=== PATIENT | female | born 1985 | race Caucasian/White ===

== ENCOUNTER 2020-06-13 11:40 | Outpatient (REF) | payer MEDICARE, SELFPAY ==
[2020-06-13 13:33] LABS: Lithium 0.49 mmol/L (0.60-1.20)
[2020-06-13 13:38] LABS: Anion Gap 12 (12-20); Blood Urea Nitrogen 12 mg/dL (9-16); Carbon Dioxide 24 mmol/L (22-29); Chloride 109 mmol/L (96-108); Estimated Glomerular Filt Rate > 60; Glucose Random 96 mg/dL (60-115); Potassium 4.6 mmol/L (3.3-5.1); Sodium 140 mmol/L (135-145)
[2020-06-13 13:59] LABS: Thyroid Stimulating Hormone 2.27 uIU/mL (0.32-4.0)
== END 2020-06-13 11:41 | disposition home or self-care (01) ==
LOC: HO.LABR 11:40
PROVIDERS: PCP Pediatrics; Visit Provider Clinical Nurse Specialist Psychiatric/Mental Health, Adult
DX: Z79.899 Other long term (current) drug therapy (principal)
CPT/HCPCS: 36415; 80048; 80178; 84443

== ENCOUNTER 2021-02-05 09:58 | Outpatient (REF) | payer MEDICARE, SELFPAY ==
[2021-02-05 11:10] LABS: Lithium 0.36 mmol/L (0.60-1.20)
[2021-02-05 11:17] LABS: Anion Gap 11 (12-20); Blood Urea Nitrogen 7 mg/dL (9-16); Calcium 9.1 mg/dL (8.4-10.2); Carbon Dioxide 24 mmol/L (22-29); Chloride 109 mmol/L (96-108); Estimated Glomerular Filt Rate > 60; Glucose Random 102 mg/dL (60-115); Potassium 4.2 mmol/L (3.3-5.1); Sodium 140 mmol/L (135-145)
[2021-02-05 11:40] LABS: Thyroid Stimulating Hormone 1.97 uIU/mL (0.32-4.0)
== END 2021-02-05 09:59 | disposition home or self-care (01) ==
LOC: HO.LABR 09:58
PROVIDERS: Visit Provider Clinical Nurse Specialist Psychiatric/Mental Health, Adult
DX: Z79.899 Other long term (current) drug therapy (principal)
CPT/HCPCS: 36415; 80048; 80178; 84443

== ENCOUNTER 2021-08-10 14:31 | Inpatient (IN) | payer MEDICARE, SELFPAY ==
[2021-08-10 14:45] VITALS: BP 149/100; PULSE 115; RESP 18; TEMP 37.4; O2SAT 95; BMI 40.2
[2021-08-10 15:15] LABS: MANUAL DIFF FLAG NO
[2021-08-10 15:16] LABS: Basophils Percent Auto 0.3 % (0-2); Eosinophils Absolute Auto 0.1 X10*3/uL (0.0-0.4); Eosinophils Percent Auto 0.7 % (0-4); Hematocrit 44.6 % (37.0-47.0); Hemoglobin 15.4 g/dl (12.0-16.0); Imm Gran Abs Auto 0.04 X10*3/uL (0.00-0.03); Imm Gran Pct Auto 0.3 % (0.0-0.4); Lymphocytes Absolute Auto 3.1 X10*3/uL (1.2-4.9); Lymphocytes Percent Auto 24.9 % (20-40); Mean Corpuscular HGB Conc 34.5 g/dl (31.0-35.0); Mean Corpuscular Hemoglobin 28.1 pg (27.0-33.0); Mean Corpuscular Volume 81.4 fL (80.0-98.0); Mean Platelet Volume 10.1 fL (9.4-12.3); Monocytes Absolute Auto 0.7 X10*3/uL (0.1-1.2); Neutrophils Absolute Auto 8.4 x10*3/uL (2.0-8.3); Neutrophils Percent Auto 67.8 % (45-73); Platelet Count 391 X10*3/uL (160-400); Red Blood Count 5.48 X10*6/uL (4.20-5.50); Red Cell Distribution Width 12.2 % (11.0-16.0); White Blood Count 12.4 X10*3/uL (4.8-10.8)
--- NOTE | 2021-08-10 15:21 | ED_ITS ---
HPI - Psych General Chief Complaint: Psychiatric Symptoms Stated Complaint: SECTION 12 BY STALIN S/P CECILLEACADING SELF IN ROOM Time Seen by Provider: 08/10/21 14:37 Source: patient and EMS Mode of arrival: EMS Limitations: no limitations History of Present Illness HPI Narrative: 36 yo female with a history of schizophrenia apparently on lithium here with concern for decompensation. Patient lives in her own apartment and has staff that comes in once weekly to give her her meds (per patient). Per nursing she has kerr orders in place. Today staff did a well check on her. Concerned she is not caring for herself. When they arrived patient barricaded herself in her room refusing to come out. They were able to coax her out of her room and convince her to come here to the emergency department to be evaluated. Patient tells me she is taking her medication, eating and caring for herself. She denies SI/HI/AVH. No substance use reported, No physical complaints. Related Data Home Medications Medication Instructions Recorded Confirmed folic acid 0.8 mg capsule 0.4 mg PO DAILY 08/10/21 08/10/21 lithium carbonate 450 mg 450 mg PO BID 08/10/21 08/10/21 tablet,extended release loratadine 10 mg tablet (Claritin) 10 mg PO DAILY 08/10/21 08/10/21 multivitamin 1 tab PO DAILY 08/10/21 08/10/21 norethindrone (contraceptive) 0.35 0.35 mg PO DAILY 08/10/21 08/10/21 mg tablet olanzapine 10 mg disintegrating 10 mg PO QPM 08/10/21 08/10/21 tablet (Zyprexa Zydis) vitamin B12 0.5 mg-folic acid 1 mg 1 tab PO DAILY 08/10/21 08/10/21 tablet Allergies Allergy/AdvReac Type Severity Reaction Status Date / Time lactose [LACTOSE] Allergy Unknown VOMITS Unverified 12/20/19 16:58 oxycodone [OXYCODONE] Allergy Unknown HIVES, Unverified 12/20/19 16:58 NAUSEA AND VOMITING From PERCOCET Allergy Unknown HIVES, Uncoded 12/20/19 16:58 NAUSEA AND VOMITING SEASONAL ALLERGIES Allergy Unknown STUFFY NOSE Uncoded 12/20/19 16:58 From VICODIN AdvReac Unknown VOMITING Uncoded 12/20/19 16:58 Review of Systems Review of Systems: Yes all other systems are reviewed and are negative Constitutional: Constitutional: Reports no additional constitutional complaints, Denies body ache(s), Denies chills, Denies fever(s), Denies headache(s) and Denies weakness Eyes: Eyes: Reports no additional eye complaints and Denies change in vision ENT: Reports system reviewed and no additional complaints, except as documented, Denies dizziness, Denies headache(s), Denies nasal congestion, Denies nasal discharge and Denies neck pain Cardiovascular: Cardiovascular: Reports no additional cardiovascular complaints, Denies chest pain, Denies leg edema and Denies dyspnea Respiratory: Respiratory: Reports no additional respiratory complaints, Denies cough and Denies dyspnea Gastrointestinal: Gastrointestinal: Reports no additional gastrointestinal complaints, Denies abdominal pain, Denies diarrhea, Denies nausea and Denies vomiting Genitourinary: Genitourinary: Reports no additional female genitourinary complaints and Denies urinary incontinence Musculoskeletal: Musculoskeletal: Reports no additional musculoskeletal complaints, Denies back pain, Denies arthralgias, Denies joint swelling, Denies neck pain, Denies numbness and Denies tingling Integumentary/Breasts: Skin/Breast: Reports system reviewed and no additional complaints, except as docu and Denies rash Neurologic: Reports system reviewed and no additional complaints, except as documented, Denies Abnormal speech present, Denies dizziness, Denies headache (s), Denies numbness, Denies tingling and Denies weakness PMFSH Past Medical History Attestation statement: The following information was validated with the patient. Source: old records reviewed and nursing notes reviewed Social History Social History Advance Directives: No Advance Directives Information Provided: No Patient : No Physical Exam Vital Signs: Vital Signs: Last Vital Signs Temp 99.3 F 08/10/21 14:45 Pulse 115 H 08/10/21 14:45 Resp 18 08/10/21 14:45 BP 149/100 H 08/10/21 14:45 Pulse Ox 95 08/10/21 14:45 BMI result Body Mass Index 40.2 Const: Other: Disheveled, hair is matted General: poor hygiene Orientation/consciousness: patient oriented x3 Limitations: no limitations HEENT: Head: Yes normal to inspection Ears: hearing grossly normal bilaterally General nose exam: Normal external nose present Face and sinus: Yes normal facial exam Mouth: Normal oral and palatal mucosa present Throat: Yes posterior oropharynx normal Eyes: General: appearance normal, both eyes and all related structures Pupils: Equal, round and reactive pupils present Neck: Neck: Yes normal visual inspection Chest: Chest palpation & inspection: normal inspection of the chest Resp: Effort & Inspection: normal respiratory effort Auscultation: clear to auscultation bilaterally Cardio: Rate: regular rate Rhythm: regular rhythm Peripheral pulses: Peripheral pulses 2+ throughout GI: Inspection: Yes normal to inspection Palpation (GI): Soft to palpation and nontender Auscultation: normal bowel sounds Back/Spine/Pelvis: Thoracic/Lumbar Spine: thoracic and lumbar spine normal to inspection Skin: General skin exam: no rashes or lesions noted Neuro: Other: Refusing to make eye contact General: patient oriented x3, no focal motor deficits and normal sensation to monofilament Cranial nerves: Yes CN's II-XII intact bilaterally and Yes Equal, round and reactive pupils present Cognition (Neuro): normal cognition Speech: No Abnormal speech present Gait exam (Neuro): Normal gait present Motor exam (neuro): 5/5 motor strength present throughout Extrem: General: Yes normal to inspection Course Course Course Narrative: 36-year-old female with a history of schizophrenia here on a Section 12 for concerned the patient is not taking care of herself. ?compliance with her medications. Patient has no complaints Check labs, drug screen, COVID screen. Once medically cleared will have crisis evaluate the patient Reevaluation(s) Reevaluation #1: lithium <0.10 ?noncompliance Reevaluation #2: 1700-Francie from Care team saw patient. Plan for inpatient BS. Medications reconciled. Placed in physician observation pending disposition. MDM - Psych Medical Records Attestation: I reviewed the patient's medical records. Lab Data Attestation: I reviewed the patient's lab results. Result diagrams: 08/10/21 15:10 08/10/21 15:10 Labs: Lab Results 08/10/21 08/10/21 08/10/21 Range/Units 15:10 15:10 15:10 WBC 12.4 H (4.8-10.8) X10*3/uL RBC 5.48 (4.20-5.50) X10*6/uL Hgb 15.4 (12.0-16.0) g/dl Hct 44.6 (37.0-47.0) % MCV 81.4 (80.0-98.0) fL MCH 28.1 (27.0-33.0) pg MCHC 34.5 (31.0-35.0) g/dl RDW 12.2 (11.0-16.0) % Plt Count 391 (160-400) X10*3/uL MPV 10.1 (9.4-12.3) fL Immature Gran % (Auto) 0.3 (0.0-0.4) % Neut % (Auto) 67.8 (45-73) % Lymph % (Auto) 24.9 (20-40) % Coles % (Auto) 6.0 (2-11) % Eos % (Auto) 0.7 (0-4) % Baso % (Auto) 0.3 (0-2) % Lymph # (Auto) 3.1 (1.2-4.9) X10*3/uL Coles # (Auto) 0.7 (0.1-1.2) X10*3/uL Eos # (Auto) 0.1 (0.0-0.4) X10*3/uL Baso # (Auto) 0.0 (0.0-0.2) X10*3/uL Abs Immat Gran (auto) 0.04 H (0.00-0.03) X10*3/uL Absolute Neuts (auto) 8.4 H (2.0-8.3) x10*3/uL Absolute Nucleated RBC 0.000 (0.0-0.012) X10*3/uL Nucleated RBC % (auto) 0.0 (0.0-0.2) /100WBC Sodium (135-145) mmol/L Potassium (3.3-5.1) mmol/L Chloride (96-108) mmol/L Carbon Dioxide (22-29) mmol/L Anion Gap (12-20) BUN (9-16) mg/dL Creatinine (0.5-1.4) mg/dL Estim Creat Clear Calc Estimated GFR Random Glucose (60-115) mg/dL Calcium (8.4-10.2) mg/dL Total Bilirubin (0.0-1.0) mg/dL Direct Bilirubin (0.0-0.5) mg/dL AST (5-31) U/L ALT (0-31) U/L Alkaline Phosphatase (39-117) U/L Total Protein (6.5-8.0) g/dL Albumin (3.5-5.0) g/dL Urine Color Urine Appearance Urine pH (5.0-8.0) Ur Specific [place] (1.005-1.025) Urine Protein (NEG-TRACE) MG/DL Urine Glucose (UA) (NEG) MG/DL Urine Ketones (NEG) MG/DL Urine Blood (NEG) Urine Nitrite (NEG) Ur Leukocyte Esterase (NEG) Urine Opiates Screen (Not Detect) Urine Fentanyl Screen (Not Detect) Ur Barbiturates Screen (Not Detect) Ur Phencyclidine Scrn (Not Detect) Ur Amphetamines Screen (Not Detect) U Benzodiazepines Scrn (Not Detect) [place] < 0.10 L (0.60-1.20) mmol/L Urine Cocaine Screen (Not Detect) U Marijuana (THC) Screen (Not Detect) COVID-19 (ANNAMARIE) Negative (Negative) COVID-19 Clin Com See Note 08/10/21 08/10/21 08/10/21 Range/Units 15:10 16:00 16:00 WBC (4.8-10.8) X10*3/uL RBC (4.20-5.50) X10*6/uL Hgb (12.0-16.0) g/dl Hct (37.0-47.0) % MCV (80.0-98.0) fL MCH (27.0-33.0) pg MCHC (31.0-35.0) g/dl RDW (11.0-16.0) % Plt Count (160-400) X10*3/uL MPV (9.4-12.3) fL Immature Gran % (Auto) (0.0-0.4) % Neut % (Auto) (45-73) % Lymph % (Auto) (20-40) % Coles % (Auto) (2-11) % Eos % (Auto) (0-4) % Baso % (Auto) (0-2) % Lymph # (Auto) (1.2-4.9) X10*3/uL Coles # (Auto) (0.1-1.2) X10*3/uL Eos # (Auto) (0.0-0.4) X10*3/uL Baso # (Auto) (0.0-0.2) X10*3/uL Abs Immat Gran (auto) (0.00-0.03) X10*3/uL Absolute Neuts (auto) (2.0-8.3) x10*3/uL Absolute Nucleated RBC (0.0-0.012) X10*3/uL Nucleated RBC % (auto) (0.0-0.2) /100WBC Sodium 136 (135-145) mmol/L Potassium 3.5 (3.3-5.1) mmol/L Chloride 105 (96-108) mmol/L Carbon Dioxide 21 L (22-29) mmol/L Anion Gap 14 (12-20) BUN 7 L (9-16) mg/dL Creatinine 0.76 (0.5-1.4) mg/dL Estim Creat Clear Calc 111.9 Estimated GFR > 60 Random Glucose 152 H (60-115) mg/dL Calcium 9.7 D (8.4-10.2) mg/dL Total Bilirubin 0.3 (0.0-1.0) mg/dL Direct Bilirubin < 0.2 (0.0-0.5) mg/dL AST 8 (5-31) U/L ALT 17 (0-31) U/L Alkaline Phosphatase 94 (39-117) U/L Total Protein 6.9 (6.5-8.0) g/dL Albumin 4.2 (3.5-5.0) g/dL Urine Color YELLOW Urine Appearance CLEAR Urine pH 7.0 (5.0-8.0) Ur Specific [place] <= 1.005 (1.005-1.025) Urine Protein NEG (NEG-TRACE) MG/DL Urine Glucose (UA) NEG (NEG) MG/DL Urine Ketones 15 (NEG) MG/DL Urine Blood NEG (NEG) Urine Nitrite NEG (NEG) Ur Leukocyte Esterase NEG (NEG) Urine Opiates Screen Not Detected (Not Detect) Urine Fentanyl Screen Not Detected (Not Detect) Ur Barbiturates Screen Not Detected (Not Detect) Ur Phencyclidine Scrn Not Detected (Not Detect) Ur Amphetamines Screen Not Detected (Not Detect) U Benzodiazepines Scrn Not Detected (Not Detect) [place] (0.60-1.20) mmol/L Urine Cocaine Screen Not Detected (Not Detect) U Marijuana (THC) Screen Not Detected (Not Detect) COVID-19 (ANNAMARIE) (Negative) COVID-19 Clin Com Discharge Plan Discharge Clinical Impression: Schizophrenia Patient Disposition: Still a Patient Prescriptions: No Action multivitamin Tablet 1 tab PO DAILY 0RF Rx Instructions: one tab po QHS lithium carbonate 450 mg Tablet Extended Release 450 mg PO BID 0RF olanzapine [Zyprexa Zydis] 10 mg Tablet,Disintegrating 10 mg PO QPM 0RF norethindrone (contraceptive) 0.35 mg Tablet 0.35 mg PO DAILY 0RF loratadine [Claritin] 10 mg Tablet 10 mg PO DAILY 0RF Rx Instructions: Take one tab po QHS vitamin [id number] acid 0.5-1 mg Tablet 1 tab PO DAILY 0RF folic acid 0.8 mg Capsule 0.4 mg PO DAILY 0RF Rx Instructions: 1/2 tab of 0.8 mg daily
[2021-08-10 15:33] LABS: Alanine Aminotransferase 17 U/L (0-31); Albumin Level 4.2 g/dL (3.5-5.0); Alkaline Phosphatase 94 U/L (39-117); Anion Gap 14 (12-20); Aspartate Amino Transferase 8 U/L (5-31); Bilirubin Direct < 0.2 mg/dL (0.0-0.5); Bilirubin Total 0.3 mg/dL (0.0-1.0); Blood Urea Nitrogen 7 mg/dL (9-16); Calcium 9.7 mg/dL (8.4-10.2); Carbon Dioxide 21 mmol/L (22-29); Chloride 105 mmol/L (96-108); Creatinine Clr Calc Pharmacy 111.9; Estimated Glomerular Filt Rate > 60; Glucose Random 152 mg/dL (60-115); Potassium 3.5 mmol/L (3.3-5.1); Sodium 136 mmol/L (135-145); Total Protein 6.9 g/dL (6.5-8.0)
[2021-08-10 15:34] LABS: Lithium < 0.10 mmol/L (0.60-1.20)
[2021-08-10 15:38] LABS: COVID-19 Test Negative (Negative); IDNOW Serial# 55D5AD1C
[2021-08-10 16:35] LABS: Appearance Urine CLEAR; Color Urine YELLOW; Glucose Urine UA NEG (NEG); Leukocyte Esterase Urine NEG (NEG); Nitrite Urine NEG (NEG); Specific Gravity - Urine <= 1.005 (1.005-1.025); Urine Blood NEG (NEG); Urine Ketones 15 MG/DL (NEG); Urine Protein NEG (NEG-TRACE)
[2021-08-10 16:49] LABS: Amphetamine Screen Urine Not Detected (Not Detect); Barbiturates, Urine Not Detected (Not Detect); Benzodiazepines Screen Urine Not Detected (Not Detect); Cannabinoid Screen Urine Not Detected (Not Detect); Cocaine Screen Urine Not Detected (Not Detect); Fentanyl, urine Not Detected (Not Detect); Opiate Screen Urine Not Detected (Not Detect); Phencyclidine Screen Urine Not Detected (Not Detect)
[2021-08-10] MEDS: OLANZapine ODT 10 MG TAB.RAPDIS TRANSLINGU (21:15)
[2021-08-10] MEDS: Lithium Carbonate ER 450 MG TABLET.ER PO (21:15)
[2021-08-10 23:55] VITALS: BP 124/86; PULSE 96; RESP 18; TEMP 37.2; O2SAT 96
--- NOTE | 2021-08-11 06:50 | PC.NURSE ---
Patient slept through the night, no distress observed/reported, behavior appropriate and non concerning at this time, medication compliant, VSS, disposition per care team is section 12 inpatient bed search, will continue to monitor.
--- NOTE | 2021-08-11 07:42 | PC.NURSE ---
patient appears to remain asleep at present respirations are even and unlabored patient appears in no distress
[2021-08-11 08:56] VITALS: PULSE 66; RESP 16; O2SAT 98
[2021-08-11] MEDS: Loratadine 10 MG TABLET PO (09:53)
[2021-08-11] MEDS: Lithium Carbonate ER 450 MG TABLET.ER PO ×2 (09:53→20:56)
[2021-08-11] MEDS: Multivitamin TABLET 1 TAB PO (09:53)
--- NOTE | 2021-08-11 15:19 | PC.NURSE ---
Anusha Felipe is admitted to from [facility] on Section 12 for decompensation including noncompliance with prescribed medications ( has a current Oniel's Order), rotting food in apartment and very poor hygiene. When approached by her outreach team she barricaded herself in her room. She was noted responding to internal stimuli while in the pod. Per crisis evaluation patient has become paranoid and physically aggressive when off medications in the past. On admission to Anusha is pleasant but guarded. Her clothing is soiled but she declined offers launder them. Her hair is matted and she has significant body odor but declines offers to shower or for assistance with hair. She denies having a Oniel's Order but we have a copy of a current Oniel's Order. She signed BRAD for insurance but declined to sign all other admission paperwork. Anusha denies perceptual disturbance of any kind. She exhibits thought blocking. Her response to questions is sometimes delayed and she appears distracted by internal stimuli. She denies all medical and psychiatric issues currently or in the past. She denies any history of treatment or hospitalization. She denies ideation, plan or intent to harm self or others. She denies physical complaint. She reports her goal of this hospitalization is to go to work.
--- NOTE | 2021-08-11 19:54 | HO.PSYADMNOT ---
HPI Date of Service: 08/11/21 Chief Complaint: Psychosis Sources of Information: patient interviewed, chart reviewed and crisis/core team assessment reviewed HPI Subjective Notes: Roman Warning and Section 12B Healthcare Proxy: No Guardianship: No Medical Problems Affecting Mental Status: No Narrative: Anusha is a 36 yo female with a history of schizophrenia. She presented to [facility] on 08/10/2021 due to med non-adherence, Li level is <0.10. Pt has a Oniel?s Order, resides in [facility] apartment. Staff did a wellness check on her due to concern that she is not attending to ADLs. Pt refused to come out of her room but was eventually brought to the ED. Pt denied report that she is not taking her meds or caring for herself. However, pt was responding to internal stimuli in the ED pod and has unkempt appearance. Admitted on Section 12B. Per CARE team florian, pt?s [facility] pest control supervisor requested the wellness check due to discovering that pt had not been attending to her ADLs, had rotting food in her apartment, and appeared internally preoccupied. She reports that the company responsible for packaging pt's medications was not delivering the medications for some time. I evaluated the pt this evening and upon interview she reports her medications are ?good.? Says her sleep has been good. Pt says she has been taking her meds. She denies that she has been decompensating, ?I think I was just fine, they have the wrong way of looking at it, maybe there?s something wrong with them. Sometimes other people?s judgment is not true.? Pt says she is showering daily, however appearance is unkempt, hair matted. Says ?I do everything on my own.? Says being brought to the hospital was ?completely out of line? and ?I did nothing wrong.? Mood is ?good,? says she is ?trying to calm down from the whole ordeal.? Denies resisting police. Says ?I just want to go home and relax. Everything is perfectly fine.? Pt declined to speak further and states ?give me some space.? Past Psychiatric History: -Has OP psych provider, Александр Bennett. Denies having therapy, ?I dont need a therapist, I do things on my own.? -Hx of [facility] in 2013 -Has Oniel?s Order, hx of med non-adherence Medical Evaluation Reviewed: Yes [facility] Social History: -Pt resides in [facility] apartment, lives by herself. Staff that comes in once weekly to give her her meds. -Has SSDI, unemployed. Denies having a rep payee. Supports include friends. Substance History: -Remote history of substance use Diagnostics Vital Signs (24Hr): Vital Signs - 24 hr 08/10/21 23:55 08/11/21 08:56 Temperature 99.0 F Pulse Rate 96 66 Respiratory Rate 18 16 Blood Pressure 124/86 Pulse Oximetry 96 98 BMI result Body Mass Index 40.2 Labs Results: 08/10/21 15:10 08/10/21 15:10 Labs: Laboratory Results - last 48 hr 08/10/21 08/10/21 08/10/21 15:10 15:10 15:10 WBC 12.4 H RBC 5.48 Hgb 15.4 Hct 44.6 MCV 81.4 MCH 28.1 MCHC 34.5 RDW 12.2 Plt Count 391 MPV 10.1 Immature Gran % (Auto) 0.3 Neut % (Auto) 67.8 Lymph % (Auto) 24.9 Crane % (Auto) 6.0 Eos % (Auto) 0.7 Baso % (Auto) 0.3 Lymph # (Auto) 3.1 Crane # (Auto) 0.7 Eos # (Auto) 0.1 Baso # (Auto) 0.0 Abs Immat Gran (auto) 0.04 H Absolute Neuts (auto) 8.4 H Absolute Nucleated RBC 0.000 Nucleated RBC % (auto) 0.0 Sodium Potassium Chloride Carbon Dioxide Anion Gap BUN Creatinine Estim Creat Clear Calc Estimated GFR Random Glucose Calcium Total Bilirubin Direct Bilirubin AST ALT Alkaline Phosphatase Total Protein Albumin Urine Color Urine Appearance Urine pH Ur Specific [place] Urine Protein Urine Glucose (UA) Urine Ketones Urine Blood Urine Nitrite Ur Leukocyte Esterase Urine Opiates Screen Urine Fentanyl Screen Ur Barbiturates Screen Ur Phencyclidine Scrn Ur Amphetamines Screen U Benzodiazepines Scrn [place] < 0.10 L Urine Cocaine Screen U Marijuana (THC) Screen COVID-19 (ANNAMARIE) Negative COVID-19 Clin Com See Note 08/10/21 08/10/21 08/10/21 15:10 16:00 16:00 WBC RBC Hgb Hct MCV MCH MCHC RDW Plt Count MPV Immature Gran % (Auto) Neut % (Auto) Lymph % (Auto) Crane % (Auto) Eos % (Auto) Baso % (Auto) Lymph # (Auto) Crane # (Auto) Eos # (Auto) Baso # (Auto) Abs Immat Gran (auto) Absolute Neuts (auto) Absolute Nucleated RBC Nucleated RBC % (auto) Sodium 136 Potassium 3.5 Chloride 105 Carbon Dioxide 21 L Anion Gap 14 BUN 7 L Creatinine 0.76 Estim Creat Clear Calc 111.9 Estimated GFR > 60 Random Glucose 152 H Calcium 9.7 D Total Bilirubin 0.3 Direct Bilirubin < 0.2 AST 8 ALT 17 Alkaline Phosphatase 94 Total Protein 6.9 Albumin 4.2 Urine Color YELLOW Urine Appearance CLEAR Urine pH 7.0 Ur Specific [place] <= 1.005 Urine Protein NEG Urine Glucose (UA) NEG Urine Ketones 15 Urine Blood NEG Urine Nitrite NEG Ur Leukocyte Esterase NEG Urine Opiates Screen Not Detected Urine Fentanyl Screen Not Detected Ur Barbiturates Screen Not Detected Ur Phencyclidine Scrn Not Detected Ur Amphetamines Screen Not Detected U Benzodiazepines Scrn Not Detected [place] Urine Cocaine Screen Not Detected U Marijuana (THC) Screen Not Detected COVID-19 (ANNAMARIE) COVID-19 Clin Com Meds/Allergies Meds Home Medications Acetaminophen (Acetaminophen 325 Mg Tablet) 650 mg PO Q6H PRN PRN Reason: Headache/Pain Mild Scale (1-3) Al Hydroxide/Mg Hydroxide (Magnesium Hydrox/Alum Hydrox 30 Ml Oral.Susp) 30 ml PO Q6H PRN PRN Reason: Heartburn/Nausea Cyanocobalamin (Cyanocobalamin (Vitamin B-12) 500 Mcg Tablet) 500 mcg PO DAILY [facility] Last Admin: 08/12/21 08:29 Dose: 500 mcg Documented by: Folic Acid (Folic Acid 1 Mg Tablet) 1 mg PO DAILY [facility] Last Admin: 08/12/21 08:29 Dose: 1 mg Documented by: Hydroxyzine HCl (Hydroxyzine Hcl 25 Mg Tablet) 25 mg PO BEDTIME PRN PRN Reason: Anxiety [place] Carbonate ([place] Carbonate Er 450 Mg Tablet.Er) 450 mg PO BID [facility] Last Admin: 08/12/21 21:12 Dose: 450 mg Documented by: Loratadine (Loratadine 10 Mg Tablet) 10 mg PO DAILY [facility] Last Admin: 08/12/21 08:28 Dose: 10 mg Documented by: Magnesium Hydroxide (Milk Of Magnesia 30 Ml Oral.Susp) 30 ml PO DAILY PRN PRN Reason: Constipation Multivitamins/Vitamin C (Multivitamin Tablet) 1 tab PO DAILY [facility] Last Admin: 08/12/21 08:29 Dose: 1 tab Documented by: Non-Formulary Medication (Norethindrone (Contraceptive)) 0.35 mg PO DAILY ARRON Olanzapine (Olanzapine Odt 10 Mg Tab.Rapdis) 10 mg TRANSLINGU BEDTIME [facility] Last Admin: 08/12/21 21:12 Dose: 10 mg Documented by: Trazodone HCl (Trazodone Hcl 50 Mg Tablet) 50 mg PO BEDTIME PRN PRN Reason: Insomnia Allergies Allergies Allergy/AdvReac Type Severity Reaction Status Date / Time oxycodone [OXYCODONE] Allergy Unknown HIVES, Unverified 12/20/19 16:58 NAUSEA AND VOMITING From PERCOCET Allergy Unknown HIVES, Uncoded 12/20/19 16:58 NAUSEA AND VOMITING SEASONAL ALLERGIES Allergy Unknown STUFFY NOSE Uncoded 12/20/19 16:58 From VICODIN AdvReac Unknown VOMITING Uncoded 12/20/19 16:58 Mental Status Exam Mental Status Exam Narrative: A&O except to situation. Pt is overweight, in hospital attire, poor hygiene, hair matted. Poor eye contact, inattentive. No Tics or Tremors. No abnormal involuntary movements. Calm, guarded, difficult to engage. Non-pressured speech, non-spontaneous with regular rate and rhythm, normal volume and prosody. No prolonged speech latency or dysarthria. Mood is ?good,? affect is euthymic. Denies SI/SIB/HI upon inquiry. Denies A/VH or delusional thought content, however appears internally preoccupied, responding to internal stimuli in the ED. No known cognitive or memory impairment. Insight/ Judgment limited. Assessment & Plan Assessment & Plan (1) Schizophrenia: Status: Acute Code(s): F20.9 - Schizophrenia, unspecified Plan Anusha is a 36 yo female with a history of schizophrenia. She presented to [facility] on 08/10/2021 due to med non-adherence, Li level is <0.10. Pt has a Oniel?s Order, resides in [facility] apartment. Staff did a wellness check on her due to concern that she is not attending to ADLs. Pt refused to come out of her room but was eventually brought to the ED. Pt denied report that she is not taking her meds or caring for herself. However, pt was responding to internal stimuli in the ED pod and has unkempt appearance. Admitted on Section 12B. Hx of [facility] in 2014. Plan: Pt does not want med changes. Pt recently med adherent and re-started on meds but had already decompensated. Continue assessment and engagement and encourage med adherence. Q15 min safety checks, CV Monitor response to medications. Monitor for safety in the milieu. Discharge on stabilization. Patient seen. Chart reviewed. Discussed with team. Obtain collateral contact info?as needed Patient educated on: therapeutic strategies Reason for continued inpatient stay Substantial Risk for: inability to function, rapid decompensation and med/psych decompensation
[2021-08-11 20:40] VITALS: BP 136/77; PULSE 84; RESP 18; TEMP 36.8; O2SAT 97
[2021-08-11] MEDS: OLANZapine ODT 10 MG TAB.RAPDIS TRANSLINGU (20:56)
[2021-08-12 08:25] VITALS: BP 115/60; PULSE 68; RESP 16; TEMP 36.8; O2SAT 94
[2021-08-12] MEDS: Loratadine 10 MG TABLET PO (08:28)
[2021-08-12] MEDS: Lithium Carbonate ER 450 MG TABLET.ER PO ×2 (08:28→21:12)
[2021-08-12] MEDS: Multivitamin TABLET 1 TAB PO (08:29)
[2021-08-12] MEDS: Folic Acid 1 MG TABLET PO (08:29)
[2021-08-12] MEDS: Cyanocobalamin (Vitamin B-12) 500 MCG TABLET PO (08:29)
--- NOTE | 2021-08-12 13:52 | HO.PSYCHPN ---
Subjective Subjective Date of Service: 08/12/21 Reason For Visit: Psychosis Interim History: pt encountered as she lay in her bed under blanket to neck, facing away from MD. she was either awake or easily rousable. she did not turn to face MD and indicated, once MD had introduced himself and his role, that she did not wish to speak with MD today. per staff, not attending groups. here on a 12b. has orgers order. poor hygiene, secluding self in apartment. malodorous. appeared to be RIS in pod [employer]. taking meds now, wasn't before. pleasant, guarded. denies SI/HI. Mental Status Exam Mental Status Exam Narrative: under covers, left lateral face only part of body observed, from the posterior oblique angle. terse, linear in very brief interaction. no PMA/PMR. not cooperative. constricted affect. unable to assess mood and safety. Diagnostics Vital Signs (24Hr): Vital Signs - 24 hr 08/11/21 20:40 08/12/21 08:25 Temperature 98.3 F 98.2 F Pulse Rate 84 68 Respiratory Rate 18 16 Blood Pressure 136/77 115/60 Pulse Oximetry 97 94 BMI result Body Mass Index 40.2 Labs Results: 08/10/21 15:10 08/10/21 15:10 Labs: Laboratory Results - last 48 hr 08/10/21 08/10/21 08/10/21 15:10 15:10 15:10 WBC 12.4 H RBC 5.48 Hgb 15.4 Hct 44.6 MCV 81.4 MCH 28.1 MCHC 34.5 RDW 12.2 Plt Count 391 MPV 10.1 Immature Gran % (Auto) 0.3 Neut % (Auto) 67.8 Lymph % (Auto) 24.9 [place] % (Auto) 6.0 Eos % (Auto) 0.7 Baso % (Auto) 0.3 Lymph # (Auto) 3.1 [place] # (Auto) 0.7 Eos # (Auto) 0.1 Baso # (Auto) 0.0 Abs Immat Gran (auto) 0.04 H Absolute Neuts (auto) 8.4 H Absolute Nucleated RBC 0.000 Nucleated RBC % (auto) 0.0 Sodium Potassium Chloride Carbon Dioxide Anion Gap BUN Creatinine Estim Creat Clear Calc Estimated GFR Random Glucose Calcium Total Bilirubin Direct Bilirubin AST ALT Alkaline Phosphatase Total Protein Albumin Urine Color Urine Appearance Urine pH Ur Specific [place] Urine Protein Urine Glucose (UA) Urine Ketones Urine Blood Urine Nitrite Ur Leukocyte Esterase Urine Opiates Screen Urine Fentanyl Screen Ur Barbiturates Screen Ur Phencyclidine Scrn Ur Amphetamines Screen U Benzodiazepines Scrn [employer] < 0.10 L Urine Cocaine Screen U Marijuana (THC) Screen COVID-19 (ANNAMARIE) Negative COVID-19 Clin Com See Note 08/10/21 08/10/21 08/10/21 15:10 16:00 16:00 WBC RBC Hgb Hct MCV MCH MCHC RDW Plt Count MPV Immature Gran % (Auto) Neut % (Auto) Lymph % (Auto) [place] % (Auto) Eos % (Auto) Baso % (Auto) Lymph # (Auto) [place] # (Auto) Eos # (Auto) Baso # (Auto) Abs Immat Gran (auto) Absolute Neuts (auto) Absolute Nucleated RBC Nucleated RBC % (auto) Sodium 136 Potassium 3.5 Chloride 105 Carbon Dioxide 21 L Anion Gap 14 BUN 7 L Creatinine 0.76 Estim Creat Clear Calc 111.9 Estimated GFR > 60 Random Glucose 152 H Calcium 9.7 D Total Bilirubin 0.3 Direct Bilirubin < 0.2 AST 8 ALT 17 Alkaline Phosphatase 94 Total Protein 6.9 Albumin 4.2 Urine Color YELLOW Urine Appearance CLEAR Urine pH 7.0 Ur Specific [place] <= 1.005 Urine Protein NEG Urine Glucose (UA) NEG Urine Ketones 15 Urine Blood NEG Urine Nitrite NEG Ur Leukocyte Esterase NEG Urine Opiates Screen Not Detected Urine Fentanyl Screen Not Detected Ur Barbiturates Screen Not Detected Ur Phencyclidine Scrn Not Detected Ur Amphetamines Screen Not Detected U Benzodiazepines Scrn Not Detected [employer] Urine Cocaine Screen Not Detected U Marijuana (THC) Screen Not Detected COVID-19 (ANNAMARIE) COVID-19 Clin Com Medications Medications Current Medications Acetaminophen (Acetaminophen 325 Mg Tablet) 650 mg PO Q6H PRN PRN Reason: Headache/Pain Mild Scale (1-3) Al Hydroxide/Mg Hydroxide (Magnesium Hydrox/Alum Hydrox 30 Ml Oral.Susp) 30 ml PO Q6H PRN PRN Reason: Heartburn/Nausea Cyanocobalamin (Cyanocobalamin (Vitamin B-12) 500 Mcg Tablet) 500 mcg PO DAILY [facility] Last Admin: 08/12/21 08:29 Dose: 500 mcg Documented by: Folic Acid (Folic Acid 1 Mg Tablet) 1 mg PO DAILY [facility] Last Admin: 08/12/21 08:29 Dose: 1 mg Documented by: Hydroxyzine HCl (Hydroxyzine Hcl 25 Mg Tablet) 25 mg PO BEDTIME PRN PRN Reason: Anxiety [employer] Carbonate ([employer] Carbonate Er 450 Mg Tablet.Er) 450 mg PO BID [facility] Last Admin: 08/12/21 08:28 Dose: 450 mg Documented by: Loratadine (Loratadine 10 Mg Tablet) 10 mg PO DAILY [facility] Last Admin: 08/12/21 08:28 Dose: 10 mg Documented by: Magnesium Hydroxide (Milk Of Magnesia 30 Ml Oral.Susp) 30 ml PO DAILY PRN PRN Reason: Constipation Multivitamins/Vitamin C (Multivitamin Tablet) 1 tab PO DAILY [facility] Last Admin: 08/12/21 08:29 Dose: 1 tab Documented by: Non-Formulary Medication (Norethindrone (Contraceptive)) 0.35 mg PO DAILY [facility] Olanzapine (Olanzapine Odt 10 Mg Tab.Rapdis) 10 mg TRANSLINGU BEDTIME [facility] Last Admin: 08/11/21 20:56 Dose: 10 mg Documented by: Trazodone HCl (Trazodone Hcl 50 Mg Tablet) 50 mg PO BEDTIME PRN PRN Reason: Insomnia Allergies Allergies Allergy/AdvReac Type Severity Reaction Status Date / Time oxycodone [OXYCODONE] Allergy Unknown HIVES, Unverified 12/20/19 16:58 NAUSEA AND VOMITING From PERCOCET Allergy Unknown HIVES, Uncoded 12/20/19 16:58 NAUSEA AND VOMITING SEASONAL ALLERGIES Allergy Unknown STUFFY NOSE Uncoded 12/20/19 16:58 From VICODIN AdvReac Unknown VOMITING Uncoded 12/20/19 16:58 Assessment & Plan Assessment & Plan (1) Schizophrenia: Status: Acute Code(s): F20.9 - Schizophrenia, unspecified Plan gravely disabled. admitted, restarted medications. enforce medication administration with maria teresa's order if necessary. file for commitment if pt declines to sign in voluntarily. I spent ___20___ minutes with the patient and/or on the patient floor today, greater than?50% of which was spent counseling/coordinating care. Reason for contiued inpatient stay Substantial Risk for: inability to function and rapid decompensation
[2021-08-12 18:00] VITALS: BP 135/93; PULSE 90; TEMP 36.2; O2SAT 93
[2021-08-12] MEDS: OLANZapine ODT 10 MG TAB.RAPDIS TRANSLINGU (21:12)
[2021-08-13 08:45] VITALS: BP 111/68; PULSE 63; RESP 18; TEMP 36.3; O2SAT 97
[2021-08-13] MEDS: Multivitamin TABLET 1 TAB PO (09:05)
[2021-08-13] MEDS: Loratadine 10 MG TABLET PO (09:05)
[2021-08-13] MEDS: Cyanocobalamin (Vitamin B-12) 500 MCG TABLET PO (09:05)
[2021-08-13] MEDS: Lithium Carbonate ER 450 MG TABLET.ER PO ×2 (09:05→21:52)
[2021-08-13] MEDS: Folic Acid 1 MG TABLET PO (09:05)
--- NOTE | 2021-08-13 12:41 | HO.PSYCHPN ---
Subjective Subjective Date of Service: 08/13/21 Reason For Visit: Psychosis Interim History: pt awake and seated at her desk this morning. comes to interview room with MD. pennington. states she was told she was off her meds bcse her lithium level was low, but she doesn't recall having stopped taking them. she states she just needed to sleep a little bit to recover from being in the pod for a couple days, where she states she was not resting well. she believes she is on the proper medications regimen now and proactively asks that her medications not be changed. she asks to discharge [facility] to get home bcse there's no place like home. MD romo, saying we will need 5 days to see what her lithium level and renal function are, so she will be here through the weekend. she is disappointed by this news. per staff, refusing to shower or perform any personal hygiene. taking meds. guarded. limited responses. denies SI/HI/AVH. asserts she knows not why she is here. endorses anxiety and depression. Mental Status Exam Mental Status Exam Narrative: A&O. Pt is overweight, in hospital attire, poor hygiene, hair matted. fair eye contact, generally attentive. No Tics or Tremors. No abnormal involuntary movements. Calm, guarded. Non-pressured speech, spontaneous with regular rate and rhythm, normal volume and prosody. No prolonged speech latency or dysarthria. affect is constricted, dysphoric. no SI/SIBI/HI/AVH or delusional thought content expressed. No known cognitive or memory impairment. Insight/ Judgment limited. Diagnostics Vital Signs (24Hr): Vital Signs - 24 hr 08/12/21 18:00 08/13/21 08:45 Temperature 97.2 F 97.3 F Pulse Rate 90 63 Respiratory Rate 18 Blood Pressure 135/93 H 111/68 Pulse Oximetry 93 97 BMI result Body Mass Index 40.2 Labs Results: 08/10/21 15:10 08/10/21 15:10 Medications Medications Current Medications Acetaminophen (Acetaminophen 325 Mg Tablet) 650 mg PO Q6H PRN PRN Reason: Headache/Pain Mild Scale (1-3) Al Hydroxide/Mg Hydroxide (Magnesium Hydrox/Alum Hydrox 30 Ml Oral.Susp) 30 ml PO Q6H PRN PRN Reason: Heartburn/Nausea Cyanocobalamin (Cyanocobalamin (Vitamin B-12) 500 Mcg Tablet) 500 mcg PO DAILY [facility] Last Admin: 08/13/21 09:05 Dose: 500 mcg Documented by: Folic Acid (Folic Acid 1 Mg Tablet) 1 mg PO DAILY [facility] Last Admin: 08/13/21 09:05 Dose: 1 mg Documented by: Hydroxyzine HCl (Hydroxyzine Hcl 25 Mg Tablet) 25 mg PO BEDTIME PRN PRN Reason: Anxiety [place] Carbonate ([place] Carbonate Er 450 Mg Tablet.Er) 450 mg PO BID [facility] Last Admin: 08/13/21 09:05 Dose: 450 mg Documented by: Loratadine (Loratadine 10 Mg Tablet) 10 mg PO DAILY [facility] Last Admin: 08/13/21 09:05 Dose: 10 mg Documented by: Magnesium Hydroxide (Milk Of Magnesia 30 Ml Oral.Susp) 30 ml PO DAILY PRN PRN Reason: Constipation Multivitamins/Vitamin C (Multivitamin Tablet) 1 tab PO DAILY [facility] Last Admin: 08/13/21 09:05 Dose: 1 tab Documented by: Non-Formulary Medication (Norethindrone (Contraceptive)) 0.35 mg PO DAILY [facility] Olanzapine (Olanzapine Odt 10 Mg Tab.Rapdis) 10 mg TRANSLINGU BEDTIME [facility] Last Admin: 08/12/21 21:12 Dose: 10 mg Documented by: Trazodone HCl (Trazodone Hcl 50 Mg Tablet) 50 mg PO BEDTIME PRN PRN Reason: Insomnia Allergies Allergies Allergy/AdvReac Type Severity Reaction Status Date / Time oxycodone [OXYCODONE] Allergy Unknown HIVES, Unverified 12/20/19 16:58 NAUSEA AND VOMITING From PERCOCET Allergy Unknown HIVES, Uncoded 12/20/19 16:58 NAUSEA AND VOMITING SEASONAL ALLERGIES Allergy Unknown STUFFY NOSE Uncoded 12/20/19 16:58 From VICODIN AdvReac Unknown VOMITING Uncoded 12/20/19 16:58 Assessment & Plan Assessment & Plan (1) Schizophrenia: Status: Acute Code(s): F20.9 - Schizophrenia, unspecified Plan Anusha is a 36 yo female with a history of schizophrenia. She presented [facility] on 08/10/2021 due to med non-adherence, Li level is <0.10. Pt has a Oniel?s Order, resides in [facility] apartment. Staff did a wellness check on her due to concern that she is not attending to ADLs. Pt refused to come out of her room but was eventually brought to the ED. Pt denied report that she is not taking her meds or caring for herself. However, pt was responding to internal stimuli in the ED pod and has unkempt appearance. Admitted on Section 12B. Hx of IPLOC in 2013. Plan: Pt does not want med changes. Pt recently med adherent and re-started on meds but had already decompensated. Continue assessment and engagement and encourage med adherence. Q15 min safety checks, CV Monitor response to medications. check lithium level in 5 days. Monitor for safety in the milieu. Discharge on stabilization. Patient seen. Chart reviewed. Discussed with team. Obtain collateral contact info?as needed I spent ___25___ minutes with the patient and/or on the patient floor today, greater than?50% of which was spent counseling/coordinating care. Reason for contiued inpatient stay Substantial Risk for: inability to function and rapid decompensation
[2021-08-13 20:03] VITALS: BP 113/63; PULSE 78; RESP 20; TEMP 37; O2SAT 97
[2021-08-13] MEDS: OLANZapine ODT 10 MG TAB.RAPDIS TRANSLINGU (21:52)
[2021-08-14 09:30] VITALS: BP 133/60; PULSE 61; TEMP 36.6; O2SAT 96
[2021-08-14] MEDS: Cyanocobalamin (Vitamin B-12) 500 MCG TABLET PO (10:10)
[2021-08-14] MEDS: Folic Acid 1 MG TABLET PO (10:11)
[2021-08-14] MEDS: Lithium Carbonate ER 450 MG TABLET.ER PO ×2 (10:11→21:47)
[2021-08-14] MEDS: Multivitamin TABLET 1 TAB PO (10:11)
[2021-08-14] MEDS: Loratadine 10 MG TABLET PO (10:11)
--- NOTE | 2021-08-14 14:01 | HO.PSYCHPN ---
Subjective Subjective Date of Service: 08/14/21 Reason For Visit: Psychosis Subjective Notes: Roman Warning Interim History: pt initially found seated at her desk, a cup in front of her and breakfast tray covered. she stated she was finishing breakfast and suggested MD return in an hour. MD later returned and found pt lying in bed, awake. she was largely non-verbal and inert. MD provided roman warning and informed pt we would be filing for commitment today due to her inability to care for herself. she was invited to sign in voluntarily. she acknowledged the information with a barely audible guttural. she had no complaints or requests. per staff, denied depression and anxiety yesterday. isolative, eating in her room. unkempt, disheveled. declined to shower. appears preoccupied. not attending groups. taking medication. sleeping day and night. observed to be laughing to herself. Mental Status Exam Mental Status Exam Narrative: A&O. Pt is overweight, in hospital attire, poor hygiene, hair matted. poor eye contact, generally not engaging. No Tics or Tremors. No abnormal involuntary movements. Calm, guarded. very spare speech, largely guttural communications. affect is constricted, dysphoric. no SI/SIBI/HI/AVH or delusional thought content expressed. No known cognitive or memory impairment. Insight/ Judgment limited. Diagnostics Vital Signs (24Hr): Vital Signs - 24 hr 08/13/21 20:03 08/14/21 09:30 Temperature 98.6 F 97.9 F Pulse Rate 78 61 Respiratory Rate 20 Blood Pressure 113/63 133/60 Pulse Oximetry 97 96 BMI result Body Mass Index 40.2 Labs Results: 08/10/21 15:10 08/10/21 15:10 Medications Medications Current Medications Acetaminophen (Acetaminophen 325 Mg Tablet) 650 mg PO Q6H PRN PRN Reason: Headache/Pain Mild Scale (1-3) Al Hydroxide/Mg Hydroxide (Magnesium Hydrox/Alum Hydrox 30 Ml Oral.Susp) 30 ml PO Q6H PRN PRN Reason: Heartburn/Nausea Cyanocobalamin (Cyanocobalamin (Vitamin B-12) 500 Mcg Tablet) 500 mcg PO DAILY [facility] Last Admin: 08/14/21 10:10 Dose: 500 mcg Documented by: Folic Acid (Folic Acid 1 Mg Tablet) 1 mg PO DAILY [facility] Last Admin: 08/14/21 10:11 Dose: 1 mg Documented by: Hydroxyzine HCl (Hydroxyzine Hcl 25 Mg Tablet) 25 mg PO BEDTIME PRN PRN Reason: Anxiety [place] Carbonate ([place] Carbonate Er 450 Mg Tablet.Er) 450 mg PO BID [facility] Last Admin: 08/14/21 10:11 Dose: 450 mg Documented by: Loratadine (Loratadine 10 Mg Tablet) 10 mg PO DAILY [facility] Last Admin: 08/14/21 10:11 Dose: 10 mg Documented by: Magnesium Hydroxide (Milk Of Magnesia 30 Ml Oral.Susp) 30 ml PO DAILY PRN PRN Reason: Constipation Multivitamins/Vitamin C (Multivitamin Tablet) 1 tab PO DAILY [facility] Last Admin: 08/14/21 10:11 Dose: 1 tab Documented by: Non-Formulary Medication (Norethindrone (Contraceptive)) 0.35 mg PO DAILY [facility] Olanzapine (Olanzapine Odt 10 Mg Tab.Rapdis) 10 mg TRANSLINGU BEDTIME [facility] Last Admin: 08/13/21 21:52 Dose: 10 mg Documented by: Trazodone HCl (Trazodone Hcl 50 Mg Tablet) 50 mg PO BEDTIME PRN PRN Reason: Insomnia Allergies Allergies Allergy/AdvReac Type Severity Reaction Status Date / Time oxycodone [OXYCODONE] Allergy Unknown HIVES, Unverified 12/20/19 16:58 NAUSEA AND VOMITING From PERCOCET Allergy Unknown HIVES, Uncoded 12/20/19 16:58 NAUSEA AND VOMITING SEASONAL ALLERGIES Allergy Unknown STUFFY NOSE Uncoded 12/20/19 16:58 From VICODIN AdvReac Unknown VOMITING Uncoded 12/20/19 16:58 Assessment & Plan Assessment & Plan (1) Schizophrenia: Status: Acute Code(s): F20.9 - Schizophrenia, unspecified Plan Anusha is a 36 yo female with a history of schizophrenia. She presented to [facility] on 08/10/2021 due to med non-adherence, Li level is <0.10. Pt has a Oniel?s Order, resides in [facility] apartment. Staff did a wellness check on her due to concern that she is not attending to ADLs. Pt refused to come out of her room but was eventually brought to the ED. Pt denied report that she is not taking her meds or caring for herself. However, pt was responding to internal stimuli in the ED pod and has unkempt appearance. Admitted on Section 12B. Hx of IPLOC in 2014. Plan: Pt does not want med changes. Pt recently med adherent and re-started on meds but had already decompensated. Continue assessment and engagement and encourage med adherence. pt did not sign in voluntarily and commitment papers were filed 08/14/21. on oniel's order. Monitor response to medications. check lithium level in 5 days. I spent __20____ minutes with the patient and/or on the patient floor today, greater than?50% of which was spent counseling/coordinating care. Reason for contiued inpatient stay Substantial Risk for: harm to self and inability to function
[2021-08-14 21:46] VITALS: BP 145/66; PULSE 78; RESP 16; TEMP 37; O2SAT 95
[2021-08-14] MEDS: OLANZapine ODT 10 MG TAB.RAPDIS TRANSLINGU (21:47)
[2021-08-15 06:00] VITALS: PULSE 88; RESP 18; TEMP 36.7; O2SAT 97
[2021-08-15] MEDS: Cyanocobalamin (Vitamin B-12) 500 MCG TABLET PO (09:22)
[2021-08-15] MEDS: Multivitamin TABLET 1 TAB PO (09:22)
[2021-08-15] MEDS: Lithium Carbonate ER 450 MG TABLET.ER PO ×2 (09:22→20:24)
[2021-08-15] MEDS: Folic Acid 1 MG TABLET PO (09:22)
[2021-08-15] MEDS: Loratadine 10 MG TABLET PO (09:23)
--- NOTE | 2021-08-15 13:24 | HO.PSYCHPN ---
Subjective Subjective Date of Service: 08/15/21 Reason For Visit: Psychosis Interim History: pt found lying in bed in her room, awake. alert and responsive at the start. ultimately closes her eyes and does not respond to MD as he suggests she demonstrate her ability to take care of herself while here, as that is the concern that got her into the hospital. no requests, informed MD everything's fine. per staff, isolative, no performing ADLs. very malodorous such that her roommate requested transfer, which was granted, and her odor is detectable in the hallway outside her room. denying psych Sx. slept well, taking medication. Mental Status Exam Mental Status Exam Narrative: A&O. Pt is overweight, in hospital attire, poor hygiene, hair matted. poor eye contact, generally not engaging. No Tics or Tremors. No abnormal involuntary movements. Calm, guarded. very spare speech. affect is constricted. no SI/SIBI/HI/AVH or delusional thought content expressed. No known cognitive or memory impairment. Insight/ Judgment limited. Diagnostics Vital Signs (24Hr): Vital Signs - 24 hr 08/14/21 21:46 08/15/21 06:00 Temperature 98.6 F 98.1 F Pulse Rate 78 88 Respiratory Rate 16 18 Blood Pressure 145/66 H Pulse Oximetry 95 97 BMI result Body Mass Index 40.2 Labs Results: 08/10/21 15:10 08/10/21 15:10 Medications Medications Current Medications Acetaminophen (Acetaminophen 325 Mg Tablet) 650 mg PO Q6H PRN PRN Reason: Headache/Pain Mild Scale (1-3) Al Hydroxide/Mg Hydroxide (Magnesium Hydrox/Alum Hydrox 30 Ml Oral.Susp) 30 ml PO Q6H PRN PRN Reason: Heartburn/Nausea Cyanocobalamin (Cyanocobalamin (Vitamin B-12) 500 Mcg Tablet) 500 mcg PO DAILY [facility] Last Admin: 08/15/21 09:22 Dose: 500 mcg Documented by: Folic Acid (Folic Acid 1 Mg Tablet) 1 mg PO DAILY [facility] Last Admin: 08/15/21 09:22 Dose: 1 mg Documented by: Hydroxyzine HCl (Hydroxyzine Hcl 25 Mg Tablet) 25 mg PO BEDTIME PRN PRN Reason: Anxiety [place] Carbonate ([place] Carbonate Er 450 Mg Tablet.Er) 450 mg PO BID [facility] Last Admin: 08/15/21 09:22 Dose: 450 mg Documented by: Loratadine (Loratadine 10 Mg Tablet) 10 mg PO DAILY [facility] Last Admin: 08/15/21 09:23 Dose: 10 mg Documented by: Magnesium Hydroxide (Milk Of Magnesia 30 Ml Oral.Susp) 30 ml PO DAILY PRN PRN Reason: Constipation Multivitamins/Vitamin C (Multivitamin Tablet) 1 tab PO DAILY [facility] Last Admin: 08/15/21 09:22 Dose: 1 tab Documented by: Non-Formulary Medication (Norethindrone (Contraceptive)) 0.35 mg PO DAILY [facility] Olanzapine (Olanzapine Odt 10 Mg Tab.Rapdis) 10 mg TRANSLINGU BEDTIME [facility] Last Admin: 08/14/21 21:47 Dose: 10 mg Documented by: Trazodone HCl (Trazodone Hcl 50 Mg Tablet) 50 mg PO BEDTIME PRN PRN Reason: Insomnia Allergies Allergies Allergy/AdvReac Type Severity Reaction Status Date / Time oxycodone [OXYCODONE] Allergy Unknown HIVES, Unverified 12/20/19 16:58 NAUSEA AND VOMITING From PERCOCET Allergy Unknown HIVES, Uncoded 12/20/19 16:58 NAUSEA AND VOMITING SEASONAL ALLERGIES Allergy Unknown STUFFY NOSE Uncoded 12/20/19 16:58 From VICODIN AdvReac Unknown VOMITING Uncoded 12/20/19 16:58 Assessment & Plan Assessment & Plan (1) Schizophrenia: Status: Acute Code(s): F20.9 - Schizophrenia, unspecified Plan Anusha is a 36 yo female with a history of schizophrenia. She presented to [facility] ED on 08/10/2021 due to med non-adherence, Li level is <0.10. Pt has a Oniel?s Order, resides in [facility] apartment. Staff did a wellness check on her due to concern that she is not attending to ADLs. Pt refused to come out of her room but was eventually brought to the ED. Pt denied report that she is not taking her meds or caring for herself. However, pt was responding to internal stimuli in the ED pod and has unkempt appearance. Admitted on Section 12B. Hx of [facility] in 2013. Plan: Pt does not want med changes. Pt recently med adherent and re-started on meds but had already decompensated. Continue assessment and engagement and encourage med adherence. pt did not sign in voluntarily and commitment papers were filed 08/14/21. on oniel's order. taking meds as prescribed. check lithium level in 5 days. I spent ___20___ minutes with the patient and/or on the patient floor today, greater than?50% of which was spent counseling/coordinating care. Reason for contiued inpatient stay Substantial Risk for: inability to function and rapid decompensation
[2021-08-15 20:22] VITALS: BP 125/65; PULSE 91; RESP 18; TEMP 36.8; O2SAT 96
[2021-08-15] MEDS: OLANZapine ODT 10 MG TAB.RAPDIS TRANSLINGU (20:24)
[2021-08-16] MEDS: Multivitamin TABLET 1 TAB PO (09:33)
[2021-08-16] MEDS: Folic Acid 1 MG TABLET PO (09:33)
[2021-08-16] MEDS: Cyanocobalamin (Vitamin B-12) 500 MCG TABLET PO (09:33)
[2021-08-16] MEDS: Lithium Carbonate ER 450 MG TABLET.ER PO ×2 (09:33→20:51)
[2021-08-16] MEDS: Loratadine 10 MG TABLET PO (09:33)
[2021-08-16 09:52] VITALS: BP 123/66; PULSE 67; RESP 20; TEMP 36.3; O2SAT 96
--- NOTE | 2021-08-16 13:12 | HO.PSYCHPN ---
Subjective Subjective Date of Service: 08/16/21 Reason For Visit: Psychosis Interim History: pt found lying in bed, awake, as per usual. not very verbal, states everything is fine. not forthcoming or spontaneous. little engagement. still not performing ablutions, very malodorous. per staff, not showering. eating and sleeping well, taking meds. Mental Status Exam Mental Status Exam Narrative: A&O. Pt is overweight, in hospital attire, poor hygiene, hair matted. fair eye contact, generally not engaging. No Tics or Tremors. No abnormal involuntary movements. Calm, guarded. very spare speech. affect is constricted. no SI/SIBI/HI/AVH or delusional thought content expressed. No known cognitive or memory impairment. Insight/ Judgment limited. Diagnostics Vital Signs (24Hr): Vital Signs - 24 hr 08/15/21 20:22 08/16/21 09:52 Temperature 98.3 F 97.4 F Pulse Rate 91 67 Respiratory Rate 18 20 Blood Pressure 125/65 123/66 Pulse Oximetry 96 96 BMI result Body Mass Index 40.2 Labs Results: 08/10/21 15:10 08/10/21 15:10 Medications Medications Current Medications Acetaminophen (Acetaminophen 325 Mg Tablet) 650 mg PO Q6H PRN PRN Reason: Headache/Pain Mild Scale (1-3) Al Hydroxide/Mg Hydroxide (Magnesium Hydrox/Alum Hydrox 30 Ml Oral.Susp) 30 ml PO Q6H PRN PRN Reason: Heartburn/Nausea Cyanocobalamin (Cyanocobalamin (Vitamin B-12) 500 Mcg Tablet) 500 mcg PO DAILY [facility] Last Admin: 08/16/21 09:33 Dose: 500 mcg Documented by: Folic Acid (Folic Acid 1 Mg Tablet) 1 mg PO DAILY [facility] Last Admin: 08/16/21 09:33 Dose: 1 mg Documented by: Hydroxyzine HCl (Hydroxyzine Hcl 25 Mg Tablet) 25 mg PO BEDTIME PRN PRN Reason: Anxiety [place] Carbonate ([place] Carbonate Er 450 Mg Tablet.Er) 450 mg PO BID [facility] Last Admin: 08/16/21 09:33 Dose: 450 mg Documented by: Loratadine (Loratadine 10 Mg Tablet) 10 mg PO DAILY [facility] Last Admin: 08/16/21 09:33 Dose: 10 mg Documented by: Magnesium Hydroxide (Milk Of Magnesia 30 Ml Oral.Susp) 30 ml PO DAILY PRN PRN Reason: Constipation Multivitamins/Vitamin C (Multivitamin Tablet) 1 tab PO DAILY [facility] Last Admin: 08/16/21 09:33 Dose: 1 tab Documented by: Olanzapine (Olanzapine Odt 10 Mg Tab.Rapdis) 10 mg TRANSLINGU BEDTIME [facility] Last Admin: 08/15/21 20:24 Dose: 10 mg Documented by: Trazodone HCl (Trazodone Hcl 50 Mg Tablet) 50 mg PO BEDTIME PRN PRN Reason: Insomnia Allergies Allergies Allergy/AdvReac Type Severity Reaction Status Date / Time oxycodone [OXYCODONE] Allergy Unknown HIVES, Unverified 12/20/19 16:58 NAUSEA AND VOMITING From PERCOCET Allergy Unknown HIVES, Uncoded 12/20/19 16:58 NAUSEA AND VOMITING SEASONAL ALLERGIES Allergy Unknown STUFFY NOSE Uncoded 12/20/19 16:58 From VICODIN AdvReac Unknown VOMITING Uncoded 12/20/19 16:58 Assessment & Plan Assessment & Plan (1) Schizophrenia: Status: Acute Code(s): F20.9 - Schizophrenia, unspecified Plan Anusha is a 36 yo female with a history of schizophrenia. She presented to [facility] ED on 08/10/2021 due to med non-adherence, Li level is <0.10. Pt has a Oniel?s Order, resides in [facility] apartment. Staff did a wellness check on her due to concern that she is not attending to ADLs. Pt refused to come out of her room but was eventually brought to the ED. Pt denied report that she is not taking her meds or caring for herself. However, pt was responding to internal stimuli in the ED pod and has unkempt appearance. Admitted on Section 12B. [facility]. Plan: Pt does not want med changes. Pt recently med adherent and re-started on meds but had already decompensated. Continue assessment and engagement and encourage med adherence. pt did not sign in voluntarily and commitment papers were filed 08/14/21. on oniel's order. taking meds as prescribed. check lithium level in 5 days. I spent __20____ minutes with the patient and/or on the patient floor today, greater than?50% of which was spent counseling/coordinating care. Reason for contiued inpatient stay Substantial Risk for: inability to function and rapid decompensation
[2021-08-16 20:50] VITALS: BP 106/52; PULSE 75; RESP 18; TEMP 36.6; O2SAT 95
[2021-08-16] MEDS: OLANZapine ODT 10 MG TAB.RAPDIS TRANSLINGU (20:51)
[2021-08-17 08:36] LABS: Lithium 0.31 mmol/L (0.60-1.20)
[2021-08-17 08:51] LABS: Estimated Average Glucose 111 mg/dL; Hemoglobin A1c % 5.5 %
[2021-08-17 08:52] LABS: Alanine Aminotransferase 34 U/L (0-31); Albumin Level 3.6 g/dL (3.5-5.0); Alkaline Phosphatase 66 U/L (39-117); Anion Gap 11 (12-20); Aspartate Amino Transferase 11 U/L (5-31); Bilirubin Direct < 0.2 mg/dL (0.0-0.5); Bilirubin Total 0.2 mg/dL (0.0-1.0); Blood Urea Nitrogen 14 mg/dL (9-16); Calcium 8.9 mg/dL (8.4-10.2); Carbon Dioxide 22 mmol/L (22-29); Chloride 109 mmol/L (96-108); Cholesterol 179 mg/dL; Creatinine Clr Calc Pharmacy 125.1; Estimated Glomerular Filt Rate > 60; Glucose Random 132 mg/dL (60-115); HDL Cholesterol 39 mg/dL; LDL Cholesterol Calculated 102 mg/dl; Potassium 4.6 mmol/L (3.3-5.1); Sodium 137 mmol/L (135-145); Total Protein 5.7 g/dL (6.5-8.0); Triglycerides 191 mg/dL
[2021-08-17] MEDS: Multivitamin TABLET 1 TAB PO (10:10)
[2021-08-17] MEDS: Folic Acid 1 MG TABLET PO (10:11)
[2021-08-17] MEDS: Lithium Carbonate ER 450 MG TABLET.ER PO ×2 (10:11→21:05)
[2021-08-17] MEDS: Cyanocobalamin (Vitamin B-12) 500 MCG TABLET PO (10:11)
[2021-08-17] MEDS: Loratadine 10 MG TABLET PO (10:11)
--- NOTE | 2021-08-17 11:29 | HO.PSYCHPN ---
Subjective Subjective Date of Service: 08/17/21 Reason For Visit: Psychosis Subjective Notes: Conditional Voluntary Interim History: Pt in bed. She reports doing well. She reports sleeping and eating well. She reports she takes medications for schizophrenia. When asked if she has noticed any improvement, pt reports she is fine. She denies VH/AH, although appears internally preoccupied. She turned her head to the side, avoiding talking any longer with this repairer typewriter. She denies SI/hi. Per nursing, continues to present unable to care for herself, poor hygiene, malodorous. No behavioral concerns in terms of aggression. Medication Compliance: Yes Side effects from medications: No Attending Groups: No Review of Systems Review of Systems CVS: No c/o chest pain, palpitations, no SOB SYSTEMS ACCOUNTANT: No c/o dizziness, headache GI: No c/o Nausea, Vomiting, diarrhea, constipation or heartburn Yes all other systems are reviewed and are negative Constitutional: Reports no additional constitutional complaints, Denies body ache(s), Denies chills, Denies fever(s), Denies headache(s) and Denies weakness Eyes: Reports no additional eye complaints and Denies change in vision Reports system reviewed and no additional complaints, except as documented, Denies dizziness, Denies headache(s), Denies nasal congestion, Denies nasal discharge and Denies neck pain Cardiovascular: Reports no additional cardiovascular complaints, Denies chest pain, Denies leg edema and Denies dyspnea Respiratory: Reports no additional respiratory complaints, Denies cough and Denies dyspnea Gastrointestinal: Reports no additional gastrointestinal complaints, Denies abdominal pain, Denies diarrhea, Denies nausea and Denies vomiting Musculoskeletal: Reports no additional musculoskeletal complaints, Denies back pain, Denies arthralgias, Denies joint swelling, Denies neck pain, Denies numbness and Denies tingling Skin/Breast: Reports system reviewed and no additional complaints, except as docu and Denies rash Reports system reviewed and no additional complaints, except as documented, Denies Abnormal speech present, Denies dizziness, Denies headache(s), Denies numbness, Denies tingling and Denies weakness Mental Status Exam Mental Status Exam Narrative: A&O. Pt is overweight, in hospital attire, poor hygiene, hair matted. fair eye contact, generally not engaging. No Tics or Tremors. No abnormal involuntary movements. Calm, guarded. very spare speech. affect is constricted. no SI/SIBI/HI/AVH or delusional thought content expressed. No known cognitive or memory impairment. Insight/ Judgment limited. Diagnostics Vital Signs (24Hr): Vital Signs - 24 hr 08/16/21 20:50 Temperature 97.8 F Pulse Rate 75 Respiratory Rate 18 Blood Pressure 106/52 L Pulse Oximetry 95 BMI result Body Mass Index 40.2 Labs Results: 08/10/21 15:10 08/17/21 08:13 Labs: Laboratory Results - last 48 hr 08/17/21 08/17/21 08/17/21 08:13 08:13 08:13 Sodium 137 Potassium 4.6 D Chloride 109 H Carbon Dioxide 22 Anion Gap 11 L BUN 14 D Creatinine 0.68 Estim Creat Clear Calc 125.1 Estimated GFR > 60 Random Glucose 132 H Estimat Average Glucose 111 Hemoglobin A1c % 5.5 Calcium 8.9 D Total Bilirubin 0.2 Direct Bilirubin < 0.2 AST 11 ALT 34 H Alkaline Phosphatase 66 D Total Protein 5.7 L Albumin 3.6 Triglycerides 191 Cholesterol 179 LDL Cholesterol, Calc 102 HDL Cholesterol 39 [place] 0.31 L Medications Medications Current Medications Acetaminophen (Acetaminophen 325 Mg Tablet) 650 mg PO Q6H PRN PRN Reason: Headache/Pain Mild Scale (1-3) Al Hydroxide/Mg Hydroxide (Magnesium Hydrox/Alum Hydrox 30 Ml Oral.Susp) 30 ml PO Q6H PRN PRN Reason: Heartburn/Nausea Cyanocobalamin (Cyanocobalamin (Vitamin B-12) 500 Mcg Tablet) 500 mcg PO DAILY [facility] Last Admin: 08/17/21 10:11 Dose: 500 mcg Documented by: Folic Acid (Folic Acid 1 Mg Tablet) 1 mg PO DAILY [facility] Last Admin: 08/17/21 10:11 Dose: 1 mg Documented by: Hydroxyzine HCl (Hydroxyzine Hcl 25 Mg Tablet) 25 mg PO BEDTIME PRN PRN Reason: Anxiety [place] Carbonate ([place] Carbonate Er 450 Mg Tablet.Er) 450 mg PO BID [facility] Last Admin: 08/17/21 10:11 Dose: 450 mg Documented by: Loratadine (Loratadine 10 Mg Tablet) 10 mg PO DAILY [facility] Last Admin: 08/17/21 10:11 Dose: 10 mg Documented by: Magnesium Hydroxide (Milk Of Magnesia 30 Ml Oral.Susp) 30 ml PO DAILY PRN PRN Reason: Constipation Multivitamins/Vitamin C (Multivitamin Tablet) 1 tab PO DAILY [facility] Last Admin: 08/17/21 10:10 Dose: 1 tab Documented by: Olanzapine (Olanzapine Odt 10 Mg Tab.Rapdis) 10 mg TRANSLINGU BEDTIME [facility] Last Admin: 08/16/21 20:51 Dose: 10 mg Documented by: Trazodone HCl (Trazodone Hcl 50 Mg Tablet) 50 mg PO BEDTIME PRN PRN Reason: Insomnia Allergies Allergies Allergy/AdvReac Type Severity Reaction Status Date / Time oxycodone [OXYCODONE] Allergy Unknown HIVES, Unverified 12/20/19 16:58 NAUSEA AND VOMITING From PERCOCET Allergy Unknown HIVES, Uncoded 12/20/19 16:58 NAUSEA AND VOMITING SEASONAL ALLERGIES Allergy Unknown STUFFY NOSE Uncoded 12/20/19 16:58 From VICODIN AdvReac Unknown VOMITING Uncoded 12/20/19 16:58 Assessment & Plan Assessment & Plan (1) Schizophrenia: Status: Acute Code(s): F20.9 - Schizophrenia, unspecified Plan Anusha is a 36 yo female with a history of schizophrenia. She presented to [facility] ED on 08/10/2021 due to med non-adherence, Li level is <0.10. Pt has a Oniel?s Order, resides in [facility] apartment. Staff did a wellness check on her due to concern that she is not attending to ADLs. Pt refused to come out of her room but was eventually brought to the ED. Pt denied report that she is not taking her meds or caring for herself. However, pt was responding to internal stimuli in the ED pod and has unkempt appearance. Admitted on Section 12B. [facility]. Plan: Pt does not want med changes. Pt recently med adherent and re-started on meds but had already decompensated. Continue assessment and engagement and encourage med adherence. pt did not sign in voluntarily and commitment papers were filed 08/14/21. on oniel's order. taking meds as prescribed. check lithium level in 5 days. 08/17 continue current medications. I spent ____25__ minutes with the patient and/or on the patient floor today, greater than?50% of which was spent counseling/coordinating care. Reason for contiued inpatient stay Substantial Risk for: inability to function
[2021-08-17] MEDS: OLANZapine ODT 10 MG TAB.RAPDIS TRANSLINGU (21:05)
[2021-08-17 21:10] VITALS: BP 110/54; PULSE 69; RESP 18; TEMP 36.6; O2SAT 96
--- NOTE | 2021-08-18 08:37 | P.PNPSI_ITS ---
Subjective Subjective Date of Service: 08/18/21 Reason For Visit: Psychosis Subjective Notes: Section 7 Interim History: Pt continues mostly in bed. She does turn around to speak briefly with this policy writer typist. She continues to report medication work well. Again, reports she takes medications for schizophrenia. When asked to identify in what way meds help her, she denies SI/HI, VH/AH. Continues to decline self care including showering, changing clothes, malodorous. No aggression. Per nursing, pt mostly in bed, last evening did interact with peer. Medication Compliance: Yes Side effects from medications: No Attending Groups: No Review of Systems Review of Systems CVS: No c/o chest pain, palpitations, no SOB FOREIGN SERVICE OFFICER: No c/o dizziness, headache GI: No c/o Nausea, Vomiting, diarrhea, constipation or heartburn Yes all other systems are reviewed and are negative Constitutional: Reports no additional constitutional complaints, Denies body ache(s), Denies chills, Denies fever(s), Denies headache(s) and Denies weakness Eyes: Reports no additional eye complaints and Denies change in vision Reports system reviewed and no additional complaints, except as documented, Denies dizziness, Denies headache(s), Denies nasal congestion, Denies nasal discharge and Denies neck pain Cardiovascular: Reports no additional cardiovascular complaints, Denies chest pain, Denies leg edema and Denies dyspnea Respiratory: Reports no additional respiratory complaints, Denies cough and Denies dyspnea Gastrointestinal: Reports no additional gastrointestinal complaints, Denies abdominal pain, Denies diarrhea, Denies nausea and Denies vomiting Musculoskeletal: Reports no additional musculoskeletal complaints, Denies back pain, Denies arthralgias, Denies joint swelling, Denies neck pain, Denies numbness and Denies tingling Skin/Breast: Reports system reviewed and no additional complaints, except as docu and Denies rash Reports system reviewed and no additional complaints, except as documented, Denies Abnormal speech present, Denies dizziness, Denies headache(s), Denies numbness, Denies tingling and Denies weakness Mental Status Exam Mental Status Exam Narrative: A&O. Pt is overweight, in hospital attire, poor hygiene, hair matted. fair eye contact, generally not engaging. No Tics or Tremors. No abnormal involuntary movements. Calm, guarded. very spare speech. affect is constricted. no SI/SIBI/HI/AVH or delusional thought content expressed. No known cognitive or memory impairment. Insight/ Judgment limited. Diagnostics Vital Signs (24Hr): Vital Signs - 24 hr 08/17/21 21:10 08/18/21 09:51 Temperature 97.8 F 98.3 F Pulse Rate 69 68 Respiratory Rate 18 Blood Pressure 110/54 L 127/55 L Pulse Oximetry 96 98 BMI result Body Mass Index 40.2 Labs Results: 08/10/21 15:10 08/17/21 08:13 Labs: Laboratory Results - last 48 hr 08/17/21 08/17/21 08/17/21 08:13 08:13 08:13 Sodium 137 Potassium 4.6 D Chloride 109 H Carbon Dioxide 22 Anion Gap 11 L BUN 14 D Creatinine 0.68 Estim Creat Clear Calc 125.1 Estimated GFR > 60 Random Glucose 132 H Estimat Average Glucose 111 Hemoglobin A1c % 5.5 Calcium 8.9 D Total Bilirubin 0.2 Direct Bilirubin < 0.2 AST 11 ALT 34 H Alkaline Phosphatase 66 D Total Protein 5.7 L Albumin 3.6 Triglycerides 191 Cholesterol 179 LDL Cholesterol, Calc 102 HDL Cholesterol 39 [place] 0.31 L Medications Medications Current Medications Acetaminophen (Acetaminophen 325 Mg Tablet) 650 mg PO Q6H PRN PRN Reason: Headache/Pain Mild Scale (1-3) Al Hydroxide/Mg Hydroxide (Magnesium Hydrox/Alum Hydrox 30 Ml Oral.Susp) 30 ml PO Q6H PRN PRN Reason: Heartburn/Nausea Cyanocobalamin (Cyanocobalamin (Vitamin B-12) 500 Mcg Tablet) 500 mcg PO DAILY [facility] Last Admin: 08/18/21 10:23 Dose: 500 mcg Documented by: Folic Acid (Folic Acid 1 Mg Tablet) 1 mg PO DAILY [facility] Last Admin: 08/18/21 10:23 Dose: 1 mg Documented by: Hydroxyzine HCl (Hydroxyzine Hcl 25 Mg Tablet) 25 mg PO BEDTIME PRN PRN Reason: Anxiety [place] Carbonate ([place] Carbonate Er 450 Mg Tablet.Er) 450 mg PO BID [facility] Last Admin: 08/18/21 10:23 Dose: 450 mg Documented by: Loratadine (Loratadine 10 Mg Tablet) 10 mg PO DAILY [facility] Last Admin: 08/18/21 10:24 Dose: 10 mg Documented by: Magnesium Hydroxide (Milk Of Magnesia 30 Ml Oral.Susp) 30 ml PO DAILY PRN PRN Reason: Constipation Multivitamins/Vitamin C (Multivitamin Tablet) 1 tab PO DAILY [facility] Last Admin: 08/18/21 10:23 Dose: 1 tab Documented by: Olanzapine (Olanzapine Odt 10 Mg Tab.Rapdis) 10 mg TRANSLINGU BEDTIME [facility] Last Admin: 08/17/21 21:05 Dose: 10 mg Documented by: Trazodone HCl (Trazodone Hcl 50 Mg Tablet) 50 mg PO BEDTIME PRN PRN Reason: Insomnia Allergies Allergies Allergy/AdvReac Type Severity Reaction Status Date / Time oxycodone [OXYCODONE] Allergy Unknown HIVES, Unverified 12/20/19 16:58 NAUSEA AND VOMITING From PERCOCET Allergy Unknown HIVES, Uncoded 12/20/19 16:58 NAUSEA AND VOMITING SEASONAL ALLERGIES Allergy Unknown STUFFY NOSE Uncoded 12/20/19 16:58 From VICODIN AdvReac Unknown VOMITING Uncoded 12/20/19 16:58 Assessment & Plan Assessment & Plan (1) Schizophrenia: Status: Acute Code(s): F20.9 - Schizophrenia, unspecified Plan Anusha is a 36 yo female with a history of schizophrenia. She presented to [facility] ED on 08/10/2021 due to med non-adherence, Li level is <0.10. Pt has a Oniel?s Order, resides in [facility] apartment. Staff did a wellness check on her due to concern that she is not attending to ADLs. Pt refused to come out of her room but was eventually brought to the ED. Pt denied report that she is not taking her meds or caring for herself. However, pt was responding to internal stimuli in the ED pod and has unkempt appearance. Admitted on Section 12B. [facility] Plan: Pt does not want med changes. Pt recently med adherent and re-started on meds but had already decompensated. Continue assessment and engagement and encourage med adherence. pt did not sign in voluntarily and commitment papers were filed 08/14/21. on oniel's order. taking meds as prescribed. check lithium level in 5 days. 08/17 continue current medications. 08/18 continue current medications. I spent 25__ minutes with the patient and/or on the patient floor today, greater than?50% of which was spent counseling/coordinating care. Reason for contiued inpatient stay Substantial Risk for: inability to function
[2021-08-18 09:51] VITALS: BP 127/55; PULSE 68; TEMP 36.8; O2SAT 98
[2021-08-18] MEDS: Folic Acid 1 MG TABLET PO (10:23)
[2021-08-18] MEDS: Lithium Carbonate ER 450 MG TABLET.ER PO ×2 (10:23→21:17)
[2021-08-18] MEDS: Cyanocobalamin (Vitamin B-12) 500 MCG TABLET PO (10:23)
[2021-08-18] MEDS: Multivitamin TABLET 1 TAB PO (10:23)
[2021-08-18] MEDS: Loratadine 10 MG TABLET PO (10:24)
[2021-08-18 21:15] VITALS: BP 130/59; PULSE 76; RESP 16; TEMP 37.1; O2SAT 94
[2021-08-18] MEDS: OLANZapine ODT 10 MG TAB.RAPDIS TRANSLINGU (21:17)
[2021-08-19] MEDS: Cyanocobalamin (Vitamin B-12) 500 MCG TABLET PO (09:18)
[2021-08-19] MEDS: Lithium Carbonate ER 450 MG TABLET.ER PO (09:18)
[2021-08-19] MEDS: Loratadine 10 MG TABLET PO (09:18)
[2021-08-19] MEDS: Folic Acid 1 MG TABLET PO (09:18)
[2021-08-19] MEDS: Multivitamin TABLET 1 TAB PO (09:18)
[2021-08-19 09:21] VITALS: BP 108/54; PULSE 76; RESP 17; TEMP 36.8; O2SAT 95
--- NOTE | 2021-08-19 13:14 | HO.PSYCHPN ---
Subjective Subjective Date of Service: 08/19/21 Reason For Visit: Psychosis Interim History: pt found sleeping soundly in her room late morning. rousable to loud voice. relatively terse and inert. denies any problems. informed of low lithium level and need to increase dosing. encouraged to attend to ADLs. states she feels more relaxed since admission. no other complaints or requests. per staff, met with handbag operator yesterday. not showering. pleasant. med and meal compliant. slept well. played monica. lithium level 0.31. Mental Status Exam Mental Status Exam Narrative: A&O. Pt is overweight, in hospital attire, poor hygiene, hair matted. poor eye contact, generally not engaging. No Tics or Tremors. No abnormal involuntary movements. Calm, guarded. very spare speech. affect is constricted. reports she is feeling more relaxed since admission. no SI/SIBI/HI/AVH or delusional thought content expressed. No known cognitive or memory impairment. Insight/ Judgment limited. Diagnostics Vital Signs (24Hr): Vital Signs - 24 hr 08/18/21 21:15 08/19/21 09:21 Temperature 98.7 F 98.3 F Pulse Rate 76 76 Respiratory Rate 16 17 Blood Pressure 130/59 L 108/54 L Pulse Oximetry 94 95 BMI result Body Mass Index 40.2 Labs Results: 08/10/21 15:10 08/17/21 08:13 Medications Medications Current Medications Acetaminophen (Acetaminophen 325 Mg Tablet) 650 mg PO Q6H PRN PRN Reason: Headache/Pain Mild Scale (1-3) Al Hydroxide/Mg Hydroxide (Magnesium Hydrox/Alum Hydrox 30 Ml Oral.Susp) 30 ml PO Q6H PRN PRN Reason: Heartburn/Nausea Cyanocobalamin (Cyanocobalamin (Vitamin B-12) 500 Mcg Tablet) 500 mcg PO DAILY [facility] Last Admin: 08/19/21 09:18 Dose: 500 mcg Documented by: Folic Acid (Folic Acid 1 Mg Tablet) 1 mg PO DAILY [facility] Last Admin: 08/19/21 09:18 Dose: 1 mg Documented by: Hydroxyzine HCl (Hydroxyzine Hcl 25 Mg Tablet) 25 mg PO BEDTIME PRN PRN Reason: Anxiety [place] Carbonate ([place] Carbonate Er 300 Mg Tablet.Er) 600 mg PO BID [facility] Loratadine (Loratadine 10 Mg Tablet) 10 mg PO DAILY [facility] Last Admin: 08/19/21 09:18 Dose: 10 mg Documented by: Magnesium Hydroxide (Milk Of Magnesia 30 Ml Oral.Susp) 30 ml PO DAILY PRN PRN Reason: Constipation Multivitamins/Vitamin C (Multivitamin Tablet) 1 tab PO DAILY [facility] Last Admin: 08/19/21 09:18 Dose: 1 tab Documented by: Olanzapine (Olanzapine Odt 10 Mg Tab.Rapdis) 10 mg TRANSLINGU BEDTIME [facility] Last Admin: 08/18/21 21:17 Dose: 10 mg Documented by: Trazodone HCl (Trazodone Hcl 50 Mg Tablet) 50 mg PO BEDTIME PRN PRN Reason: Insomnia Allergies Allergies Allergy/AdvReac Type Severity Reaction Status Date / Time oxycodone [OXYCODONE] Allergy Unknown HIVES, Unverified 12/20/19 16:58 NAUSEA AND VOMITING From PERCOCET Allergy Unknown HIVES, Uncoded 12/20/19 16:58 NAUSEA AND VOMITING SEASONAL ALLERGIES Allergy Unknown STUFFY NOSE Uncoded 12/20/19 16:58 From VICODIN AdvReac Unknown VOMITING Uncoded 12/20/19 16:58 Assessment & Plan Assessment & Plan (1) Schizophrenia: Status: Acute Code(s): F20.9 - Schizophrenia, unspecified Plan Anusha is a 36 yo female with a history of schizophrenia. She presented to [facility] ED on 08/10/2021 due to med non-adherence, Li level is <0.10. Pt has a Oniel?s Order, resides in [facility] apartment. Staff did a wellness check on her due to concern that she is not attending to ADLs. Pt refused to come out of her room but was eventually brought to the ED. Pt denied report that she is not taking her meds or caring for herself. However, pt was responding to internal stimuli in the ED pod and has unkempt appearance. Admitted on Section 12B. Hx of [facility] in 2013. Plan: Pt does not want med changes. Pt recently med adherent and re-started on meds but had already decompensated. Continue assessment and engagement and encourage med adherence. pt did not sign in voluntarily and commitment papers were filed 08/14/21. on oniel's order. taking meds as prescribed. check lithium level in 5 days. 08/17 continue current medications. 08/18 continue current medications. 08/19: increased lithium dosing to 600 BID after 08/17 lithium level 0.31. no change in presentation. I spent __25____ minutes with the patient and/or on the patient floor today, greater than?50% of which was spent counseling/coordinating care. Reason for contiued inpatient stay Substantial Risk for: inability to function and rapid decompensation
[2021-08-19 21:04] VITALS: BP 97/52; PULSE 83; RESP 18; TEMP 36.8; O2SAT 95
[2021-08-19] MEDS: OLANZapine ODT 10 MG TAB.RAPDIS TRANSLINGU (22:09)
[2021-08-19] MEDS: Lithium Carbonate ER 300 MG TABLET.ER 600 MG PO (22:10)
[2021-08-20] MEDS: Loratadine 10 MG TABLET PO (10:21)
[2021-08-20] MEDS: Folic Acid 1 MG TABLET PO (10:21)
[2021-08-20] MEDS: Multivitamin TABLET 1 TAB PO (10:21)
[2021-08-20] MEDS: Cyanocobalamin (Vitamin B-12) 500 MCG TABLET PO (10:21)
[2021-08-20] MEDS: Lithium Carbonate ER 300 MG TABLET.ER 600 MG PO ×2 (10:21→20:54)
[2021-08-20 10:25] VITALS: BP 120/64; PULSE 69; RESP 17; TEMP 36.6; O2SAT 95
[2021-08-20 11:51] VITALS: BMI 44.4
--- NOTE | 2021-08-20 13:00 | P.PNPSI_ITS ---
Subjective Subjective Date of Service: 08/20/21 Reason For Visit: Psychosis Interim History: pt found lying in bed, awake, late morning. reports even in one day after the dose increase in lithium she is feeling better, more calm. discussion had around her court situation and legal status. she was informed of her option to sign in voluntarily, and she asked for voluntary paperwork. per staff, she was provided with voluntary paperwork and signed herself in. denies depression or anxiety. denies SI/HI/AVH. isolative but brighter. unkempt, not showering. attended one group. sleeping well. Mental Status Exam Mental Status Exam Narrative: A&O. Pt is overweight, in hospital attire, poor hygiene, hair matted. good eye contact, more engaging. No Tics or Tremors. No abnormal involuntary movements. Calm, less guarded. spare speech, but more than previously. affect is cons tricted. reports she is feeling more calm since lithium dosing increase. no SI/SIBI/HI/AVH or delusional thought content expressed. No known cognitive or memory impairment. Insight/ Judgment limited. Diagnostics Vital Signs (24Hr): Vital Signs - 24 hr 08/19/21 21:04 08/20/21 10:25 Temperature 98.3 F 97.9 F Pulse Rate 83 69 Respiratory Rate 18 17 Blood Pressure 97/52 L 120/64 Pulse Oximetry 95 95 BMI result Body Mass Index 44.4 Labs Results: 08/10/21 15:10 08/17/21 08:13 Medications Medications Current Medications Acetaminophen (Acetaminophen 325 Mg Tablet) 650 mg PO Q6H PRN PRN Reason: Headache/Pain Mild Scale (1-3) Al Hydroxide/Mg Hydroxide (Magnesium Hydrox/Alum Hydrox 30 Ml Oral.Susp) 30 ml PO Q6H PRN PRN Reason: Heartburn/Nausea Cyanocobalamin (Cyanocobalamin (Vitamin B-12) 500 Mcg Tablet) 500 mcg PO DAILY [facility] Last Admin: 08/20/21 10:21 Dose: 500 mcg Documented by: Folic Acid (Folic Acid 1 Mg Tablet) 1 mg PO DAILY [facility] Last Admin: 08/20/21 10:21 Dose: 1 mg Documented by: Hydroxyzine HCl (Hydroxyzine Hcl 25 Mg Tablet) 25 mg PO BEDTIME PRN PRN Reason: Anxiety [place] Carbonate ([place] Carbonate Er 300 Mg Tablet.Er) 600 mg PO BID [facility] Last Admin: 08/20/21 10:21 Dose: 600 mg Documented by: Loratadine (Loratadine 10 Mg Tablet) 10 mg PO DAILY [facility] Last Admin: 08/20/21 10:21 Dose: 10 mg Documented by: Magnesium Hydroxide (Milk Of Magnesia 30 Ml Oral.Susp) 30 ml PO DAILY PRN PRN Reason: Constipation Multivitamins/Vitamin C (Multivitamin Tablet) 1 tab PO DAILY [facility] Last Admin: 08/20/21 10:21 Dose: 1 tab Documented by: Olanzapine (Olanzapine Odt 10 Mg Tab.Rapdis) 10 mg TRANSLINGU BEDTIME [facility] Last Admin: 08/19/21 22:09 Dose: 10 mg Documented by: Trazodone HCl (Trazodone Hcl 50 Mg Tablet) 50 mg PO BEDTIME PRN PRN Reason: Insomnia Allergies Allergies Allergy/AdvReac Type Severity Reaction Status Date / Time oxycodone [OXYCODONE] Allergy Unknown HIVES, Unverified 12/20/19 16:58 NAUSEA AND VOMITING From PERCOCET Allergy Unknown HIVES, Uncoded 12/20/19 16:58 NAUSEA AND VOMITING SEASONAL ALLERGIES Allergy Unknown STUFFY NOSE Uncoded 12/20/19 16:58 From VICODIN AdvReac Unknown VOMITING Uncoded 12/20/19 16:58 Assessment & Plan Assessment & Plan (1) Schizophrenia: Status: Acute Code(s): F20.9 - Schizophrenia, unspecified Plan Anusha is a 36 yo female with a history of schizophrenia. She presented to [facility] ED on 08/10/2021 due to med non-adherence, Li level is <0.10. Pt has a Oniel?s Order, resides in [facility] apartment. Staff did a wellness check on her due to concern that she is not attending to ADLs. Pt refused to come out of her room but was eventually brought to the ED. Pt denied report that she is not taking her meds or caring for herself. However, pt was responding to internal stimuli in the ED pod and has unkempt appearance. Admitted on Section 12B. Hx of [facility] in 2013. Plan: Pt does not want med changes. Pt recently med adherent and re-started on meds but had already decompensated. Continue assessment and engagement and encourage med adherence. pt did not sign in voluntarily and commitment papers were filed 08/14/21. on oniel's order. taking meds as prescribed. check lithium level in 5 days. 08/17 continue current medications. 08/18 continue current medications. 08/19: increased lithium dosing to 600 BID after 08/17 lithium level 0.31. no change in presentation. 08/20: pt more engaging today, more verbally spontaneous. states she feels more calm since lithium dosing increase yesterday. signed in voluntarily. I spent __25____ minutes with the patient and/or on the patient floor today, greater than?50% of which was spent counseling/coordinating care. Reason for contiued inpatient stay Substantial Risk for: inability to function
[2021-08-20] MEDS: OLANZapine ODT 10 MG TAB.RAPDIS TRANSLINGU (20:54)
[2021-08-20 20:56] VITALS: BP 131/77; PULSE 95; RESP 17; TEMP 36.6; O2SAT 97
[2021-08-21] MEDS: Cyanocobalamin (Vitamin B-12) 500 MCG TABLET PO (09:19)
[2021-08-21] MEDS: Multivitamin TABLET 1 TAB PO (09:19)
[2021-08-21] MEDS: Folic Acid 1 MG TABLET PO (09:20)
[2021-08-21] MEDS: Loratadine 10 MG TABLET PO (09:20)
[2021-08-21] MEDS: Lithium Carbonate ER 300 MG TABLET.ER 600 MG PO ×2 (09:20→21:53)
[2021-08-21 09:28] VITALS: BP 128/64; PULSE 81; RESP 20; TEMP 36.6; O2SAT 96
--- NOTE | 2021-08-21 14:44 | P.PNPSI_ITS ---
Subjective Subjective Date of Service: 08/21/21 Reason For Visit: Psychosis Interim History: pt found lying in bed, awake, mid-morning, as per usual. polite and pleasant, more affectively expressive. states she feels better today than yesterday. she might even have a visitor today. proud of having done 5 groups yesterday. review that [address] has been cancelled, of which she is pleased. educated re 3- day notice process, she states she prefers not to do that. hopeful for discharge next week. MD reviews concerns she was unable to care for herself and that independent ADLs will be needed prior to discharge. per staff, isolative. wants to attend art group and did. pleasant, brighter, laughing at times. not showering. med-compliant. slept well. Mental Status Exam Mental Status Exam Narrative: A&O. Pt is overweight, in hospital attire, poor hygiene, hair matted. good eye contact, more engaging. No Tics or Tremors. No abnormal involuntary movements. Calm, less guarded. speech incr rate and amount. affect is full range reports she continues to feel more calm since lithium dosing increase. no SI/SIBI/HI/AVH or delusional thought content expressed. No known cognitive or memory impairment. Insight/ Judgment limited. Diagnostics Vital Signs (24Hr): Vital Signs - 24 hr 08/20/21 20:56 08/21/21 09:28 Temperature 97.9 F 97.8 F Pulse Rate 95 81 Respiratory Rate 17 20 Blood Pressure 131/77 128/64 Pulse Oximetry 97 96 BMI result Body Mass Index 44.4 Labs Results: 08/10/21 15:10 08/17/21 08:13 Medications Medications Current Medications Acetaminophen (Acetaminophen 325 Mg Tablet) 650 mg PO Q6H PRN PRN Reason: Headache/Pain Mild Scale (1-3) Al Hydroxide/Mg Hydroxide (Magnesium Hydrox/Alum Hydrox 30 Ml Oral.Susp) 30 ml PO Q6H PRN PRN Reason: Heartburn/Nausea Cyanocobalamin (Cyanocobalamin (Vitamin B-12) 500 Mcg Tablet) 500 mcg PO DAILY [facility] Last Admin: 08/21/21 09:19 Dose: 500 mcg Documented by: Folic Acid (Folic Acid 1 Mg Tablet) 1 mg PO DAILY [facility] Last Admin: 08/21/21 09:20 Dose: 1 mg Documented by: Hydroxyzine HCl (Hydroxyzine Hcl 25 Mg Tablet) 25 mg PO BEDTIME PRN PRN Reason: Anxiety [place] Carbonate ([place] Carbonate Er 300 Mg Tablet.Er) 600 mg PO BID [facility] Last Admin: 08/21/21 09:20 Dose: 600 mg Documented by: Loratadine (Loratadine 10 Mg Tablet) 10 mg PO DAILY [facility] Last Admin: 08/21/21 09:20 Dose: 10 mg Documented by: Magnesium Hydroxide (Milk Of Magnesia 30 Ml Oral.Susp) 30 ml PO DAILY PRN PRN Reason: Constipation Multivitamins/Vitamin C (Multivitamin Tablet) 1 tab PO DAILY [facility] Last Admin: 08/21/21 09:19 Dose: 1 tab Documented by: Olanzapine (Olanzapine Odt 10 Mg Tab.Rapdis) 10 mg TRANSLINGU BEDTIME [facility] Last Admin: 08/20/21 20:54 Dose: 10 mg Documented by: Trazodone HCl (Trazodone Hcl 50 Mg Tablet) 50 mg PO BEDTIME PRN PRN Reason: Insomnia Allergies Allergies Allergy/AdvReac Type Severity Reaction Status Date / Time oxycodone [OXYCODONE] Allergy Unknown HIVES, Unverified 12/20/19 16:58 NAUSEA AND VOMITING From PERCOCET Allergy Unknown HIVES, Uncoded 12/20/19 16:58 NAUSEA AND VOMITING SEASONAL ALLERGIES Allergy Unknown STUFFY NOSE Uncoded 12/20/19 16:58 From VICODIN AdvReac Unknown VOMITING Uncoded 12/20/19 16:58 Assessment & Plan Assessment & Plan (1) Schizophrenia: Status: Acute Code(s): F20.9 - Schizophrenia, unspecified Plan Anusha is a 36 yo female with a history of schizophrenia. She presented to [facility] ED on 08/10/2021 due to med non-adherence, Li level is <0.10. Pt has a Oniel?s Order, resides in [facility] apartment. Staff did a wellness check on her due to concern that she is not attending to ADLs. Pt refused to come out of her room but was eventually brought to the ED. Pt denied report that she is not taking her meds or caring for herself. However, pt was responding to internal stimuli in the ED pod and has unkempt appearance. Admitted on Section 12B. Hx of [facility] in 2013. Plan: Pt does not want med changes. Pt recently med adherent and re-started on meds but had already decompensated. Continue assessment and engagement and enco urage med adherence. pt did not sign in voluntarily and commitment papers were filed 08/14/21. on oniel's order. taking meds as prescribed. check lithium level in 5 days. 08/17 continue current medications. 08/18 continue current medications. 08/19: increased lithium dosing to 600 BID after 08/17 lithium level 0.31. no change in presentation. 08/20: pt more engaging today, more verbally spontaneous. states she feels more calm since lithium dosing increase yesterday. signed in voluntarily. 08/21: improvements continue. still not showered. I spent __25____ minutes with the patient and/or on the patient floor today, greater than?50% of which was spent counseling/coordinating care. Reason for contiued inpatient stay Substantial Risk for: inability to function and rapid decompensation
[2021-08-21 18:00] VITALS: BP 117/61; PULSE 75; RESP 18; TEMP 36.3; O2SAT 96
[2021-08-21] MEDS: OLANZapine ODT 10 MG TAB.RAPDIS TRANSLINGU (21:53)
[2021-08-22 09:15] VITALS: BP 120/52; PULSE 74; RESP 18; TEMP 35.9; O2SAT 97
[2021-08-22] MEDS: Multivitamin TABLET 1 TAB PO (09:30)
[2021-08-22] MEDS: Lithium Carbonate ER 300 MG TABLET.ER 600 MG PO ×2 (09:30→21:07)
[2021-08-22] MEDS: Folic Acid 1 MG TABLET PO (09:30)
[2021-08-22] MEDS: Cyanocobalamin (Vitamin B-12) 500 MCG TABLET PO (09:30)
[2021-08-22] MEDS: Loratadine 10 MG TABLET PO (09:31)
--- NOTE | 2021-08-22 15:25 | HO.PSYCHPN ---
Subjective Subjective Date of Service: 08/22/21 Reason For Visit: Psychosis Subjective Notes: Conditional Voluntary Interim History: Overall reports that she is feeling much better as there is no longer a court case related to admission. [place] overwhelmed regarding this. Education given around voluntary status, three-day notice is in Section 12. feeling well cared for. Feels that lithium has been helpful if she is feeling more positive mood ram, less dysregulated and more hopeful. ADLs do appear limited. Denies SI. No psychosis. No medication concerns. Participating in groups Medication Compliance: Yes Side effects from medications: No Attending Groups: Yes Review of Systems Acute medical concerns: No Review of Systems Review of Systems Yes all other systems are reviewed and are negative Mental Status Exam Mental Status Exam Narrative: pleasant. Engaged. Wink. Brighter. Less depressed. No SI. No HI. No agitation. No psychosis. Insight and judgment good Diagnostics Vital Signs (24Hr): Vital Signs - 24 hr 08/21/21 18:00 08/22/21 09:15 Temperature 97.4 F 96.6 F L Pulse Rate 75 74 Respiratory Rate 18 18 Blood Pressure 117/61 120/52 L Pulse Oximetry 96 97 BMI result Body Mass Index 44.4 Labs Results: 08/10/21 15:10 08/17/21 08:13 Medications Medications Current Medications Acetaminophen (Acetaminophen 325 Mg Tablet) 650 mg PO Q6H PRN PRN Reason: Headache/Pain Mild Scale (1-3) Al Hydroxide/Mg Hydroxide (Magnesium Hydrox/Alum Hydrox 30 Ml Oral.Susp) 30 ml PO Q6H PRN PRN Reason: Heartburn/Nausea Cyanocobalamin (Cyanocobalamin (Vitamin B-12) 500 Mcg Tablet) 500 mcg PO DAILY [facility] Last Admin: 08/22/21 09:30 Dose: 500 mcg Documented by: Folic Acid (Folic Acid 1 Mg Tablet) 1 mg PO DAILY [facility] Last Admin: 08/22/21 09:30 Dose: 1 mg Documented by: Hydroxyzine HCl (Hydroxyzine Hcl 25 Mg Tablet) 25 mg PO BEDTIME PRN PRN Reason: Anxiety [place] Carbonate ([place] Carbonate Er 300 Mg Tablet.Er) 600 mg PO BID [facility] Last Admin: 08/22/21 09:30 Dose: 600 mg Documented by: Loratadine (Loratadine 10 Mg Tablet) 10 mg PO DAILY [facility] Last Admin: 08/22/21 09:31 Dose: 10 mg Documented by: Magnesium Hydroxide (Milk Of Magnesia 30 Ml Oral.Susp) 30 ml PO DAILY PRN PRN Reason: Constipation Multivitamins/Vitamin C (Multivitamin Tablet) 1 tab PO DAILY [facility] Last Admin: 08/22/21 09:30 Dose: 1 tab Documented by: Olanzapine (Olanzapine Odt 10 Mg Tab.Rapdis) 10 mg TRANSLINGU BEDTIME [facility] Last Admin: 08/21/21 21:53 Dose: 10 mg Documented by: Trazodone HCl (Trazodone Hcl 50 Mg Tablet) 50 mg PO BEDTIME PRN PRN Reason: Insomnia Allergies Allergies Allergy/AdvReac Type Severity Reaction Status Date / Time oxycodone [OXYCODONE] Allergy Unknown HIVES, Unverified 12/20/19 16:58 NAUSEA AND VOMITING From PERCOCET Allergy Unknown HIVES, Uncoded 12/20/19 16:58 NAUSEA AND VOMITING SEASONAL ALLERGIES Allergy Unknown STUFFY NOSE Uncoded 12/20/19 16:58 From VICODIN AdvReac Unknown VOMITING Uncoded 12/20/19 16:58 Assessment & Plan Assessment & Plan (1) Schizophrenia: Status: Acute Code(s): F20.9 - Schizophrenia, unspecified Plan Anusha is a 36 yo female with a history of schizophrenia. She presented to [facility] ED on 08/10/2021 due to med non-adherence, Li level is <0.10. Pt has a Oniel?s Order, resides in [facility] apartment. Staff did a wellness check on her due to concern that she is not attending to ADLs. Pt refused to come out of her room but was eventually brought to the ED. Pt denied report that she is not taking her meds or caring for herself. However, pt was responding to internal stimuli in the ED pod and has unkempt appearance. Admitted on Section 12B. Hx of [facility] in 2013. Plan: Pt does not want med changes. Pt recently med adherent and re-started on meds but had already decompensated. Continue assessment and engagement and encourage med adherence. pt did not sign in voluntarily and commitment papers were filed 08/14/21. on oniel's order. taking meds as prescribed. check lithium level in 5 days. 08/17 continue current medications. 08/18 continue current medications. 08/19: increased lithium dosing to 600 BID after 08/17 lithium level 0.31. no change in presentation. 08/20: pt more engaging today, more verbally spontaneous. states she feels more calm since lithium dosing increase yesterday. signed in voluntarily. 08/21: improvements continue. still not showered. 08/22/2021: No changes to primary treatment plan I spent minutes with the patient and/or on the patient floor today, greater than?50% of which was spent counseling/coordinating care. Reason for contiued inpatient stay Substantial Risk for: inability to function
[2021-08-22] MEDS: OLANZapine ODT 10 MG TAB.RAPDIS TRANSLINGU (21:07)
[2021-08-22 21:11] VITALS: BP 114/56; PULSE 74; RESP 18; TEMP 36.4; O2SAT 95
[2021-08-23 06:00] VITALS: BP 140/84; PULSE 82; RESP 18; TEMP 36.7; O2SAT 98
[2021-08-23] MEDS: Acetaminophen 325 MG TABLET 650 MG PO (09:01)
[2021-08-23] MEDS: Lithium Carbonate ER 300 MG TABLET.ER 600 MG PO ×2 (09:01→21:33)
[2021-08-23] MEDS: Loratadine 10 MG TABLET PO (09:01)
[2021-08-23] MEDS: Cyanocobalamin (Vitamin B-12) 500 MCG TABLET PO (09:01)
[2021-08-23] MEDS: Multivitamin TABLET 1 TAB PO (09:01)
[2021-08-23] MEDS: Folic Acid 1 MG TABLET PO (09:01)
--- NOTE | 2021-08-23 14:59 | HO.PSYCHPN ---
Subjective Subjective Date of Service: 08/23/21 Reason For Visit: Psychosis Interim History: ? laughing to self at times. Feeling brighter in mood. Feels that lithium has been helpful- more positive mood ram, less dysregulated and more hopeful. ADLs do appear limited. Denies SI. No medication concerns. Participating in groups Medication Compliance: Yes Side effects from medications: Yes (headache) Attending Groups: Yes Review of Systems Acute medical concerns: No Review of Systems Review of Systems headache- ? lithium related Mental Status Exam Mental Status Exam Narrative: pleasant. Engaged. [place]. Brighter. Less depressed. No SI. No HI. No agitation. Denies AH ?internal preoccupation. Insight and judgment good Diagnostics Vital Signs (24Hr): Vital Signs - 24 hr 08/22/21 21:11 08/23/21 06:00 Temperature 97.6 F 98.1 F Pulse Rate 74 82 Respiratory Rate 18 18 Blood Pressure 114/56 L 140/84 H Pulse Oximetry 95 98 BMI result Body Mass Index 44.4 Labs Results: 08/10/21 15:10 08/17/21 08:13 Medications Medications Current Medications Acetaminophen (Acetaminophen 325 Mg Tablet) 650 mg PO Q6H PRN PRN Reason: Headache/Pain Mild Scale (1-3) Last Admin: 08/23/21 09:01 Dose: 650 mg Documented by: Al Hydroxide/Mg Hydroxide (Magnesium Hydrox/Alum Hydrox 30 Ml Oral.Susp) 30 ml PO Q6H PRN PRN Reason: Heartburn/Nausea Cyanocobalamin (Cyanocobalamin (Vitamin B-12) 500 Mcg Tablet) 500 mcg PO DAILY [facility] Last Admin: 08/23/21 09:01 Dose: 500 mcg Documented by: Folic Acid (Folic Acid 1 Mg Tablet) 1 mg PO DAILY [facility] Last Admin: 08/23/21 09:01 Dose: 1 mg Documented by: Hydroxyzine HCl (Hydroxyzine Hcl 25 Mg Tablet) 25 mg PO BEDTIME PRN PRN Reason: Anxiety [place] Carbonate ([place] Carbonate Er 300 Mg Tablet.Er) 600 mg PO BID [facility] Last Admin: 08/23/21 09:01 Dose: 600 mg Documented by: Loratadine (Loratadine 10 Mg Tablet) 10 mg PO DAILY [facility] Last Admin: 08/23/21 09:01 Dose: 10 mg Documented by: Magnesium Hydroxide (Milk Of Magnesia 30 Ml Oral.Susp) 30 ml PO DAILY PRN PRN Reason: Constipation Multivitamins/Vitamin C (Multivitamin Tablet) 1 tab PO DAILY [facility] Last Admin: 08/23/21 09:01 Dose: 1 tab Documented by: Olanzapine (Olanzapine Odt 10 Mg Tab.Rapdis) 10 mg TRANSLINGU BEDTIME [facility] Last Admin: 08/22/21 21:07 Dose: 10 mg Documented by: Trazodone HCl (Trazodone Hcl 50 Mg Tablet) 50 mg PO BEDTIME PRN PRN Reason: Insomnia Allergies Allergies Allergy/AdvReac Type Severity Reaction Status Date / Time oxycodone [OXYCODONE] Allergy Unknown HIVES, Unverified 12/20/19 16:58 NAUSEA AND VOMITING From PERCOCET Allergy Unknown HIVES, Uncoded 12/20/19 16:58 NAUSEA AND VOMITING SEASONAL ALLERGIES Allergy Unknown STUFFY NOSE Uncoded 12/20/19 16:58 From VICODIN AdvReac Unknown VOMITING Uncoded 12/20/19 16:58 Assessment & Plan Assessment & Plan (1) Schizophrenia: Status: Acute Code(s): F20.9 - Schizophrenia, unspecified Plan Anusha is a 36 yo female with a history of schizophrenia. She presented to [facility] ED on 08/10/2021 due to med non-adherence, Li level is <0.10. Pt has a Oniel?s Order, resides in [facility] apartment. Staff did a wellness check on her due to concern that she is not attending to ADLs. Pt refused to come out of her room but was eventually brought to the ED. Pt denied report that she is not taking her meds or caring for herself. However, pt was responding to internal stimuli in the ED pod and has unkempt appearance. Admitted on Section 12B. H[facility] of [facility]. Plan: Pt does not want med changes. Pt recently med adherent and re-started on meds but had already decompensated. Continue assessment and engagement and encourage med adherence. pt did not sign in voluntarily and commitment papers were filed 08/14/21. on oniel's order. taking meds as prescribed. check lithium level in 5 days. 08/17 continue current medications. 08/18 continue current medications. 08/19: increased lithium dosing to 600 BID after 08/17 lithium level 0.31. no change in presentation. 08/20: pt more engaging today, more verbally spontaneous. states she feels more calm since lithium dosing increase yesterday. signed in voluntarily. 08/21: improvements continue. still not showered. 08/23/2021: No changes to primary treatment plan I spent minutes with the patient and/or on the patient floor today, greater than?50% of which was spent counseling/coordinating care. Reason for contiued inpatient stay Substantial Risk for: inability to function
[2021-08-23] MEDS: OLANZapine ODT 10 MG TAB.RAPDIS TRANSLINGU (21:33)
[2021-08-23 21:37] VITALS: BP 120/58; PULSE 78; RESP 18; TEMP 36.6; O2SAT 95
[2021-08-24] MEDS: Acetaminophen 325 MG TABLET 650 MG PO ×2 (06:00→13:41)
[2021-08-24] MEDS: Loratadine 10 MG TABLET PO (08:56)
[2021-08-24] MEDS: Lithium Carbonate ER 300 MG TABLET.ER 600 MG PO ×2 (08:56→21:13)
[2021-08-24] MEDS: Cyanocobalamin (Vitamin B-12) 500 MCG TABLET PO (08:56)
[2021-08-24] MEDS: Folic Acid 1 MG TABLET PO (08:56)
[2021-08-24] MEDS: Multivitamin TABLET 1 TAB PO (08:56)
[2021-08-24 09:50] VITALS: BP 131/60; PULSE 70; RESP 18; TEMP 36.4; O2SAT 98
--- NOTE | 2021-08-24 13:47 | HO.PSYCHPN ---
Subjective Subjective Date of Service: 08/24/21 Reason For Visit: Psychosis Interim History: pt found seated at her desk. bright, verbose. wondering about discharge home this week. deflects MD's encouragement to take a shower, citing all of the other ways she is doing better. MD acknowledges and supports all of the ways in which she is doing better. pt c/o MCKOY, increased intake of food and fluids. she attributes these changes to her medication change (lithium dosing increase). MD informs her of staff concern for REGINO and suggests she pursue sleep study after discharge. in all, mood continues to be substantially improved. informed lab draw in the morning. per staff, attending groups. denies dep/anx/SI/HI/AVH. sleeping well, appetite good. not showering. Mental Status Exam Mental Status Exam Narrative: A&O. Pt is overweight, street clothes, poor hygiene, hair matted. good eye contact, engaging. No Tics or Tremors. No abnormal involuntary movements. Calm, cooperative. speech incr rate and amount. affect is full range. no SI/SIBI/HI/AVH or delusional thought content expressed. No known cognitive or memory impairment. Insight/ Judgment limited. Diagnostics Vital Signs (24Hr): Vital Signs - 24 hr 08/23/21 21:37 08/24/21 09:50 Temperature 97.8 F 97.6 F Pulse Rate 78 70 Respiratory Rate 18 18 Blood Pressure 120/58 L 131/60 Pulse Oximetry 95 98 BMI result Body Mass Index 44.4 Labs Results: 08/10/21 15:10 08/17/21 08:13 Medications Medications Current Medications Acetaminophen (Acetaminophen 325 Mg Tablet) 650 mg PO Q6H PRN PRN Reason: Headache/Pain Mild Scale (1-3) Last Admin: 08/24/21 13:41 Dose: 650 mg Documented by: Al Hydroxide/Mg Hydroxide (Magnesium Hydrox/Alum Hydrox 30 Ml Oral.Susp) 30 ml PO Q6H PRN PRN Reason: Heartburn/Nausea Cyanocobalamin (Cyanocobalamin (Vitamin B-12) 500 Mcg Tablet) 500 mcg PO DAILY [facility] Last Admin: 08/24/21 08:56 Dose: 500 mcg Documented by: Folic Acid (Folic Acid 1 Mg Tablet) 1 mg PO DAILY [facility] Last Admin: 08/24/21 08:56 Dose: 1 mg Documented by: Hydroxyzine HCl (Hydroxyzine Hcl 25 Mg Tablet) 25 mg PO BEDTIME PRN PRN Reason: Anxiety [place] Carbonate ([place] Carbonate Er 300 Mg Tablet.Er) 600 mg PO BID [facility] Last Admin: 08/24/21 08:56 Dose: 600 mg Documented by: Loratadine (Loratadine 10 Mg Tablet) 10 mg PO DAILY [facility] Last Admin: 08/24/21 08:56 Dose: 10 mg Documented by: Magnesium Hydroxide (Milk Of Magnesia 30 Ml Oral.Susp) 30 ml PO DAILY PRN PRN Reason: Constipation Multivitamins/Vitamin C (Multivitamin Tablet) 1 tab PO DAILY [facility] Last Admin: 08/24/21 08:56 Dose: 1 tab Documented by: Olanzapine (Olanzapine Odt 10 Mg Tab.Rapdis) 10 mg TRANSLINGU BEDTIME [facility] Last Admin: 08/23/21 21:33 Dose: 10 mg Documented by: Trazodone HCl (Trazodone Hcl 50 Mg Tablet) 50 mg PO BEDTIME PRN PRN Reason: Insomnia Allergies Allergies Allergy/AdvReac Type Severity Reaction Status Date / Time oxycodone [OXYCODONE] Allergy Unknown HIVES, Unverified 12/20/19 16:58 NAUSEA AND VOMITING From PERCOCET Allergy Unknown HIVES, Uncoded 12/20/19 16:58 NAUSEA AND VOMITING SEASONAL ALLERGIES Allergy Unknown STUFFY NOSE Uncoded 12/20/19 16:58 From VICODIN AdvReac Unknown VOMITING Uncoded 12/20/19 16:58 Assessment & Plan Assessment & Plan (1) Schizophrenia: Status: Acute Code(s): F20.9 - Schizophrenia, unspecified Plan Anusha is a 36 yo female with a history of schizophrenia. She presented [place] [facility] [place] 08/10/2021 due to med non-adherence, Li level is <0.10. Pt has a Oniel?s Order, resides in [facility] apartment. Staff did a wellness check on her due to concern that she is not attending to ADLs. Pt refused to come out of her room but was eventually brought to the ED. Pt denied report that she is not taking her meds or caring for herself. However, pt was responding to internal stimuli in the ED pod and has unkempt appearance. Admitted on Section 12B. Hx of [facility] in 2013. Plan: Pt does not want med changes. Pt recently med adherent and re-started on meds but had already decompensated. Continue assessment and engagement and encourage med adherence. pt did not sign in voluntarily and commitment papers were filed 08/14/21. on oniel's order. taking meds as prescribed. check lithium level in 5 days. 08/17 continue current medications. 08/18 continue current medications. 08/19: increased lithium dosing to 600 BID after 08/17 lithium level 0.31. no change in presentation. 08/20: pt more engaging today, more verbally spontaneous. states she feels more calm since lithium dosing increase yesterday. signed in voluntarily. 08/21: improvements continue. still not showered. 08/23/2021: No changes to primary treatment plan 08/24: continue current mgmt. gains hold, still no shower. labs tomorrow. I spent ___25___ minutes with the patient and/or on the patient floor today, greater than?50% of which was spent counseling/coordinating care. Reason for contiued inpatient stay Substantial Risk for: inability to function and rapid decompensation
[2021-08-24] MEDS: OLANZapine ODT 10 MG TAB.RAPDIS TRANSLINGU (21:13)
[2021-08-24 21:15] VITALS: BP 146/83; PULSE 85; RESP 18; TEMP 36.7; O2SAT 95
[2021-08-25 08:58] LABS: MANUAL DIFF FLAG NO
[2021-08-25 09:06] LABS: Basophils Percent Auto 0.2 % (0-2); Eosinophils Absolute Auto 0.3 X10*3/uL (0.0-0.4); Eosinophils Percent Auto 2.5 % (0-4); Hematocrit 37.9 % (37.0-47.0); Hemoglobin 12.2 g/dl (12.0-16.0); Imm Gran Abs Auto 0.09 X10*3/uL (0.00-0.03); Imm Gran Pct Auto 0.8 % (0.0-0.4); Lymphocytes Absolute Auto 2.4 X10*3/uL (1.2-4.9); Lymphocytes Percent Auto 21.7 % (20-40); Mean Corpuscular HGB Conc 32.2 g/dl (31.0-35.0); Mean Corpuscular Hemoglobin 27.7 pg (27.0-33.0); Mean Corpuscular Volume 86.1 fL (80.0-98.0); Mean Platelet Volume 9.4 fL (9.4-12.3); Monocytes Absolute Auto 0.6 X10*3/uL (0.1-1.2); Monocytes Percent Auto 4.9 % (2-11); Neutrophils Absolute Auto 7.9 x10*3/uL (2.0-8.3); Neutrophils Percent Auto 69.9 % (45-73); Platelet Count 313 X10*3/uL (160-400); Red Cell Distribution Width 13.2 % (11.0-16.0); White Blood Count 11.2 X10*3/uL (4.8-10.8)
[2021-08-25] MEDS: Lithium Carbonate ER 300 MG TABLET.ER 600 MG PO (09:08)
[2021-08-25] MEDS: Folic Acid 1 MG TABLET PO (09:08)
[2021-08-25] MEDS: Multivitamin TABLET 1 TAB PO (09:08)
[2021-08-25] MEDS: Cyanocobalamin (Vitamin B-12) 500 MCG TABLET PO (09:08)
[2021-08-25] MEDS: Loratadine 10 MG TABLET PO (09:08)
[2021-08-25 09:11] VITALS: BP 114/59; PULSE 80; RESP 18; TEMP 36.6; O2SAT 96
[2021-08-25 09:21] LABS: Lithium 0.53 mmol/L (0.60-1.20)
[2021-08-25 09:29] LABS: Alanine Aminotransferase 63 U/L (0-31); Albumin Level 3.6 g/dL (3.5-5.0); Alkaline Phosphatase 68 U/L (39-117); Anion Gap 11 (12-20); Aspartate Amino Transferase 14 U/L (5-31); Bilirubin Direct < 0.2 mg/dL (0.0-0.5); Bilirubin Total 0.2 mg/dL (0.0-1.0); Blood Urea Nitrogen 10 mg/dL (9-16); Calcium 9.4 mg/dL (8.4-10.2); Carbon Dioxide 25 mmol/L (22-29); Chloride 105 mmol/L (96-108); Creatinine Clr Calc Pharmacy 140.8; Estimated Glomerular Filt Rate > 60; Glucose Random 128 mg/dL (60-115); Potassium 4.3 mmol/L (3.3-5.1); Sodium 137 mmol/L (135-145); Total Protein 5.9 g/dL (6.5-8.0)
--- NOTE | 2021-08-25 14:57 | HO.PSYCHPN ---
Subjective Subjective Date of Service: 08/25/21 Reason For Visit: Psychosis Interim History: pt reports she is feeling OK. labs reviewed, show lithium level 0.53. MD informs pt dosing will need to be increased, which is done. pt seems not pleased by this development but is not vocal about it. no other complaints or requests. per staff, denying Sx. i am OK. not showering. guarded, limited. affect brighter. c/o MCKOY and taking tylenol is helpful. has told staff that she won't shower bcse she doesn't like hospital products. Mental Status Exam Mental Status Exam Narrative: A&O. Pt is overweight, street clothes, poor hygiene, hair matted. good eye contact, engaging. No Tics or Tremors. No abnormal involuntary movements. Calm, cooperative. speech incr rate and nml amount. affect is full range. no SI/SIBI/HI/AVH or delusional thought content expressed. No known cognitive or memory impairment. Insight/ Judgment limited. Diagnostics Vital Signs (24Hr): Vital Signs - 24 hr 08/24/21 21:15 08/25/21 09:11 Temperature 98.1 F 97.8 F Pulse Rate 85 80 Respiratory Rate 18 18 Blood Pressure 146/83 H 114/59 L Pulse Oximetry 95 96 BMI result Body Mass Index 44.4 Labs Results: 08/25/21 08:51 08/25/21 08:51 Labs: Laboratory Results - last 48 hr 08/25/21 08/25/21 08/25/21 08:51 08:51 08:51 WBC 11.2 H RBC 4.40 Hgb 12.2 D Hct 37.9 MCV 86.1 MCH 27.7 MCHC 32.2 RDW 13.2 Plt Count 313 MPV 9.4 Immature Gran % (Auto) 0.8 H Neut % (Auto) 69.9 Lymph % (Auto) 21.7 [place] % (Auto) 4.9 Eos % (Auto) 2.5 Baso % (Auto) 0.2 Lymph # (Auto) 2.4 [place] # (Auto) 0.6 Eos # (Auto) 0.3 Baso # (Auto) 0.0 Abs Immat Gran (auto) 0.09 H Absolute Neuts (auto) 7.9 Absolute Nucleated RBC 0.000 Nucleated RBC % (auto) 0.0 Sodium 137 Potassium 4.3 Chloride 105 Carbon Dioxide 25 Anion Gap 11 L BUN 10 Creatinine 0.64 Estim Creat Clear Calc 140.8 Estimated GFR > 60 Random Glucose 128 H Calcium 9.4 Total Bilirubin 0.2 Direct Bilirubin < 0.2 AST 14 ALT 63 H Alkaline Phosphatase 68 Total Protein 5.9 L Albumin 3.6 [place] 0.53 L Medications Medications Current Medications Acetaminophen (Acetaminophen 325 Mg Tablet) 650 mg PO Q6H PRN PRN Reason: Headache/Pain Mild Scale (1-3) Last Admin: 08/24/21 13:41 Dose: 650 mg Documented by: Al Hydroxide/Mg Hydroxide (Magnesium Hydrox/Alum Hydrox 30 Ml Oral.Susp) 30 ml PO Q6H PRN PRN Reason: Heartburn/Nausea Cyanocobalamin (Cyanocobalamin (Vitamin B-12) 500 Mcg Tablet) 500 mcg PO DAILY [facility] Last Admin: 08/25/21 09:08 Dose: 500 mcg Documented by: Folic Acid (Folic Acid 1 Mg Tablet) 1 mg PO DAILY [facility] Last Admin: 08/25/21 09:08 Dose: 1 mg Documented by: Hydroxyzine HCl (Hydroxyzine Hcl 25 Mg Tablet) 25 mg PO BEDTIME PRN PRN Reason: Anxiety [place] Carbonate ([place] Carbonate Er 300 Mg Tablet.Er) 750 mg PO BID [facility] Loratadine (Loratadine 10 Mg Tablet) 10 mg PO DAILY [facility] Last Admin: 08/25/21 09:08 Dose: 10 mg Documented by: Magnesium Hydroxide (Milk Of Magnesia 30 Ml Oral.Susp) 30 ml PO DAILY PRN PRN Reason: Constipation Multivitamins/Vitamin C (Multivitamin Tablet) 1 tab PO DAILY [facility] Last Admin: 08/25/21 09:08 Dose: 1 tab Documented by: Olanzapine (Olanzapine Odt 10 Mg Tab.Rapdis) 10 mg TRANSLINGU BEDTIME [facility] Last Admin: 08/24/21 21:13 Dose: 10 mg Documented by: Trazodone HCl (Trazodone Hcl 50 Mg Tablet) 50 mg PO BEDTIME PRN PRN Reason: Insomnia Allergies Allergies Allergy/AdvReac Type Severity Reaction Status Date / Time oxycodone [OXYCODONE] Allergy Unknown HIVES, Unverified 12/20/19 16:58 NAUSEA AND VOMITING From PERCOCET Allergy Unknown HIVES, Uncoded 12/20/19 16:58 NAUSEA AND VOMITING SEASONAL ALLERGIES Allergy Unknown STUFFY NOSE Uncoded 12/20/19 16:58 From VICODIN AdvReac Unknown VOMITING Uncoded 12/20/19 16:58 Assessment & Plan Assessment & Plan (1) Schizophrenia: Status: Acute Code(s): F20.9 - Schizophrenia, unspecified Plan Anusha is a 36 yo female with a history of schizophrenia. She presented to [facility] on 08/10/2021 due to med non-adherence, Li level is <0.10. Pt has a Oniel?s Order, resides in [facility] apartment. Staff did a wellness check on her due to concern that she is not attending to ADLs. Pt refused to come out of her room but was eventually brought to the ED. Pt denied report that she is not taking her meds or caring for herself. However, pt was responding to internal stimuli in the ED pod and has unkempt appearance. Admitted on Section 12B. Hx of [facility] in 2013. Plan: Pt does not want med changes. Pt recently med adherent and re-started on meds but had already decompensated. Continue assessment and engagement and encourage med adherence. pt did not sign in voluntarily and commitment papers were filed 08/14/21. on oniel's order. taking meds as prescribed. check lithium level in 5 days. 08/17 continue current medications. 08/18 continue current medications. 08/19: increased lithium dosing to 600 BID after 08/17 lithium level 0.31. no change in presentation. 08/20: pt more engaging today, more verbally spontaneous. states she feels more calm since lithium dosing increase yesterday. signed in voluntarily. 08/21: improvements continue. still not showered. 08/23/2021: No changes to primary treatment plan 08/24: continue current mgmt. gains hold, still no shower. labs tomorrow. 08/25: lithium low at 0.53. dosing increased to 750 BID. I spent ___25___ minutes with the patient and/or on the patient floor today, greater than?50% of which was spent counseling/coordinating care. Reason for contiued inpatient stay Substantial Risk for: inability to function and rapid decompensation
[2021-08-25 20:00] VITALS: BP 109/53; PULSE 75; RESP 18; TEMP 36.9; O2SAT 95
[2021-08-25] MEDS: OLANZapine ODT 10 MG TAB.RAPDIS TRANSLINGU (22:18)
[2021-08-25] MEDS: Lithium Carbonate ER 300 MG TABLET.ER 750 MG PO (22:18)
[2021-08-26] MEDS: Lithium Carbonate ER 300 MG TABLET.ER 750 MG PO ×2 (10:29→21:32)
[2021-08-26] MEDS: Loratadine 10 MG TABLET PO (10:33)
[2021-08-26] MEDS: Multivitamin TABLET 1 TAB PO (10:33)
[2021-08-26] MEDS: Acetaminophen 325 MG TABLET 650 MG PO ×2 (10:33→20:46)
[2021-08-26] MEDS: Cyanocobalamin (Vitamin B-12) 500 MCG TABLET PO (10:33)
[2021-08-26] MEDS: Folic Acid 1 MG TABLET PO (10:33)
[2021-08-26 10:38] VITALS: BP 128/73; PULSE 84; RESP 17; TEMP 36.9; O2SAT 96
--- NOTE | 2021-08-26 14:30 | HO.PSYCHPN ---
Subjective Subjective Date of Service: 08/26/21 Reason For Visit: Psychosis Interim History: as per yesterday. says she will shower once [facility] staff bring in her toiletries. c/o MCKOY this morning. provided education re REGINO once again. per staff, not attending groups. denies dep/anx/SI/HI/AVH. sleeping well, brighter. med-compliant. Mental Status Exam Mental Status Exam Narrative: A&O. Pt is overweight, street clothes, poor hygiene, hair matted. good eye contact, engaging. No Tics or Tremors. No abnormal involuntary movements. Calm, cooperative. speech incr rate and nml amount. affect is full range. no SI/SIBI/HI/AVH or delusional thought content expressed. No known cognitive or memory impairment. Insight/ Judgment limited. Diagnostics Vital Signs (24Hr): Vital Signs - 24 hr 08/25/21 20:00 08/26/21 10:38 Temperature 98.5 F 98.4 F Pulse Rate 75 84 Respiratory Rate 18 17 Blood Pressure 109/53 L 128/73 Pulse Oximetry 95 96 BMI result Body Mass Index 44.4 Labs Results: 08/25/21 08:51 08/25/21 08:51 Labs: Laboratory Results - last 48 hr 08/25/21 08/25/21 08/25/21 08:51 08:51 08:51 WBC 11.2 H RBC 4.40 Hgb 12.2 D Hct 37.9 MCV 86.1 MCH 27.7 MCHC 32.2 RDW 13.2 Plt Count 313 MPV 9.4 Immature Gran % (Auto) 0.8 H Neut % (Auto) 69.9 Lymph % (Auto) 21.7 [place] % (Auto) 4.9 Eos % (Auto) 2.5 Baso % (Auto) 0.2 Lymph # (Auto) 2.4 [place] # (Auto) 0.6 Eos # (Auto) 0.3 Baso # (Auto) 0.0 Abs Immat Gran (auto) 0.09 H Absolute Neuts (auto) 7.9 Absolute Nucleated RBC 0.000 Nucleated RBC % (auto) 0.0 Sodium 137 Potassium 4.3 Chloride 105 Carbon Dioxide 25 Anion Gap 11 L BUN 10 Creatinine 0.64 Estim Creat Clear Calc 140.8 Estimated GFR > 60 Random Glucose 128 H Calcium 9.4 Total Bilirubin 0.2 Direct Bilirubin < 0.2 AST 14 ALT 63 H Alkaline Phosphatase 68 Total Protein 5.9 L Albumin 3.6 [place] 0.53 L Medications Medications Current Medications Acetaminophen (Acetaminophen 325 Mg Tablet) 650 mg PO Q6H PRN PRN Reason: Headache/Pain Mild Scale (1-3) Last Admin: 08/26/21 10:33 Dose: 650 mg Documented by: Al Hydroxide/Mg Hydroxide (Magnesium Hydrox/Alum Hydrox 30 Ml Oral.Susp) 30 ml PO Q6H PRN PRN Reason: Heartburn/Nausea Cyanocobalamin (Cyanocobalamin (Vitamin B-12) 500 Mcg Tablet) 500 mcg PO DAILY [facility] Last Admin: 08/26/21 10:33 Dose: 500 mcg Documented by: Folic Acid (Folic Acid 1 Mg Tablet) 1 mg PO DAILY [facility] Last Admin: 08/26/21 10:33 Dose: 1 mg Documented by: Hydroxyzine HCl (Hydroxyzine Hcl 25 Mg Tablet) 25 mg PO BEDTIME PRN PRN Reason: Anxiety [place] Carbonate ([place] Carbonate Er 300 Mg Tablet.Er) 750 mg PO BID [facility] Last Admin: 08/26/21 10:29 Dose: 750 mg Documented by: Loratadine (Loratadine 10 Mg Tablet) 10 mg PO DAILY [facility] Last Admin: 08/26/21 10:33 Dose: 10 mg Documented by: Magnesium Hydroxide (Milk Of Magnesia 30 Ml Oral.Susp) 30 ml PO DAILY PRN PRN Reason: Constipation Multivitamins/Vitamin C (Multivitamin Tablet) 1 tab PO DAILY [facility] Last Admin: 08/26/21 10:33 Dose: 1 tab Documented by: Olanzapine (Olanzapine Odt 10 Mg Tab.Rapdis) 10 mg TRANSLINGU BEDTIME [facility] Last Admin: 08/25/21 22:18 Dose: 10 mg Documented by: Trazodone HCl (Trazodone Hcl 50 Mg Tablet) 50 mg PO BEDTIME PRN PRN Reason: Insomnia Allergies Allergies Allergy/AdvReac Type Severity Reaction Status Date / Time oxycodone [OXYCODONE] Allergy Unknown HIVES, Unverified 12/20/19 16:58 NAUSEA AND VOMITING From PERCOCET Allergy Unknown HIVES, Uncoded 12/20/19 16:58 NAUSEA AND VOMITING SEASONAL ALLERGIES Allergy Unknown STUFFY NOSE Uncoded 12/20/19 16:58 From VICODIN AdvReac Unknown VOMITING Uncoded 12/20/19 16:58 Assessment & Plan Assessment & Plan (1) Schizophrenia: Status: Acute Code(s): F20.9 - Schizophrenia, unspecified Plan Anusha is a 36 yo female with a history of schizophrenia. She presented to [facility] on 08/10/2021 due to med non-adherence, Li level is <0.10. Pt has a Oniel?s Order, resides in [facility] apartment. Staff did a wellness check on her due to concern that she is not attending to ADLs. Pt refused to come out of her room but was eventually brought to the ED. Pt denied report that she is not taking her meds or caring for herself. However, pt was responding to internal stimuli in the ED pod and has unkempt appearance. Admitted on Section 12B. Hx of [facility] in 2013. Plan: Pt does not want med changes. Pt recently med adherent and re-started on meds but had already decompensated. Continue assessment and engagement and encourage med adherence. pt did not sign in voluntarily and commitment papers were filed 08/14/21. on oniel's order. taking meds as prescribed. check lithium level in 5 days. 08/17 continue current medications. 08/18 continue current medications. 08/19: increased lithium dosing to 600 BID after 08/17 lithium level 0.31. no change in presentation. 08/20: pt more engaging today, more verbally spontaneous. states she feels more calm since lithium dosing increase yesterday. signed in voluntarily. 08/21: improvements continue. still not showered. 08/23/2021: No changes to primary treatment plan 08/24: continue current mgmt. gains hold, still no shower. labs tomorrow. 08/25: lithium low at 0.53. dosing increased to 750 BID. 08/26: stable, continue present Tx. I spent ___20___ minutes with the patient and/or on the patient floor today, greater than?50% of which was spent counseling/coordinating care. Patient educated on: medical condition Reason for contiued inpatient stay Substantial Risk for: inability to function and rapid decompensation
[2021-08-26] MEDS: OLANZapine ODT 10 MG TAB.RAPDIS TRANSLINGU (21:33)
[2021-08-26 21:45] VITALS: BP 135/63; PULSE 88; TEMP 36.8; O2SAT 93
[2021-08-27] MEDS: Lithium Carbonate ER 300 MG TABLET.ER 750 MG PO ×2 (08:21→21:09)
[2021-08-27] MEDS: Loratadine 10 MG TABLET PO (08:21)
[2021-08-27] MEDS: Multivitamin TABLET 1 TAB PO (08:21)
[2021-08-27] MEDS: Folic Acid 1 MG TABLET PO (08:21)
[2021-08-27] MEDS: Cyanocobalamin (Vitamin B-12) 500 MCG TABLET PO (08:23)
[2021-08-27 08:27] VITALS: BP 135/62; PULSE 76; RESP 17; TEMP 36.6; O2SAT 95
--- NOTE | 2021-08-27 14:17 | HO.PSYCHPN ---
Subjective Subjective Date of Service: 08/27/21 Reason For Visit: Psychosis Interim History: pt found mica belle bed awake, as per usual. no change in presentation. no shower, still awaiting toiletries from outpt staff. asking about when she will discharge. denies MCKOY. asks about labs tuesday - now ordered. per staff denies Sx. isolative. no shower. sleeping, eating well. quiet, flat. Mental Status Exam Mental Status Exam Narrative: A&O. Pt is overweight, street clothes, poor hygiene, hair matted. good eye contact, engaging. No Tics or Tremors. No abnormal involuntary movements. Calm, cooperative. speech incr rate and nml amount. affect is full range. no SI/SIBI/HI/AVH or delusional thought content expressed. No known cognitive or memory impairment. Insight/ Judgment limited. Diagnostics Vital Signs (24Hr): Vital Signs - 24 hr 08/26/21 21:45 08/27/21 08:27 Temperature 98.3 F 97.9 F Pulse Rate 88 76 Respiratory Rate 17 Blood Pressure 135/63 135/62 Pulse Oximetry 93 95 BMI result Body Mass Index 44.4 Labs Results: 08/25/21 08:51 08/25/21 08:51 Medications Medications Current Medications Acetaminophen (Acetaminophen 325 Mg Tablet) 650 mg PO Q6H PRN PRN Reason: Headache/Pain Mild Scale (1-3) Last Admin: 08/26/21 20:46 Dose: 650 mg Documented by: Al Hydroxide/Mg Hydroxide (Magnesium Hydrox/Alum Hydrox 30 Ml Oral.Susp) 30 ml PO Q6H PRN PRN Reason: Heartburn/Nausea Cyanocobalamin (Cyanocobalamin (Vitamin B-12) 500 Mcg Tablet) 500 mcg PO DAILY [facility] Last Admin: 08/27/21 08:23 Dose: 500 mcg Documented by: Folic Acid (Folic Acid 1 Mg Tablet) 1 mg PO DAILY [facility] Last Admin: 08/27/21 08:21 Dose: 1 mg Documented by: Hydroxyzine HCl (Hydroxyzine Hcl 25 Mg Tablet) 25 mg PO BEDTIME PRN PRN Reason: Anxiety [place] Carbonate ([place] Carbonate Er 300 Mg Tablet.Er) 750 mg PO BID [facility] Last Admin: 08/27/21 08:21 Dose: 750 mg Documented by: Loratadine (Loratadine 10 Mg Tablet) 10 mg PO DAILY [facility] Last Admin: 08/27/21 08:21 Dose: 10 mg Documented by: Magnesium Hydroxide (Milk Of Magnesia 30 Ml Oral.Susp) 30 ml PO DAILY PRN PRN Reason: Constipation Multivitamins/Vitamin C (Multivitamin Tablet) 1 tab PO DAILY [facility] Last Admin: 08/27/21 08:21 Dose: 1 tab Documented by: Olanzapine (Olanzapine Odt 10 Mg Tab.Rapdis) 10 mg TRANSLINGU BEDTIME [facility] Last Admin: 08/26/21 21:33 Dose: 10 mg Documented by: Trazodone HCl (Trazodone Hcl 50 Mg Tablet) 50 mg PO BEDTIME PRN PRN Reason: Insomnia Allergies Allergies Allergy/AdvReac Type Severity Reaction Status Date / Time oxycodone [OXYCODONE] Allergy Unknown HIVES, Unverified 12/20/19 16:58 NAUSEA AND VOMITING From PERCOCET Allergy Unknown HIVES, Uncoded 12/20/19 16:58 NAUSEA AND VOMITING SEASONAL ALLERGIES Allergy Unknown STUFFY NOSE Uncoded 12/20/19 16:58 From VICODIN AdvReac Unknown VOMITING Uncoded 12/20/19 16:58 Assessment & Plan Assessment & Plan (1) Schizophrenia: Status: Acute Code(s): F20.9 - Schizophrenia, unspecified Plan Anusha is a 36 yo female with a history of schizophrenia. She presented [place] [facility] on 08/10/2021 due to med non-adherence, Li level is <0.10. Pt has a Maria Teresa?s Order, resides in [facility] apartment. Staff did a wellness check on her due to concern that she is not attending to ADLs. Pt refused to come out of her room but was eventually brought to the ED. Pt denied report that she is not taking her meds or caring for herself. However, pt was responding to internal stimuli in the ED pod and has unkempt appearance. Admitted on Section 12B. Hx of [facility] in 2013. Plan: Pt does not want med changes. Pt recently med adherent and re-started on meds but had already decompensated. Continue assessment and engagement and encourage med adherence. pt did not sign in voluntarily and commitment papers were filed 08/14/21. on maria teresa's order. taking meds as prescribed. check lithium level in 5 days. 08/17 continue current medications. 08/18 continue current medications. 08/19: increased lithium dosing to 600 BID after 08/17 lithium level 0.31. no change in presentation. 08/20: pt more engaging today, more verbally spontaneous. states she feels more calm since lithium dosing increase yesterday. signed in voluntarily. 08/21: improvements continue. still not showered. 08/23/2021: No changes to primary treatment plan 08/24: continue current mgmt. gains hold, still no shower. labs tomorrow. 08/25: lithium low at 0.53. dosing increased to 750 BID. 08/26: stable, continue present Tx. 08/27: continue current mgmt. labs ordered for thursday 08/31. I spent ___20___ minutes with the patient and/or on the patient floor today, greater than?50% of which was spent counseling/coordinating care. Reason for contiued inpatient stay Substantial Risk for: inability to function and rapid decompensation
[2021-08-27 21:00] VITALS: BP 119/58; PULSE 82; TEMP 36.9; O2SAT 92
[2021-08-27] MEDS: OLANZapine ODT 10 MG TAB.RAPDIS TRANSLINGU (21:09)
[2021-08-28 08:00] VITALS: BP 136/85; PULSE 80; TEMP 36.8; O2SAT 98
[2021-08-28] MEDS: Lithium Carbonate ER 300 MG TABLET.ER 750 MG PO ×2 (08:46→21:30)
[2021-08-28] MEDS: Acetaminophen 325 MG TABLET 650 MG PO (08:46)
[2021-08-28] MEDS: Multivitamin TABLET 1 TAB PO (08:49)
[2021-08-28] MEDS: Cyanocobalamin (Vitamin B-12) 500 MCG TABLET PO (08:49)
[2021-08-28] MEDS: Loratadine 10 MG TABLET PO (08:50)
[2021-08-28] MEDS: Folic Acid 1 MG TABLET PO (08:50)
--- NOTE | 2021-08-28 12:35 | HO.PSYCHPN ---
Subjective Subjective Date of Service: 08/28/21 Reason For Visit: Psychosis Interim History: no change in presentation. staff present encouraging pt to shower. no requests or complaints. per staff, denies dep/anx/SI/HI. unkempt, still has not showered even since outpt staff brought in her toiletries. sleeping well, not attending groups, no social interactions. med-compliant. Mental Status Exam Mental Status Exam Narrative: A&O. Pt is overweight, street clothes, poor hygiene, hair matted. good eye contact, engaging. No Tics or Tremors. No abnormal involuntary movements. Calm, cooperative. speech incr rate and nml amount. affect is constricted, non-labile. no SI/SIBI/HI/AVH or delusional thought content expressed. No known cognitive or memory impairment. Insight/ Judgment impaired. Diagnostics Vital Signs (24Hr): Vital Signs - 24 hr 08/27/21 21:00 08/28/21 08:00 Temperature 98.5 F 98.2 F Pulse Rate 82 80 Blood Pressure 119/58 L 136/85 Pulse Oximetry 92 98 BMI result Body Mass Index 44.4 Labs Results: 08/25/21 08:51 08/25/21 08:51 Medications Medications Current Medications Acetaminophen (Acetaminophen 325 Mg Tablet) 650 mg PO Q6H PRN PRN Reason: Headache/Pain Mild Scale (1-3) Last Admin: 08/28/21 08:46 Dose: 650 mg Documented by: Al Hydroxide/Mg Hydroxide (Magnesium Hydrox/Alum Hydrox 30 Ml Oral.Susp) 30 ml PO Q6H PRN PRN Reason: Heartburn/Nausea Cyanocobalamin (Cyanocobalamin (Vitamin B-12) 500 Mcg Tablet) 500 mcg PO DAILY [facility] Last Admin: 08/28/21 08:49 Dose: 500 mcg Documented by: Folic Acid (Folic Acid 1 Mg Tablet) 1 mg PO DAILY [facility] Last Admin: 08/28/21 08:50 Dose: 1 mg Documented by: Hydroxyzine HCl (Hydroxyzine Hcl 25 Mg Tablet) 25 mg PO BEDTIME PRN PRN Reason: Anxiety [place] Carbonate ([place] Carbonate Er 300 Mg Tablet.Er) 750 mg PO BID [facility] Last Admin: 08/28/21 08:46 Dose: 750 mg Documented by: Loratadine (Loratadine 10 Mg Tablet) 10 mg PO DAILY [facility] Last Admin: 08/28/21 08:50 Dose: 10 mg Documented by: Magnesium Hydroxide (Milk Of Magnesia 30 Ml Oral.Susp) 30 ml PO DAILY PRN PRN Reason: Constipation Multivitamins/Vitamin C (Multivitamin Tablet) 1 tab PO DAILY [facility] Last Admin: 08/28/21 08:49 Dose: 1 tab Documented by: Olanzapine (Olanzapine Odt 10 Mg Tab.Rapdis) 10 mg TRANSLINGU BEDTIME [facility] Last Admin: 08/27/21 21:09 Dose: 10 mg Documented by: Trazodone HCl (Trazodone Hcl 50 Mg Tablet) 50 mg PO BEDTIME PRN PRN Reason: Insomnia Allergies Allergies Allergy/AdvReac Type Severity Reaction Status Date / Time oxycodone [OXYCODONE] Allergy Unknown HIVES, Unverified 12/20/19 16:58 NAUSEA AND VOMITING From PERCOCET Allergy Unknown HIVES, Uncoded 12/20/19 16:58 NAUSEA AND VOMITING SEASONAL ALLERGIES Allergy Unknown STUFFY NOSE Uncoded 12/20/19 16:58 From VICODIN AdvReac Unknown VOMITING Uncoded 12/20/19 16:58 Assessment & Plan Assessment & Plan (1) Schizophrenia: Status: Acute Code(s): F20.9 - Schizophrenia, unspecified Plan Anusha is a 36 yo female with a history of schizophrenia. She presented to [facility] ED on 08/10/2021 due to med non-adherence, Li level is <0.10. Pt has a Oniel?s Order, resides in [facility] apartment. Staff did a wellness check on her due to concern that she is not attending to ADLs. Pt refused to come out of her room but was eventually brought to the ED. Pt denied report that she is not taking her meds or caring for herself. However, pt was responding to internal stimuli in the ED pod and has unkempt appearance. Admitted on Section 12B. [facility]. Plan: Pt does not want med changes. Pt recently med adherent and re-started on meds but had already decompensated. Continue assessment and engagement and encourage med adherence. pt did not sign in voluntarily and commitment papers were filed 08/14/21. on oniel's order. taking meds as prescribed. check lithium level in 5 days. 08/17 continue current medications. 08/18 continue current medications. 08/19: increased lithium dosing to 600 BID after 08/17 lithium level 0.31. no change in presentation. 08/20: pt more engaging today, more verbally spontaneous. states she feels more calm since lithium dosing increase yesterday. signed in voluntarily. 08/21: improvements continue. still not showered. 08/23/2021: No changes to primary treatment plan 08/24: continue current mgmt. gains hold, still no shower. labs tomorrow. 08/25: lithium low at 0.53. dosing increased to 750 BID. 08/26: stable, continue present Tx. 08/27: continue current mgmt. labs ordered for thursday 08/31. 08/28: continue current regimen. I spent __20____ minutes with the patient and/or on the patient floor today, greater than?50% of which was spent counseling/coordinating care. Reason for contiued inpatient stay Substantial Risk for: inability to function and rapid decompensation
[2021-08-28 18:00] VITALS: BP 133/66; PULSE 88; TEMP 36.9; O2SAT 94
[2021-08-28] MEDS: OLANZapine ODT 10 MG TAB.RAPDIS TRANSLINGU (21:31)
[2021-08-29 06:00] VITALS: BP 157/86; PULSE 80; RESP 18; TEMP 36.3; O2SAT 95
[2021-08-29] MEDS: Lithium Carbonate ER 300 MG TABLET.ER 750 MG PO ×2 (08:32→22:34)
[2021-08-29] MEDS: Cyanocobalamin (Vitamin B-12) 500 MCG TABLET PO (08:32)
[2021-08-29] MEDS: Multivitamin TABLET 1 TAB PO (08:32)
[2021-08-29] MEDS: Folic Acid 1 MG TABLET PO (08:32)
[2021-08-29] MEDS: Loratadine 10 MG TABLET PO (08:34)
[2021-08-29] MEDS: Acetaminophen 325 MG TABLET 650 MG PO (09:06)
--- NOTE | 2021-08-29 17:22 | P.PNPSI_ITS ---
Subjective Subjective Date of Service: 08/29/21 Reason For Visit: Psychosis Interim History: Patient seen. Says she is doing well and has no requests or complaints. Denies dep/anx/SI/HI. Poor ADL's. Sleeping well, not attending groups, no social interactions. med-compliant. Review of Systems Review of Systems headache- ? lithium related Yes all other systems are reviewed and are negative Constitutional: Reports no additional constitutional complaints, Denies body ache(s), Denies chills, Denies fever(s), Denies headache(s) and Denies weakness Eyes: Reports no additional eye complaints and Denies change in vision Reports system reviewed and no additional complaints, except as documented, Denies dizziness, Denies headache(s), Denies nasal congestion, Denies nasal discharge and Denies neck pain Cardiovascular: Reports no additional cardiovascular complaints, Denies chest pain, Denies leg edema and Denies dyspnea Respiratory: Reports no additional respiratory complaints, Denies cough and Denies dyspnea Gastrointestinal: Reports no additional gastrointestinal complaints, Denies abdominal pain, Denies diarrhea, Denies nausea and Denies vomiting Musculoskeletal: Reports no additional musculoskeletal complaints, Denies back pain, Denies arthralgias, Denies joint swelling, Denies neck pain, Denies numbness and Denies tingling Skin/Breast: Reports system reviewed and no additional complaints, except as docu and Denies rash Reports system reviewed and no additional complaints, except as documented, Denies Abnormal speech present, Denies dizziness, Denies headache(s), Denies numbness, Denies tingling and Denies weakness Mental Status Exam Mental Status Exam Narrative: A&O. Pt is overweight, street clothes, poor hygiene, hair matted. good eye contact, engaging. No Tics or Tremors. No abnormal involuntary movements. Calm, cooperative. speech incr rate and nml amount. affect is constricted, non- labile. no SI/SIBI/HI/AVH or delusional thought content expressed. No known cognitive or memory impairment. Insight/ Judgment impaired. Diagnostics Vital Signs (24Hr): Vital Signs - 24 hr 08/28/21 18:00 08/29/21 06:00 Temperature 98.4 F 97.3 F Pulse Rate 88 80 Respiratory Rate 18 Blood Pressure 133/66 157/86 H Pulse Oximetry 94 95 BMI result Body Mass Index 44.4 Labs Results: 08/25/21 08:51 08/25/21 08:51 Medications Medications Current Medications Acetaminophen (Acetaminophen 325 Mg Tablet) 650 mg PO Q6H PRN PRN Reason: Headache/Pain Mild Scale (1-3) Last Admin: 08/29/21 09:06 Dose: 650 mg Documented by: Al Hydroxide/Mg Hydroxide (Magnesium Hydrox/Alum Hydrox 30 Ml Oral.Susp) 30 ml PO Q6H PRN PRN Reason: Heartburn/Nausea Cyanocobalamin (Cyanocobalamin (Vitamin B-12) 500 Mcg Tablet) 500 mcg PO DAILY [facility] Last Admin: 08/29/21 08:32 Dose: 500 mcg Documented by: Folic Acid (Folic Acid 1 Mg Tablet) 1 mg PO DAILY [facility] Last Admin: 08/29/21 08:32 Dose: 1 mg Documented by: Hydroxyzine HCl (Hydroxyzine Hcl 25 Mg Tablet) 25 mg PO BEDTIME PRN PRN Reason: Anxiety [place] Carbonate ([place] Carbonate Er 300 Mg Tablet.Er) 750 mg PO BID [facility] Last Admin: 08/29/21 08:32 Dose: 750 mg Documented by: Loratadine (Loratadine 10 Mg Tablet) 10 mg PO DAILY [facility] Last Admin: 08/29/21 08:34 Dose: 10 mg Documented by: Magnesium Hydroxide (Milk Of Magnesia 30 Ml Oral.Susp) 30 ml PO DAILY PRN PRN Reason: Constipation Multivitamins/Vitamin C (Multivitamin Tablet) 1 tab PO DAILY [facility] Last Admin: 08/29/21 08:32 Dose: 1 tab Documented by: Olanzapine (Olanzapine Odt 10 Mg Tab.Rapdis) 10 mg TRANSLINGU BEDTIME [facility] Last Admin: 08/28/21 21:31 Dose: 10 mg Documented by: Trazodone HCl (Trazodone Hcl 50 Mg Tablet) 50 mg PO BEDTIME PRN PRN Reason: Insomnia Allergies Allergies Allergy/AdvReac Type Severity Reaction Status Date / Time oxycodone [OXYCODONE] Allergy Unknown HIVES, Unverified 12/20/19 16:58 NAUSEA AND VOMITING From PERCOCET Allergy Unknown HIVES, Uncoded 12/20/19 16:58 NAUSEA AND VOMITING SEASONAL ALLERGIES Allergy Unknown STUFFY NOSE Uncoded 12/20/19 16:58 From VICODIN AdvReac Unknown VOMITING Uncoded 12/20/19 16:58 Assessment & Plan Assessment & Plan (1) Schizophrenia: Status: Acute Code(s): F20.9 - Schizophrenia, unspecified Plan Anusha is a 36 yo female with a history of schizophrenia. She presented to [facility] on 08/10/2021 due to med non-adherence, Li level is <0.10. Pt has a Oniel?s Order, resides in [facility] apartment. Staff did a wellness check on her due to concern that she is not attending to ADLs. Pt refused to come out of her room but was eventually brought to the ED. Pt denied report that she is not taking her meds or caring for herself. However, pt was responding to internal stimuli in the ED pod and has unkempt appearance. Admitted on Section 12B. Hx of [facility] in 2013. Plan: Pt does not want med changes. Pt recently med adherent and re-started on meds but had already decompensated. Continue assessment and engagement and encourage med adherence. pt did not sign in voluntarily and commitment papers were filed 08/14/21. on oniel's order. taking meds as prescribed. check lithium level in 5 days. 08/17 continue current medications. 08/18 continue current medications. 08/19: increased lithium dosing to 600 BID after 08/17 lithium level 0.31. no change in presentation. 08/20: pt more engaging today, more verbally spontaneous. states she feels more calm since lithium dosing increase yesterday. signed in voluntarily. 08/21: improvements continue. still not showered. 08/23/2021: No changes to primary treatment plan 08/24: continue current mgmt. gains hold, still no shower. labs tomorrow. 08/25: lithium low at 0.53. dosing increased to 750 BID. 08/26: stable, continue present Tx. 08/27: continue current mgmt. labs ordered for thursday 08/31. 08/28: continue current regimen. 08/29: continue current regimen. I spent minutes with the patient and/or on the patient floor today, greater than?50% of which was spent counseling/coordinating care. Reason for contiued inpatient stay Substantial Risk for: inability to function and rapid decompensation
[2021-08-29 19:20] VITALS: BP 143/88; PULSE 86; RESP 18; TEMP 36.7; O2SAT 95
[2021-08-29] MEDS: OLANZapine ODT 10 MG TAB.RAPDIS TRANSLINGU (22:34)
[2021-08-30] MEDS: Lithium Carbonate ER 300 MG TABLET.ER 750 MG PO ×2 (08:50→21:47)
[2021-08-30] MEDS: Loratadine 10 MG TABLET PO (08:51)
[2021-08-30] MEDS: Acetaminophen 325 MG TABLET 650 MG PO (08:51)
[2021-08-30] MEDS: Multivitamin TABLET 1 TAB PO (08:51)
[2021-08-30] MEDS: Folic Acid 1 MG TABLET PO (08:51)
[2021-08-30] MEDS: Cyanocobalamin (Vitamin B-12) 500 MCG TABLET PO (08:51)
[2021-08-30 10:02] VITALS: BP 154/95; PULSE 95; RESP 18; TEMP 36.7; O2SAT 95
--- NOTE | 2021-08-30 13:27 | HO.PSYCHPN ---
Subjective Subjective Date of Service: 08/30/21 Reason For Visit: Psychosis Interim History: Patient seen. Says she is doing well and has no requests or complaints. Denies dep/anx/SI/HI. Poor ADL's. Her BP has been running higher than usual. Will monitor. Sleeping well, not attending groups, no social interactions. med-compliant. Review of Systems Review of Systems headache- ? lithium related Yes all other systems are reviewed and are negative Constitutional: Reports no additional constitutional complaints, Denies body ache(s), Denies chills, Denies fever(s), Denies headache(s) and Denies weakness Eyes: Reports no additional eye complaints and Denies change in vision Reports system reviewed and no additional complaints, except as documented, Denies dizziness, Denies headache(s), Denies nasal congestion, Denies nasal discharge and Denies neck pain Cardiovascular: Reports no additional cardiovascular complaints, Denies chest pain, Denies leg edema and Denies dyspnea Respiratory: Reports no additional respiratory complaints, Denies cough and Denies dyspnea Gastrointestinal: Reports no additional gastrointestinal complaints, Denies abdominal pain, Denies diarrhea, Denies nausea and Denies vomiting Musculoskeletal: Reports no additional musculoskeletal complaints, Denies back pain, Denies arthralgias, Denies joint swelling, Denies neck pain, Denies numbness and Denies tingling Skin/Breast: Reports system reviewed and no additional complaints, except as docu and Denies rash Reports system reviewed and no additional complaints, except as documented, Denies Abnormal speech present, Denies dizziness, Denies headache(s), Denies numbness, Denies tingling and Denies weakness Mental Status Exam Mental Status Exam Narrative: A&O. Pt is overweight, street clothes, poor hygiene, hair matted. good eye contact, engaging. No Tics or Tremors. No abnormal involuntary movements. Calm, cooperative. speech incr rate and nml amount. affect is constricted, non-labile. no SI/SIBI/HI/AVH or delusional thought content expressed. No known cognitive or memory impairment. Insight/ Judgment impaired. Diagnostics Vital Signs (24Hr): Vital Signs - 24 hr 08/29/21 19:20 08/30/21 10:02 Temperature 98.1 F 98.0 F Pulse Rate 86 95 Respiratory Rate 18 18 Blood Pressure 143/88 H 154/95 H Pulse Oximetry 95 95 BMI result Body Mass Index 44.4 Labs Results: 08/25/21 08:51 08/25/21 08:51 Medications Medications Current Medications Acetaminophen (Acetaminophen 325 Mg Tablet) 650 mg PO Q6H PRN PRN Reason: Headache/Pain Mild Scale (1-3) Last Admin: 08/30/21 08:51 Dose: 650 mg Documented by: Al Hydroxide/Mg Hydroxide (Magnesium Hydrox/Alum Hydrox 30 Ml Oral.Susp) 30 ml PO Q6H PRN PRN Reason: Heartburn/Nausea Cyanocobalamin (Cyanocobalamin (Vitamin B-12) 500 Mcg Tablet) 500 mcg PO DAILY [facility] Last Admin: 08/30/21 08:51 Dose: 500 mcg Documented by: Folic Acid (Folic Acid 1 Mg Tablet) 1 mg PO DAILY [facility] Last Admin: 08/30/21 08:51 Dose: 1 mg Documented by: Hydroxyzine HCl (Hydroxyzine Hcl 25 Mg Tablet) 25 mg PO BEDTIME PRN PRN Reason: Anxiety [place] Carbonate ([place] Carbonate Er 300 Mg Tablet.Er) 750 mg PO BID [facility] Last Admin: 08/30/21 08:50 Dose: 750 mg Documented by: Loratadine (Loratadine 10 Mg Tablet) 10 mg PO DAILY [facility] Last Admin: 08/30/21 08:51 Dose: 10 mg Documented by: Magnesium Hydroxide (Milk Of Magnesia 30 Ml Oral.Susp) 30 ml PO DAILY PRN PRN Reason: Constipation Multivitamins/Vitamin C (Multivitamin Tablet) 1 tab PO DAILY [facility] Last Admin: 08/30/21 08:51 Dose: 1 tab Documented by: Olanzapine (Olanzapine Odt 10 Mg Tab.Rapdis) 10 mg TRANSLINGU BEDTIME [facility] Last Admin: 08/29/21 22:34 Dose: 10 mg Documented by: Trazodone HCl (Trazodone Hcl 50 Mg Tablet) 50 mg PO BEDTIME PRN PRN Reason: Insomnia Allergies Allergies Allergy/AdvReac Type Severity Reaction Status Date / Time oxycodone [OXYCODONE] Allergy Unknown HIVES, Unverified 12/20/19 16:58 NAUSEA AND VOMITING From PERCOCET Allergy Unknown HIVES, Uncoded 12/20/19 16:58 NAUSEA AND VOMITING SEASONAL ALLERGIES Allergy Unknown STUFFY NOSE Uncoded 12/20/19 16:58 From VICODIN AdvReac Unknown VOMITING Uncoded 12/20/19 16:58 Assessment & Plan Assessment & Plan (1) Schizophrenia: Status: Acute Code(s): F20.9 - Schizophrenia, unspecified Plan Anusha is a 36 yo female with a history of schizophrenia. She presented to [facility] ED on 08/10/2021 due to med non-adherence, Li level is <0.10. Pt has a Oniel?s Order, resides in [facility] apartment. Staff did a wellness check on her due to concern that she is not attending to ADLs. Pt refused to come out of her room but was eventually brought to the ED. Pt denied report that she is not taking her meds or caring for herself. However, pt was responding to internal stimuli in the ED pod and has unkempt appearance. Admitted on Section 12B. Hx of [facility] in 2013. Plan: Pt does not want med changes. Pt recently med adherent and re-started on meds but had already decompensated. Continue assessment and engagement and encourage med adherence. pt did not sign in voluntarily and commitment papers were filed 08/14/21. on oniel's order. taking meds as prescribed. check lithium level in 5 days. 08/17 continue current medications. 08/18 continue current medications. 08/19: increased lithium dosing to 600 BID after 08/17 lithium level 0.31. no change in presentation. 08/20: pt more engaging today, more verbally spontaneous. states she feels more calm since lithium dosing increase yesterday. signed in voluntarily. 08/21: improvements continue. still not showered. 08/23/2021: No changes to primary treatment plan 08/24: continue current mgmt. gains hold, still no shower. labs tomorrow. 08/25: lithium low at 0.53. dosing increased to 750 BID. 08/26: stable, continue present Tx. 08/27: continue current mgmt. labs ordered for thursday 08/31. 08/28: continue current regimen. 08/29: continue current regimen. 08/30: continue current regimen. Monitor BP. Review labs tomorrow. I spent minutes with the patient and/or on the patient floor today, greater than?50% of which was spent counseling/coordinating care. Reason for contiued inpatient stay Substantial Risk for: inability to function and rapid decompensation
[2021-08-30 18:00] VITALS: BP 136/99; PULSE 88; RESP 20; TEMP 36.9; O2SAT 96
[2021-08-30] MEDS: OLANZapine ODT 10 MG TAB.RAPDIS TRANSLINGU (21:47)
[2021-08-31 07:35] LABS: Lithium 0.59 mmol/L (0.60-1.20)
[2021-08-31 07:44] LABS: Alanine Aminotransferase 41 U/L (0-31); Albumin Level 3.7 g/dL (3.5-5.0); Alkaline Phosphatase 70 U/L (39-117); Anion Gap 12 (12-20); Aspartate Amino Transferase 9 U/L (5-31); Bilirubin Direct < 0.2 mg/dL (0.0-0.5); Bilirubin Total 0.3 mg/dL (0.0-1.0); Blood Urea Nitrogen 9 mg/dL (9-16); Calcium 9.1 mg/dL (8.4-10.2); Carbon Dioxide 26 mmol/L (22-29); Chloride 105 mmol/L (96-108); Creatinine Clr Calc Pharmacy 140.8; Estimated Glomerular Filt Rate > 60; Glucose Random 114 mg/dL (60-115); Potassium 4.4 mmol/L (3.3-5.1); Sodium 139 mmol/L (135-145); Total Protein 6.1 g/dL (6.5-8.0)
[2021-08-31] MEDS: Acetaminophen 325 MG TABLET 650 MG PO ×3 (08:20→20:59)
[2021-08-31] MEDS: Lithium Carbonate ER 300 MG TABLET.ER 750 MG PO ×2 (10:46→20:53)
[2021-08-31] MEDS: Cyanocobalamin (Vitamin B-12) 500 MCG TABLET PO (10:47)
[2021-08-31] MEDS: Multivitamin TABLET 1 TAB PO (10:47)
[2021-08-31] MEDS: Loratadine 10 MG TABLET PO (10:48)
[2021-08-31] MEDS: Folic Acid 1 MG TABLET PO (10:48)
--- NOTE | 2021-08-31 12:01 | PC.NURSE ---
This RN tried to encourage pt to shower but she said she felt out of place and was anxious to use the showers. She did agree to use bath wipes to clean her upper extremities and chest.
[2021-08-31 12:06] VITALS: BP 118/67; PULSE 86; RESP 16; TEMP 36.6; O2SAT 99
--- NOTE | 2021-08-31 14:22 | P.PNPSI_ITS ---
Subjective Subjective Date of Service: 08/31/21 Reason For Visit: Psychosis Interim History: Patient seen. Says she is doing well and has no requests or complaints. She feels improved. Ready for DC this week. She had Li level drawn. It was 0.59. Some headache reported. Responds to Tylenol. BP stable. Denies dep/anx/SI/HI. Sleeping well, not attending groups, little/no social interactions. med- compliant. * Review of Systems Review of Systems headache- ? lithium related Yes all other systems are reviewed and are negative Constitutional: Reports no additional constitutional complaints, Denies body ache(s), Denies chills, Denies fever(s), Denies headache(s) and Denies weakness Eyes: Reports no additional eye complaints and Denies change in vision Reports system reviewed and no additional complaints, except as documented, Denies dizziness, Denies headache(s), Denies nasal congestion, Denies nasal discharge and Denies neck pain Cardiovascular: Reports no additional cardiovascular complaints, Denies chest pain, Denies leg edema and Denies dyspnea Respiratory: Reports no additional respiratory complaints, Denies cough and Denies dyspnea Gastrointestinal: Reports no additional gastrointestinal complaints, Denies abdominal pain, Denies diarrhea, Denies nausea and Denies vomiting Musculoskeletal: Reports no additional musculoskeletal complaints, Denies back pain, Denies arthralgias, Denies joint swelling, Denies neck pain, Denies numbness and Denies tingling Skin/Breast: Reports system reviewed and no additional complaints, except as docu and Denies rash Reports system reviewed and no additional complaints, except as documented, Denies Abnormal speech present, Denies dizziness, Denies headache(s), Denies numbness, Denies tingling and Denies weakness Mental Status Exam Mental Status Exam Narrative: A&O. Pt is overweight, street clothes, fair hygiene, hair matted. good eye contact, engaging. No Tics or Tremors. No abnormal involuntary movements. Calm, cooperative. speech normal rate and nml amount. affect is constricted, non- labile. no SI/SIBI/HI/AVH or delusional thought content expressed. No known cognitive or memory impairment. Insight/ Judgment improved. Diagnostics Vital Signs (24Hr): Vital Signs - 24 hr 08/30/21 18:00 08/31/21 12:06 Temperature 98.4 F 97.9 F Pulse Rate 88 86 Respiratory Rate 20 16 Blood Pressure 136/99 H 118/67 Pulse Oximetry 96 99 BMI result Body Mass Index 44.4 Labs Results: 08/25/21 08:51 08/31/21 07:08 Labs: Laboratory Results - last 48 hr 08/31/21 08/31/21 07:08 07:08 Sodium 139 Potassium 4.4 Chloride 105 Carbon Dioxide 26 Anion Gap 12 BUN 9 Creatinine 0.64 Estim Creat Clear Calc 140.8 Estimated GFR > 60 Random Glucose 114 Calcium 9.1 Total Bilirubin 0.3 Direct Bilirubin < 0.2 AST 9 ALT 41 H Alkaline Phosphatase 70 Total Protein 6.1 L Albumin 3.7 [place] 0.59 L Medications Medications Current Medications Acetaminophen (Acetaminophen 325 Mg Tablet) 650 mg PO Q6H PRN PRN Reason: Headache/Pain Mild Scale (1-3) Last Admin: 08/31/21 08:20 Dose: 650 mg Documented by: Al Hydroxide/Mg Hydroxide (Magnesium Hydrox/Alum Hydrox 30 Ml Oral.Susp) 30 ml PO Q6H PRN PRN Reason: Heartburn/Nausea Cyanocobalamin (Cyanocobalamin (Vitamin B-12) 500 Mcg Tablet) 500 mcg PO DAILY [facility] Last Admin: 08/31/21 10:47 Dose: 500 mcg Documented by: Folic Acid (Folic Acid 1 Mg Tablet) 1 mg PO DAILY [facility] Last Admin: 08/31/21 10:48 Dose: 1 mg Documented by: Hydroxyzine HCl (Hydroxyzine Hcl 25 Mg Tablet) 25 mg PO BEDTIME PRN PRN Reason: Anxiety [place] Carbonate ([place] Carbonate Er 300 Mg Tablet.Er) 750 mg PO BID [facility] Last Admin: 08/31/21 10:46 Dose: 750 mg Documented by: Loratadine (Loratadine 10 Mg Tablet) 10 mg PO DAILY [facility] Last Admin: 08/31/21 10:48 Dose: 10 mg Documented by: Magnesium Hydroxide (Milk Of Magnesia 30 Ml Oral.Susp) 30 ml PO DAILY PRN PRN Reason: Constipation Multivitamins/Vitamin C (Multivitamin Tablet) 1 tab PO DAILY [facility] Last Admin: 08/31/21 10:47 Dose: 1 tab Documented by: Olanzapine (Olanzapine Odt 10 Mg Tab.Rapdis) 10 mg TRANSLINGU BEDTIME [facility] Last Admin: 08/30/21 21:47 Dose: 10 mg Documented by: Trazodone HCl (Trazodone Hcl 50 Mg Tablet) 50 mg PO BEDTIME PRN PRN Reason: Insomnia Allergies Allergies Allergy/AdvReac Type Severity Reaction Status Date / Time oxycodone [OXYCODONE] Allergy Unknown HIVES, Unverified 12/20/19 16:58 NAUSEA AND VOMITING From PERCOCET Allergy Unknown HIVES, Uncoded 12/20/19 16:58 NAUSEA AND VOMITING SEASONAL ALLERGIES Allergy Unknown STUFFY NOSE Uncoded 12/20/19 16:58 From VICODIN AdvReac Unknown VOMITING Uncoded 12/20/19 16:58 Assessment & Plan Assessment & Plan (1) Schizophrenia: Status: Acute Code(s): F20.9 - Schizophrenia, unspecified Plan Anusha is a 36 yo female with a history of schizophrenia. She presented to [facility] on 08/10/2021 due to med non-adherence, Li level is <0.10. Pt has a Oniel?s Order, resides in [facility] apartment. Staff did a wellness check on her due to concern that she is not attending to ADLs. Pt refused to come out of her room but was eventually brought to the ED. Pt denied report that she is not taking her meds or caring for herself. However, pt was responding to internal stimuli in the ED pod and has unkempt appearance. Admitted on Section 12B. Hx of [facility] in 2013. Plan: Pt does not want med changes. Pt recently med adherent and re-started on meds but had already decompensated. Continue assessment and engagement and encourage med adherence. pt did not sign in voluntarily and commitment papers were filed 08/14/21. on oniel's order. taking meds as prescribed. check lithium level in 5 days. 08/17 continue current medications. 08/18 continue current medications. 08/19: increased lithium dosing to 600 BID after 08/17 lithium level 0.31. no change in presentation. 08/20: pt more engaging today, more verbally spontaneous. states she feels more calm since lithium dosing increase yesterday. signed in voluntarily. 08/21: improvements continue. still not showered. 08/23/2021: No changes to primary treatment plan 08/24: continue current mgmt. gains hold, still no shower. labs tomorrow. 08/25: lithium low at 0.53. dosing increased to 750 BID. 08/26: stable, continue present Tx. 08/27: continue current mgmt. labs ordered for thursday 08/31. 08/28: continue current regimen. 08/29: continue current regimen. 08/30: continue current regimen. Monitor BP. Review labs tomorrow. 08/31 BP normalized (cuff size). Labs reviewed. Continue treatment plan. I spent minutes with the patient and/or on the patient floor today, gr eater than?50% of which was spent counseling/coordinating care. Reason for contiued inpatient stay Substantial Risk for: inability to function and rapid decompensation
[2021-08-31 20:51] VITALS: BP 143/68; PULSE 92; RESP 16; TEMP 37.1; O2SAT 96
[2021-08-31] MEDS: OLANZapine ODT 10 MG TAB.RAPDIS TRANSLINGU (20:53)
[2021-09-01 09:23] VITALS: BP 138/66; PULSE 85; RESP 17; TEMP 36.7; O2SAT 93
[2021-09-01] MEDS: Multivitamin TABLET 1 TAB PO (09:24)
[2021-09-01] MEDS: Folic Acid 1 MG TABLET PO (09:24)
[2021-09-01] MEDS: Loratadine 10 MG TABLET PO (09:25)
[2021-09-01] MEDS: Lithium Carbonate ER 300 MG TABLET.ER 750 MG PO (09:25)
[2021-09-01] MEDS: Cyanocobalamin (Vitamin B-12) 500 MCG TABLET PO (09:25)
--- NOTE | 2021-09-01 14:37 | HO.PSYCHPN ---
Subjective Subjective Date of Service: 09/01/21 Reason For Visit: Psychosis Interim History: pt found seated at her desk drinking coffee. calm, cooperative, verbal. minimizing her illness, making excuses for not bathing. labs reviewed, continued lowish lithium level noted. informs pt dosing will need to be increased to 900 BID. pt does not appear enthusiastic about this, fearing side effects, but does not express outright opposition. she did report that her daily MCKOY had gone away as of today. per staff, not attending groups. terse. no anx/dep. no SI/HI/AVH. sleeping and eating well. refusing shower, did wipe herself off with some wipes on tuesday. says she will take a sponge bath. Mental Status Exam Mental Status Exam Narrative: A&O. Pt is overweight, street clothes, fair hygiene, hair matted. good eye contact, engaging. No Tics or Tremors. No abnormal involuntary movements. Calm, cooperative. speech normal rate and nml amount. affect is constricted, non-labile. no SI/SIBI/HI/AVH or delusional thought content expressed. No known cognitive or memory impairment. Insight/ Judgment improved from admission, but impaired. Diagnostics Vital Signs (24Hr): Vital Signs - 24 hr 08/31/21 20:51 09/01/21 09:23 Temperature 98.7 F 98.1 F Pulse Rate 92 85 Respiratory Rate 16 17 Blood Pressure 143/68 H 138/66 Pulse Oximetry 96 93 BMI result Body Mass Index 44.4 Labs Results: 08/25/21 08:51 08/31/21 07:08 Labs: Laboratory Results - last 48 hr 08/31/21 08/31/21 07:08 07:08 Sodium 139 Potassium 4.4 Chloride 105 Carbon Dioxide 26 Anion Gap 12 BUN 9 Creatinine 0.64 Estim Creat Clear Calc 140.8 Estimated GFR > 60 Random Glucose 114 Calcium 9.1 Total Bilirubin 0.3 Direct Bilirubin < 0.2 AST 9 ALT 41 H Alkaline Phosphatase 70 Total Protein 6.1 L Albumin 3.7 [place] 0.59 L Medications Medications Current Medications Acetaminophen (Acetaminophen 325 Mg Tablet) 650 mg PO Q6H PRN PRN Reason: Headache/Pain Mild Scale (1-3) Last Admin: 08/31/21 20:59 Dose: 650 mg Documented by: Al Hydroxide/Mg Hydroxide (Magnesium Hydrox/Alum Hydrox 30 Ml Oral.Susp) 30 ml PO Q6H PRN PRN Reason: Heartburn/Nausea Cyanocobalamin (Cyanocobalamin (Vitamin B-12) 500 Mcg Tablet) 500 mcg PO DAILY [facility] Last Admin: 09/01/21 09:25 Dose: 500 mcg Documented by: Folic Acid (Folic Acid 1 Mg Tablet) 1 mg PO DAILY [facility] Last Admin: 09/01/21 09:24 Dose: 1 mg Documented by: Hydroxyzine HCl (Hydroxyzine Hcl 25 Mg Tablet) 25 mg PO BEDTIME PRN PRN Reason: Anxiety [place] Carbonate ([place] Carbonate Er 450 Mg Tablet.Er) 900 mg PO BID [facility] Loratadine (Loratadine 10 Mg Tablet) 10 mg PO DAILY [facility] Last Admin: 09/01/21 09:25 Dose: 10 mg Documented by: Magnesium Hydroxide (Milk Of Magnesia 30 Ml Oral.Susp) 30 ml PO DAILY PRN PRN Reason: Constipation Multivitamins/Vitamin C (Multivitamin Tablet) 1 tab PO DAILY [facility] Last Admin: 09/01/21 09:24 Dose: 1 tab Documented by: Olanzapine (Olanzapine Odt 10 Mg Tab.Rapdis) 10 mg TRANSLINGU BEDTIME [facility] Last Admin: 08/31/21 20:53 Dose: 10 mg Documented by: Trazodone HCl (Trazodone Hcl 50 Mg Tablet) 50 mg PO BEDTIME PRN PRN Reason: Insomnia Allergies Allergies Allergy/AdvReac Type Severity Reaction Status Date / Time oxycodone [OXYCODONE] Allergy Unknown HIVES, Unverified 12/20/19 16:58 NAUSEA AND VOMITING From PERCOCET Allergy Unknown HIVES, Uncoded 12/20/19 16:58 NAUSEA AND VOMITING SEASONAL ALLERGIES Allergy Unknown STUFFY NOSE Uncoded 12/20/19 16:58 From VICODIN AdvReac Unknown VOMITING Uncoded 12/20/19 16:58 Assessment & Plan Assessment & Plan (1) Schizophrenia: Status: Acute Code(s): F20.9 - Schizophrenia, unspecified Plan Anusha is a 36 yo female with a history of schizophrenia. She [place] [facility] [place] 08[place]10/[place]21 due to med non-adherence, Li level is <0.10. Pt has a Oniel?s Order, resides in [facility] apartment. Staff did a wellness check on her due to concern that she is not attending to ADLs. Pt refused to come out of her room but was eventually brought to the ED. Pt denied report that she is not taking her meds or caring for herself. However, pt was responding to internal stimuli in the ED pod and has unkempt appearance. Admitted on Section 12B. Hx of [facility] in 2013. Plan: Pt does not want med changes. Pt recently med adherent and re-started on meds but had already decompensated. Continue assessment and engagement and encourage med adherence. pt did not sign in voluntarily and commitment papers were filed 08/14/21. on oniel's order. taking meds as prescribed. check lithium level in 5 days. 08/17 continue current medications. 08/18 continue current medications. 08/19: increased lithium dosing to 600 BID after 08/17 lithium level 0.31. no change in presentation. 08/20: pt more engaging today, more verbally spontaneous. states she feels more calm since lithium dosing increase yesterday. signed in voluntarily. 08/21: improvements continue. still not showered. 08/23/2021: No changes to primary treatment plan 08/24: continue current mgmt. gains hold, still no shower. labs tomorrow. 08/25: lithium low at 0.53. dosing increased to 750 BID. 08/26: stable, continue present Tx. 08/27: continue current mgmt. labs ordered for thursday 08/31. 08/28: continue current regimen. 08/29: continue current regimen. 08/30: continue current regimen. Monitor BP. Review labs tomorrow. 08/31 BP normalized (cuff size). Labs reviewed. Continue treatment plan. 09/01: lithium low at 0.59, dosing increased to 900 BID as of tonight. no change in presentation from last week. I spent ___25___ minutes with the patient and/or on the patient floor today, greater than?50% of which was spent counseling/coordinating care. Reason for contiued inpatient stay Substantial Risk for: inability to function and rapid decompensation
[2021-09-01] MEDS: OLANZapine ODT 10 MG TAB.RAPDIS TRANSLINGU (22:10)
[2021-09-01] MEDS: Lithium Carbonate ER 450 MG TABLET.ER 900 MG PO (22:10)
[2021-09-01 22:20] VITALS: BP 156/69; PULSE 80
[2021-09-02 08:00] VITALS: BP 140/79; PULSE 89; RESP 18; TEMP 36.6; O2SAT 97
[2021-09-02] MEDS: Lithium Carbonate ER 450 MG TABLET.ER 900 MG PO ×2 (10:44→22:15)
[2021-09-02] MEDS: Loratadine 10 MG TABLET PO (10:44)
[2021-09-02] MEDS: Folic Acid 1 MG TABLET PO (10:44)
[2021-09-02] MEDS: Cyanocobalamin (Vitamin B-12) 500 MCG TABLET PO (10:44)
[2021-09-02] MEDS: Multivitamin TABLET 1 TAB PO (10:44)
--- NOTE | 2021-09-02 18:32 | HO.PSYCHPN ---
Subjective Subjective Date of Service: 09/02/21 Reason For Visit: Psychosis Interim History: pt found in the milieu, getting a snack from the kitchen. cooperative, comes to the interview room for interview for the first time with MD. continues to make excuses for why she cannot shower. during times when she is not speaking she often looks away from MD and slightly moves her lips as if talking, but nothing is audible. she states she is tolerating the increased dose of lithium without side effects. denies MCKOY. reports she is sleeping, eating, getting along with others well. per staff, declining to shower. taking meds. slept well. Mental Status Exam Mental Status Exam Narrative: A&O. Pt is overweight, street clothes, fair hygiene, hair matted. good eye contact, engaging. No Tics or Tremors. No abnormal involuntary movements. Calm, cooperative. speech normal rate and nml amount. affect is more flexible, non-labile. no SI/SIBI/HI/AVH or delusional thought content expressed. some looking away as if distracted while moving her lips as if speaking (without making a noise). No known cognitive or memory impairment. Insight/ Judgment improved from admission, but impaired. Diagnostics Vital Signs (24Hr): Vital Signs - 24 hr 09/01/21 22:20 09/02/21 08:00 Temperature 97.9 F Pulse Rate 80 89 Respiratory Rate 18 Blood Pressure 156/69 H 140/79 H Pulse Oximetry 97 BMI result Body Mass Index 44.4 Labs Results: 08/25/21 08:51 08/31/21 07:08 Medications Medications Current Medications Acetaminophen (Acetaminophen 325 Mg Tablet) 650 mg PO Q6H PRN PRN Reason: Headache/Pain Mild Scale (1-3) Last Admin: 08/31/21 20:59 Dose: 650 mg Documented by: Al Hydroxide/Mg Hydroxide (Magnesium Hydrox/Alum Hydrox 30 Ml Oral.Susp) 30 ml PO Q6H PRN PRN Reason: Heartburn/Nausea Cyanocobalamin (Cyanocobalamin (Vitamin B-12) 500 Mcg Tablet) 500 mcg PO DAILY [facility] Last Admin: 09/02/21 10:44 Dose: 500 mcg Documented by: Folic Acid (Folic Acid 1 Mg Tablet) 1 mg PO DAILY [facility] Last Admin: 09/02/21 10:44 Dose: 1 mg Documented by: Hydroxyzine HCl (Hydroxyzine Hcl 25 Mg Tablet) 25 mg PO BEDTIME PRN PRN Reason: Anxiety [place] Carbonate ([place] Carbonate Er 450 Mg Tablet.Er) 900 mg PO BID [facility] Last Admin: 09/02/21 10:44 Dose: 900 mg Documented by: Loratadine (Loratadine 10 Mg Tablet) 10 mg PO DAILY [facility] Last Admin: 09/02/21 10:44 Dose: 10 mg Documented by: Magnesium Hydroxide (Milk Of Magnesia 30 Ml Oral.Susp) 30 ml PO DAILY PRN PRN Reason: Constipation Multivitamins/Vitamin C (Multivitamin Tablet) 1 tab PO DAILY [facility] Last Admin: 09/02/21 10:44 Dose: 1 tab Documented by: Olanzapine (Olanzapine Odt 10 Mg Tab.Rapdis) 10 mg TRANSLINGU BEDTIME [facility] Last Admin: 09/01/21 22:10 Dose: 10 mg Documented by: Trazodone HCl (Trazodone Hcl 50 Mg Tablet) 50 mg PO BEDTIME PRN PRN Reason: Insomnia Allergies Allergies Allergy/AdvReac Type Severity Reaction Status Date / Time oxycodone [OXYCODONE] Allergy Unknown HIVES, Unverified 12/20/19 16:58 NAUSEA AND VOMITING From PERCOCET Allergy Unknown HIVES, Uncoded 12/20/19 16:58 NAUSEA AND VOMITING SEASONAL ALLERGIES Allergy Unknown STUFFY NOSE Uncoded 12/20/19 16:58 From VICODIN AdvReac Unknown VOMITING Uncoded 12/20/19 16:58 Assessment & Plan Assessment & Plan (1) Schizophrenia: Status: Acute Code(s): F20.9 - Schizophrenia, unspecified Plan Anusha is a 36 yo female with a history of schizophrenia. She presented to [facility] on 08/10/2021 due to med non-adherence, Li level is <0.10. Pt has a Oniel?s Order, resides in [facility] apartment. Staff did a wellness check on her due to concern that she is not attending to ADLs. Pt refused to come out of her room but was eventually brought to the ED. Pt denied report that she is not taking her meds or caring for herself. However, pt was responding to internal stimuli in the ED pod and has unkempt appearance. Admitted on Section 12B. Hx of [facility] in 2013. Plan: Pt does not want med changes. Pt recently med adherent and re-started on meds but had already decompensated. Continue assessment and engagement and encourage med adherence. pt did not sign in voluntarily and commitment papers were filed 08/14/21. on oniel's order. taking meds as prescribed. check lithium level in 5 days. 08/17 continue current medications. 08/18 continue current medications. 08/19: increased lithium dosing to 600 BID after 08/17 lithium level 0.31. no change in presentation. 08/20: pt more engaging today, more verbally spontaneous. states she feels more calm since lithium dosing increase yesterday. signed in voluntarily. 08/21: improvements continue. still not showered. 08/23/2021: No changes to primary treatment plan 08/24: continue current mgmt. gains hold, still no shower. labs tomorrow. 08/25: lithium low at 0.53. dosing increased to 750 BID. 08/26: stable, continue present Tx. 08/27: continue current mgmt. labs ordered for thursday 08/31. 08/28: continue current regimen. 08/29: continue current regimen. 08/30: continue current regimen. Monitor BP. Review labs tomorrow. 08/31 BP normalized (cuff size). Labs reviewed. Continue treatment plan. 09/01: lithium low at 0.59, dosing increased to 900 BID as of tonight. no change in presentation from last week. 09/02: some indication of ongoing psychosis today, no problems or side effects from lithium dosing increase. I spent ___25___ minutes with the patient and/or on the patient floor today, greater than?50% of which was spent counseling/coordinating care. Reason for contiued inpatient stay Substantial Risk for: inability to function and rapid decompensation
[2021-09-02 20:45] VITALS: BP 110/56; PULSE 91; RESP 18; TEMP 36.7; O2SAT 94
[2021-09-02] MEDS: OLANZapine ODT 10 MG TAB.RAPDIS TRANSLINGU (22:15)
[2021-09-03] MEDS: Folic Acid 1 MG TABLET PO (08:21)
[2021-09-03] MEDS: Lithium Carbonate ER 450 MG TABLET.ER 900 MG PO ×2 (08:21→22:34)
[2021-09-03] MEDS: Loratadine 10 MG TABLET PO (08:21)
[2021-09-03] MEDS: Cyanocobalamin (Vitamin B-12) 500 MCG TABLET PO (08:22)
[2021-09-03] MEDS: Multivitamin TABLET 1 TAB PO (08:22)
[2021-09-03 08:30] VITALS: BP 134/64; PULSE 75; RESP 20; TEMP 36.6; O2SAT 96
[2021-09-03 15:23] VITALS: BMI 45.4
--- NOTE | 2021-09-03 15:48 | HO.PSYCHPN ---
Subjective Subjective Date of Service: 09/03/21 Reason For Visit: Psychosis Interim History: pt found lying in her bed, awake. appears as at recent baseline, not showering, wanting to go home. reports she spoke with her outpt team 2 days ago and they discussed their plans to bolster support for her once she discharges, in effort to keep her in the community. per SW collateral, outpt treaters meeting tomorrow and tuesday to firm up plans in preparation for tuesday discharge. doc-to-doc completed today with nita martin. Mental Status Exam Mental Status Exam Narrative: A&O. Pt is overweight, street clothes, fair hygiene, hair matted. good eye contact, engaging. No Tics or Tremors. No abnormal involuntary movements. Calm, cooperative. speech normal rate and nml amount. affect is more flexible, non-labile. no SI/SIBI/HI/AVH or delusional thought content expressed. No known cognitive or memory impairment. Insight/ Judgment improved from admission, but impaired. Diagnostics Vital Signs (24Hr): Vital Signs - 24 hr 09/02/21 20:45 09/03/21 08:30 Temperature 98.1 F 97.9 F Pulse Rate 91 75 Respiratory Rate 18 20 Blood Pressure 110/56 L 134/64 Pulse Oximetry 94 96 BMI result Body Mass Index 45.4 Labs Results: 08/25/21 08:51 08/31/21 07:08 Medications Medications Current Medications Acetaminophen (Acetaminophen 325 Mg Tablet) 650 mg PO Q6H PRN PRN Reason: Headache/Pain Mild Scale (1-3) Last Admin: 08/31/21 20:59 Dose: 650 mg Documented by: Al Hydroxide/Mg Hydroxide (Magnesium Hydrox/Alum Hydrox 30 Ml Oral.Susp) 30 ml PO Q6H PRN PRN Reason: Heartburn/Nausea Cyanocobalamin (Cyanocobalamin (Vitamin B-12) 500 Mcg Tablet) 500 mcg PO DAILY [facility] Last Admin: 09/03/21 08:22 Dose: 500 mcg Documented by: Folic Acid (Folic Acid 1 Mg Tablet) 1 mg PO DAILY [facility] Last Admin: 09/03/21 08:21 Dose: 1 mg Documented by: Hydroxyzine HCl (Hydroxyzine Hcl 25 Mg Tablet) 25 mg PO BEDTIME PRN PRN Reason: Anxiety [place] Carbonate ([place] Carbonate Er 450 Mg Tablet.Er) 900 mg PO BID [facility] Last Admin: 09/03/21 08:21 Dose: 900 mg Documented by: Loratadine (Loratadine 10 Mg Tablet) 10 mg PO DAILY [facility] Last Admin: 09/03/21 08:21 Dose: 10 mg Documented by: Magnesium Hydroxide (Milk Of Magnesia 30 Ml Oral.Susp) 30 ml PO DAILY PRN PRN Reason: Constipation Multivitamins/Vitamin C (Multivitamin Tablet) 1 tab PO DAILY [facility] Last Admin: 09/03/21 08:22 Dose: 1 tab Documented by: Olanzapine (Olanzapine Odt 10 Mg Tab.Rapdis) 10 mg TRANSLINGU BEDTIME [facility] Last Admin: 09/02/21 22:15 Dose: 10 mg Documented by: Trazodone HCl (Trazodone Hcl 50 Mg Tablet) 50 mg PO BEDTIME PRN PRN Reason: Insomnia Allergies Allergies Allergy/AdvReac Type Severity Reaction Status Date / Time oxycodone [OXYCODONE] Allergy Unknown HIVES, Unverified 12/20/19 16:58 NAUSEA AND VOMITING From PERCOCET Allergy Unknown HIVES, Uncoded 12/20/19 16:58 NAUSEA AND VOMITING SEASONAL ALLERGIES Allergy Unknown STUFFY NOSE Uncoded 12/20/19 16:58 From VICODIN AdvReac Unknown VOMITING Uncoded 12/20/19 16:58 Assessment & Plan Assessment & Plan (1) Schizophrenia: Status: Acute Code(s): F20.9 - Schizophrenia, unspecified Plan Anusha is a 36 yo female with a history of schizophrenia. She [place] [facility] [place] due to med non-adherence, Li level is <0.10. Pt has a Oniel?s Order, resides in [facility] apartment. Staff did a wellness check on her due to concern that she is not attending to ADLs. Pt refused to come out of her room but was eventually brought to the ED. Pt denied report that she is not taking her meds or caring for herself. However, pt was responding to internal stimuli in the ED pod and has unkempt appearance. Admitted on Section 12B. [facility]. Plan: Pt does not want med changes. Pt recently med adherent and re-started on meds but had already decompensated. Continue assessment and engagement and encourage med adherence. pt did not sign in voluntarily and commitment papers were filed 08/14/21. on oniel's order. taking meds as prescribed. check lithium level in 5 days. 08/17 continue current medications. 08/18 continue current medications. 08/19: increased lithium dosing to 600 BID after 08/17 lithium level 0.31. no change in presentation. 08/20: pt more engaging today, more verbally spontaneous. states she feels more calm since lithium dosing increase yesterday. signed in voluntarily. 08/21: improvements continue. still not showered. 08/23/2021: No changes to primary treatment plan 08/24: continue current mgmt. gains hold, still no shower. labs tomorrow. 08/25: lithium low at 0.53. dosing increased to 750 BID. 08/26: stable, continue present Tx. 08/27: continue current mgmt. labs ordered for thursday 08/31. 08/28: continue current regimen. 08/29: continue current regimen. 08/30: continue current regimen. Monitor BP. Review labs tomorrow. 08/31 BP normalized (cuff size). Labs reviewed. Continue treatment plan. 09/01: lithium low at 0.59, dosing increased to 900 BID as of tonight. no change in presentation from last week. 09/02: some indication of ongoing psychosis today, no problems or side effects from lithium dosing increase. 09/03: planning DC next tuesday. check lithium level/labsmond morning. I spent __40____ minutes with the patient and/or on the patient floor today, greater than?50% of which was spent counseling/coordinating care. Reason for contiued inpatient stay Substantial Risk for: inability to function and rapid decompensation
[2021-09-03 22:33] VITALS: BP 138/92; PULSE 92; RESP 18; TEMP 36.3; O2SAT 94
[2021-09-03] MEDS: OLANZapine ODT 10 MG TAB.RAPDIS TRANSLINGU (22:34)
[2021-09-04 06:00] VITALS: BP 118/59; PULSE 86; RESP 17; TEMP 36.6; O2SAT 96
[2021-09-04] MEDS: Folic Acid 1 MG TABLET PO (09:19)
[2021-09-04] MEDS: Multivitamin TABLET 1 TAB PO (09:19)
[2021-09-04] MEDS: Lithium Carbonate ER 450 MG TABLET.ER 900 MG PO ×2 (09:19→21:52)
[2021-09-04] MEDS: Loratadine 10 MG TABLET PO (09:19)
[2021-09-04] MEDS: Cyanocobalamin (Vitamin B-12) 500 MCG TABLET PO (09:19)
--- NOTE | 2021-09-04 11:45 | HO.PSYCHPN ---
Subjective Subjective Date of Service: 09/04/21 Reason For Visit: Psychosis Interim History: pt found lying in bed, awake, as per usual. superficially cheery, no complaints or requests. happy to hear discharge is scheduled for tuesday. offers she is drinking more water than before and has not had any more headaches since. per staff, refusing shower. guarded. denies dep/anx/SI/HI/AVH. slept well. D/C tuesday. Mental Status Exam Mental Status Exam Narrative: A&O. Pt is overweight, street clothes, fair hygiene, hair matted. good eye contact, engaging. No Tics or Tremors. No abnormal involuntary movements. Calm, cooperative. speech normal rate and nml amount. affect is more flexible, non-labile. no SI/SIBI/HI/AVH or delusional thought content expressed. No known cognitive or memory impairment. Insight/ Judgment improved from admission, but impaired. Diagnostics Vital Signs (24Hr): Vital Signs - 24 hr 09/03/21 22:33 09/04/21 06:00 Temperature 97.3 F 97.9 F Pulse Rate 92 86 Respiratory Rate 18 17 Blood Pressure 138/92 H 118/59 L Pulse Oximetry 94 96 BMI result Body Mass Index 45.4 Labs Results: 08/25/21 08:51 08/31/21 07:08 Medications Medications Current Medications Acetaminophen (Acetaminophen 325 Mg Tablet) 650 mg PO Q6H PRN PRN Reason: Headache/Pain Mild Scale (1-3) Last Admin: 08/31/21 20:59 Dose: 650 mg Documented by: Al Hydroxide/Mg Hydroxide (Magnesium Hydrox/Alum Hydrox 30 Ml Oral.Susp) 30 ml PO Q6H PRN PRN Reason: Heartburn/Nausea Cyanocobalamin (Cyanocobalamin (Vitamin B-12) 500 Mcg Tablet) 500 mcg PO DAILY [facility] Last Admin: 09/04/21 09:19 Dose: 500 mcg Documented by: Folic Acid (Folic Acid 1 Mg Tablet) 1 mg PO DAILY [facility] Last Admin: 09/04/21 09:19 Dose: 1 mg Documented by: Hydroxyzine HCl (Hydroxyzine Hcl 25 Mg Tablet) 25 mg PO BEDTIME PRN PRN Reason: Anxiety [place] Carbonate ([place] Carbonate Er 450 Mg Tablet.Er) 900 mg PO BID [facility] Last Admin: 06/03/22 09:19 Dose: 900 mg Documented by: Loratadine (Loratadine 10 Mg Tablet) 10 mg PO DAILY [facility] Last Admin: 09/04/21 09:19 Dose: 10 mg Documented by: Magnesium Hydroxide (Milk Of Magnesia 30 Ml Oral.Susp) 30 ml PO DAILY PRN PRN Reason: Constipation Multivitamins/Vitamin C (Multivitamin Tablet) 1 tab PO DAILY [facility] Last Admin: 09/04/21 09:19 Dose: 1 tab Documented by: Olanzapine (Olanzapine Odt 10 Mg Tab.Rapdis) 10 mg TRANSLINGU BEDTIME [facility] Last Admin: 09/03/21 22:34 Dose: 10 mg Documented by: Trazodone HCl (Trazodone Hcl 50 Mg Tablet) 50 mg PO BEDTIME PRN PRN Reason: Insomnia Allergies Allergies Allergy/AdvReac Type Severity Reaction Status Date / Time oxycodone [OXYCODONE] Allergy Unknown HIVES, Unverified 12/20/19 16:58 NAUSEA AND VOMITING From PERCOCET Allergy Unknown HIVES, Uncoded 12/20/19 16:58 NAUSEA AND VOMITING SEASONAL ALLERGIES Allergy Unknown STUFFY NOSE Uncoded 12/20/19 16:58 From VICODIN AdvReac Unknown VOMITING Uncoded 12/20/19 16:58 Assessment & Plan Assessment & Plan (1) Schizophrenia: Status: Acute Code(s): F20.9 - Schizophrenia, unspecified Plan Anusha is a 36 yo female with a history of schizophrenia. She [place] [facility] [place] due to med non-adherence, Li level is <0.10. Pt has a Oniel?s Order, resides in [facility] apartment. Staff did a wellness check on her due to concern that she is not attending to ADLs. Pt refused to come out of her room but was eventually brought to the ED. Pt denied report that she is not taking her meds or caring for herself. However, pt was responding to internal stimuli in the ED pod and has unkempt appearance. Admitted on Section 12B. [facility]. Plan: Pt does not want med changes. Pt recently med adherent and re-started on meds but had already decompensated. Continue assessment and engagement and encourage med adherence. pt did not sign in voluntarily and commitment papers were filed 08/14/21. on oniel's order. taking meds as prescribed. check lithium level in 5 days. 08/17 continue current medications. 08/18 continue current medications. 08/19: increased lithium dosing to 600 BID after 08/17 lithium level 0.31. no change in presentation. 08/20: pt more engaging today, more verbally spontaneous. states she feels more calm since lithium dosing increase yesterday. signed in voluntarily. 08/21: improvements continue. still not showered. 08/23/2021: No changes to primary treatment plan 08/24: continue current mgmt. gains hold, still no shower. labs tomorrow. 08/25: lithium low at 0.53. dosing increased to 750 BID. 08/26: stable, continue present Tx. 08/27: continue current mgmt. labs ordered for thursday 08/31. 08/28: continue current regimen. 08/29: continue current regimen. 08/30: continue current regimen. Monitor BP. Review labs tomorrow. 08/31 BP normalized (cuff size). Labs reviewed. Continue treatment plan. 09/01: lithium low at 0.59, dosing increased to 900 BID as of tonight. no change in presentation from last week. 09/02: some indication of ongoing psychosis today, no problems or side effects from lithium dosing increase. 09/03: planning DC next tuesday. check lithium level/labs tuesday. 09/04: stable I spent ___20___ minutes with the patient and/or on the patient floor today, greater than?50% of which was spent counseling/coordinating care. Reason for contiued inpatient stay Substantial Risk for: inability to function and rapid decompensation
[2021-09-04 21:49] VITALS: BP 126/60; PULSE 83; TEMP 36.8; O2SAT 95
[2021-09-04] MEDS: OLANZapine ODT 10 MG TAB.RAPDIS TRANSLINGU (21:52)
[2021-09-05] MEDS: Acetaminophen 325 MG TABLET 650 MG PO (05:49)
[2021-09-05 08:29] VITALS: BP 123/64; PULSE 70; RESP 16; TEMP 36.6; O2SAT 96
--- NOTE | 2021-09-05 09:03 | P.PNPSI_ITS ---
Subjective Subjective Date of Service: 09/05/21 Reason For Visit: Psychosis Subjective Notes: Conditional Voluntary Healthcare Proxy: No Guardianship: No Medical Problems Affecting Mental Status: No Interim History: Patient was seen and discussed in rounds today. Records and plans were revie wed. She continues to be isolative and superficial with brief responses to questions. She talked about being discharged early next week. She continues to be guarded. She is med compliant. No complaints or side effects. Eating and sleeping well. Hygiene continues to be very poor with a body odor. She does feel less depressed. No changes were made today Medication Compliance: Yes Side effects from medications: No Review of Systems Review of Systems Yes all other systems are reviewed and are negative Mental Status Exam Mental Status Exam Narrative: In today's visit she is alert, oriented and pleasant. Speech is soft-spoken. Little to no eye contact. Affect is subdued and constricted. No signs of psychosis. No SI/HI. Cognitively is grossly intact with slow thought processes. Judgment is intact Diagnostics Vital Signs (24Hr): Vital Signs - 24 hr 09/04/21 21:49 09/05/21 08:29 Temperature 98.3 F 97.9 F Pulse Rate 83 70 Respiratory Rate 16 Blood Pressure 126/60 123/64 Pulse Oximetry 95 96 BMI result Body Mass Index 45.4 Labs Results: 08/25/21 08:51 08/31/21 07:08 Medications Medications Current Medications Acetaminophen (Acetaminophen 325 Mg Tablet) 650 mg PO Q6H PRN PRN Reason: Headache/Pain Mild Scale (1-3) Last Admin: 09/05/21 05:49 Dose: 650 mg Documented by: Al Hydroxide/Mg Hydroxide (Magnesium Hydrox/Alum Hydrox 30 Ml Oral.Susp) 30 ml PO Q6H PRN PRN Reason: Heartburn/Nausea Cyanocobalamin (Cyanocobalamin (Vitamin B-12) 500 Mcg Tablet) 500 mcg PO DAILY [facility] Last Admin: 09/04/21 09:19 Dose: 500 mcg Documented by: Folic Acid (Folic Acid 1 Mg Tablet) 1 mg PO DAILY [facility] Last Admin: 09/04/21 09:19 Dose: 1 mg Documented by: Hydroxyzine HCl (Hydroxyzine Hcl 25 Mg Tablet) 25 mg PO BEDTIME PRN PRN Reason: Anxiety [place] Carbonate ([place] Carbonate Er 450 Mg Tablet.Er) 900 mg PO BID [facility] Last Admin: 09/04/21 21:52 Dose: 900 mg Documented by: Loratadine (Loratadine 10 Mg Tablet) 10 mg PO DAILY [facility] Last Admin: 09/04/21 09:19 Dose: 10 mg Documented by: Magnesium Hydroxide (Milk Of Magnesia 30 Ml Oral.Susp) 30 ml PO DAILY PRN PRN Reason: Constipation Multivitamins/Vitamin C (Multivitamin Tablet) 1 tab PO DAILY [facility] Last Admin: 09/04/21 09:19 Dose: 1 tab Documented by: Olanzapine (Olanzapine Odt 10 Mg Tab.Rapdis) 10 mg TRANSLINGU BEDTIME [facility] Last Admin: 09/04/21 21:52 Dose: 10 mg Documented by: Trazodone HCl (Trazodone Hcl 50 Mg Tablet) 50 mg PO BEDTIME PRN PRN Reason: Insomnia Allergies Allergies Allergy/AdvReac Type Severity Reaction Status Date / Time oxycodone [OXYCODONE] Allergy Unknown HIVES, Unverified 12/20/19 16:58 NAUSEA AND VOMITING From PERCOCET Allergy Unknown HIVES, Uncoded 12/20/19 16:58 NAUSEA AND VOMITING SEASONAL ALLERGIES Allergy Unknown STUFFY NOSE Uncoded 12/20/19 16:58 From VICODIN AdvReac Unknown VOMITING Uncoded 12/20/19 16:58 Assessment & Plan Assessment & Plan (1) Schizophrenia: Status: Acute Code(s): F20.9 - Schizophrenia, unspecified Plan Anusha is a 36 yo female with a history of schizophrenia. She [place] [facility] [place]10/[place]21 due to med non-adherence, Li level is <0.10. Pt has a Oniel?s Order, resides in [facility] [place]. Staff did a wellness check on her due to concern that she is not attending to ADLs. Pt refused to come out of her room but was eventually brought to the ED. Pt denied report that she is not taking her meds or caring for herself. However, pt was responding to internal stimuli in the ED pod and has unkempt appearance. Admitted on Section 12B. Hx of [facility] in 2013. Plan: Pt does not want med changes. Pt recently med adherent and re-started on meds but had already decompensated. Continue assessment and engagement and encourage med adherence. pt did not sign in voluntarily and commitment papers were filed 08/14/21. on oniel's order. taking meds as prescribed. check lithium level in 5 days. 08/17 continue current medications. 08/18 continue current medications. 08/19: increased lithium dosing to 600 BID after 08/17 lithium level 0.31. no change in presentation. 08/20: pt more engaging today, more verbally spontaneous. states she feels more calm since lithium dosing increase yesterday. signed in voluntarily. 08/21: improvements continue. still not showered. 08/23/2021: No changes to primary treatment plan 08/24: continue current mgmt. gains hold, still no shower. labs tomorrow. 08/25: lithium low at 0.53. dosing increased to 750 BID. 08/26: stable, continue present Tx. 08/27: continue current mgmt. labs ordered for thursday 08/31. 08/28: continue current regimen. 08/29: continue current regimen. 08/30: continue current regimen. Monitor BP. Review labs tomorrow. 08/31 BP normalized (cuff size). Labs reviewed. Continue treatment plan. 09/01: lithium low at 0.59, dosing increased to 900 BID as of tonight. no change in presentation from last week. 09/02: some indication of ongoing psychosis today, no problems or side effects from lithium dosing increase. 09/03: planning DC next tuesday. check lithium level/labs tuesday. 09/04: stable 09/05: Continue current regimen and plans I spent minutes with the patient and/or on the patient floor today, greater than?50% of which was spent counseling/coordinating care. Reason for contiued inpatient stay Substantial Risk for: med/psych decompensation
[2021-09-05] MEDS: Multivitamin TABLET 1 TAB PO (09:53)
[2021-09-05] MEDS: Lithium Carbonate ER 450 MG TABLET.ER 900 MG PO ×2 (09:53→22:34)
[2021-09-05] MEDS: Loratadine 10 MG TABLET PO (09:54)
[2021-09-05] MEDS: Folic Acid 1 MG TABLET PO (09:54)
[2021-09-05] MEDS: Cyanocobalamin (Vitamin B-12) 500 MCG TABLET PO (09:54)
[2021-09-05 21:17] VITALS: BP 115/56; PULSE 92; TEMP 37; O2SAT 93
[2021-09-05] MEDS: OLANZapine ODT 10 MG TAB.RAPDIS TRANSLINGU (22:35)
[2021-09-06] MEDS: Loratadine 10 MG TABLET PO (08:20)
[2021-09-06] MEDS: Lithium Carbonate ER 450 MG TABLET.ER 900 MG PO ×2 (08:20→22:34)
[2021-09-06] MEDS: Cyanocobalamin (Vitamin B-12) 500 MCG TABLET PO (08:20)
[2021-09-06] MEDS: Multivitamin TABLET 1 TAB PO (08:20)
[2021-09-06] MEDS: Folic Acid 1 MG TABLET PO (08:20)
[2021-09-06 08:23] VITALS: BP 164/92; PULSE 76; RESP 17; TEMP 36.7; O2SAT 96
--- NOTE | 2021-09-06 10:10 | HO.PSYCHPN ---
Subjective Subjective Date of Service: 09/06/21 Reason For Visit: Psychosis Subjective Notes: Conditional Voluntary Interim History: Patient was seen and discussed in rounds today. Records and plans were reviewed. She continues to be mostly isolative with no one-to-one interaction. No groups attended. Generally she is pleasant and appears to be brighter in her affect. Eating and sleeping adequately. No complaints or side effects. No changes were made today Review of Systems Review of Systems Yes all other systems are reviewed and are negative Mental Status Exam Mental Status Exam Narrative: In today's visit she is alert, oriented and pleasant. Speech is soft-spoken. Little to no eye contact. Affect is subdued and constricted. No signs of psychosis. No SI/HI. Cognitively is grossly intact with slow thought processes. Judgment is intact Diagnostics Vital Signs (24Hr): Vital Signs - 24 hr 09/05/21 21:17 09/06/21 08:23 Temperature 98.6 F 98.1 F Pulse Rate 92 76 Respiratory Rate 17 Blood Pressure 115/56 L 164/92 H Pulse Oximetry 93 96 BMI result Body Mass Index 45.4 Labs Results: 08/25/21 08:51 08/31/21 07:08 Medications Medications Current Medications Acetaminophen (Acetaminophen 325 Mg Tablet) 650 mg PO Q6H PRN PRN Reason: Headache/Pain Mild Scale (1-3) Last Admin: 09/05/21 05:49 Dose: 650 mg Documented by: Al Hydroxide/Mg Hydroxide (Magnesium Hydrox/Alum Hydrox 30 Ml Oral.Susp) 30 ml PO Q6H PRN PRN Reason: Heartburn/Nausea Cyanocobalamin (Cyanocobalamin (Vitamin B-12) 500 Mcg Tablet) 500 mcg PO DAILY [facility] Last Admin: 09/06/21 08:20 Dose: 500 mcg Documented by: Folic Acid (Folic Acid 1 Mg Tablet) 1 mg PO DAILY [facility] Last Admin: 09/06/21 08:20 Dose: 1 mg Documented by: Hydroxyzine HCl (Hydroxyzine Hcl 25 Mg Tablet) 25 mg PO BEDTIME PRN PRN Reason: Anxiety [place] Carbonate ([place] Carbonate Er 450 Mg Tablet.Er) 900 mg PO BID [facility] Last Admin: 09/06/21 08:20 Dose: 900 mg Documented by: Loratadine (Loratadine 10 Mg Tablet) 10 mg PO DAILY [facility] Last Admin: 09/06/21 08:20 Dose: 10 mg Documented by: Magnesium Hydroxide (Milk Of Magnesia 30 Ml Oral.Susp) 30 ml PO DAILY PRN PRN Reason: Constipation Multivitamins/Vitamin C (Multivitamin Tablet) 1 tab PO DAILY [facility] Last Admin: 09/06/21 08:20 Dose: 1 tab Documented by: Olanzapine (Olanzapine Odt 10 Mg Tab.Rapdis) 10 mg TRANSLINGU BEDTIME [facility] Last Admin: 09/05/21 22:35 Dose: 10 mg Documented by: Trazodone HCl (Trazodone Hcl 50 Mg Tablet) 50 mg PO BEDTIME PRN PRN Reason: Insomnia Allergies Allergies Allergy/AdvReac Type Severity Reaction Status Date / Time oxycodone [OXYCODONE] Allergy Unknown HIVES, Unverified 12/20/19 16:58 NAUSEA AND VOMITING From PERCOCET Allergy Unknown HIVES, Uncoded 12/20/19 16:58 NAUSEA AND VOMITING SEASONAL ALLERGIES Allergy Unknown STUFFY NOSE Uncoded 12/20/19 16:58 From VICODIN AdvReac Unknown VOMITING Uncoded 12/20/19 16:58 Assessment & Plan Assessment & Plan (1) Schizophrenia: Status: Acute Code(s): F20.9 - Schizophrenia, unspecified Plan Anusha is a 36 yo female with a history of schizophrenia. She [place] [facility] [place] due to med non-adherence, Li level is <0.10. Pt has a Oniel?s Order, resides in [facility] apartment. Staff did a wellness check on her due to concern that she is not attending to ADLs. Pt refused to come out of her room but was eventually brought to the ED. Pt denied report that she is not taking her meds or caring for herself. However, pt was responding to internal stimuli in the ED pod and has unkempt appearance. Admitted on Section 12B. [facility]. Plan: Pt does not want med changes. Pt recently med adherent and re-started on meds but had already decompensated. Continue assessment and engagement and encourage med adherence. pt did not sign in voluntarily and commitment papers were filed 08/14/21. on oniel's order. taking meds as prescribed. check lithium level in 5 days. 08/17 continue current medications. 08/18 continue current medications. 08/19: increased lithium dosing to 600 BID after 08/17 lithium level 0.31. no change in presentation. 08/20: pt more engaging today, more verbally spontaneous. states she feels more calm since lithium dosing increase yesterday. signed in voluntarily. 08/21: improvements continue. still not showered. 08/23/2021: No changes to primary treatment plan 08/24: continue current mgmt. gains hold, still no shower. labs tomorrow. 08/25: lithium low at 0.53. dosing increased to 750 BID. 08/26: stable, continue present Tx. 08/27: continue current mgmt. labs ordered for thursday 08/31. 08/28: continue current regimen. 08/29: continue current regimen. 08/30: continue current regimen. Monitor BP. Review labs tomorrow. 08/31 BP normalized (cuff size). Labs reviewed. Continue treatment plan. 09/01: lithium low at 0.59, dosing increased to 900 BID as of tonight. no change in presentation from last week. 09/02: some indication of ongoing psychosis today, no problems or side effects from lithium dosing increase. 09/03: planning DC next tuesday. check lithium level/labs tuesday. 09/04: stable 09/05: Continue current regimen and plans 09/06: Continue current plans and regimen I spent minutes with the patient and/or on the patient floor today, greater than?50% of which was spent counseling/coordinating care. Reason for contiued inpatient stay Substantial Risk for: med/psych decompensation
[2021-09-06 22:13] VITALS: BP 105/58; PULSE 71; RESP 18; TEMP 36.4; O2SAT 96
[2021-09-06] MEDS: OLANZapine ODT 10 MG TAB.RAPDIS TRANSLINGU (22:34)
[2021-09-07] MEDS: Loratadine 10 MG TABLET PO (08:52)
[2021-09-07] MEDS: Lithium Carbonate ER 450 MG TABLET.ER 900 MG PO ×2 (08:53→22:53)
[2021-09-07] MEDS: Folic Acid 1 MG TABLET PO (08:53)
[2021-09-07] MEDS: Cyanocobalamin (Vitamin B-12) 500 MCG TABLET PO (08:53)
[2021-09-07] MEDS: Multivitamin TABLET 1 TAB PO (08:53)
[2021-09-07 08:54] VITALS: BP 134/85; PULSE 82; RESP 18; TEMP 36.1; O2SAT 91
--- NOTE | 2021-09-07 10:42 | P.PNPSI_ITS ---
Subjective Subjective Date of Service: 09/07/21 Reason For Visit: Psychosis Interim History: no change in presentation or context of interview. denies Sx, states she is ready to discharge. her only question is what time she will be picked up tomorrow. labs ordered for tomorrow morning. per staff, no change. denies anx/dep/SI/HI/AVH. not showering or adequately attending to personal hygiene. isolative. slept well. Mental Status Exam Mental Status Exam Narrative: A&O. Pt is overweight, street clothes, fair hygiene, hair matted. good eye contact, engaging. No Tics or Tremors. No abnormal involuntary movements. Calm, cooperative. speech normal rate and nml amount. affect is more flexible, non- labile. no SI/SIBI/HI/AVH or delusional thought content expressed. No known co gnitive or memory impairment. Insight/ Judgment improved from admission, but impaired. Diagnostics Vital Signs (24Hr): Vital Signs - 24 hr 09/06/21 22:13 09/07/21 08:54 Temperature 97.6 F 96.9 F Pulse Rate 71 82 Respiratory Rate 18 18 Blood Pressure 105/58 L 134/85 Pulse Oximetry 96 91 L BMI result Body Mass Index 45.4 Labs Results: 08/25/21 08:51 08/31/21 07:08 Medications Medications Current Medications Acetaminophen (Acetaminophen 325 Mg Tablet) 650 mg PO Q6H PRN PRN Reason: Headache/Pain Mild Scale (1-3) Last Admin: 09/05/21 05:49 Dose: 650 mg Documented by: Al Hydroxide/Mg Hydroxide (Magnesium Hydrox/Alum Hydrox 30 Ml Oral.Susp) 30 ml PO Q6H PRN PRN Reason: Heartburn/Nausea Cyanocobalamin (Cyanocobalamin (Vitamin B-12) 500 Mcg Tablet) 500 mcg PO DAILY [facility] Last Admin: 09/07/21 08:53 Dose: 500 mcg Documented by: Folic Acid (Folic Acid 1 Mg Tablet) 1 mg PO DAILY [facility] Last Admin: 09/07/21 08:53 Dose: 1 mg Documented by: Hydroxyzine HCl (Hydroxyzine Hcl 25 Mg Tablet) 25 mg PO BEDTIME PRN PRN Reason: Anxiety [place] Carbonate ([place] Carbonate Er 450 Mg Tablet.Er) 900 mg PO BID [facility] Last Admin: 09/07/21 08:53 Dose: 900 mg Documented by: Loratadine (Loratadine 10 Mg Tablet) 10 mg PO DAILY [facility] Last Admin: 09/07/21 08:52 Dose: 10 mg Documented by: Magnesium Hydroxide (Milk Of Magnesia 30 Ml Oral.Susp) 30 ml PO DAILY PRN PRN Reason: Constipation Multivitamins/Vitamin C (Multivitamin Tablet) 1 tab PO DAILY [facility] Last Admin: 09/07/21 08:53 Dose: 1 tab Documented by: Olanzapine (Olanzapine Odt 10 Mg Tab.Rapdis) 10 mg TRANSLINGU BEDTIME [facility] Last Admin: 09/06/21 22:34 Dose: 10 mg Documented by: Trazodone HCl (Trazodone Hcl 50 Mg Tablet) 50 mg PO BEDTIME PRN PRN Reason: Insomnia Allergies Allergies Allergy/AdvReac Type Severity Reaction Status Date / Time oxycodone [OXYCODONE] Allergy Unknown HIVES, Unverified 12/20/19 16:58 NAUSEA AND VOMITING From PERCOCET Allergy Unknown HIVES, Uncoded 12/20/19 16:58 NAUSEA AND VOMITING SEASONAL ALLERGIES Allergy Unknown STUFFY NOSE Uncoded 12/20/19 16:58 From VICODIN AdvReac Unknown VOMITING Uncoded 12/20/19 16:58 Assessment & Plan Assessment & Plan (1) Schizophrenia: Status: Acute Code(s): F20.9 - Schizophrenia, unspecified Plan Anusha is a 36 yo female with a history of schizophrenia. She presented to [facility] on 08/10/2021 due to med non-adherence, Li level is <0.10. Pt has a Oniel?s Order, resides in [facility] apartment. Staff did a wellness check on her due to concern that she is not attending to ADLs. Pt refused to come out of her room but was eventually brought to the ED. Pt denied report that she is not taking her meds or caring for herself. However, pt was responding to internal stimuli in the ED pod and has unkempt appearance. Admitted on Section 12B. [facility]. Plan: Pt does not want med changes. Pt recently med adherent and re-started on meds but had already decompensated. Continue assessment and engagement and encourage med adherence. pt did not sign in voluntarily and commitment papers were filed 08/14/21. on yocasta er's order. taking meds as prescribed. check lithium level in 5 days. 08/17 continue current medications. 08/18 continue current medications. 08/19: increased lithium dosing to 600 BID after 08/17 lithium level 0.31. no change in presentation. 08/20: pt more engaging today, more verbally spontaneous. states she feels more calm since lithium dosing increase yesterday. signed in voluntarily. 08/21: improvements continue. still not showered. 08/23/2021: No changes to primary treatment plan 08/24: continue current mgmt. gains hold, still no shower. labs tomorrow. 08/25: lithium low at 0.53. dosing increased to 750 BID. 08/26: stable, continue present Tx. 08/27: continue current mgmt. labs ordered for thursday 08/31. 08/28: continue current regimen. 08/29: continue current regimen. 08/30: continue current regimen. Monitor BP. Review labs tomorrow. 08/31 BP normalized (cuff size). Labs reviewed. Continue treatment plan. 09/01: lithium low at 0.59, dosing increased to 900 BID as of tonight. no change in presentation from last week. 09/02: some indication of ongoing psychosis today, no problems or side effects from lithium dosing increase. 09/03: planning DC next tuesday. 09/04 - 09/07: stable, no change in Tx, discharge to care of outpt workers tomorrow. labs tomorrow morning. I spent ___20___ minutes with the patient and/or on the patient floor today, greater than?50% of which was spent counseling/coordinating care. Reason for contiued inpatient stay Substantial Risk for: inability to function
[2021-09-07 22:38] VITALS: BP 120/59; PULSE 66; RESP 18; TEMP 36.8; O2SAT 95
[2021-09-07] MEDS: OLANZapine ODT 10 MG TAB.RAPDIS TRANSLINGU (22:53)
[2021-09-08 08:17] LABS: MANUAL DIFF FLAG NO
[2021-09-08 08:22] LABS: Basophils Absolute Auto 0.1 X10*3/uL (0.0-0.2); Basophils Percent Auto 0.4 % (0-2); Eosinophils Absolute Auto 0.3 X10*3/uL (0.0-0.4); Eosinophils Percent Auto 2.4 % (0-4); Hematocrit 39.5 % (37.0-47.0); Imm Gran Abs Auto 0.16 X10*3/uL (0.00-0.03); Imm Gran Pct Auto 1.2 % (0.0-0.4); Lymphocytes Percent Auto 22.1 % (20-40); Mean Corpuscular HGB Conc 32.9 g/dl (31.0-35.0); Mean Corpuscular Hemoglobin 28.1 pg (27.0-33.0); Mean Corpuscular Volume 85.3 fL (80.0-98.0); Mean Platelet Volume 9.2 fL (9.4-12.3); Monocytes Absolute Auto 0.6 X10*3/uL (0.1-1.2); Monocytes Percent Auto 4.7 % (2-11); Neutrophils Absolute Auto 9.5 x10*3/uL (2.0-8.3); Neutrophils Percent Auto 69.2 % (45-73); Platelet Count 304 X10*3/uL (160-400); Red Blood Count 4.63 X10*6/uL (4.20-5.50); Red Cell Distribution Width 13.1 % (11.0-16.0); White Blood Count 13.7 X10*3/uL (4.8-10.8)
[2021-09-08] MEDS: Cyanocobalamin (Vitamin B-12) 500 MCG TABLET PO (08:32)
[2021-09-08] MEDS: Multivitamin TABLET 1 TAB PO (08:32)
[2021-09-08] MEDS: Folic Acid 1 MG TABLET PO (08:33)
[2021-09-08] MEDS: Lithium Carbonate ER 450 MG TABLET.ER 900 MG PO (08:33)
[2021-09-08] MEDS: Loratadine 10 MG TABLET PO (08:33)
[2021-09-08 08:40] LABS: Lithium 0.83 mmol/L (0.60-1.20)
[2021-09-08 08:50] LABS: Alanine Aminotransferase 22 U/L (0-31); Alkaline Phosphatase 78 U/L (39-117); Anion Gap 13 (12-20); Aspartate Amino Transferase 7 U/L (5-31); Bilirubin Direct < 0.2 mg/dL (0.0-0.5); Bilirubin Total 0.3 mg/dL (0.0-1.0); Blood Urea Nitrogen 14 mg/dL (9-16); Calcium 9.3 mg/dL (8.4-10.2); Carbon Dioxide 26 mmol/L (22-29); Chloride 103 mmol/L (96-108); Creatinine Clr Calc Pharmacy 142.8; Estimated Glomerular Filt Rate > 60; Glucose Random 104 mg/dL (60-115); Potassium 4.6 mmol/L (3.3-5.1); Sodium 137 mmol/L (135-145); Total Protein 6.4 g/dL (6.5-8.0)
--- NOTE | 2021-09-08 10:59 | PM.PSYDC ---
DS: Providers Provider Date of Service: 09/08/21 Date of admission: 08/11/21 13:25 Primary care physician: Yudith Suarez MD DS: Diagnosis Discharge Diagnosis (1) Schizophrenia: Status: Acute DS: Medications Discharge Medications Home Medications: Home Medications Medication Instructions Recorded Confirmed folic acid 0.8 mg capsule 0.4 mg PO DAILY 08/10/21 08/10/21 loratadine 10 mg tablet (Claritin) 10 mg PO DAILY 08/10/21 08/10/21 multivitamin 1 tab PO DAILY 08/10/21 08/10/21 norethindrone (contraceptive) 0.35 0.35 mg PO DAILY 08/10/21 08/10/21 mg tablet olanzapine 10 mg disintegrating 10 mg PO QPM 08/10/21 08/10/21 tablet (Zyprexa Zydis) vitamin B12 0.5 mg-folic acid 1 mg 1 tab PO DAILY 08/10/21 08/10/21 tablet Previous Rx's Medication Instructions Recorded lithium carbonate 450 mg 900 mg PO BID 30 Days #120 tab 09/08/21 tablet,extended release Mental Status Exam Mental Status Exam Narrative: A&O. Pt is overweight, street clothes, fair hygiene, hair matted. good eye contact, engaging. No Tics or Tremors. No abnormal involuntary movements. Calm, cooperative. speech normal rate and nml amount. affect is more flexible, non-labile. mood calm, relaxed. no SI/SIBI/HI/AVH or delusional thought content. No known cognitive or memory impairment. Insight/ Judgment improved from admission, but impaired. Data Data Completed and Pending Completed studies during hospitalization [Text1]: 09/08/21 09/08/21 09/08/21 07:59 07:59 07:59 WBC 13.7 H RBC 4.63 Hgb 13.0 Hct 39.5 MCV 85.3 MCH 28.1 MCHC 32.9 RDW 13.1 Plt Count 304 MPV 9.2 L Immature Gran % (Auto) 1.2 H Neut % (Auto) 69.2 Lymph % (Auto) 22.1 [place] % (Auto) 4.7 Eos % (Auto) 2.4 Baso % (Auto) 0.4 Lymph # (Auto) 3.0 [place] # (Auto) 0.6 Eos # (Auto) 0.3 Baso # (Auto) 0.1 Abs Immat Gran (auto) 0.16 H Absolute Neuts (auto) 9.5 H Absolute Nucleated RBC 0.000 Nucleated RBC % (auto) 0.0 Sodium 137 Potassium 4.6 Chloride 103 Carbon Dioxide 26 Anion Gap 13 BUN 14 D Creatinine 0.64 Estim Creat Clear Calc 142.8 Estimated GFR > 60 Random Glucose 104 Calcium 9.3 Total Bilirubin 0.3 Direct Bilirubin < 0.2 AST 7 ALT 22 Alkaline Phosphatase 78 Total Protein 6.4 L Albumin 4.0 [place] 0.83 DS: Summary Hospital Course Hospital Course: per 08/11 admission note: Anusha is a 36 yo female with a history of schizophrenia. She presented to [facility] on 08/10/2021 due to med non-adherence, Li level is <0.10. Pt has a Oniel?s Order, resides in [facility] apartment. Staff did a wellness check on her due to concern that she is not attending to ADLs. Pt refused to come out of her room but was eventually brought to the ED. Pt denied report that she is not taking her meds or caring for herself. However, pt was responding to internal stimuli in the ED pod and has unkempt appearance. Admitted on Section 12B. Per CARE team rickie du?s [facility] transmitter supervisor requested the wellness check due to discovering that pt had not been attending to her ADLs, had rotting food in her apartment, and appeared internally preoccupied. She reports that the company responsible for packaging pt's medications was not delivering the medications for some time. I evaluated the pt this evening and upon interview she reports her medications are ?good.? Says her sleep has been good. Pt says she has been taking her meds. She denies that she has been decompensating, ?I think I was just fine, they have the wrong way of looking at it, maybe there?s something wrong with them. Sometimes other people?s judgment is not true.? Pt says she is showering daily, however appearance is unkempt, hair matted. Says ?I do everything on my own.? Says being brought to the hospital was ?completely out of line? and ?I did nothing wrong.? Mood is ?good,? says she is ?trying to calm down from the whole ordeal.? Denies resisting police. Says ?I just want to go home and relax. Everything is perfectly fine.? Pt declined to speak further and states ?give me some space.? Past Psychiatric History: -Has OP psych provider, Александр Bennett. Denies having therapy, ?I dont need a therapist, I do things on my own.?? -Hx of IPLOC in 2013 -Has Oniel?s Order, hx of med non-adherence Medical Evaluation Reviewed: Yes PMFSH Social History: -Pt resides in [facility] apartment, lives by herself. Staff that comes in once weekly to give her her meds.? -Has SSDI, unemployed. Denies having a rep payee. Supports include friends. Substance History: -Remote history of substance use Precis: Anusha is a 36 yo female with a history of schizophrenia. She presented to [facility] ED on 08/10/2021 due to med non-adherence, Li level is <0.10. Pt has a Oniel?s Order, resides in [facility] apartment. Staff did a wellness check on her due to concern that she is not attending to ADLs. Pt refused to come out of her room but was eventually brought to the ED. Pt denied report that she is not taking her meds or caring for herself. However, pt was responding to internal stimuli in the ED pod and has unkempt appearance. Admitted on Section 12B. Hx of IPLOC in 2013. Plan: Pt does not want med changes. Pt recently med adherent and re-started on meds but had already decompensated. Continue assessment and engagement and encourage med adherence. pt did not sign in voluntarily and commitment papers were filed 08/14/21.? on oniel's order. taking meds as prescribed.? check lithium level in 5 days. 08/17 continue current medications. 08/18 continue current medications. 08/19: increased lithium dosing to 600 BID after 08/17 lithium level 0.31.? no change in presentation. 08/20: pt more engaging today, more verbally spontaneous.? states she feels more calm since lithium dosing increase yesterday.? signed in voluntarily. 08/21: improvements continue.? still not showered. ?08/23/2021:? No changes to primary treatment plan 08/24: continue current mgmt.? gains hold, still no shower.? labs tomorrow. 08/25: lithium low at 0.53.? dosing increased to 750 BID. 08/26: stable, continue present Tx. 08/27: continue current mgmt.? labs ordered for thursday 08/31. 08/28: continue current regimen. 08/29: continue current regimen. 08/30: continue current regimen. Monitor BP. Review labs tomorrow. 08/31 BP normalized (cuff size). Labs reviewed. Continue treatment plan. 09/01: lithium low at 0.59, dosing increased to 900 BID as of tonight.? no change in presentation from last week. 09/02: some indication of ongoing psychosis today, no problems or side effects from lithium dosing increase. 09/03: planning DC next tuesday. 09/04 - 09/07: stable, no change in Tx, discharge to care of outpt workers 09/08. 09/08: labs unremarkable, lithium now in therapeutic range. discharged to outpt treaters. Time Spent with Patient Time attestation: Total time spent providing and/or coordinating discharge services: Discharge Plan Discharge Patient Disposition: Home, Self-Care Discharge Diagnosis: Schizophrenia Referrals: Александр Bennett (Psychiatry) [Other] - 10/01/21 9:00 am (IN OFFICE APPOINTMENT) Therapy [Other] - 1 Week (Please follow up with your outreach team regarding the therapy referral that was put in for you. ) [facility] [Physician] - 1 Week (walk in hours are Tuesday through Tuesday 830 am to 4pm) Discharge Medications: New lithium carbonate 450 mg Tablet Extended Release 900 mg PO BID 30 Days Qty: 120 0RF Continued multivitamin Tablet 1 tab PO DAILY 0RF Rx Instructions: one tab po QHS olanzapine [Zyprexa Zydis] 10 mg Tablet,Disintegrating 10 mg PO QPM 0RF norethindrone (contraceptive) 0.35 mg Tablet 0.35 mg PO DAILY 0RF loratadine [Claritin] 10 mg Tablet 10 mg PO DAILY 0RF Rx Instructions: Take one tab po QHS vitamin [id number] acid 0.5-1 mg Tablet 1 tab PO DAILY 0RF folic acid 0.8 mg Capsule 0.4 mg PO DAILY 0RF Rx Instructions: 1/2 tab of 0.8 mg daily Discontinued lithium carbonate 450 mg Tablet Extended Release 450 mg PO BID 0RF Discharge Orders: Discharge Order (Routine); Ordered 09/08/21 Ordered By: Benito Hughes Diet: advance to usual diet Activity on Discharge: As tolerated Stand Alone Forms: Patient Portal Discharge page, Community Support Care Plan Goals: remain safe and stable in the outpatient treatment setting Health Concerns: tobacco use disorder Plan of Treatment: take medications as prescribed, attend appointments as scheduled Assessment: not at imminent risk of harm to self or others Discharge Date/Time: 09/08/21 13:45
--- NOTE | 2021-09-08 12:19 | PC.NURSE ---
Anusha is discharged home to the care of her [facility] outreach team. I called and left message for Mirna Ramirez RN for nurse to nurse. Awaiting call back. Anusha denies ideation, plan or intent to harm self or others. She denies perceptual disturbance. She continues to decline to attend to her hygiene. She states, I will feel better showering in my own bathroom . Patient was not showering prior to admission in her own bathroom and is unable to explain this. She is compliant with prescribed medication. Affect is bright. She denie depresion or anxiety. She denie physical complaint.
== END 2021-09-08 13:45 | disposition home or self-care (01) | DRG 885 ==
LOC: HO.ED 08-11 08:45 → HO.PADLT16 08-11 13:36
PROVIDERS: Nurse Practitioner Family; Admitting Provider Psychiatry & Neurology Psychiatry; Emergency Provider Emergency Medicine; PCP Pediatrics; Visit Provider Psychiatry & Neurology Psychiatry
DX: F20.9 Schizophrenia, unspecified (principal); Z20.822 Contact with and (suspected) exposure to COVID-19; F17.210 Nicotine dependence, cigarettes, uncomplicated; Z91.14 Patient's other noncompliance with medication regimen; Z71.6 Tobacco abuse counseling; Z88.5 Allergy status to narcotic agent; Z79.3 Long term (current) use of hormonal contraceptives; Z79.899 Other long term (current) drug therapy
CPT/HCPCS: 36415; 80048; 80053; 80061; 80076; 80178; 80307; 81003; 82248; 83036; 85025; 87635; 99285

== ENCOUNTER 2023-04-19 10:33 | Outpatient (REF) | payer MEDICARE, MEDICAID, SELFPAY ==
[2023-04-19 15:06] LABS: Lithium 0.65 mmol/L (0.60-1.20)
[2023-04-19 15:07] LABS: Anion Gap 13 (12-20); Blood Urea Nitrogen 6 mg/dL (9-16); Calcium 9.6 mg/dL (8.4-10.2); Carbon Dioxide 24 mmol/L (22-29); Chloride 102 mmol/L (96-108); Estimated Glomerular Filt Rate > 60; Glucose Fasting 89 mg/dL (60-99); Potassium 3.6 mmol/L (3.3-5.1); Sodium 135 mmol/L (135-145)
== END 2023-04-19 10:34 | disposition home or self-care (01) ==
LOC: HO.CHCLDS 10:33
PROVIDERS: Visit Provider Clinical Nurse Specialist Psychiatric/Mental Health, Adult
DX: Z79.899 Other long term (current) drug therapy (principal)
CPT/HCPCS: 36415; 80048; 80178; 84443

== ENCOUNTER 2023-08-23 11:41 | Outpatient (REF) | payer MEDICARE, SELFPAY ==
[2023-08-23 14:28] LABS: MANUAL DIFF FLAG NO
[2023-08-23 14:42] LABS: Basophils Percent Auto 0.3 % (0-2); Eosinophils Absolute Auto 0.2 X10*3/uL (0.0-0.4); Eosinophils Percent Auto 1.7 % (0-4); Hematocrit 41.9 % (37.0-47.0); Hemoglobin 13.5 g/dl (12.0-16.0); Imm Gran Abs Auto 0.07 X10*3/uL (0.00-0.03); Imm Gran Pct Auto 0.6 % (0.0-0.4); Lymphocytes Absolute Auto 2.7 X10*3/uL (1.2-4.9); Lymphocytes Percent Auto 23.3 % (20-40); Mean Corpuscular HGB Conc 32.2 g/dl (31.0-35.0); Mean Corpuscular Hemoglobin 27.9 pg (27.0-33.0); Mean Corpuscular Volume 86.6 fL (80.0-98.0); Mean Platelet Volume 10.2 fL (9.4-12.3); Monocytes Absolute Auto 0.7 X10*3/uL (0.1-1.2); Monocytes Percent Auto 6.2 % (2-11); Neutrophils Absolute Auto 7.8 x10*3/uL (2.0-8.3); Neutrophils Percent Auto 67.9 % (45-73); Platelet Count 361 X10*3/uL (160-400); Red Blood Count 4.84 X10*6/uL (4.20-5.50); Red Cell Distribution Width 13.4 % (11.0-16.0); White Blood Count 11.4 X10*3/uL (4.8-10.8)
[2023-08-23 14:47] LABS: Estimated Average Glucose 108 mg/dL; Hemoglobin A1c % 5.4 % (<6.0)
[2023-08-23 15:19] LABS: Alanine Aminotransferase 14 U/L (0-31); Albumin Level 4.2 g/dL (3.5-5.0); Alkaline Phosphatase 87 U/L (39-117); Anion Gap 14 (12-20); Aspartate Amino Transferase 8 U/L (5-31); Bilirubin Direct < 0.2 mg/dL (0.0-0.5); Bilirubin Total 0.2 mg/dL (0.0-1.0); Blood Urea Nitrogen 3 mg/dL (9-16); Calcium 9.6 mg/dL (8.4-10.2); Carbon Dioxide 25 mmol/L (22-29); Chloride 104 mmol/L (96-108); Cholesterol 200 mg/dL (<200); Estimated Glomerular Filt Rate > 60; Glucose Fasting 92 mg/dL (60-99); HDL Cholesterol 38 mg/dL (>40); LDL Cholesterol Calculated 137 mg/dL (<100); Potassium 3.9 mmol/L (3.3-5.1); Sodium 139 mmol/L (135-145); Total Protein 7.1 g/dL (6.5-8.0); Triglycerides 129 mg/dL (<150)
[2023-08-23 15:20] LABS: TSH reflex Free T4 2.41 uIU/mL (0.32-4.0); Vitamin D 25-OH Total 31.9 ng/mL (>30)
[2023-08-23 16:03] LABS: Lithium 0.68 mmol/L (0.60-1.20)
== END 2023-08-23 11:42 | disposition home or self-care (01) ==
LOC: HO.CHCLDS 11:41
PROVIDERS: Visit Provider Pediatrics
DX: E66.01 Morbid (severe) obesity due to excess calories (principal); R53.83 Other fatigue; F32.A Depression, unspecified; F20.9 Schizophrenia, unspecified
CPT/HCPCS: 36415; 80048; 80061; 80076; 80178; 82306; 83036; 84443; 85025

== ENCOUNTER 2024-01-04 11:45 | Outpatient (REF) | payer MEDICARE, SELFPAY ==
[2024-01-04 14:40] LABS: MANUAL DIFF FLAG NO
[2024-01-04 14:46] LABS: Basophils Percent Auto 0.3 % (0-2); Eosinophils Absolute Auto 0.2 X10*3/uL (0.0-0.4); Eosinophils Percent Auto 2.4 % (0-4); Hematocrit 43.5 % (37.0-47.0); Hemoglobin 13.6 g/dl (12.0-16.0); Imm Gran Abs Auto 0.03 X10*3/uL (0.00-0.03); Imm Gran Pct Auto 0.3 % (0.0-0.4); Lymphocytes Absolute Auto 2.2 X10*3/uL (1.2-4.9); Lymphocytes Percent Auto 22.8 % (20-40); Mean Corpuscular HGB Conc 31.3 g/dl (31.0-35.0); Mean Corpuscular Hemoglobin 27.4 pg (27.0-33.0); Mean Corpuscular Volume 87.5 fL (80.0-98.0); Mean Platelet Volume 10.4 fL (9.4-12.3); Monocytes Absolute Auto 0.4 X10*3/uL (0.1-1.2); Monocytes Percent Auto 4.3 % (2-11); Neutrophils Absolute Auto 6.6 x10*3/uL (2.0-8.3); Neutrophils Percent Auto 69.9 % (45-73); Platelet Count 355 X10*3/uL (160-400); Red Blood Count 4.97 X10*6/uL (4.20-5.50); Red Cell Distribution Width 13.1 % (11.0-16.0); White Blood Count 9.4 X10*3/uL (4.8-10.8)
[2024-01-04 15:14] LABS: Anion Gap 13 (12-20); Blood Urea Nitrogen 4 mg/dL (9-16); Calcium 9.4 mg/dL (8.4-10.2); Carbon Dioxide 25 mmol/L (22-29); Chloride 105 mmol/L (96-108); Estimated Glomerular Filt Rate > 60; Glucose Fasting 97 mg/dL (60-99); Potassium 4.1 mmol/L (3.3-5.1); Sodium 139 mmol/L (135-145)
[2024-01-04 15:24] LABS: TSH reflex Free T4 1.38 uIU/mL (0.32-4.0); Vitamin D 25-OH Total 39.4 ng/mL (>30)
[2024-01-04 15:37] LABS: Folate > 20.0 ng/mL (> or = 4.0); Vitamin B12 1128 pg/mL (200-900)
[2024-01-05 08:34] LABS: HIV AB/AG Nonreactive (Nonreactive); HIV Num 1 0.04 S/CO (0.00-0.99); ~HepC Num1 0.25 S/CO (0.00-0.79); ~Hepatitis C Antibody Nonreactive (Nonreactive)
== END 2024-01-04 11:46 | disposition home or self-care (01) ==
LOC: HO.CHCLDS 11:45
PROVIDERS: Visit Provider Pediatrics
DX: F20.9 Schizophrenia, unspecified (principal); E66.09 Other obesity due to excess calories
CPT/HCPCS: 36415; 80048; 82306; 82607; 82746; 84443; 85025; 86803; 87389

== ENCOUNTER 2024-09-27 08:39 | Outpatient (REF) | payer MEDICARE, SELFPAY ==
--- OUTSIDE RECORDS SUMMARY | 2024-09-27 09:09 | XMS_ITS | Clinical Summary ---
Author Organization [facility] Address [address] [place] [address] Care Team Providers Care Senior Patrol Agent Name Role Phone Unavailable Primary Care Provider Unavailabl e Social History Tobacco Use Types Packs/Day Years Used Date Smoking Tobacco: Never Assessed Sex and Gender Information Value Date Recorded Sex Assigned at Not on file Gender Identity Not on file Sexual Orientation Not on file Plan of Treatment Not on file
[2024-09-27 11:57] LABS: Lithium 0.39 mmol/L (0.60-1.20)
[2024-09-27 12:06] LABS: Albumin Level 4.1 g/dL (3.5-5.0); Anion Gap 11 (12-20); Blood Urea Nitrogen 5 mg/dL (9-16); Calcium 9.1 mg/dL (8.4-10.2); Carbon Dioxide 29 mmol/L (22-29); Chloride 104 mmol/L (96-108); Estimated Glomerular Filt Rate > 60; Glucose Fasting 107 mg/dL (60-99); Phosphorus 2.4 mg/dL (2.7-4.5); Sodium 140 mmol/L (135-145)
[2024-09-27 12:10] LABS: TSH reflex Free T4 0.92 uIU/mL (0.32-4.0)
== END 2024-09-27 08:40 | disposition home or self-care (01) ==
LOC: HO.CHCLDS 08:39
DX: Z79.899 Other long term (current) drug therapy (principal)
CPT/HCPCS: 36415; 80051; 80178; 82040; 82310; 82565; 82947; 84100; 84443; 84520

== ENCOUNTER 2024-12-31 13:05 | Outpatient (REF) | payer MEDICARE, SELFPAY ==
--- NOTE | ~2024-12-31 | XR_ITS ---
EXAMINATION: XR CHEST CLINICAL INFORMATION: R05.9 - Cough, unspecified COMPARISON: None available. TECHNIQUE: 2 views of the chest were obtained. FINDINGS: Study somewhat limited by habitus. Heart appears mildly enlarged. Mediastinal and hilar contours appear normal. Within the confines of habitus, the lungs are clear bilaterally. There is no pneumothorax or pleural effusion. There is no focal osseous or soft tissue abnormality. XR/XR chest 2V IMPRESSION: Exam limited by habitus. No active pulmonary disease. Electronically signed by: Emery Elam MD 12/31/2024 02:18 PM EDT
--- OUTSIDE RECORDS SUMMARY | 2024-12-31 15:36 | XMS_ITS | Encounter Summary ---
Author Organization [employer] Address [address] [place] [address] Care Team Providers Care Lead Trainer Name Role Phone Yudith Suarez MD Primary Care Provider [phone] Encounter Details Date Type Department Care Team ([facility] Contact Info) Description 09/14/2023 Orders Only [facility] PEDS [address] [place] [address] Martin Barillas MD [address] [place] [address] Social History Tobacco Use Types Packs/Day Years Used Date Smoking Tobacco: Never Assessed Housing Stability Answer Date Recorded What is your housing situation today? I have davonolivia feng 08/09/[address] you li ve. Do you have problems with any of the following? None of the above 08/09/2023 Food Insecurity Answer Date Recorded Within the past 12 months, y ou worried that your food would run out before you got money to buy more: Never True 08/09/2023 Within the past 12 months,th e food you bought just didn't last and you didn't have enough money to get more: Never True 10/2023 Transportation Answer Date Recorded In the past 12 months, has l ack of transportation kept you from medical appts, meetings, work or from getting things needed for daily living? No 08/09/2023 Utilities Answer Date Recorded In the past 12 months, has t he electric, gas, oil or water company threatened to shut off services in your home? No 08/09/2023 Comments Unknown Sex and Gender Information Value Date Recorded Sex Assigned at Female 02/01/2022 10:16 AM EDT Legal Sex Female 10:16 AM EDT Gender Identity Female 02/01/2022 10:16 AM EDT Sexual Orientation Choose not to disclose 2023 11:07 AM EDT documented as of this encounter Plan of Treatment Not on file documented as of this encounter Visit Diagnoses Not on filedocumented in this encounter Care Teams Lead Trainer Relationship Specialty Start Date End Date Yudith Suarez MD [address] [place] [id number] PCP - General Family Medicine 04/04/18 documented as of this encounter
--- OUTSIDE RECORDS SUMMARY | 2024-12-31 15:36 | XMS_ITS | Encounter Summary ---
Author Organization [employer] Address [address] [facility] [address] [place] [address] Care Team Providers Care Grinder And Plater Name Role Phone Yudith Suarez MD Primary Care Provider [phone] Reason for Visit * Reason Comments Med Refill Encounter Details Date Type Department Care Team ([facility] st Contact Info) Description 09/18/2024 Refill [facility] MED & PEDS [address] [place], [place] [phone] Yudith Suarez MD [address] [place], [place] [phone] Social History Tobacco Use Types Packs/Day Years Used Date Smoking Tobacco: Every Day Cigarettes Housing Stability Answer Date Recorded What is your housing situation today? I have davon feng 08/09/[address] you [...] on filedocumented in this encounter Care Teams Grinder And Plater Relationship Specialty Start Date End Date Yudith Suarez MD [address] [place] [address] PCP - General Family Medicine 04/04/18 documented as of this encounter
--- OUTSIDE RECORDS SUMMARY | 2024-12-31 15:36 | XMS_ITS | Clinical Summary ---
Author Organization [facility] Address [address] [place] [address] Care Team Providers Care Vp Design Name Role Phone Unavailable Primary Care Provider Unavailabl e Social History Tobacco Use Types Packs/Day Years Used Date Smoking Tobacco: Never Assessed Sex and Gender Information Value Date Recorded Sex Assigned at Not on file Gender Identity Not on file Sexual Orientation Not on file Plan of Treatment Not on file
--- OUTSIDE RECORDS SUMMARY | 2024-12-31 15:37 | XMS_ITS | Encounter Summary ---
Author Organization [employer] Address [address] [facility] [address] [place] [address] Care Team Providers Care Licensed Psychologist Manager Name Role Phone Yudith Suarez MD Primary Care Provider [phone] Reason for Visit * Reason Onset Date Comments Paperwork/Forms 12/28/2023 Encounter Details Date Type Department Care Team ([facility] st Contact Info) Description 12/28/2023 Telephone [facility] MEDICINE [address] [place] [address] Yudith Suarez MD [address] [place], [place] [phone] Paperwork/Forms Social History Tobacco Use Types Packs/Day Years Used Date Smoking Tobacco: Never Assessed Housing Stability Answer Date Recorded What is your housing situation today? I have davon sing 08/09/[address] you li [...] AM EDT documented as of this encounter Miscellaneous Notes * Telephone Encounter - Gopi Ramirez - 12/28/2023 8:27 AM EDT Christopher Fisher at [facility] calling to request the status of the physician form that was sent on 11/08 global technical writer does see form in chart and has not been completed please complete and faxed to [phone] any questions please call [phone] documented in this encounter Plan of Treatment Not on file documented as of this encounter Visit Diagnoses Not on filedocumented in this encounter Care Teams Licensed Psychologist Manager Relationship Specialty Start Date End Date Yudith Suarez MD [address] [place] [id number] PCP - General Family Medicine 04/04/18 documented as of this encounter
--- OUTSIDE RECORDS SUMMARY | 2024-12-31 15:37 | XMS_ITS | Encounter Summary ---
Author Organization [employer] Address [address] [facility] [address] [place] [address] Care Team Providers Care Adjunct Instructor Chemistry Name Role Phone Yudith Suarez MD Primary Care Provider [phone] Encounter Details Date Type Department Care Team ([facility] st Contact Info) Description 05/30/2024 Telephone [facility] AD[facility] D[facility] [address] [place], [place] [phone] Dariela, Shima [address] [place], [place] [phone] Social History Tobacco Use Types Packs/Day Years [...] on filedocumented in this encounter Care Teams Adjunct Instructor Chemistry Relationship Specialty Start Date End Date Yudith Suarez MD [address] [place] [id number] PCP - General Family Medicine 04/04/18 documented as of this encounter
--- OUTSIDE RECORDS SUMMARY | 2024-12-31 15:37 | XMS_ITS | Clinical Summary ---
Author Organization [employer] Address [address] [facility] [address] [place] [address] Care Team Providers Care Associate Pastor Name Role Phone Yudith Suarez MD Primary Care Provider [phone] Allergies Active Allergy Reactions Criticality Noted Date Comments Lactulose 01/14/2012 Oxycodone 01/14/2012 Octacosanol 09/13/2023 Medications lithium ER (Lithobid) 300 MG 12 hr tablet 4 Active OLANZapine zydis (ZyPREXA) 10 MG disintegrating tablet 4 Active cyanocobalamin (Vitamin B-12) 1000 MCG tablet TAKE 1/2 TABLET BY MOUTH ONCE DAILY 45 tablet 5 Active Eva 0.35 MG tablet Take 1 tablet (0.35 mg) by mouth Once per day. 28 tablet 11 5 Active folic acid (Folvite) 400 MCG tablet TAKE 1 TABLET BY MOUTH ONCE DAILY 30 tablet 11 5 Active Multiple Vitamin (Daily-Paul) tabletIndications:F atigue due to depression TAKE 1 TABLET BY MOUTH ONCE DAILY 30 tablet 11 5 Active azithromycin (Zithromax) 250 MG tabletIndications:A cute cough 500 mg on day 1, 250 mg day 2 through 5 6 tablet 5 Active predniSONE (Deltasone) 20 MG tabletIndications:A cute cough 40 mg daily x 3 days 6 tablet 5 Active ibuprofen 600 MG tablet TAKE 1 TABLET BY MOUTH 3 (THREE) TIMES A DAY NEEDED FOR PAIN 90 tablet 3 5 Active loratadine (Claritin) 10 MG tablet TAKE 1 TABLET BY MOUTH ONCE DAILY 30 tablet 11 5 Active Active Problems Problem Noted Date Diagnosed Date Cocaine abuse 07/24/2013 Sore throat 11/08/2012 Chronic schizophrenia ([facility]) 01/14/2012 Gastroesophageal reflux disease 01/14/2012 Obesity 01/14/2012 Tobacco dependence syndrome 01/14/2012 Encounters Date Type Department Care Team Description 12/24/2024 Telephone [facility] MEDICINE [address] [place] [address] Yudith Suarez MD Nurse Triage 11/27/2024 Telephone [facility] MED & PEDS [address], [place] [phone] Yudith Suarez MD 10/22/2024 Refill [facility] MEDICINE [address] [place] [address] Yudith Suarez MD 10/15/2024 Telephone [facility] MEDICINE [address] [place] [address] Yudith Suarez MD Nurse Triage 10/08/2024 Refill [facility] MED & PEDS [address] [place] [address] Yudith Suarez MD from Last 3 Months Immunizations Immunization Administration Dates Next Due DTaP 09/02/1989, 6,1984,1984,1984 Hep B, Adolescent or Pediatric 07/11/1996,1995,02/17/1996 Hib ([facility]) 09/02/1989 IPV 09/02/1989, 6,1984,1984 Influenza injectable quadriv alent IIV4 with preservative 01/26/2016 Influenza injectable quadriv alent preservative free 03/24/2015 Influenza, IIV3, injectable 01/16/2014,0 12/25/2010,03/03/2010,2008 Influenza, seasonal, injecta ble, preservative free 01/04/2024 MMR 07/03/1996,10/02/1985 TD (adult), 2 Lf tetanus tox oid, preservative free, adsorbed 04/20/2000 Tdap 03/24/2015 Social History Tobacco Use Types Packs/Day Years Used Date Smoking Tobacco: Every Day Cigarettes Tobacco Cessation:Ready to Q uit: Not Asked; Counseling Given: Not Answered Housing Stability Answer Date Recorded What is [...] not to disclose 2023 11:07 AM EDT Last Filed Vital Signs Vital Sign Reading Time Taken Comments Blood Pressure 152/90 09/13/2024 2:01 PM EDT Pulse 88 09/13/2024 1:55 PM EDT Temperature 36.5 C (97.7 F) 09/13/2024 1:55 PM EDT Respiratory Rate 24 09/13/2024 1:55 PM EDT Oxygen Saturation 93% 09/13/2024 1:55 PM EDT Inhaled Oxygen Concentration - - Weight 138 kg (304 lb 2 oz) 09/13/2024 1:55 PM E DT Height 158.1 cm (5' 2.25 ) 09/13/2024 1:55 PM ED T Body Mass Index 55.18 09/13/2024 1:55 PM EDT Plan of Treatment Health Maintenance Due Date Last Done Comments Dental Prophylaxis 1984 Depression Screening 1984 Disability Screening 1984 Alcohol/Substance Use Screening 1996 Family Planning (PISQ) 06/28/1999 HPV Vaccines (1 - 3-dose series) 06/28/1999 Pneumococcal Vaccine: Pediatrics (0 to 5 Years) and At-Risk Patients (6 to 49) Years (1 of 2 - PCV) 06/28/2003 Pap Smear 2005 Cervical Cancer Screening 2014 HPV/Cotest 2014 Dental Oral Exam 03/15/2024 09/13/2023, 05/17/2016 Mammogram 2024 SDOH Screening 08/08/2024 08/09/2023 Dental X-Ray: Bitewings 09/13/2024 09/13/2023, 05/17 COVID-19 Vaccine ( season) 2024 07/23/2020, 06/24/2020 Influenza Vaccine (#1) 2024 , 01/26/2016, 03/24/2015, Additional history exists DTaP/Tdap/Td Vaccines (6 - Td or Tdap) 03/24/2025 03/24/2015, 04/20/2000, 09/02/1989, Additional history exists Tobacco Screening 09/13/2025 09/13/2024 Dental X-Ray: Full Mouth 09/13/2026 09/13/2023, 05/05 Lipid Panel 08/22/2028 08/23/2023 Zoster Vaccines (1 of 2) 2034 RSV Patients and Patients Aged 60 years or older (1 - 1-dose 75+ series) 06/28/2059 HIB Vaccines Aged Out 09/02/1989 No longer eligi ble based on patient's age to complete this topic IPV Vaccines Completed 09/02/1989, 04/1985, 1984, Additional history exists Hepatitis B Vaccines Completed 07/11/1996, 03/16/1996, 02/17/1996 HIV Screening Completed 01/04/2024 Hepatitis C Screening Completed 01/04/2024 Hepatitis A Vaccines Aged Out No long er eligible based on patient's age to complete this topic Meningococcal B Vaccine Aged Out No l onger eligible based on patient's age to complete this topic Meningococcal Vaccine Aged Out No ashlee laine eligible based on patient's age to complete this topic RSV under 20 months Aged Out No longe r eligible based on patient's age to complete this topic Rotavirus Vaccines Aged Out No longer eligible based on patient's age to complete this topic Procedures Procedure Name Priority Date/Time Associated Diagnosis Comments HEPATITIS C AB W/REFL TO HCV RNA, QN, PCR Routine 01/04/2024 11:47 AM EDT Chronic schizophrenia (CMS/HCC) Obesity due to excess calories without serious comorbidity, unspecified class HIV 1/2 ANTIGEN/ANTIBODY, FOURTH GENERATION W/RFL Routine 01/04/2024 11:47 AM EDT Chronic schizophrenia (CMS/HCC) Obesity due to excess calories without serious comorbidity, unspecified class INTRAORAL - COMPLETE SERIES OF RADIOGRAPHIC IMAGES Routine 09/13/2023 1:00 PM EDT PERIODIC ORAL EVALUATION - ESTABLISHED PATIENT Routine 09/13/2023 1:00 PM EDT LIPID PANEL, STANDARD Routine 08/23/2023 11:43 AM EDT Fatigue due to depression Chronic schizophrenia (CMS/HCC) Severe obesity (BMI >= 40) (CMS/HCC) from Last 3 Months or Most Recently Relevant to Health Maintenance Results * Hepatitis C Antibody with Reflex to HCV, RNA, Quantitative, Real-Time PCR (01/04/2024 11:47 AM EDT) Hepatitis C Antibody Nonreactive Nonreactive [facility] Comment:Antibodies to HCV no t detected; does not exclude early acuteHCV infection. Blood Venous blood specimen / Unknown 01/04/2024 11:47 AM EDT 01/04/2024 2:36 PM EDT us Yudith Suarez MD LAB BLOOD ORDERABLES Final Re sult [facility] [address] [place] [phone] [phone] * HIV-1/2 Antigen and Antibodies, Fourth Generation, with Reflexes (01/04/2024 11:47 AM EDT) HIV AB/AG Nonreactive Nonreactive [facility] Comment:HIV-1 p24 Ag and/or HIV-1/HIV-2 Ab not detected.A test result that is nonreactive does not exclude thepossibility of exposure to or infection with HIV-1 and/orHIV-2. Nonreactive results in this assay for individualswith prior exposure to HIV-1 and/or HIV-2 may be due toantigen and antibody levels that are below the limit ofdetection of this assay.The [employer] HIV Ag/Ab Combo assay result andsupplemental assay results should be interpreted inconjunction with the patient's clinical presentation,history and other laboratory results. If the results areinconsistent with clinical evidence, additional testing issuggested to confirm the result. Blood Venous blood specimen / Unknown 01/04/2024 11:47 AM EDT 01/04/2024 2:36 PM EDT us Yudith Suarez MD LAB BLOOD ORDERABLES Final Re sult [facility] [address] [place] [phone] * (ABNORMAL) Lipid Panel, Standard (08/23/2023 11:43 AM EDT) Triglycerides 129 <150 mg/dL [facility] Comment:Desirable Triglyceri de: less than 150 mg/dLBorderline High Triglyceride 150-199 mg/dLHigh Triglyceride: 200-499 mg/dLVery High Triglyceride: greater than or equal to 5OO mg/dL Cholesterol 200(H) <200 mg/dL [facility] Comment:Desirable Cholestero l: less than 200 mg/dLBorderline High Cholesterol: 200-239 mg/dLHigh Cholesterol: greater than 239 mg/dL LDL Cholesterol Calculated 137(H) <100 mg/dL [facility] Comment:Desirable LDL: less than 100 mg/dLNear Optimal/Above Optimal LDL: 110- 129 mg/dLBorderline High LDL: 130-159 mg/dLHigh LDL: 160-189 mg/dLVery High LDL: greater than or equal to 190 mg/dL HDL Cholesterol 38(L) >40 mg/dL [facility] Comment:Desirable HDL: great er than 40 mg/dL Note: This HDL assay may give artificially low results in patients with liver disease. Blood Venous blood specimen / Unknown 08/23/2023 11:43 AM EDT 08/23/2023 2:25 PM EDT us Yudith Suarez MD LAB BLOOD ORDERABLES Final Re sult [facility] [address] [place] [phone] from Last 3 Months or Most Recently Relevant to Health Maintenance Insurance [facility] [address] [place] [address] [facility] MEDICAID STAND ADULT Care Teams Associate Pastor Relationship Specialty Start Date End Date Yudith Suarez MD [address] [place] [phone] PCP - General Family Medicine 04/04/18
[2025-01-02 10:35] LABS: Resp Syncy Virus RNA Qual PCR NEGATIVE (Negative); SARS COV2 PCR INHOUSE NEGATIVE (Negative)
== END 2024-12-31 13:06 | disposition home or self-care (01) ==
LOC: HO.HMGCX 13:05
PROVIDERS: Visit Provider Nurse Practitioner Family
DX: R05.2 Subacute cough (principal); R09.89 Other specified symptoms and signs involving the circulatory and respiratory systems
CPT/HCPCS: 71046; 87637; 99212

== ENCOUNTER 2024-12-31 13:05 | Outpatient (AMB) | payer MEDICARE, SELFPAY ==
--- NOTE | 2024-12-31 13:25 | AM.OFFWIN_ITS ---
Intake Vital Signs 12/31/24 13:26 Height 5 ft 2 in Weight 293 lb BMI 53.6 BP 128/72 Blood Pressure Location Lt radial Position Sitting Respiration 21 H Pulse 94 Temp 98.9 F Temp Source Oral Pulse Oximetry (%) 94 Oxygen Delivery Method Room Air Intake Visit Reasons: ep difficult breathing Intake Note: Pt is here today for a walk in visit. Pt c/o SOB for couple of month, Pt is gasping for air after walking across the room. Patient Tobacco Use Status: Current everyday Tobacco user Allergies oxycodone (OXYCODONE) Allergy (Unknown, Unverified 12/31/24 13:29) HIVES, NAUSEA AND VOMITING From PERCOCET Allergy (Unknown, Uncoded 12/31/24 13:29) HIVES, NAUSEA AND VOMITING SEASONAL ALLERGIES Allergy (Unknown, Uncoded 12/31/24 13:29) STUFFY NOSE From VICODIN Adverse Reaction (Unknown, Uncoded 12/31/24 13:29) VOMITING HPI HPI Comments History of Present Illness Details 39 y/o Female patient who [facility] with c/o SOB with activities, chest tightness and Wheezing for 2 months. Pt has h/o Schizophrenia and currently under the care of [facility]. Pt is accompanied by a [facility] Staff member. Pt reports Lower extremities Edema and hard for her to walk due to feeling heavy. Denies fevers, chills, nausea or vomiting. [facility] Medical History (Updated 12/31/24 @ 14:29 by Dana Gonzalez NP) Cough Social History Household Members: None Housing: Apartment Do you presently have visiting nurse or other home services: No Patient Tobacco Use Status: Current everyday Tobacco user Tobacco use type: Cigarette Second Hand Smoke Exposure: No service: No Sexual orientation: Don't Know Review of Systems Const All systems reviewed & are unremarkable except as noted in HPI and below Physical Exam Vital Signs: Last Vital Signs Temp 98.9 F 12/31/24 13:26 Pulse 94 12/31/24 13:26 Resp 21 H 12/31/24 13:26 BP 128/72 12/31/24 13:26 Pulse Ox 94 12/31/24 13:26 Oxygen Delivery Method Room Air 12/31/24 13:26 BMI result Body Mass Index 53.6 Const Orientation/consciousness: patient oriented x3 HEENT Head: Yes normocephalic Ears: external ears normal and TM's normal bilaterally General nose exam: Nasal discharge present Face and sinus: Yes sinuses nontender Mouth: moist mucous membranes and tongue abnormal with white coating Throat: Yes uvula midline Resp Other: Lung sounds diminished due to large Body Habitus. Exam limited. Pt struggling to complete sentences. Effort & Inspection: audible wheezes and Actively coughing Auscultation: diminished lung sounds bilateral throughout Cardio Other: Limited examination due to large body habitus. Heart sounds: S1 normal heart sound present and S2 normal heart sound present Neuro General: patient oriented x3, gait normal and moves all extremities Extrem Right lower extremity: ankle Details: edema Details: pitting and 2+ and normal ROM Left lower extremity: ankle Details: pitting edema Details: pitting and 2+ and normal ROM Psych Speech and movement: Clear speech present Attitude: cooperative Assessment & Plan Assessment & Plan (1) Cough: Code(s): R05.9 - Cough, unspecified Qualifiers: Cough type: subacute Qualified Code(s): R05.2 - Subacute cough Plan: Ordered Chest Xray Advised Pt to go to ED for further evaluation. 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
[2024-12-31 13:26] VITALS: BP 128/72; PULSE 94; RESP 21; TEMP 37.2; O2SAT 94; BMI 53.6
== END 2024-12-31 14:18 | disposition home or self-care (01) ==
PROVIDERS: Visit Provider Nurse Practitioner Family
DX: R05.2 Subacute cough (principal)

== ENCOUNTER → 2024-12-31 13:57 | Outpatient (BNV) | payer MEDICARE, SELFPAY | PROVIDERS: Visit Provider Radiology Diagnostic Radiology | DX: R91.8 Other nonspecific abnormal finding of lung field (principal); R05.9 Cough, unspecified | CPT/HCPCS: 71046; 71275 ==

== ENCOUNTER 2024-12-31 14:27 | Emergency (ER) | payer MEDICARE, SELFPAY ==
--- NOTE | ~2024-12-31 | CT_ITS ---
CLINICAL HISTORY: cough, sob, low O2 sat, PE v PNA CT angiography chest with contrast. 3D Postprocessing. Comparison: None provided Findings: Motion and streak artifact and suboptimal bolus timing limit evaluation. The heart size is normal. RV/LV ratio is normal. Aberrant right subclavian artery. No central or large proximal pulmonary emboli. Remaining pulmonary arteries are poorly opacified, not well evaluated. Scattered prominent mediastinal and axillary nodes, may be reactive, nonspecific. The lungs are clear. No significant pleural effusion or pneumothorax. Possible tiny low-density focus near the caudate lobe of the liver, too small to characterize. The bones are intact. IMPRESSION: No central or large proximal pulmonary emboli. Remaining pulmonary arteries are poorly opacified, not well evaluated. This document has been electronically signed by: Gustavo Bocanegra MD on 12/31/2024 20:13:52
--- NOTE | 2024-12-31 14:33 | ED.GENADULT ---
HPI - General Adult General Chief complaint: Dyspnea Stated complaint: diff breathing Time Seen by Provider: 12/31/24 16:27 Source: patient Mode of arrival: ambulatory Limitations: no limitations History of Present Illness ED Provider: XOCHITL MCCAIN PA-C HPI narrative: 39 year old female with pmhx significant for morbid obesity, tobacco dependence with 24 pack yr history, schizophrenia presents to the ED today for evaluation of shortness of breath x3 months. Patient reports increasing shortness of breath, primarily when exerting herself over the last few months. She regularly has to stop and sit down to catch her breath. Admits to associated palpitations. Additionally reports bilateral lower leg pain. She states her ankles appear swollen. Reports cough productive of white/clear sputum intermittently x months. Denies known cardiac hx. No recent travel or long car rides. She takes OCPs for menses control. 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 No known sick contacts. Denies fever, chills, chest pain, hemoptysis. Related Data Home Medications ?Medication ?Instructions ?Recorded ?Confirmed loratadine 10 mg tablet (Claritin) 10 mg PO DAILY 08/10/21 01/01/25 olanzapine 10 mg disintegrating 10 mg PO QPM 08/10/21 01/01/25 tablet (Zyprexa Zydis) cyanocobalamin (vitamin B-12) 500 mcg PO DAILY 01/01/25 01/01/25 1,000 mcg tablet folic acid 400 mcg tablet 0.4 mg PO DAILY 01/01/25 01/01/25 ibuprofen 600 mg tablet 600 mg PO TID PRN pain 01/01/25 01/01/25 lithium carbonate 150 mg capsule 150 mg PO DAILY 01/01/25 01/01/25 lithium carbonate 300 mg 600 mg PO BEDTIME 01/01/25 01/01/25 tablet,extended release multivitamin with folic acid 400 1 tab PO DAILY 01/01/25 01/01/25 mcg tablet (Daily-Paul (with folic acid)) norethindrone (contraceptive) 0.35 0.35 mg PO DAILY 01/01/25 01/01/25 mg tablet (Jencycla) Previous Rx's ?Medication ?Instructions ?Recorded doxycycline monohydrate 100 mg 100 mg PO BID 7 days #14 caps 12/31/24 capsule prednisone 20 mg tablet 40 mg (2 x 20 mg) PO DAILY 5 days 12/31/24 #10 tabs albuterol sulfate 2.5 mg/3 mL 2.5 mg (3 mL) inhalation RQ4H 01/03/25 (0.083 %) solution for nebulization WHILE AWAKE 14 days #168 mL benzonatate 100 mg capsule 200 mg (2 x 100 mg) PO TID PRN 01/03/25 Cough #14 caps ipratropium 0.5 mg-albuterol 3 mg 3 ml inhalation Q8H PRN copd #90 mL 01/03/25 (2.5 mg base)/3 mL nebulization soln nicotine 21 mg/24 hr daily 21 mg transdermal DAILY #14 ea 01/03/25 transdermal patch Allergies Allergy/AdvReac Type Severity Reaction Status Date / Time oxycodone (OXYCODONE) Allergy Unknown HIVES, Verified 01/01/25 12:24 NAUSEA AND VOMITING From PERCOCET Allergy Unknown HIVES, Uncoded 12/31/24 13:29 NAUSEA AND VOMITING SEASONAL ALLERGIES Allergy Unknown STUFFY NOSE Uncoded 12/31/24 13:29 From VICODIN AdvReac Unknown VOMITING Uncoded 12/31/24 13:29 Review of Systems Review of Systems: Yes all other systems are reviewed and are negative PMFSH Past Medical History Attestation statement: The following information was validated with the patient. Source: old records reviewed and nursing notes reviewed Medical History Cough Social History Social History Household Members: Spouse Housing: Apartment Do you presently have visiting nurse or other home services: Yes Patient Tobacco Use Status: Current everyday Tobacco user Tobacco use type: Cigarette e-Cigarette/Vaping Use: Never Used Second Hand Smoke Exposure: No service: No Sexual orientation: Don't Know Physical Exam ED Vital Signs: Vital Signs - 24 hr 12/31/24 14:34 12/31/24 18:51 12/31/24 18:53 Temperature 99.0 F Pulse Rate 90 89 Respiratory Rate 18 24 H Blood Pressure 163/74 H 141/85 H Pulse Oximetry 92 87 L 95 Oxygen Delivery Method Room Air Room Air Nasal Cannula Oxygen Flow Rate 2 12/31/24 20:34 Temperature 98.8 F Pulse Rate 91 Respiratory Rate 20 Blood Pressure 153/86 H Pulse Oximetry 93 Oxygen Delivery Method Room Air Oxygen Flow Rate BMI result Body Mass Index 57.5 hypertensive, vitals are otherwise wnl General: morbidly obese Skin: Warm, dry, intact. No rashes or lesions. Head: Normocephalic, atraumatic. EENT: Hearing is intact b/l. Conjunctiva clear. PERRLA. EOM intact. Moist mucous membranes.? Neck: Supple without LAD Cardiac: Chest wall symmetric. RRR Lungs: congested cough, increased effort of breathing however no accessory muscle use no tripoding, no adventitious breath sounds Back: No midline spinous or paraspinal tenderness. No step off deformity. Ext: 2+pitting edema bilaterally, bilateral calf tenderness Neuro: AOx3. Normal speech. Ambulating with steady gait. Course Course Course Narrative: Rapid medical examination performed in triage by Frances Mukherjee PA-C. Patient is a 39 year old assigned female at presenting to the emergency department with shortness of breath. Detailed physical exam and review of systems are deferred to the compound specialist. EKG, labs, imaging, swabs ordered. Patient placed back in the waiting room pending room availability and results. Reevaluation(s) Reevaluation #1: 204 -- CBC with leukocytosis to 13.7. H&H stable. Chemistry without acute electrolyte abnormality requiring intervention. No SWATI. Liver function WNL. Troponin WNL at 5.3. NT pro BNP WNL. Beta quant undetectable. Negative COVID, flu. Chest x-ray obtained outpatient does not demonstrate any focal infiltrate or consolidation. Heart appears mildly enlarged. Exam limited by patient's body habitus. D-dimer is below threshold at 202. however given presentation and risk factors, I did obtain a CTA of her chest to rule out PE versus pneumonia. > CTA chest does not demonstrate acute PE. No pneumonia. > patient noted to desat to 84% on room air. Now requiring nasal cannula. Patient is choosing to leave AMA and with informed refusal. Patient was advised reasoning for hospital admission (hypoxic respiratory failure), and provided with a full explanation of the rationale. The risks of leaving were explained to the patient and include, but not are not limited to, worsening of known or currently on known conditions, permanent disability, and from undiagnosed or untreated conditions. The patient has the capacity to make this decision and has the capacity to understand the clinical situation and my explanation of the risks of refusing. The patient voluntarily accepts these risks. Patient was given the opportunity to ask questions and reconsider. Medications Administered Discontinued Medications Generic Name Dose Route Start Last Admin Trade Name Adenike PRN Reason Stop Dose Admin Iohexol 100 ml 12/31/24 19:14 12/31/24 19:15 Iohexol 350 Mg/Ml 100 Ml Infus..Btl IV 12/31/24 19:15 75 ml ONCE ONE Administration Medical Decision Making Medical Decision Making [facility] Narrative: 39 year old female with pmhx significant for morbid obesity, tobacco dependence with 24 pack yr history, schizophrenia presents to the ED today for evaluation of shortness of breath x3 months. Differential diagnosis includes COPD, viral syndrome, bronchitis, pneumonia, pulmonary embolism, DVT, dependent edema, ACS, arrhythmia, electrolyte abnormality, anemia Plan for labs, viral swabs, EKG. Patient had an outpatient chest x-ray today which was unremarkable. I will be adding on a D-dimer and suspect a CTA chest will be ordered. Differential Diagnosis Differential Diagnoses: The differential diagnosis associated with the presentation includes as above. Admission/Observation Consideration of admission/observation: Escalation of care including admission/observation considered Patient noted to be hypoxic to 87% on RA. She is requiring 2L NC to sustain 95%. There is no clear cause for her hypoxia however she is a smoker, ? some degree of underlying COPD. I discussed breathing treatment + IV steroids to attempt to improve breathing/ O2 sat. she is declining at this time. Lab Data [facility] Lab Attestation statement: I reviewed the patient's lab results. As above 12/31/24 15:52 12/31/24 15:52 Labs: Lab Results 12/31/24 12/31/24 Range/Units 15:52 17:33 WBC 13.7 H (4.8-10.8) X10*3/uL RBC 4.84 (4.20-5.50) X10*6/uL Hgb 12.5 (12.0-16.0) g/dl Hct 40.1 (37.0-47.0) % MCV 82.9 (80.0-98.0) fL MCH 25.8 L (27.0-33.0) pg MCHC 31.2 (31.0-35.0) g/dl RDW 15.2 (11.0-16.0) % Plt Count 310 (160-400) X10*3/uL MPV 9.3 L (9.4-12.3) fL Immature Gran % (Auto) 0.7 H (0.0-0.4) % Neut % (Auto) 75.1 H (45-73) % Lymph % (Auto) 15.9 L (20-40) % Clare % (Auto) 6.3 (2-11) % Eos % (Auto) 1.7 (0-4) % Baso % (Auto) 0.3 (0-2) % Lymph # (Auto) 2.2 (1.2-4.9) X10*3/uL Clare # (Auto) 0.9 (0.1-1.2) X10*3/uL Eos # (Auto) 0.2 (0.0-0.4) X10*3/uL Baso # (Auto) 0.0 (0.0-0.2) X10*3/uL Abs Immat Gran (auto) 0.10 H (0.00-0.03) X10*3/uL Absolute Neuts (auto) 10.3 H (2.0-8.3) x10*3/uL Absolute Nucleated RBC 0.000 (0.0-0.012) X10*3/uL Nucleated RBC % (auto) 0.0 (0.0-0.2) /100WBC D-Dimer High Sensitivty 202 NG/ML Sodium 139 (135-145) mmol/L Potassium 4.1 (3.3-5.1) mmol/L Chloride 102 (96-108) mmol/L Carbon Dioxide 29 (22-29) mmol/L Anion Gap 12 (12-20) BUN 10 (9-16) mg/dL Creatinine 0.62 (0.5-1.4) mg/dL Estim Creat Clear Calc 165.9 Estimated GFR > 60 Random Glucose 95 (60-115) mg/dL Calcium 10.1 D (8.4-10.2) mg/dL Total Bilirubin 0.2 (0.0-1.0) mg/dL AST 10 (5-31) U/L ALT 16 (0-31) U/L Alkaline Phosphatase 88 (39-117) U/L Troponin I High Sens 5.3 (<3.5-17.0) ng/L NT-Pro-B Natriuret Pep 263.2 (<300) pg/mL Total Protein 6.9 (6.5-8.0) g/dL Albumin 4.3 (3.5-5.0) g/dL Beta HCG, Quant < 2 mIU/mL COVID-19 (ANNAMARIE) Negative (Negative) COVID-19 Clin Com See Note Influenza Type A (DIMITRIOS) Negative (Negative) Influenza Type B (DIMITRIOS) Negative (Negative) Influenza A & B Note See Note Independent Interpretation I performed an independent interpretation of an: EKG and CT Scan Interpretation: EKG showing normal sinus rhythm with a rate of 81 beats per minute, QT 366, QTC 425, no acute ischemic changes or ST elevation Radiology Impression Discussion of test interpretation with radiology: I have reviewed the radiologist's reading. Radiologist Impression: Procedure(s): XR chest 1V Accession Number(s): [id number] cc: Yudith Suarez MD; Per Novak MD~ Reason for Exam: cough EXAMINATION: XR CHEST 1 VIEW HISTORY: cough COMPARISON: Comparison is made with the prior examination dated 12/31/2024. FINDINGS: A single AP portable view of the chest performed at 2:04 PM is submitted. There is haziness of the lung bases, likely related to overlying soft tissue. No focal airspace opacities are identified. There is no pleural effusion, pneumothorax, or pulmonary vascular congestion. The heart is likely normal in size in technique. The bones are intact. XR/XR chest 1V IMPRESSION: No acute cardiopulmonary abnormality. Electronically signed by: Favio Estrella MD 01/01/2025 02:17 PM EDT RP Procedure(s): CT angio chest PE protocol Accession Number(s): [id number] cc: Xochitl Mccain; Mary Washington APRN~ Report Number: [id number]: Total DLP = 457.00 mGy-cm Reason for Exam: cough, sob, low O2 sat, PE v PNA CLINICAL HISTORY: cough, sob, low O2 sat, PE v PNA CT angiography chest with contrast. 3D Postprocessing. Comparison: None provided Findings: Motion and streak artifact and suboptimal bolus timing limit evaluation. The heart size is normal. RV/LV ratio is normal. Aberrant right subclavian artery. No central or large proximal pulmonary emboli. Remaining pulmonary arteries are poorly opacified, not well evaluated. Scattered prominent mediastinal and axillary nodes, may be reactive, nonspecific. The lungs are clear. No significant pleural effusion or pneumothorax. Possible tiny low-density focus near the caudate lobe of the liver, too small to characterize. The bones are intact. IMPRESSION: No central or large proximal pulmonary emboli. Remaining pulmonary arteries are poorly opacified, not well evaluated. This document has been electronically signed by: Gustavo Bocanegra MD on 12/31/2024 20:13:52 Independent Historian Clinical information obtained from an independent historian. History obtained from or confirmed by: Friend External Record Review External record reviewed: Inpatient record Chronic Conditions Patient?s care impacted by: Other (COPD) Social Determinants Patient?s care significantly limited by Social Determinants of Health including: Other Social Determinant of Health Critical Care Time Critical Care Time Critical Care Time: No Discharge Plan Discharge Clinical Impression: Acute hypoxic respiratory failure Patient Disposition: Left Against Medical Advice Instructions: Hypoxia (ED) Additional Instructions: You presented to the ED today for evaluation of difficulty breathing. Your blood work is reassuring. The CT scan of your chest does not demonstrate acute blood clot in your lungs. You tested negative for COVID, flu. However, your oxygen levels are very low. You are requiring 2 L of oxygen in the ED to maintain oxygen levels sustainable for life. We discussed a breathing treatment and steroid through your IV which you are declining at this time. We also discussed admission for further management/workup which you are declining at this time. The risks of leaving the ED against medical advice were discussed with the you and include but are not limited to worsening infection and even . I will at least treat you with an antibiotic and an oral steroid for bronchitis. These have been sent to your pharmacy. Please take them as prescribed. You are welcome to return to the ED at any time. Please follow up with your primary care provider. In the case of an emergency call 911. Prescriptions: New doxycycline monohydrate 100 mg capsule 100 mg PO BID 7 Days Qty: 14 0RF prednisone 20 mg tablet 40 mg PO DAILY 5 Days Qty: 10 0RF No Action olanzapine [Zyprexa Zydis] 10 mg Tablet,Disintegrating 10 mg PO QPM loratadine [Claritin] 10 mg Tablet 10 mg PO DAILY Rx Instructions: Take one tab po QHS cyanocobalamin (vitamin B-12) 1,000 mcg tablet 500 mcg PO DAILY lithium carbonate 300 mg tablet extended release 600 mg PO BEDTIME lithium carbonate 150 mg capsule 150 mg PO DAILY folic acid 400 mcg tablet 0.4 mg PO DAILY ibuprofen 600 mg tablet 600 mg PO TID PRN (Reason: pain) norethindrone (contraceptive) [Jencycla] 0.35 mg tablet 0.35 mg PO DAILY multivitamin with folic acid [Daily-Paul (with folic acid)] 400 mcg tablet 1 tab PO DAILY benzonatate 100 mg Capsule 200 mg PO TID PRN (Reason: Cough) Qty: 14 0RF nicotine 21 mg/24 hr Patch 24 Hour 21 mg transdermal DAILY Qty: 14 3RF albuterol sulfate 2.5 mg /3 mL (0.083 %) Solution For Nebulization 2.5 mg inhalation RQ4H WHILE AWAKE 14 Days Qty: 168 3RF ipratropium-albuterol 0.5 mg-3 mg(2.5 mg base)/3 mL solution for nebulization 3 ml inhalation Q8H PRN (Reason: copd) Qty: 90 3RF Referrals: [facility] [Provider Group, Pulmonology] Mary Washington APRN [Primary Care Provider, Psychiatry] Stand Alone Forms: Against Medical Advice Interventions: ED Discharge Assessment Last Done: 12/31/24 20:34 Discharge Date/Time: 12/31/24 20:56 Print Language: French
[2024-12-31 14:34] VITALS: BP 163/74; PULSE 90; RESP 18; TEMP 37.2; O2SAT 92; BMI 57.5
--- NOTE | 2024-12-31 14:34 | ECG_ITS ---
Test Reason : SOB Blood Pressure : */* mmHG Vent. Rate : 81 BPM Atrial Rate : 81 BPM P-R Int : 156 ms QRS Dur : 82 ms QT Int : 366 ms P-R-T Axes : 61 62 90 degrees QTcB Int : 425 ms Normal sinus rhythm Normal ECG When compared with ECG of 20-Oct-2006 20:09, No significant change was found Referred By: Frances Mukherjee Electronically Signed By: DALTON VALENZUELA
[2024-12-31 15:58] LABS: MANUAL DIFF FLAG NO
[2024-12-31 16:00] LABS: Hematocrit 40.1 % (37.0-47.0); Hemoglobin 12.5 g/dl (12.0-16.0); Imm Gran Abs Auto 0.10 X10*3/uL (0.00-0.03); Imm Gran Pct Auto 0.7 % (0.0-0.4); Lymphocytes Absolute Auto 2.2 X10*3/uL (1.2-4.9); Mean Corpuscular HGB Conc 31.2 g/dl (31.0-35.0); Mean Corpuscular Hemoglobin 25.8 pg (27.0-33.0); Mean Corpuscular Volume 82.9 fL (80.0-98.0); NRBC Abs Auto 0.000 X10*3/uL (0.0-0.012); NRBC Pct Auto 0.0 /100WBC (0.0-0.2); Platelet Count 310 X10*3/uL (160-400); Red Blood Count 4.84 X10*6/uL (4.20-5.50); White Blood Count 13.7 X10*3/uL (4.8-10.8)
[2024-12-31 16:14] LABS: Alanine Aminotransferase 16 U/L (0-31); Albumin Level 4.3 g/dL (3.5-5.0); Alkaline Phosphatase 88 U/L (39-117); Anion Gap 12 (12-20); Aspartate Amino Transferase 10 U/L (5-31); Blood Urea Nitrogen 10 mg/dL (9-16); Calcium 10.1 mg/dL (8.4-10.2); Carbon Dioxide 29 mmol/L (22-29); Chloride 102 mmol/L (96-108); Creatinine Clr Calc Pharmacy 165.9; Estimated Glomerular Filt Rate > 60; Potassium 4.1 mmol/L (3.3-5.1); Sodium 139 mmol/L (135-145); Total Protein 6.9 g/dL (6.5-8.0)
[2024-12-31 16:16] LABS: COVID-19 Test Negative (Negative); IDNOW Serial# 55D5AD1C; IDNOW Serial# 58CA691E
[2024-12-31 16:17] LABS: Influenza B2 Negative (Negative)
[2024-12-31 16:20] LABS: NT Pro B Type Natriuretic Pept 263.2 pg/mL (<300)
[2024-12-31 16:21] LABS: Troponin-I High Sensitivity 5.3 ng/L (<3.5-17.0)
[2024-12-31 17:52] LABS: D Dimer High Sensitivity 202 NG/ML
[2024-12-31 18:51] VITALS: BP 141/85; PULSE 89; RESP 24; O2SAT 87
--- NOTE | 2024-12-31 18:52 | PC.NURSE ---
Addendum entered by Kassandra Richardson RN 12/31/24 18:54: sat up to 95% on 2lpm Original Note: Pt moved to room 3, placed on nursery teacher, NSR on tele. Pt needs encouragement for care, Refuses to change to hospital attire and resistant to sit upright in bed to assist in breathing, 02 sat. 87% on room air, 93 on 2lpm via nc. Staff at bedside remains. Xochitl RUIZ aware
[2024-12-31 18:53] VITALS: O2SAT 95
[2024-12-31] MEDS: iohexoL 350 MG/ML 100 ML INFUS..BTL IV (19:15)
--- NOTE | 2024-12-31 20:13 | PC.NURSE ---
Took over care from RN Kassandra and margarita, pt back from CT-A, awaiting results, pt resting on her side, pt on 2liter of O2
--- NOTE | 2024-12-31 20:14 | PC.NURSE ---
care home work at the bed, pt want to know when she is going home.
--- NOTE | 2024-12-31 20:20 | PC.NURSE ---
notified provider, workgroup leader wanting to go home, pt also requesting to go home.
[2024-12-31 20:34] VITALS: BP 153/86; PULSE 91; RESP 20; TEMP 37.1; O2SAT 93
--- NOTE | 2024-12-31 20:52 | PC.NURSE ---
provider into discuss the plan of care, pt refusing to stay to complete medical treatment. [facility] work left pt but pt refused to stay, pt discharge instructions given per mar, pt having boyfriend pick her up, pt discharge to waiting room.
== END 2024-12-31 20:56 | disposition left against medical advice (07) ==
PROVIDERS: Physician Assistant Medical; Emergency Provider Student in an Organized Health Care Education/Training Program
DX: J96.01 Acute respiratory failure with hypoxia (principal); R10.2 Pelvic and perineal pain; Z11.52 Encounter for screening for COVID-19; Z79.899 Other long term (current) drug therapy
CPT/HCPCS: 36415; 71275; 80053; 83880; 84484; 84702; 85025; 85379; 87502; 87635; 93005; 99284; 99285; Q9967

== ENCOUNTER → 2024-12-31 14:34 | Outpatient (BNV) | payer MEDICARE, SELFPAY | PROVIDERS: Emergency Provider Student in an Organized Health Care Education/Training Program; Visit Provider Internal Medicine | DX: R94.31 Abnormal electrocardiogram [ECG] [EKG] (principal); R06.02 Shortness of breath | CPT/HCPCS: 93010 ==

== ENCOUNTER 2025-01-01 12:10 | Inpatient (IN) | payer MEDICARE, SELFPAY ==
[2025-01-01] VITALS (11 sets, daily range): BP systolic 118–152; BP diastolic 64–117; PULSE 77–90; RESP 16–22; TEMP 36.7–37; O2SAT 87–97; BMI 57.1
--- NOTE | ~2025-01-01 | XR_ITS ---
EXAMINATION: XR CHEST 1 VIEW HISTORY: cough COMPARISON: Comparison is made with the prior examination dated 12/31/2024. FINDINGS: A single AP portable view of the chest performed at 2:04 PM is submitted. There is haziness of the lung bases, likely related to overlying soft tissue. No focal airspace opacities are identified. There is no pleural effusion, pneumothorax, or pulmonary vascular congestion. The heart is likely normal in size in technique. The bones are intact. XR/XR chest 1V IMPRESSION: No acute cardiopulmonary abnormality. Electronically signed by: Favio Estrella MD 01/01/2025 02:17 PM EDT
--- NOTE | 2025-01-01 12:20 | ED.GENADULT ---
HPI - General Adult General Chief complaint: Dyspnea Stated complaint: SOB Time Seen by Provider: 01/01/25 12:28 History of Present Illness ED Provider: Per Novak MD HPI narrative: 39-year-old female with extensive tobacco smoking history schizophrenia obesity with hypoxia. The patient is a poor historian attributing her symptoms to a medication adverse effect. Family member at the bedside reports no subjective fever or hemoptysis. Related Data Home Medications ?Medication ?Instructions ?Recorded ?Confirmed loratadine 10 mg tablet (Claritin) 10 mg PO DAILY 08/10/21 01/01/25 olanzapine 10 mg disintegrating 10 mg PO QPM 08/10/21 01/01/25 tablet (Zyprexa Zydis) cyanocobalamin (vitamin B-12) 500 mcg PO DAILY 01/01/25 01/01/25 1,000 mcg tablet folic acid 400 mcg tablet 0.4 mg PO DAILY 01/01/25 01/01/25 ibuprofen 600 mg tablet 600 mg PO TID PRN pain 01/01/25 01/01/25 lithium carbonate 150 mg capsule 150 mg PO DAILY 01/01/25 01/01/25 lithium carbonate 300 mg 600 mg PO BEDTIME 01/01/25 01/01/25 tablet,extended release multivitamin with folic acid 400 1 tab PO DAILY 01/01/25 01/01/25 mcg tablet (Daily-Paul (with folic acid)) norethindrone (contraceptive) 0.35 0.35 mg PO DAILY 01/01/25 01/01/25 mg tablet (Jencycla) Previous Rx's ?Medication ?Instructions ?Recorded doxycycline monohydrate 100 mg 100 mg PO BID 7 days #14 caps 12/31/24 capsule prednisone 20 mg tablet 40 mg (2 x 20 mg) PO DAILY 5 days 12/31/24 #10 tabs Allergies Allergy/AdvReac Type Severity Reaction Status Date / Time oxycodone (OXYCODONE) Allergy Unknown HIVES, Verified 01/01/25 12:24 NAUSEA AND VOMITING From PERCOCET Allergy Unknown HIVES, Uncoded 12/31/24 13:29 NAUSEA AND VOMITING SEASONAL ALLERGIES Allergy Unknown STUFFY NOSE Uncoded 12/31/24 13:29 From VICODIN AdvReac Unknown VOMITING Uncoded 12/31/24 13:29 [facility] Past Medical History Medical History Cough Social History Social History Household Members: None Housing: Apartment Do you presently have visiting nurse or other home services: No Patient Tobacco Use Status: Current everyday Tobacco user Tobacco use type: Cigarette Smoked in Last 30 Days: Yes Second Hand Smoke Exposure: No Use of substances other than those prescribed or required for medical reasons: No Advance Directives: No Advance Directives Information Provided: Yes Nutrition Risks: No Nutritional Risk Patient : No service: No Sexual orientation: Don't Know Physical Exam ED Exam Exam: EXAM: Gen: Alert, awake, well appearing, well hydrated. Head: Atraumatic Eyes: Anicteric, Normal conjunctiva. ENT: Moist mucosa, no pallor. ? Neck: Supple. Skin: ?No observable rash or bruising on exposed or examined skin Respiratory: Coarse expiratory wheeze. Respiratory rate approximately 24 Cardiovascular: Regular rate and rhythm. No murmurs or rub. Well perfused periphery, warm extremities. No edema. ? Abdominal: No focal tenderness. Soft, no objective distension. No palpable masses or obvious organomegaly. ?No guarding, no rebound tenderness or other peritoneal findings. : No flank tenderness. Neuro: Alert. Gross movement of all extremities intact. ? Psych: Calm. Cooperative. MSK: No grossly visible deformity. Vital signs: See flowsheet Vital Signs: Vital Signs - 24 hr 01/01/25 12:22 01/01/25 12:34 01/01/25 12:40 Temperature 98.0 F 98.6 F Pulse Rate 90 88 88 Respiratory Rate 18 18 22 H Blood Pressure 152/84 H 141/117 H Pulse Oximetry 95 94 Oxygen Delivery Method Nasal Cannula Oxymask Oxygen Flow Rate 2 01/01/25 13:59 01/01/25 14:53 01/01/25 14:54 Temperature Pulse Rate 86 Respiratory Rate 19 Blood Pressure Pulse Oximetry 87 L 93 Oxygen Delivery Method Room Air Oxymizer Oxygen Flow Rate 4 BMI result Body Mass Index 57.1 Course Course Course Narrative: This is an RME: Additional HPI, ROS, PE not included below will be deferred to primary provider. RME assessment and note performed by: Anna Grady PA-C 39 year old female with pmhx significant for morbid obesity, tobacco dependence with 24 pack yr history, schizophrenia presents to the ED today for evaluation of shortness of breath x3 months. Pt was seen here yesterday due to acute hypoxic respiratory failure. Plan: Medications Administered Generic Name Dose Route Start Last Admin Trade Name Freq PRN Reason Stop Dose Admin Albuterol Sulfate 2.5 mg 01/01/25 16:00 01/01/25 20:27 Albuterol Sulfate (0.083%) 2.5 Mg/3 Ml Vial.Neb INHALE 2.5 mg RQ4H WHILE AWAKE ARRON Administration Enoxaparin Sodium 40 mg 01/01/25 15:00 01/01/25 16:01 Enoxaparin Sodium 40 Mg/0.4 Ml Syringe SUBCUT 40 mg Q24H ARRON Administration Methylprednisolone Sodium Succinate 40 mg 01/01/25 16:00 01/01/25 16:01 Methylprednisolone Sod Succ 40 Mg/Ml Vial IVPUSH 40 mg Q12H ARRON Administration Sodium Chloride 3 ml 01/01/25 16:00 01/01/25 16:01 0.9 % Sodium Chloride Flush 3 Ml Syringe IVFLUSH Not Given QSHIFT ARRON Discontinued Medications Generic Name Dose Route Start Last Admin Trade Name Freq PRN Reason Stop Dose Admin Albuterol/Ipratropium 3 ml 01/01/25 13:16 01/01/25 13:58 Albuterol/Iprat 2.5/0.5mg 3 Ml Ampul.Neb INHALE 01/01/25 13:17 3 ml ONCE ONE Administration Albuterol Sulfate 5 mg/ 0 mg 01/01/25 12:37 01/01/25 12:38 Albuterol/Ipratropium 3 ml INHALE 01/01/25 12:38 1 each ONCE ONE Administration Magnesium Sulfate 2 gm in 50 mls @ 25 mls/hr 01/01/25 13:46 01/01/25 16:09 Magnesium Sulfate/H2o IV 01/01/25 15:45 Infused ONCE ONE Infusion Methylprednisolone Sodium Succinate 80 mg 01/01/25 13:16 01/01/25 13:40 Methylprednisolone Sod Succ 125 Mg/2 Ml Vial IVPUSH 01/01/25 13:17 80 mg ONCE ONE Administration Medical Decision Making Medical Decision Making MDM Narrative: Medical Decision Makin-year-old female with schizophrenia and extensive tobacco smoking history. Hypoxic yesterday but left AMA. Yesterday CTA excluded PE or focal infiltrate. The patient still hypoxic, 77% on room air in triage. Patient has coarse expiratory wheeze but is speaking full sentences does not appear in severe distress. 2 L nasal cannula OxyMask saturating low 90s. Continue empiric COPD treatment steroids and neb treatments. Severe acute hypoxic respiratory failure with severe hypoxemia. Preliminary Favored Differential Diagnosis: COPD exacerbation, pneumonia, less likely PE given yesterday's exclusion, less likely CHF given yesterday's imaging and workup. among additional considered etiologies Testing Interpreted Independently: ?EKG: Sinus rhythm no ischemic changes no RV strain Radiology or Lab testing Results Reviewed: ?See below for details Consults: ?See below for details Independent Historians/External Chart Reviews: ?See below for details Social Determinants of Health Impacting MDM/Planning: ?See below for details Lab Data MDM Lab Attestation statement: I reviewed the patient's lab results. 01/01/25 13:01 01/01/25 13:01 Labs: Lab Results 01/01/25 01/01/25 01/01/25 Range/Units 13:01 13:05 13:50 WBC 17.1 H (4.8-10.8) X10*3/uL RBC 4.95 (4.20-5.50) X10*6/uL Hgb 13.0 (12.0-16.0) g/dl Hct 41.1 (37.0-47.0) % MCV 83.0 (80.0-98.0) fL MCH 26.3 L (27.0-33.0) pg MCHC 31.6 (31.0-35.0) g/dl RDW 15.1 (11.0-16.0) % Plt Count 313 (160-400) X10*3/uL MPV 9.6 (9.4-12.3) fL Immature Gran % (Auto) 0.8 H (0.0-0.4) % Neut % (Auto) 88.0 H (45-73) % Lymph % (Auto) 8.5 L (20-40) % Hend[place] % (Auto) 1.9 L (2-11) % Eos % (Auto) 0.6 (0-4) % Baso % (Auto) 0.2 (0-2) % Lymph # (Auto) 1.5 (1.2-4.9) X10*3/uL [place] # (Auto) 0.3 (0.1-1.2) X10*3/uL Eos # (Auto) 0.1 (0.0-0.4) X10*3/uL Baso # (Auto) 0.0 (0.0-0.2) X10*3/uL Abs Immat Gran (auto) 0.13 H (0.00-0.03) X10*3/uL Absolute Neuts (auto) 15.0 H (2.0-8.3) x10*3/uL Absolute Nucleated RBC 0.000 (0.0-0.012) X10*3/uL Nucleated RBC % (auto) 0.0 (0.0-0.2) /100WBC VBG pH 7.39 (7.32-7.43) VBG pCO2 53 mmHg VBG pO2 73 mmHg VBG HCO3 32 H (22-26) mmol/L VBG O2 Saturation 93.0 % VBG Base Excess 6.1 mmol/L Sodium 141 (135-145) mmol/L Potassium 4.5 (3.3-5.1) mmol/L Chloride 102 (96-108) mmol/L Carbon Dioxide 30 H (22-29) mmol/L Anion Gap 14 (12-20) BUN 8 L (9-16) mg/dL Creatinine 0.68 (0.5-1.4) mg/dL Estim Creat Clear Calc 150.5 Estimated GFR > 60 Random Glucose 194 H (60-115) mg/dL Calcium 9.2 D (8.4-10.2) mg/dL Magnesium 2.1 (1.6-2.6) mg/dL Total Bilirubin 0.3 (0.0-1.0) mg/dL Direct Bilirubin 0.1 (0.0-0.5) mg/dL AST 17 (5-31) U/L ALT 19 (0-31) U/L Alkaline Phosphatase 93 (39-117) U/L Troponin I High Sens 3.7 (<3.5-17.0) ng/L Total Protein 7.1 (6.5-8.0) g/dL Albumin 4.2 (3.5-5.0) g/dL [place] 0.26 L (0.60-1.20) mmol/L Critical Care Time Critical Care Time Critical Care Time: Yes Total Critical Care Time: 30 Attestation: ED Critical Care: COPD exacerbation, acute hypoxic respiratory failure, severe with severe hypoxemia Authorized and Performed by: Per Novak MD Total critical care time: Approximately 30 min Due to a high probability of clinically significant, life threatening deterioration, the patient required my highest level of preparedness to intervene emergently and I personally spent this critical care time directly and personally managing the patient. This critical care time included obtaining a history; examining the patient; pulse oximetry; ordering and review of studies; arranging urgent treatment with development of a management plan; evaluation of patient's response to treatment; frequent reassessment; and, discussions with other providers. This critical care time was performed to assess and manage the high probability of imminent, life-threatening deterioration that could result in multi-organ failure. It was exclusive of separately billable procedures and treating other patients and teaching time. Discharge Plan Discharge Clinical Impression: Acute exacerbation of chronic obstructive airways disease Patient Disposition: Admitted As Inpatient
--- NOTE | 2025-01-01 12:22 | ECG_ITS ---
Test Reason : SOB Blood Pressure : */* mmHG Vent. Rate : 85 BPM Atrial Rate : 85 BPM P-R Int : 148 ms QRS Dur : 82 ms QT Int : 370 ms P-R-T Axes : 54 52 107 degrees QTcB Int : 440 ms Normal sinus rhythm Nonspecific T wave abnormality Abnormal ECG When compared with ECG of 31-Dec-2024 15:43, No significant change was found Referred By: Anna Grady Electronically Signed By: DALTON VALENZUELA
[2025-01-01] MEDS: Albuterol Sulfate 5 MG, Albuterol/Iprat 2.5/0.5MG 3 ML 3 ML INHALE (12:38)
[2025-01-01 13:08] LABS: MANUAL DIFF FLAG NO
[2025-01-01 13:10] LABS: Hematocrit 41.1 % (37.0-47.0); Hemoglobin 13.0 g/dl (12.0-16.0); Imm Gran Abs Auto 0.13 X10*3/uL (0.00-0.03); Imm Gran Pct Auto 0.8 % (0.0-0.4); Lymphocytes Absolute Auto 1.5 X10*3/uL (1.2-4.9); Mean Corpuscular HGB Conc 31.6 g/dl (31.0-35.0); Mean Corpuscular Hemoglobin 26.3 pg (27.0-33.0); Mean Corpuscular Volume 83.0 fL (80.0-98.0); NRBC Abs Auto 0.000 X10*3/uL (0.0-0.012); NRBC Pct Auto 0.0 /100WBC (0.0-0.2); Platelet Count 313 X10*3/uL (160-400); Red Blood Count 4.95 X10*6/uL (4.20-5.50); White Blood Count 17.1 X10*3/uL (4.8-10.8)
[2025-01-01 13:12] LABS: VBG HCO3 32 mmol/L (22-26); VBG O2 % Saturation 93.0 %
[2025-01-01 13:28] LABS: Alanine Aminotransferase 19 U/L (0-31); Albumin Level 4.2 g/dL (3.5-5.0); Alkaline Phosphatase 93 U/L (39-117); Anion Gap 14 (12-20); Aspartate Amino Transferase 17 U/L (5-31); Blood Urea Nitrogen 8 mg/dL (9-16); Calcium 9.2 mg/dL (8.4-10.2); Carbon Dioxide 30 mmol/L (22-29); Chloride 102 mmol/L (96-108); Creatinine Clr Calc Pharmacy 150.5; Estimated Glomerular Filt Rate > 60; Magnesium 2.1 mg/dL (1.6-2.6); Potassium 4.5 mmol/L (3.3-5.1); Sodium 141 mmol/L (135-145); Total Protein 7.1 g/dL (6.5-8.0)
[2025-01-01 13:29] LABS: Venous Blood Gas Refer to POC result
[2025-01-01 13:32] LABS: Troponin-I High Sensitivity 3.7 ng/L (<3.5-17.0)
[2025-01-01] MEDS: Magnesium Sulfate/H2O 2 GM/50 ML PIGGYBACK IV (13:55)
[2025-01-01] MEDS: Albuterol/Iprat 2.5/0.5MG 3 ML AMPUL.NEB INHALE (13:58)
--- NOTE | 2025-01-01 13:58 | PC.NURSE ---
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
--- OUTSIDE RECORDS SUMMARY | 2025-01-01 14:07 | XMS_ITS | Encounter Summary ---
Author Organization [employer] Address [address] [facility] [address] [place] [address] Care Team Providers Care Assembler Name Role Phone Yudith Suarez MD Primary Care Provider [phone] Encounter Details Date Type Department Care Team ([facility] st Contact Info) Description 05/30/2024 Telephone [facility] [address] [place], [place] [phone] Dariela, Shima [address], [place] [phone] Social History Tobacco Use Types Packs/Day Years [...] on filedocumented in this encounter Care Teams Assembler Relationship Specialty Start Date End Date Yudith Suarez MD [address] [place] [phone] PCP - General Family Medicine 04/04/18 documented as of this encounter
--- OUTSIDE RECORDS SUMMARY | 2025-01-01 14:07 | XMS_ITS | Clinical Summary ---
[facility] Organization [facility] Address [address] [place] [address] Care Team Providers Care Personal Lines Account Manager Name Role Phone Unavailable Primary Care Provider Unavailabl e Social History Tobacco Use Types Packs/Day Years Used Date Smoking Tobacco: Never Assessed Sex and Gender Information Value Date Recorded Sex Assigned at Not on file Gender Identity Not on file Sexual Orientation Not on file Plan of Treatment Not on file
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
--- OUTSIDE RECORDS SUMMARY | 2025-01-01 14:07 | XMS_ITS | Encounter Summary ---
Author Organization [employer] Address [address] [facility] 7t [place] [address] Care Team Providers Care Outside Cutter Hand Name Role Phone Yudith Suarez MD Primary Care Provider [phone] Encounter Details Date Type Department Care Team ([facility] Contact Info) Description 09/14/2023 Orders Only [facility] [address] [place] [address] Martin Barillas MD [address] [place] [address] Social History Tobacco Use Types Packs/Day Years [...] on filedocumented in this encounter Care Teams Outside Cutter Hand Relationship Specialty Start Date End Date Yudith Suarez MD [address] [place] [phone] PCP - General Family Medicine 04/04/18 documented as of this encounter
--- OUTSIDE RECORDS SUMMARY | 2025-01-01 14:07 | XMS_ITS | Encounter Summary ---
Author Organization [employer] Address [address] [facility] [address] [place] [address] Care Team Providers Care Investment Representative Name Role Phone Yudith Suarez MD Primary Care Provider Reason for Visit * Reason Comments Med Refill Encounter Details Date Type Department Care Team ([facility] st Contact Info) Description 09/18/2024 Refill [facility] [address] [place], [place] [phone] Yudith Suarez MD [address] [place], [place] [phone] Social History Tobacco Use Types Packs/Day Years [...] on filedocumented in this encounter Care Teams Investment Representative Relationship Specialty Start Date End Date Yudith Suarez MD [address] [place] [address] PCP - General Family Medicine 04/04/18 documented as of this encounter
--- OUTSIDE RECORDS SUMMARY | 2025-01-01 14:07 | XMS_ITS | Encounter Summary ---
Author Organization [employer] Address [address] [facility] 7t [place] [address] Care Team Providers Care Director Of Student Financial Services Name Role Phone Yudith Suarez MD Primary Care Provider [phone] Encounter Details Date Type Department Care Team ([facility] st Contact Info) Description 01/01/2025 Orders Only GENERIC EXTERNAL DATA DEPARTMENT Provider, Generic External Data Social History Tobacco Use Types Packs/Day Years [...] on file documented as of this encounter Procedures Procedure Name Priority Date/Time Associated Diagnosis Comments VENOUS BLOOD GAS Routine 01/01/2025 1:05 PM EDT HIGH SENSITIVITY TROPONIN I Routine 01/01/2025 1:01 PM EDT CBC WITH AUTO DIFFERENTIAL Routine 01/01/2025 1:01 PM EDT MAGNESIUM Routine 01/01/2025 1:01 PM EDT HEPATIC FUNCTION PANEL Routine 01/01/2025 1:01 PM EDT BASIC METABOLIC PANEL Routine 01/01/2025 1:01 PM EDT documented in this encounter Results * (ABNORMAL) VENOUS BLOOD GAS (01/01/2025 1:05 PM EDT) VBG pH 7.39 7.32 - 7.43 [facility] Comment:METER #: [id number] additional_comment: Cb bailea VBG PCO2 53 mmHg [facility] Comment:METER #: [id number] additional_comment: Cb bailea VBG PO2 73 mmHg [facility] Comment:METER #: [id number] additional_comment: Cb bailea VBG Base Excess 6.1 mmol/L [facility] Comment:METER #: [id number] additional_comment: Cb bailea VBG HCO3 32(H) 22 - 26 mmol/L [facility] Comment:METER #: [id number] additional_comment: Cb bailea O2 Sat, Kana 93.0 % [facility] Comment:METER #: [id number] additional_comment: Cb bailea 01/01/2025 1:05 PM EDT 01/01/2025 1:12 PM EDT us Generic External Data Provider LAB BLOOD ORDERAB LES Final Result Performing Organization Address [facility] de Phone Number [facility] [address] [place] [phone] * High Sensitivity Troponin I (01/01/2025 1:01 PM EDT) [facility] TROPONIN I HIGH SENSITIVITY 3.7 <3.5 - 17.0 ng/L [facility] Comment:The [place] high sens itivity Troponin-I results should beused in conjunction with other diagnostic information suchas ECG, clinical observations and information, and patientsymptoms to aid in the diagnosis of [place]. 01/01/2025 1:01 PM EDT 01/01/2025 1:06 PM EDT Generic External Data Provider LAB BLOOD ORDERAB LES Final Result Performing Organization Address [facility] Number [facility] [address] [place] [phone] * Magnesium (01/01/2025 1:01 PM EDT) [facility] Magnesium 2.1 1.6 - 2.6 mg/dL [facility] 01/01/2025 1:01 PM EDT 01/01/2025 1:06 PM EDT Generic External Data Provider LAB BLOOD ORDERAB LES Final Result Performing Organization Address [facility] de Phone Number [facility] [address] [place] [phone] * (ABNORMAL) Basic Metabolic Panel (01/01/2025 1:01 PM EDT) [facility] Sodium 141 135 - 145 mmol/L [facility] Potassium 4.5 3.3 - 5.1 mmol/L [facility] Comment:Slight Hemolysis.Int erpret result with caution. Chloride 102 96 - 108 mmol/L [facility] Carbon Dioxide 30(H) 22 - 29 mmol/L [facility] Anion Gap 14 12 - 20 [facility] Urea Nitrogen (BUN) 8(L) 9 - 16 mg/dL [facility] Creatinine, Serum 0.68 0.5 - 1.4 mg/dL [facility] Creatinine Clr Calc Pharmacy 150.5 [facility] Comment:Provided height and weight: 157.48 cm,141.5 kg.eGFR (calculated from the MDRD study equation) and eCrCl(calculated from the Cockcroft-Gault equation) are based ondifferent parameters and may not yield comparable results.If eCrCl result is absurd, please check patient'sheight/weight. Estimated Glomerular Filt Rate >60 [facility] Comment:Chronic Kidney Disea se: Estimated GFR < 60 mL/min/1.68i6Tcrbgd Kidney Disease: Estimated GFR < 15 mL/min/1.73m2 Glucose 194(H) 60 - 115 mg/dL [facility] Calcium 9.2 8.4 - 10.2 mg/dL [facility] 01/01/2025 1:01 PM EDT 01/01/2025 1:06 PM EDT us Generic External Data Provider LAB BLOOD ORDERAB LES Final Result [facility] [address] [place] [phone] * Hepatic Function Panel (01/01/2025 1:01 PM EDT) Bilirubin, Total 0.3 0.0 - 1.0 mg/dL [facility] Bilirubin, Direct 0.1 0.0 - 0.5 mg/dL [facility] Aspartate Amino Transferase 17 5 - 31 U/L [facility] Comment:Slight Hemolysis.Int erpret result with caution. Alanine Aminotransferase 19 0 - 31 U/L [facility] Total Protein 7.1 6.5 - 8.0 g/dL [facility] Albumin Level 4.2 3.5 - 5.0 g/dL [facility] Alkaline Phosphatase 93 39 - 117 U/L [facility] 01/01/2025 1:01 PM EDT 01/01/2025 1:06 PM EDT us Generic External Data Provider LAB BLOOD ORDERAB LES Final Result [facility] [address] [place] [phone] [phone] * (ABNORMAL) CBC auto differential (01/01/2025 1:01 PM EDT) White Blood Count 17.1(H) 4.8 - 10.8 X10*3/uL [facility] Red Blood Count 4.95 4.20 - 5.50 X10*6/uL [facility] Hemoglobin 13.0 12.0 - 16.0 g/dl [facility] Hematocrit 41.1 37.0 - 47.0 % [facility] Mean Corpuscular Volume 83.0 80.0 - 98.0 fL [facility] Mean Corpuscular Hemoglobin 26.3(L) 27.0 - 33.0 pg [facility] Mean Corpuscular HGB Conc 31.6 31.0 - 35.0 g/dl [facility] Red Cell Distribution Width 15.1 11.0 - 16.0 % [facility] Platelet Count 313 160 - 400 X10*3/uL [facility] Mean Platelet Volume 9.6 9.4 - 12.3 fL [facility] Neutrophils Percent Auto 88.0(H) 45 - 73 % [facility] Imm Gran Pct Auto 0.8(H) 0.0 - 0.4 % [facility] Lymphocytes Percent Auto 8.5(L) 20 - 40 % [facility] Monocytes Percent Auto 1.9(L) 2 - 11 % [facility] Eosinophils Percent Auto 0.6 0 - 4 % [facility] Basophils Percent Auto 0.2 0 - 2 % [facility] NRBC Pct Auto 0.0 0.0 - 0.2 /100WBC [facility] Neutrophils Absolute Auto 15.0(H) 2.0 - 8.3 x10*3/uL [facility] Imm Gran Abs Auto 0.13(H) 0.00 - 0.03 X10*3/uL [facility] Lymphocytes Absolute Auto 1.5 1.2 - 4.9 X10*3/uL [facility] Monocytes Absolute Auto 0.3 0.1 - 1.2 X10*3/uL [facility] Eosinophils Absolute Auto 0.1 0.0 - 0.4 X10*3/uL [facility] Basophils Absolute Auto 0.0 0.0 - 0.2 X10*3/uL [facility] NRBC Abs Auto 0.000 0.0 - 0.012 X10*3/uL [facility] 01/01/2025 1:01 PM EDT 01/01/2025 1:06 PM EDT us Generic External Data Provider LAB BLOOD ORDERAB LES Final Result Performing Organization Address City/State/[facility] Co de Phone Number [facility] [address] [place] [phone] documented in this encounter Visit Diagnoses Not on filedocumented in this encounter Care Teams Director Of Student Financial Services Relationship Specialty Start Date End Date Yudith Suarez MD [address] [place] [address] PCP - General Family Medicine 04/04/18 documented as of this encounter
--- OUTSIDE RECORDS SUMMARY | 2025-01-01 14:07 | XMS_ITS | Encounter Summary ---
Author Organization [employer] Address [address] [facility] [address] [place] [address] Care Team Providers Care Guest House Manager Name Role Phone Yudith Suarez MD Primary Care Provider [phone] Reason for Visit * Reason Onset Date Comments Paperwork/Forms 12/28/2023 Encounter Details Date Type Department Care Team ([facility] st Contact Info) Description 12/28/2023 Telephone [facility] [address] [place] [address] Yudith Suarez MD [address] [place], [place] [phone] Paperwork/Forms Social History Tobacco Use Types Packs/Day [...] 12/28/2023 8:27 AM EDT Christopher Fisher at [facility] calling to request the status of the physician form that was sent on 11/08 tech writer does see form in chart and has not been completed please complete and faxed to [phone] any questions please call [phone] documented in this encounter Plan of Treatment Not on file documented as of this encounter Visit Diagnoses Not on filedocumented in this encounter Care Teams Guest House Manager Relationship Specialty Start Date End Date Yudith Suarez MD [address] [place] [phone] PCP - General Family Medicine 04/04/18 documented as of this encounter
--- NOTE | 2025-01-01 14:59 | PM.IMHP ---
History of Present Illness Date of Service: 01/01/25 Chief Complaint: Shortness of breath 39-year-old woman admitted with worsening shortness of breath. Patient had come to the ER yesterday with hypoxia but decided to leave against medical advice. She did have a CTA which excluded PE or focal infiltrate. The patient remained hypoxic at 77% on room air. Patient reports that she has been using her inhalers without any relief. Chest x-ray today was negative for consolidation or effusion. She was noted to have an elevated white blood cell count but likely secondary to DuoNebs and hypoxia. Patient received albuterol, Solu-Medrol, magnesium in the ER. She will be admitted for further management and treatment acute hypoxic respiratory failure secondary to COPD exacerbation. Review of Systems Review of Systems: Denies any recent fever chills or decrease in appetite respiratory see HPI cardiovascular denies chest pain gastrointestinal denies any dysphagia abdominal pain nausea vomiting or diarrhea genitourinary denies any dysuria frequency or hematuria musculoskeletal denies any joint pain or swelling neuropsych denies any weakness or seizures all other systems reviewed are negative [facility] Medical History Cough Social History Household Members: None Housing: Apartment Do you presently have visiting nurse or other home services: No Patient Tobacco Use Status: Current everyday Tobacco user Tobacco use type: Cigarette Smoked in Last 30 Days: Yes Second Hand Smoke Exposure: No Use of substances other than those prescribed or required for medical reasons: No Advance Directives: No Advance Directives Information Provided: Yes Patient : No service: No Sexual orientation: Don't Know Meds Allergies Allergy/AdvReac Type Severity Reaction Status Date / Time oxycodone (OXYCODONE) Allergy Unknown HIVES, Verified 01/01/25 12:24 NAUSEA AND VOMITING From PERCOCET Allergy Unknown HIVES, Uncoded 12/31/24 13:29 NAUSEA AND VOMITING SEASONAL ALLERGIES Allergy Unknown STUFFY NOSE Uncoded 12/31/24 13:29 From VICODIN AdvReac Unknown VOMITING Uncoded 12/31/24 13:29 Active Medications: Current Medications Magnesium Sulfate (Magnesium Sulfate/H2o) 2 gm in 50 mls @ 25 mls/hr IV ONCE ONE Stop: 01/01/25 15:45 Last Admin: 01/01/25 13:55 Dose: 25 mls/hr Home Medications ?Medication ?Instructions ?Recorded ?Confirmed ?Last Taken ?Type loratadine 10 mg tablet (Claritin) 10 mg PO DAILY 08/10/21 08/10/21 Unknown History olanzapine 10 mg disintegrating 10 mg PO QPM 08/10/21 08/10/21 Unknown History tablet (Zyprexa Zydis) vitamin B12 0.5 mg-folic acid 1 mg 1 tab PO DAILY 08/10/21 08/10/21 Unknown History tablet cyanocobalamin (vitamin B-12) 500 mcg PO DAILY 01/01/25 Unknown History 1,000 mcg tablet folic acid 400 mcg tablet 0.4 mg PO DAILY 01/01/25 Unknown History ibuprofen 600 mg tablet 600 mg PO TID PRN pain 01/01/25 Unknown History lithium carbonate 150 mg capsule 150 mg PO QAM 01/01/25 Unknown History lithium carbonate 300 mg 600 mg PO BEDTIME 01/01/25 Unknown History tablet,extended release multivitamin with folic acid 400 1 tab PO DAILY 01/01/25 Unknown History mcg tablet (Daily-Paul (with folic acid)) norethindrone (contraceptive) 0.35 0.35 mg PO DAILY 01/01/25 Unknown History mg tablet (Jencycla) Physical Exam Vital Signs and Narrative: Vital Signs: Last Vital Signs Temp 98.6 F 01/01/25 12:34 Pulse 86 01/01/25 13:59 Resp 19 01/01/25 13:59 BP 141/117 H 01/01/25 12:34 Pulse Ox 93 01/01/25 14:54 O2 Del Method Oxymizer 01/01/25 14:54 O2 Flow Rate 4 01/01/25 14:54 Oxygen Flow Rate 3 01/01/25 12:22 BMI result Body Mass Index 57.1 Appearing in no acute distress head is normocephalic atraumatic eyes pupils are PERRLA sclera is anicteric mouth throat mucous membranes are intact and moist neck is supple no lymphadenopathy, no JVD noted lung sounds are clear to auscultation heart regular rate rhythm, clear S1, S2 positive bowel sounds, abdomen is soft, nontender neuro patient is alert x3, no focal deficits Results Labs 01/01/25 13:01 01/01/25 13:01 Labs: Laboratory Results - last 24 hr 01/01/25 01/01/25 13:01 13:05 MCV 83.0 MCH 26.3 L MCHC 31.6 RDW 15.1 Plt Count 313 MPV 9.6 Immature Gran % (Auto) 0.8 H Neut % (Auto) 88.0 H Lymph % (Auto) 8.5 L [place] % (Auto) 1.9 L Eos % (Auto) 0.6 Baso % (Auto) 0.2 Lymph # (Auto) 1.5 [place] # (Auto) 0.3 Eos # (Auto) 0.1 Baso # (Auto) 0.0 Abs Immat Gran (auto) 0.13 H Absolute Neuts (auto) 15.0 H Absolute Nucleated RBC 0.000 Nucleated RBC % (auto) 0.0 VBG pH 7.39 VBG pCO2 53 VBG pO2 73 VBG HCO3 32 H VBG O2 Saturation 93.0 VBG Base Excess 6.1 Anion Gap 14 Estim Creat Clear Calc 150.5 Estimated GFR > 60 Random Glucose 194 H Calcium 9.2 D Magnesium 2.1 Total Bilirubin 0.3 Direct Bilirubin 0.1 AST 17 ALT 19 Alkaline Phosphatase 93 Troponin I High Sens 3.7 Total Protein 7.1 Albumin 4.2 Imaging Radiologist's Impressions: Impressions Chest X-Ray 01/01/25 14:04 IMPRESSION: No acute cardiopulmonary abnormality. Electronically signed by: Favio Estrella MD 01/01/2025 02:17 PM EDT RP Assessment and Plan (1) Schizophrenia: Status: Acute (2) Cough: Qualifiers: Cough type: subacute Qualified Code(s): R05.2 - Subacute cough Status: Acute Plan 39 year old women admitted with acute hypoxic respiratory failure secondary to COPD exacerbation Acute hypoxic respiratory failure secondary to COPD exacerbation Continues to smoke Chest x-ray negative for consolidation or effusion Solu-Medrol Scheduled DuoNebs Supplemental oxygen to keep oxygen saturation greater than 89% Incentive spirometry Leukocytosis Likely secondary to albuterol treatments and steroids No sepsis Tobacco use Discussed the importance of smoking cessation Nicotine replacement offered Schizophrenia Continue home medications Super morbid obesity. BMI 57.1 Discussed importance of weight management as this may be contributing to worsening of other comorbidities DVT prophylaxis with Lovenox Full code Quality Stroke Does the patient have a stroke diagnosis?: No VTE Prior VTE?: No VTE Risk Level:: Medical - moderate - high VTE Device Contraindication: Treatment Not Indicated VTE Drug Contraindication: N/A - Med Ordered
[2025-01-01 15:10] LABS: Lithium 0.26 mmol/L (0.60-1.20)
[2025-01-01] MEDS: Albuterol Sulfate (0.083%) 2.5 MG/3 ML VIAL.NEB INHALE ×2 (15:11→20:27)
--- NOTE | 2025-01-01 17:32 | PHA.MEDREC ---
Pharmacy Consult ? Medication Reconciliation Pharmacy has completed the medication reconciliation.
--- NOTE | 2025-01-01 20:24 | PC.NURSE ---
pt asked RT to come back with her nebulizer treatment as she was eating, RT states he will come back in 15 minutes.
--- NOTE | 2025-01-01 21:22 | PC.NURSE ---
pt took off oxymask, 02 went down to 86%, advised pt to keep mask on, 02 currently at 97 on 3L oxymask.
[2025-01-02] VITALS (14 sets, daily range): BP systolic 126–155; BP diastolic 65–83; PULSE 78–91; RESP 16–22; TEMP 36.3–37.1; O2SAT 89–97
[2025-01-02] MEDS: 0.9 % Sodium Chloride Flush 3 ML SYRINGE IVFLUSH ×3 (00:16→19:46)
--- NOTE | 2025-01-02 00:17 | PC.NURSE ---
reinforced IV on R AC while flushing the line.
--- NOTE | 2025-01-02 04:05 | PC.NURSE ---
IV in R AC removed as it was bent and hanging out, unable to flush or use at this time. Replaced with 22 in L hand, medicated per JUN.
--- NOTE | 2025-01-02 05:51 | PC.NURSE ---
pt continues on 4L on oxymask, pt sleeping and continues to have moments where she is not breathing/ holding her breath, this has caused her 02 to periodically drop to 78-80. This RN continues to reposition pt and wake her up. Pt denies Cpap, positive for COPD. Provider advised.
--- NOTE | 2025-01-02 05:59 | PC.NURSE ---
provider confirmed ordering Cpap for pt.
--- NOTE | 2025-01-02 06:04 | PM.EVENT ---
Event Note Date of Service: 01/02/25 Event Note: 5:56 am -contacted by nursing to notify that patient has been placed on OxyMask 4 L/min as her oxygen saturation was dropping to the 80s. RN also commented that episodes of apnea. We will order CPAP and after venous blood gas to asses for CO2 retention. I recommended to titrate the oxygen down as much as possible. Time Spent With Patient Time: Total time managing care of this patient today ____ minutes.
[2025-01-02 06:21] LABS: Venous Blood Gas Refer to POC result
[2025-01-02 06:21] LABS: Hematocrit 40.5 % (37.0-47.0); Hemoglobin 12.6 g/dl (12.0-16.0); Mean Corpuscular HGB Conc 31.1 g/dl (31.0-35.0); Mean Corpuscular Hemoglobin 26.3 pg (27.0-33.0); Mean Corpuscular Volume 84.4 fL (80.0-98.0); NRBC Abs Auto 0.000 X10*3/uL (0.0-0.012); NRBC Pct Auto 0.0 /100WBC (0.0-0.2); Platelet Count 303 X10*3/uL (160-400); Red Blood Count 4.80 X10*6/uL (4.20-5.50); White Blood Count 19.5 X10*3/uL (4.8-10.8)
[2025-01-02 06:31] LABS: VBG HCO3 24 mmol/L (22-26); VBG O2 % Saturation 100.0 %
[2025-01-02 06:37] LABS: Anion Gap 12 (12-20); Blood Urea Nitrogen 13 mg/dL (9-16); Calcium 9.3 mg/dL (8.4-10.2); Carbon Dioxide 29 mmol/L (22-29); Chloride 105 mmol/L (96-108); Creatinine Clr Calc Pharmacy 167.7; Estimated Glomerular Filt Rate > 60; Potassium 4.9 mmol/L (3.3-5.1); Sodium 141 mmol/L (135-145)
[2025-01-02] MEDS: Albuterol Sulfate (0.083%) 2.5 MG/3 ML VIAL.NEB INHALE ×4 (07:49→20:27)
--- NOTE | 2025-01-02 11:12 | MHC.CM.PN ---
IMM 01/02/25, Pt. lives with her boyfriend, her PCP is confirmed: Yudith Suarez. Pt. said that her HCP is her mother, Vida, copy requested. She has [employer] services, she said 3 hrs per week. She has VNA services 2 x a day to give her medications. Pt does not use DMe. She said she has pc support specialist from [facility], and they will transport home at [place]. DCP: home, resume home care services. CM to follow for DC needs.
--- NOTE | 2025-01-02 12:00 | P.PNIM_ITS ---
Subjective Subjective Date of Service: 01/02/25 Interval History: dyspnea improved episodes of hypoxia + apnea while sleeping coughing Review of Systems Review of Systems: Yes all other systems are reviewed and are negative Physical Exam 2 Vital Signs: Vital Signs: Last Vital Signs Temp 97.6 F 01/02/25 09:47 Pulse 90 01/02/25 09:47 Resp 20 01/02/25 09:47 BP 149/81 H 01/02/25 09:47 Pulse Ox 92 01/02/25 09:47 O2 Del Method Room Air 01/02/25 09:47 O2 Flow Rate 5 01/02/25 08:25 Oxygen Flow Rate 3 01/01/25 12:22 BMI result Body Mass Index 57.1 Gen: in no acute distress HEENT: sclera anicteric, moist mucus membranes Neck: supple Lungs: diminished Heart: regular rate and rhythm, no murmurs Abd: soft, non-tender, non-distended, obese Ext: no edema Skin: warm/well-perfused Neuro: alert and oriented x3, no focal findings Psych: appropriate affect Objective Data Active Medications Acetaminophen (Acetaminophen 325 Mg Tablet) 650 mg PO Q6H PRN PRN Reason: Pain, Mild 1-3,fever,headache Last Admin: 01/02/25 10:31 Dose: 650 mg Documented By: NORBERT Albuterol Sulfate (Albuterol Sulfate (0.083%) 2.5 Mg/3 Ml Vial.Neb) 2.5 mg INHALE RQ4H WHILE AWAKE COUNTS INCLUDE 234 BEDS AT THE [facility] Last Admin: 01/02/25 07:49 Dose: 2.5 mg Documented By: QUINTON Calcium Carbonate (Calcium Carbonate 750 Mg Tab.Chew) 750 mg PO Q4H PRN PRN Reason: Heartburn Enoxaparin Sodium (Enoxaparin Sodium 40 Mg/0.4 Ml Syringe) 40 mg SUBCUT Q24H COUNTS INCLUDE 234 BEDS AT THE [facility] Last Admin: 01/01/25 16:01 Dose: 40 mg Documented By: JOCELYN Magnesium Hydroxide (Milk Of Magnesia 30 Ml Oral.Susp) 30 ml PO DAILY PRN PRN Reason: Constipation Melatonin (Melatonin 3 Mg Tablet) 6 mg PO BEDTIME PRN PRN Reason: Insomnia Methylprednisolone Sodium Succinate (Methylprednisolone Sod Succ 40 Mg/Ml Vial) 40 mg IVPUSH Q12H COUNTS INCLUDE 234 BEDS AT THE [facility] Last Admin: 01/02/25 04:01 Dose: 40 mg Documented By: ABHI Ondansetron HCl (Ondansetron Hcl 4 Mg/2 Ml Vial) 4 mg IVPUSH Q8H PRN PRN Reason: Nausea and Vomiting Sodium Chloride (0.9 % Sodium Chloride Flush 3 Ml Syringe) 3 ml IVFLUSH QSHIFT COUNTS INCLUDE 234 BEDS AT THE [facility] Last Admin: 01/02/25 10:31 Dose: Not Given Documented By: NORBERT Non-Admin Reason: off unit ED Labs 01/02/25 06:16 01/02/25 06:16 Labs: Laboratory Results - last 24 hr 01/01/25 01/01/25 01/01/25 13:01 13:05 13:50 MCV 83.0 MCH 26.3 L MCHC 31.6 RDW 15.1 Plt Count 313 MPV 9.6 Immature Gran % (Auto) 0.8 H Neut % (Auto) 88.0 H Lymph % (Auto) 8.5 L [place] % (Auto) 1.9 L Eos % (Auto) 0.6 Baso % (Auto) 0.2 Lymph # (Auto) 1.5 [place] # (Auto) 0.3 Eos # (Auto) 0.1 Baso # (Auto) 0.0 Abs Immat Gran (auto) 0.13 H Absolute Neuts (auto) 15.0 H Absolute Nucleated RBC 0.000 Nucleated RBC % (auto) 0.0 VBG pH 7.39 VBG pCO2 53 VBG pO2 73 VBG HCO3 32 H VBG O2 Saturation 93.0 VBG Base Excess 6.1 Anion Gap 14 Estim Creat Clear Calc 150.5 Estimated GFR > 60 Random Glucose 194 H Calcium 9.2 D Magnesium 2.1 Total Bilirubin 0.3 Direct Bilirubin 0.1 AST 17 ALT 19 Alkaline Phosphatase 93 Troponin I High Sens 3.7 Total Protein 7.1 Albumin 4.2 [place] 0.26 L 01/02/25 01/02/25 06:16 06:20 MCV 84.4 MCH 26.3 L MCHC 31.1 RDW 14.8 Plt Count 303 MPV 9.5 Immature Gran % (Auto) Neut % (Auto) Lymph % (Auto) [place] % (Auto) Eos % (Auto) Baso % (Auto) Lymph # (Auto) [place] # (Auto) Eos # (Auto) Baso # (Auto) Abs Immat Gran (auto) Absolute Neuts (auto) Absolute Nucleated RBC 0.000 Nucleated RBC % (auto) 0.0 VBG pH 7.33 VBG pCO2 45 VBG pO2 154 VBG HCO3 24 VBG O2 Saturation 100.0 VBG Base Excess -1.7 Anion Gap 12 Estim Creat Clear Calc 167.7 Estimated GFR > 60 Random Glucose 252 H Calcium 9.3 Magnesium Total Bilirubin Direct Bilirubin AST ALT Alkaline Phosphatase Troponin I High Sens Total Protein Albumin [place] Assessment and Plan (1) Acute exacerbation of chronic obstructive airways disease: Status: Acute Assessment and Plan: d2, 39yo F with COPD presenting with dyspnea and found to be hypoxic left AMA from ED but then returned AHRF due to COPD exacerbation - steroids, doxycycline, nebs, supplemental O2 - overnight oximetry tobacco abuse - NRT schizoaffective disorder - lithium, olanzapine morbid obesity - diet/exercise counseling VTE ppx: enoxaparin dispo: TBD In my clinical judgment, the patient requires continued inpatient hospitalization for the following reasons: hypoxia, resp failure Quality Stroke Does the patient have a stroke diagnosis?: No VTE Prior VTE?: No VTE Risk Level:: Medical - moderate - high VTE Device Contraindication: Treatment Not Indicated VTE Drug Contraindication: N/A - Med Ordered
[2025-01-02] MEDS: Nicotine 21 MG PATCH.TD24 TRANSDERMA (12:18)
[2025-01-02] MEDS: OLANZapine ODT 10 MG TAB.RAPDIS TRANSLINGU (19:46)
[2025-01-03] VITALS (7 sets, daily range): BP systolic 133–161; BP diastolic 69–89; PULSE 87–102; RESP 16; TEMP 36–36.7; O2SAT 84–95
[2025-01-03 05:32] LABS: ABG HCO3 34 mmol/L (22-26); ABG O2 % Saturation 75.0 %
[2025-01-03 05:36] LABS: ABG Refer to POC result
[2025-01-03 05:56] LABS: Venous Blood Gas Refer to POC result
[2025-01-03 05:59] LABS: VBG HCO3 21 mmol/L (22-26); VBG O2 % Saturation 99.0 %
[2025-01-03 06:21] LABS: Anion Gap 13 (12-20); Blood Urea Nitrogen 17 mg/dL (9-16); Calcium 9.1 mg/dL (8.4-10.2); Carbon Dioxide 29 mmol/L (22-29); Chloride 103 mmol/L (96-108); Creatinine Clr Calc Pharmacy 152.7; Estimated Glomerular Filt Rate > 60; Potassium 4.5 mmol/L (3.3-5.1); Sodium 140 mmol/L (135-145)
--- NOTE | 2025-01-03 06:34 | PC.NURSE ---
Respiratory therapist reported to me that she thinks she got venous blood instead of arterial because her O2 sat was 93%, Dr. Jacobo made aware.
--- NOTE | 2025-01-03 07:16 | HO.PM.IMPN ---
Subjective Subjective Date of Service: 01/03/25 Interval History: We have discussed the need for astral noninvasive ventilation with Adolfo Felipe who from chronic respiratory failure due to COPD. Due to this severe and life-threatening disease state the astral noninvasive ventilation is being prescribed today. Because of the elevated pCO2 of 70, during the latest blood gas. The [facility] we will help limit the hospital readmissions and longer hospital stays and improve the patient's overall breathing related issues. Review of Systems Review of Systems: Yes all other systems are reviewed and are negative Physical Exam Exam: Exam: General: AOx3, no acute distress Resp: CTA bilaterally CVS: S1, S2, RRR GI: +BS, NT, no distention Skin: Warm, dry Neuro: Cranial nerves II-XII grossly intact bilaterally. Motor grossly intact bilaterally Extremities: No edema Psych: Appropriate affect Vital Signs: Vital Signs: Last Vital Signs Temp 97.7 F 01/03/25 03:17 Pulse 87 01/03/25 03:17 Resp 16 01/03/25 03:17 BP 161/72 H 01/03/25 03:17 Pulse Ox 90 L 01/03/25 03:17 O2 Del Method Nasal Cannula 01/03/25 03:17 O2 Flow Rate 4 01/03/25 03:17 Oxygen Flow Rate 3 01/01/25 12:22 BMI result Body Mass Index 57.1 Objective Data Active Medications Acetaminophen (Acetaminophen 325 Mg Tablet) 650 mg PO Q6H PRN PRN Reason: Pain, Mild 1-3,fever,headache Last Admin: 01/02/25 10:31 Dose: 650 mg Documented By: NORBERT Albuterol Sulfate (Albuterol Sulfate (0.083%) 2.5 Mg/3 Ml Vial.Neb) 2.5 mg INHALE RQ4H WHILE AWAKE [facility] Last Admin: 01/02/25 20:27 Dose: 2.5 mg Documented By: DANTE Benzonatate (Benzonatate 100 Mg Capsule) 200 mg PO TID PRN PRN Reason: Cough Calcium Carbonate (Calcium Carbonate 750 Mg Tab.Chew) 750 mg PO Q4H PRN PRN Reason: Heartburn Cyanocobalamin (Cyanocobalamin (Vitamin B-12) 500 Mcg Tablet) 500 mcg PO DAILY [facility] Doxycycline Monohydrate (Doxycycline Monohydrate 100 Mg Capsule) 100 mg PO BID [facility] Last Admin: 01/02/25 19:46 Dose: 100 mg Documented By: GUSTABO Enoxaparin Sodium (Enoxaparin Sodium 40 Mg/0.4 Ml Syringe) 40 mg SUBCUT Q24H [facility] Last Admin: 01/02/25 15:39 Dose: 40 mg Documented By: NORBERT Folic Acid (Folic Acid 1 Mg Tablet) 1 mg PO DAILY [facility] Queets Carbonate (Queets Carbonate Er 300 Mg Tablet.Er) 600 mg PO BEDTIME [facility] Last Admin: 01/02/25 19:47 Dose: 600 mg Documented By: GUSTABO Queets Carbonate ([place]ets Carbonate 300 Mg Tablet) 150 mg PO DAILY [facility] Loratadine (Loratadine 10 Mg Tablet) 10 mg PO DAILY [facility] Magnesium Hydroxide (Milk Of Magnesia 30 Ml Oral.Susp) 30 ml PO DAILY PRN PRN Reason: Constipation Melatonin (Melatonin 3 Mg Tablet) 6 mg PO BEDTIME PRN PRN Reason: Insomnia Methylprednisolone Sodium Succinate (Methylprednisolone Sod Succ 40 Mg/Ml Vial) 40 mg IVPUSH Q12H [facility] Last Admin: 01/03/25 03:40 Dose: 40 mg Documented By: GUSTABO Multivitamins/Vitamin C (Multivitamin Tablet) 1 tab PO DAILY [facility] Nicotine (Nicotine 21 Mg Patch.Td24) 21 mg TRANSDERMA DAILY [facility] Last Admin: 01/02/25 12:18 Dose: 21 mg Documented By: NORBERT Pat Own Med ( Norethindrone ( Contraceptive) [ Jencycla] 0.35 Mg Tablet) 0.35 mg PO DAILY [facility] Olanzapine (Olanzapine Odt 10 Mg Tab.Rapdis) 10 mg TRANSLINGU BEDTIME [facility] Last Admin: 01/02/25 19:46 Dose: 10 mg Documented By: GUSTABO Ondansetron HCl (Ondansetron Hcl 4 Mg/2 Ml Vial) 4 mg IVPUSH Q8H PRN PRN Reason: Nausea and Vomiting Sodium Chloride (0.9 % Sodium Chloride Flush 3 Ml Syringe) 3 ml IVFLUSH QSHIFT [facility] Last Admin: 01/02/25 19:46 Dose: 3 ml Documented By: GUSTABO Labs 01/02/25 06:16 01/03/25 05:39 Labs: Laboratory Results - last 24 hr 01/03/25 01/03/25 01/03/25 05:28 05:39 05:55 O2 Saturation 75.0 ABG pH at Pt Temp 7.30 L ABG pCO2 at Pt Temp 70 H* ABG pO2 at Pt Temp 50 L* ABG HCO3 34 H ABG Base Excess (Actual) 6.1 VBG pH 7.37 VBG pCO2 36 VBG pO2 96 VBG HCO3 21 L VBG O2 Saturation 99.0 VBG Base Excess -3.3 Anion Gap 13 Estim Creat Clear Calc 152.7 Estimated GFR > 60 Random Glucose 193 H Calcium 9.1 Assessment and Plan (1) Acute exacerbation of chronic obstructive airways disease: Status: Acute Assessment and Plan: d2, 39yo F with COPD presenting with dyspnea and found to be hypoxic left AMA from ED but then returned AHRF due to COPD exacerbation We have discussed the need for astral noninvasive ventilation with Adolfo Felipe who from chronic respiratory failure due to COPD. Due to this severe and life-threatening disease state the astral noninvasive ventilation is being prescribed today. Because of the elevated pCO2 of 70, during the latest blood gas. The [facility] we will help limit the hospital readmissions and longer hospital stays and improve the patient's overall breathing related issues. - steroids, doxycycline, nebs, supplemental O2 - overnight oximetry tobacco abuse - NRT schizoaffective disorder - lithium, olanzapine morbid obesity - diet/exercise counseling VTE ppx: enoxaparin dispo: TBD In my clinical judgment, the patient requires continued inpatient hospitalization for the following reasons: hypoxia, resp failure Quality Stroke Does the patient have a stroke diagnosis?: No VTE Prior VTE?: No VTE Risk Level:: Medical - moderate - high VTE Device Contraindication: Treatment Not Indicated VTE Drug Contraindication: N/A - Med Ordered
[2025-01-03] MEDS: NORETHINDRONE 0.35 MG 0.35 EACH PO (08:05)
[2025-01-03] MEDS: Nicotine 21 MG PATCH.TD24 TRANSDERMA (08:06)
[2025-01-03] MEDS: 0.9 % Sodium Chloride Flush 3 ML SYRINGE IVFLUSH (08:06)
[2025-01-03] MEDS: Albuterol Sulfate (0.083%) 2.5 MG/3 ML VIAL.NEB INHALE ×2 (08:24→11:40)
--- NOTE | 2025-01-03 11:39 | P.DS_ITS ---
DS: Providers Provider Date of Service: 01/03/25 Date of admission: 01/01/25 14:57 Date of discharge: 01/03/25 Primary care physician: Yudith Suarez MD DS: Diagnosis Discharge Diagnosis (1) Acute exacerbation of chronic obstructive airways disease: Status: Acute DS: Summary Hospital Course Hospital Course: Acute hypoxic respiratory distress now requiring O2 with minimal ambulation and nocturnal NIP likely secondary to OHS/COPD Needs OP Pulmn official diagnosis for COPD/REGINO Patient is a 39-year-old female with extensive current tobacco history, schizophrenia, morbid obesity with hypoxia who presented to the ED on 01/01/2025 with SOB JERNIGAN and was noted to have OHS/REGINO/COPD exacerbation. Patient was treated with IV steroids and she continues to have exertional dyspnea, now has new O2 requirements. Patient continues to have pursed lip breathing likely a component of obesity hypoventilation syndrome, not diagnosed. Patient has been advised about smoking cessation extensively. She is being sent home on p.o. steroids prednisone 40 mg p.o. for 5 days, doxycycline 100 mg p.o. b.i.d. for 5 days for anti-inflammatory effect, she has also being discharged with nicotine patches and Tessalon Perles New O2 requirements We have discussed the need for astral noninvasive ventilation with Anusha Felipe who from chronic respiratory failure due to COPD. Due to this severe and life-threatening disease state the astral noninvasive ventilation is being prescribed today. Because of the elevated pCO2 of 70, during the latest blood gas. The Jose Luis we will help limit the hospital readmissions and longer hospital stays and improve the patient's overall breathing related issues. She is now requiring 2 L on ambulation and nocturnal NIV. [employer] is a [employer]. Severe morbid obesity which is likely contributing to her ohs Dietary consult placed Schizophrenia Continue home meds At the time of discharge, she is on 2 L with minimal ambulation, pursed lip breathing (likely her new baseline) Follow-up with pulmonology to have an official diagnosis of COPD, OHS -referral placed Patient has been extensively counseled about cigarette smoking cessation Dietary advised regarding morbid obesity -nutritional referral sent Follow-up with PCP within 1 week follow-up scheduled Advised about oral hygiene Advised about coming back to the ED if she has any new or worsening symptoms This note is constructed using voice recognition software. While every effort has been made to ensure accuracy, stringing machine operator errors may have been included. Time spent discussing smoking cessation with patient: more than 10 minutes Time Attestation Discharge Coordination Time (in mins): 35 Quality: Safe Use of Opioids Does Pt have an Active Cancer Diagnosis on the Problem List?: No Quality: Stroke Does the patient have a stroke diagnosis?: No Physical Exam Exam: Exam: General: AOx3, morbid obesity, pursed lip breathing Oral hygeine: Very poor Resp: CTA bilaterally limited secondary to body habitus CVS: S1, S2, RRR limited secondary to body habitus GI: +BS, NT, no distention limited secondary to body habitus Skin: Warm, dry Neuro: Grossly intact Extremities: Bilateral non pitting lymphedema Psych: Appropriate affect Vital Signs: Vital Signs: Last Vital Signs Temp 98.1 F 01/03/25 11:37 Pulse 90 01/03/25 11:37 Resp 16 01/03/25 11:37 BP 157/89 H 01/03/25 11:37 Pulse Ox 91 L 01/03/25 11:37 O2 Del Method Room Air 01/03/25 11:37 O2 Flow Rate 2 01/03/25 07:55 Oxygen Flow Rate 3 01/01/25 12:22 BMI result Body Mass Index 57.1 DS: Data Data Completed and Pending Labs on day of discharge: Laboratory Results - last 24 hr 01/03/25 01/03/25 01/03/25 05:28 05:39 05:55 O2 Saturation 75.0 ABG pH at Pt Temp 7.30 L ABG pCO2 at Pt Temp 70 H* ABG pO2 at Pt Temp 50 L* ABG HCO3 34 H ABG Base Excess (Actual) 6.1 VBG pH 7.37 VBG pCO2 36 VBG pO2 96 VBG HCO3 21 L VBG O2 Saturation 99.0 VBG Base Excess -3.3 Sodium 140 Potassium 4.5 Chloride 103 Carbon Dioxide 29 Anion Gap 13 BUN 17 H Creatinine 0.67 Estim Creat Clear Calc 152.7 Estimated GFR > 60 Random Glucose 193 H Calcium 9.1 Discharge Plan Discharge Anticipated Discharge Date/Time: 01/03/25 11:38 Patient Disposition: Home, Self-Care Discharge Diagnosis: Acute on chronic hypoxic respiratory failure requiring oxygen secondary to OHS/COPD in her current smoker Referrals: Dietary [Other] - 1 Week Nutritional Referral [Outside] - 1 Week Brandie Friedman MD [Physician, Pulmonology] - 1 Week Referral Note: Undiagnosed COPD/OHS now on an IP and 0 2 Yudith Suarez MD [Primary Care Provider, Medical] - 1 Week Discharge Medications: New benzonatate 100 mg Capsule 200 mg PO TID PRN (Reason: Cough) Qty: 14 0RF nicotine 21 mg/24 hr Patch 24 Hour 21 mg transdermal DAILY Qty: 14 3RF albuterol sulfate 2.5 mg /3 mL (0.083 %) Solution For Nebulization 2.5 mg inhalation RQ4H WHILE AWAKE 14 Days Qty: 168 3RF ipratropium-albuterol 0.5 mg-3 mg(2.5 mg base)/3 mL solution for nebulization 3 ml inhalation Q8H PRN (Reason: copd) Qty: 90 3RF Continued olanzapine [Zyprexa Zydis] 10 mg Tablet,Disintegrating 10 mg PO QPM loratadine [Claritin] 10 mg Tablet 10 mg PO DAILY Rx Instructions: Take one tab po QHS doxycycline monohydrate 100 mg capsule 100 mg PO BID 7 Days Qty: 14 0RF prednisone 20 mg tablet 40 mg PO DAILY 5 Days Qty: 10 0RF cyanocobalamin (vitamin B-12) 1,000 mcg tablet 500 mcg PO DAILY lithium carbonate 300 mg tablet extended release 600 mg PO BEDTIME lithium carbonate 150 mg capsule 150 mg PO DAILY folic acid 400 mcg tablet 0.4 mg PO DAILY ibuprofen 600 mg tablet 600 mg PO TID PRN (Reason: pain) norethindrone (contraceptive) [Jencycla] 0.35 mg tablet 0.35 mg PO DAILY multivitamin with folic acid [Daily-Paul (with folic acid)] 400 mcg tablet 1 tab PO DAILY Discharge Orders: Discharge Order (Routine); Ordered 01/03/25 Ordered By: Claudette Winters Diet: Diabetic diet Activity on Discharge: As tolerated Stand Alone Forms: Patient Portal Discharge page Print Language: Kyrgyz Care Plan Goals: Follow-up with pulmonology to have an official diagnosis of COPD, OHS -referral placed Patient has been extensively counseled about cigarette smoking cessation Dietary advised regarding morbid obesity -nutritional referral sent Follow-up with PCP within 1 week follow-up scheduled Advised about oral hygiene Advised about coming back to the ED if she has any new or worsening symptoms Health Concerns: See above Plan of Treatment: Nebulizers and DuoNebs ordered Prednisone 5 days 40 mg ordered Doxycycline 5 days for anti-inflammatory effect Nicotine patches ordered Theodore Hyman ordered Assessment: See above Patient Instructions: Weight Management (DC), COPD (Chronic Obstructive Pulmonary Disease) (DC)
--- NOTE | 2025-01-03 14:29 | MHC.CM.PN ---
PT CLEARED TO DC HOME TODAY WITH RESUMPTION OF SERVICES PT CONFIRMS SHE HAS A VNA THAT SEES HER 2X PER DAY FOR MED ADMINISTRATION, SHE IS UNSURE OF THE NAME OF THE AGENCY CM OBTAINED THE NURSES NUMBER FROM PT AND CALLED TO CONFIRM IT IS A [facility] RETURN REFERRAL PLACED AND HE IS AWARE PT WILL DC TODAY [facility] BEDSIDE TO TRANSPORT PT
== END 2025-01-03 14:27 | disposition home health service (06) | DRG 190 ==
LOC: HO.ED 12:59 → HO.EDOVER 15:20 → HO.S3 01-02 08:45
PROVIDERS: Family Medicine; Internal Medicine; Physician Assistant Medical; Admitting Provider Nurse Practitioner Acute Care; Emergency Provider Emergency Medicine; PCP Pediatrics; Visit Provider Student in an Organized Health Care Education/Training Program
DX: J44.1 Chronic obstructive pulmonary disease with (acute) exacerbation (principal); J96.21 Acute and chronic respiratory failure with hypoxia; E66.2 Morbid (severe) obesity with alveolar hypoventilation; Z68.43 Body mass index [BMI] 50.0-59.9, adult; F20.9 Schizophrenia, unspecified; F17.210 Nicotine dependence, cigarettes, uncomplicated; Z71.3 Dietary counseling and surveillance; Z71.6 Tobacco abuse counseling; Z79.52 Long term (current) use of systemic steroids; Z79.899 Other long term (current) drug therapy
CPT/HCPCS: 36415; 36600; 71045; 80048; 80076; 80178; 82803; 83735; 84484; 85025; 85027; 93005; 94640; 99285; J1650; J2919; J3475

== ENCOUNTER → 2025-01-01 12:22 | Outpatient (BNV) | payer MEDICARE, SELFPAY | PROVIDERS: Admitting Provider Nurse Practitioner Acute Care; Emergency Provider Emergency Medicine; PCP Pediatrics; Visit Provider Internal Medicine | DX: R94.31 Abnormal electrocardiogram [ECG] [EKG] (principal); R06.02 Shortness of breath | CPT/HCPCS: 93010 ==

== ENCOUNTER → 2025-01-01 13:16 | Outpatient (BNV) | payer MEDICARE, SELFPAY | PROVIDERS: Emergency Provider Emergency Medicine; PCP Pediatrics; Visit Provider Radiology Diagnostic Radiology | DX: R05.9 Cough, unspecified (principal) | CPT/HCPCS: 71045 ==

== ENCOUNTER → 2025-01-01 14:57 | Outpatient (BNV) | payer MEDICARE, SELFPAY | PROVIDERS: Admitting Provider Nurse Practitioner Acute Care; Emergency Provider Emergency Medicine; PCP Pediatrics; Visit Provider Nurse Practitioner Acute Care | DX: F20.9 Schizophrenia, unspecified (principal); R05.2 Subacute cough | CPT/HCPCS: 99223; 99232; 99239; 99499 ==

== ENCOUNTER 2025-01-16 13:03 | Outpatient (REF) | payer MEDICARE, SELFPAY ==
--- OUTSIDE RECORDS SUMMARY | 2025-01-14 10:15 | XMS_ITS | Encounter Summary ---
Author Organization [employer] Address [address] [place] [address] [place] [address] Care Team Providers Care Furniture Mover Helper Name Role Phone Yudith Suarez MD Primary Care Provider Reason for Referral * Consultation (Routine) - Authorized Specialty Diagnoses / Procedures Referred By Jennifer king Referred To Contact Nutrition Diagnoses Morbid obesity with BMI of 50.0-59.9, adult (CMS/HCC) (HCC) Martin Barillas MD [address] [place] [address] Phone: tel: fax: Referral ID Status Reason Start Date Expiration Date Visits Requested Visits Authorized [id number] Authorized Consult and Treat 01/14/2025 01/14/2026 1 1 * Consultation (Routine) - Pending Review Specialty Diagnoses / Procedures Referred By Jennifer king Referred To Contact Sleep Medicine Diagnoses Excessive daytime sleepiness Martin Barillas MD [address] [place] [id number] Phone: tel: fax: Referral ID Status Reason Start Date Expiration Date Visits Requested Visits Authorized [id number] Pending Review Specialty Services Required 01/14/2026 1 1 * PFT (Routine) - Authorized Specialty Diagnoses / Procedures Referred By Jennifer t Referred To Contact Diagnoses Morbid obesity with BMI of 50.0-59.9, adult (CMS/HCC) (HCC) Excessive daytime sleepiness Procedures Pulmonary Function Test Martin Barillas MD [address] [place] [address] Phone: tel: fax: [address] Phone: tel: fax: Referral ID Status Reason Start Date Expiration Date V isits Requested Visits Authorized [id number] Authorized 01/14/2025 01/14/2026 1 1 Encounter Details Date Type Department Care Team (Late st Contact Info) Description 01/14/2025 10:15 AM EDT Office Visit [facility] [address] [place] [address] Martin Barillas MD [address] [place] [address] Chronic obstructive pulmonary disease with acute exacerbation (CMS/HCC) (HCC) (Primary Dx); Morbid obesity with BMI of 50.0-59.9, adult (CMS/HCC) (HCC); Encounter for vaccination; Encounter for immunization; Excessive daytime sleepiness Social History Tobacco Use Types Packs/Day Years [...] AM EDT documented as of this encounter Last Filed Vital Signs Vital Sign Reading Time Taken Comments Blood Pressure 164/91 01/14/2025 9:57 AM EDT Pulse 100 01/14/2025 9:57 AM EDT Temperature - - Respiratory Rate 19 01/14/2025 9:57 AM EDT Oxygen Saturation 90% 01/14/2025 9:57 AM EDT Inhaled Oxygen Concentration - - Weight 143 kg (315 lb) 01/14/2025 9:57 AM EDT Height 158.1 cm (5' 2.25 ) 01/14/2025 9:57 AM ED T Body Mass Index 57.15 01/14/2025 9:57 AM EDT documented in this encounter Progress Notes * Martin Barillas MD - 01/14/2025 10:15 AM EDT Anusha Felipe is a 39 y.o. female who presents for a hospital follow up following acute OHS/REGINO/COPD exacerbation. Pt has an extensive tobacco smoking history schizophrenia obesity with hypoxia. Present[facility] at [facility] ED 01/01/25. Per ED provider The patient is a poor historian attributing her symptoms to a medication adverse effect. Family member at the bedside reports no subjective fever or hemoptysis. Pt was admitted to the hospital and discharged on 01/03/25 on 2 lpm O2, prescribed: Prednisone 40 mg x 5 days, Doxycycline 100mg 2xd x 5 days, Astral NIV for pCO2 70 mmHg, Nicotine patches for smoking cessation. Smoking cessation was strongly advised and a referral for dietary consultation was placed. 01/01 Pt was short of breath while ambulating; her renal case manager brought her to Urgent Care, where shehad a chest XR and EKG; Urgent care recommended she go to ED based on symptomatic SOB; renal case manager took pt to ED; pt waited for 6-7 hours, then left against medical orders. The next day, the patient continued to experience SOB on exertion; renal case manager brought her back to ED where she was given breathing treatments and admitted and discharged on 01/03. Today, she is feeling somewhat better though complaining of a runny nose and cough. Problem List[1] Allergies[2] Review of Systems Constitutional: Positive for fatigue. HENT: Positive for rhinorrhea. Eyes: Negative. Respiratory: Positive for chest tightness, shortness of breath and wheezing. Cardiovascular: Negative. Gastrointestinal: Negative. Endocrine: Negative. Genitourinary: Negative. Musculoskeletal: Negative. Skin: Negative. Allergic/Immunologic: Positive for environmental allergies. And as listed Neurological: Negative. Hematological: Negative. Psychiatric/Behavioral: Negative. There were no vitals filed for this visit. Physical Exam Constitutional: Appearance: She is obese. HENT: Head: Normocephalic. Right Ear: Tympanic membrane, ear canal and external ear normal. Left Ear: Tympanic membrane, ear canal and external ear normal. Nose: Congestion and rhinorrhea present. Mouth/Throat: Mouth: Mucous membranes are moist. Eyes: Extraocular Movements: Extraocular movements intact. Conjunctiva/sclera: Conjunctivae normal. Pupils: Pupils are equal, round, and reactive to light. Cardiovascular: Rate and Rhythm: Normal rate and regular rhythm. Pulmonary: Breath sounds: Wheezing present. Abdominal: General: Bowel sounds are normal. Palpations: Abdomen is soft. Musculoskeletal: Cervical back: Normal range of motion. Skin: General: Skin is warm. Neurological: General: No focal deficit present. Mental Status: She is alert and oriented to person, place, and time. Mental status is at baseline. Psychiatric: Mood and Affect: Mood normal. Behavior: Behavior normal. Assessment & Plan Chronic obstructive pulmonary disease with acute exacerbation ([facility]) ([facility]) Morbid obesity with BMI of 50.0-59.9, adult ([facility]) ([facility]) Encounter for vaccination Orders: POCT Glucose POCT Hgb A1c COVID-19 VACCINE [id number] (Comirnaty) 12 yrs + Encounter for immunization Orders: POCT Glucose POCT Hgb A1c FLU VACCINE TRIVALENT [id number] (Fluarix) 19 yrs + PCV-20 VACCINE 6 wks + A1C PFT ordered to confirm COPD Diagnosis; referral to sleep medicine for witnessed sleep apnea. Nutrition referral for weight management. Smoking cessation discussed; reinforced use of nebulizer. Pt advised to go to the ED if a similar breathing exacerbation occurs. Pt has an appointment with her psychiatrist in ~2 weeks pt and renal case manager advised to discuss 01/01/25 lithium level (0.26) with psychiatrist. Future issues to consider with PCP: HbA1c 6.8 / POC Glucose 126; BP 164/91. Current Medications[3] Please follow up with your provider in 4 weeks. [facility] MIXER SLAGMAN Attestation MIXER SLAGMAN Resident Attestation: Patient was seen and evaluated by Duglas COTTO, in collaboration with Martin Barillas MD who has reviewed my assessment and plan. I, Martin Barillas MD , have reviewed the resident's note and agree with the assessment & plan of care as documented above. [1] Patient Active Problem List Diagnosis Chronic schizophrenia (CMS/HCC) (HCC) Cocaine abuse ([facility]) Gastroesophageal reflux disease Obesity Sore throat Tobacco dependence syndrome [2] Allergies Allergen Reactions Lactulose Oxycodone Seasonal Ic [Octacosanol] [3] Current Outpatient Medications: albuterol (2.5 MG/3ML) 0.083% nebulizer solution, Take 2.5 mg by nebulization every 4 (four) hours., Disp: , Rfl: cyanocobalamin (Vitamin B-12) 1000 MCG tablet, TAKE 1/2 TABLET BY MOUTH ONCE DAILY, Disp: 45 tablet, Rfl: 0 Eva 0.35 MG tablet, Take 1 tablet (0.35 mg) by mouth Once per day., Disp: 28 tablet, Rfl: 11 folic acid (Folvite) 400 MCG tablet, TAKE 1 TABLET BY MOUTH ONCE DAILY, Disp: 30 tablet, Rfl: 11 ibuprofen 600 MG tablet, TAKE 1 TABLET BY MOUTH 3 (THREE) TIMES A DAY NEEDED FOR PAIN, Disp: 90 tablet, Rfl: 3 ipratropium-albuterol (Duo-Neb) 0.5-2.5 mg/3 mL nebulizer solution, Take 3 mL by nebulization every8 (eight) hours if needed for shortness of breath or wheezing., Disp: , Rfl: lithium 150 MG capsule, Take 1 capsule by mouth before breakfast., Disp: , Rfl: lithium ER (Lithobid) 300 MG 12 hr tablet, Take 2 tablets by mouth at bedtime., Disp: , Rfl: loratadine (Claritin) 10 MG tablet, TAKE 1 TABLET BY MOUTH ONCE DAILY, Disp: 30 tablet, Rfl: 11 Multiple Vitamin (Daily-Paul) tablet, TAKE 1 TABLET BY MOUTH ONCE DAILY, Disp: 30 tablet, Rfl: 11 OLANZapine zydis (ZyPREXA) 10 MG disintegrating tablet, Take 1 tablet by mouth at bedtime., Disp: ,Rfl: documented in this encounter Plan of Treatment Upcoming Encounters Date Type Department Care Team (Late st Contact Info) Description 01/31/2025 9:15 AM EDT Office Visit [facility] [address] [place], [place] [phone] Yudith Suarez MD [address] [place], [place] [phone] Scheduled Orders Name Type Priority Associated Diagnoses Orde r Schedule Pulmonary Function Test PFT Routine Morbid obesity with BMI of 50.0-59.9, adult (CMS/HCC) (HCC) Excessive daytime sleepiness Expected: 01/14/2025, Expires: 07/15/2025 [id number], Quantitative Lab Routine Chronic obstructive pulmonary disease with acute exacerbation (CMS/HCC) (HCC) Expected: 01/14/2025 (Approximate), Expires: 01/14/2026 Scheduled Referrals Name Type Priority Associated Diagnoses Orde r Schedule Referral to Sleep Medicine Outpatient Referral Routine Excessive daytime sleepiness Expected: 01/14/2025 (Approximate), Expires: 01/14/2026 Referral to Nutrition Therapy Outpatient Referral Routine Morbid obesity with BMI of 50.0-59.9, adult (CMS/HCC) (HCC) Expected: 01/14/2025 (Approximate), Expires: 01/14/2026 documented as of this encounter Procedures Procedure Name Priority Date/Time Associated Diagnosis Comments POCT GLUCOSE Routine 01/14/2025 11:55 AM EDT Encounter for vaccination Encounter for immunization POCT GLYCATED HEMOGLOBIN, TOTAL Routine 01/14/2025 11:54 AM EDT Encounter for vaccination Encounter for immunization documented in this encounter Results * POCT Glucose (01/14/2025 11:55 AM EDT) Glucose Blood, POC 126 60 - 200 mg/dL QC Media Lot # [id number] Lot# Expiration Date Comment:fasting Blood Capillary blood specimen / Unknown 01/14/2025 11:55 AM EDT Martin Barillas MD POINT OF CARE TEST ENTER/ED IT ORDERABLES Final Result * (ABNORMAL) POCT Hgb A1c (01/14/2025 11:54 AM EDT) Hemoglobin A1C 6.8(A) 4.0 - 5.7 % QC Media Lot # [id number] Lot# Expiration Date Blood 01/14/2025 11:5 4 AM EDT us Martin Barillas MD POINT OF CARE TEST ENTER/ED IT ORDERABLES Final Result documented in this encounter Visit Diagnoses Diagnosis Chronic obstructive pulmonary disease with acute exacerbation (CMS/HCC) (HCC)- Primary Morbid obesity with BMI of 50.0-59.9, adult (CMS/HCC) (HCC) Encounter for vaccination Encounter for immunization Excessive daytime sleepiness documented in this encounter Care Teams Furniture Mover Helper Relationship Specialty Start Date End Date Yudith Suarez MD [address] [place] [address] PCP - General Family Medicine 04/04/18 documented as of this encounter
--- OUTSIDE RECORDS SUMMARY | 2025-01-16 16:46 | XMS_ITS | Encounter Summary ---
Author Organization [employer] Address [address] [facility] [address] [place] [address] Care Team Providers Care Batch Maker Name Role Phone Yudith Suarez MD Primary Care Provider [phone] Encounter Details Date Type Department Care Team ([facility] Contact Info) Description 09/14/2023 Orders Only [facility] [address] [place] [address] Martin Barillas MD [address] [place] [address] Social History Tobacco Use Types Packs/Day Years Used Date Smoking Tobacco: Never Assessed Housing Stability Answer Date Recorded What is your housing situation today? I have davonoliiva feng 08/09/[address] you [...] as of this encounter Plan of Treatment Upcoming Encounters Date Type Department Care Team ([facility] st Contact Info) Description 01/31/2025 9:15 AM EDT Office Visit [facility] [address] [place] [address] Yudith Suarez MD [address] [place] [address] documented as of this encounter Visit Diagnoses Not on filedocumented in this encounter Care Teams Batch Maker Relationship Specialty Start Date End Date Yudith Suarez MD [address] [place] [address] PCP - General Family Medicine 04/04/18 documented as of this encounter
--- OUTSIDE RECORDS SUMMARY | 2025-01-16 16:46 | XMS_ITS | Encounter Summary ---
Author Organization [employer] Address [address] [facility] [address] [place] [address] Care Team Providers Care Flux Tube Attendant Name Role Phone Yudith Suarez MD Primary Care Provider [phone] Encounter Details Date Type Department Care Team ([facility] st Contact Info) Description 05/30/[address] [facility] ADULT DENTAL [address] [place], [place] [phone] Dariela, Shima [address] [place], [place] [phone] Social History Tobacco Use Types Packs/Day Years [...] Upcoming Encounters Date Type Department Care Team ([facility] st Contact Info) Description 01/31/2025 9:15 AM EDT Office Visit [facility] MED & PEDS [address] [place] [address] Yudith Suarez MD [address] [place] [address] documented as of this encounter Visit Diagnoses Not on filedocumented in this encounter Care Teams Flux Tube Attendant Relationship Specialty Start Date End Date Yudith Suarez MD [address] [place] [address] PCP - General Family Medicine 04/04/18 documented as of this encounter
--- OUTSIDE RECORDS SUMMARY | 2025-01-16 16:46 | XMS_ITS | Encounter Summary ---
Author Organization [employer] Address [address] [facility] [address] [place] [address] Care Team Providers Care Corporate Travel Consultant Name Role Phone Yudith Suarez MD Primary Care Provider [phone] Reason for Visit * Reason Onset Date Comments Paperwork/Forms 12/28/2023 Encounter Details Date Type Department Care Team ([facility] st Contact Info) Description 12/28/2023 Telephone [facility] MEDICINE [address] [place] [address] Yudith Suarez MD [address] [place], [place] [phone] Paperwork/Forms Social History Tobacco Use Types Packs/Day [...] 12/28/2023 8:27 AM EDT Christopher Fisher at [facility] calling to request the status of the physician form that was sent on 11/08 short story writer does see form in chart and has not been completed please complete and faxed to [phone] any questions please call [phone] documented in this encounter Plan of Treatment Upcoming Encounters Date Type Department Care Team (Late st Contact Info) Description 01/31/2025 9:15 AM EDT Office Visit [facility] MED [facility] PEDS [address] [place] [address] Yudith Suarez MD [address] [place] [address] documented as of this encounter Visit Diagnoses Not on filedocumented in this encounter Care Teams Corporate Travel Consultant Relationship Specialty Start Date End Date Yudith Suarez MD [address] [place] [address] PCP - General Family Medicine 04/04/18 documented as of this encounter
--- OUTSIDE RECORDS SUMMARY | 2025-01-16 16:46 | XMS_ITS | Clinical Summary ---
Author Organization [employer] Address [address] [facility] [address] [place] [address] Care Team Providers Care Fence Manufacture Supervisor Name Role Phone Yudith Suarez MD Primary Care Provider [phone] Allergies Active Allergy Reactions Criticality Noted Date Comments Lactulose 01/14/2012 Oxycodone 01/14/2012 Octacosanol 09/13/2023 Medications lithium ER (Lithobid) 300 MG 12 hr tablet Take 2 tablets by mouth at bedtime. 024 Active OLANZapine zydis (ZyPREXA) 10 MG disintegrating tablet Take 1 tablet by mouth at bedtime. 024 Active cyanocobalamin (Vitamin B-12) 1000 MCG tablet TAKE 1/2 TABLET BY MOUTH ONCE DAILY 45 tablet 025 Active Eva 0.35 MG tablet Take 1 tablet (0.35 mg) by mouth Once per day. 28 tablet 025 Active folic acid (Folvite) 400 MCG tablet TAKE 1 TABLET BY MOUTH ONCE DAILY 30 tablet 025 Active Multiple Vitamin (Daily-Paul) tabletIndications :Fatigue due to depression TAKE 1 TABLET BY MOUTH ONCE DAILY 30 tablet 11 025 Active ibuprofen 600 MG tablet TAKE 1 TABLET BY MOUTH 3 (THREE) TIMES A DAY NEEDED FOR PAIN 90 tablet 3 025 Active loratadine (Claritin) 10 MG tablet TAKE 1 TABLET BY MOUTH ONCE DAILY 30 tablet 11 025 Active albuterol (2.5 MG/3ML) 0.083% nebulizer solution Take 2.5 mg by nebulization every 4 (four) hours. Active lithium 150 MG capsule Take 1 capsule by mouth before breakfast. Active ipratropium-albut dmitriy (Duo-Neb) 0.5-2.5 mg/3 mL nebulizer solutionIndicatio ns:Chronic obstructive pulmonary disease with acute exacerbation (CMS/HCC) (HCC) Take 3 mL by nebulization every 8 (eight) hours if needed for shortness of breath or wheezing. 180 mL 025 2024 Active azithromycin (Zithromax) 250 MG tabletIndications :Acute cough 500 mg on day 1, 250 mg day 2 through 5 6 tablet 025 2024 Discontinued(T herapy completed) predniSONE (Deltasone) 20 MG tabletIndications :Acute cough 40 mg daily x 3 days 6 tablet 025 2024 Discontinued(T herapy completed) ipratropium-albut dmitriy (Duo-Neb) 0.5-2.5 mg/3 mL nebulizer solution Take 3 mL by nebulization every 8 (eight) hours if needed for shortness of breath or wheezing. 025 2024 Discontinued(R eorder (will not trigger notification to Pharmacy)) Active Problems Problem Noted Date Diagnosed Date Cocaine abuse 07/24/2013 Sore throat 11/08/2012 Chronic schizophrenia (CMS/HCC) 01/14/2012 Gastroesophageal reflux disease 01/14/2012 Obesity 01/14/2012 Tobacco dependence syndrome 01/14/2012 Encounters Date Type Department Care Team Description 01/14/2025 10:15 AM EDT Office Visit [facility] [address] [place] [address] Martin Barillas MD Chronic obstructive pulmonary disease with acute exacerbation (CMS/HCC) ([facility]) (Primary Dx); Morbid obesity with BMI of 50.0-59.9, adult (CMS/HCC) (HCC); Encounter for vaccination; Encounter for immunization; Excessive daytime sleepiness 01/14/2025 Travel 01/07/2025 Telephone [facility] [address] [place] [address] Yudith Suarez MD Hospital Follow-up 01/01/2025 Orders Only GENERIC EXTERNAL DATA DEPARTMENT Provider, Generic External Data 12/24/2024 Telephone [facility] [address] [place], [place] [phone] Yudith Suarez MD Nurse Triage 11/27/2024 Telephone [facility] [address] [place], [place] [phone] Yudith Suarez MD 10/22/2024 Refill [facility] [address] [place], [place] [phone] Yudith Suarez MD from Last 3 Months Immunizations Immunization Administration Dates Next Due DTaP 09/02/1989, 6,1984,1984,1984 Hep B, Adolescent or Pediatric 07/11/1996,1995,02/17/1996 Hib ([facility]) 09/02/1989 IPV 09/02/1989, 6,1984,1984 Influenza injectable quadriv alent IIV4 with preservative 01/26/2016 Influenza injectable quadriv alent preservative free 03/24/2015 Influenza, IIV3, injectable 01/16/2014,0 12/25/2010,03/03/2010,2008 Influenza, seasonal, injecta ble, preservative free 01/14/2025,01/04/2024 MMR 07/03/1996,10/02/1985 Pfizer Covid-19 Vaccine 12+ 01/14/2025 Pneumococcal Conjugate PCV 20 01/14/2025 TD (adult), 2 Lf tetanus tox oid, [...] the past 12 months, has t he [place], gas, oil or water company threatened to [...] Pulse 100 01/14/2025 9:57 AM EDT Temperature 36.5 C (97.7 F) 09/13/2024 1:55 PM EDT Respiratory Rate 19 01/14/2025 9:57 AM EDT Oxygen Saturation 90% 01/14/2025 9:57 AM EDT Inhaled Oxygen Concentration - - Weight 143 kg (315 lb) 01/14/2025 9:57 AM EDT Height 158.1 cm (5' 2.25 ) 01/14/2025 9:57 AM ED T Body Mass Index 57.15 01/14/2025 9:57 AM EDT Plan of Treatment Upcoming Encounters Date Type Department Care Team (Late st Contact Info) Description 01/31/2025 9:15 AM EDT Office Visit [facility] [address] [place] [address] Yudith Suarez MD [address] [place] [address] Health Maintenance Due Date Last Done Comments Dental Prophylaxis 1984 Depression Screening 1984 Disability Screening 1984 Alcohol/Substance Use Screening 1996 Family Planning (PISQ) 06/28/1999 HPV Vaccines (1 - 3-dose series) 06/28/1999 Pap Smear 2005 Cervical Cancer Screening 2014 HPV/Cotest 2014 Dental Oral Exam 03/15/2024 09/13/2023, 05/17/2016 Mammogram 2024 SDOH Screening 08/08/2024 08/09/2023 Dental X-Ray: Bitewings 09/13/2024 09/13/2023, 05/17 DTaP/Tdap/Td Vaccines (6 - Td or Tdap) [...] Completed 01/04/2024 Hepatitis C Screening Completed 01/04/2024 COVID-19 Vaccine Completed 01/14/2025, , 06/24/2020 Influenza Vaccine Completed 01/14/2025, , 01/26/2016, Additional history exists Pneumococcal Vaccine: Pediatrics (0 to 5 Years) and At-Risk Patients (6 to 49) Years Completed 01/14/2025 Hepatitis A Vaccines Aged Out No long [...] EDT Encounter for vaccination Encounter for immunization XR CHEST 1 VIEW Routine 01/01/2025 2:04 PM EDT LITHIUM Routine 01/01/2025 1:50 PM EDT VENOUS BLOOD GAS Routine 01/01/2025 1:05 PM [...] schizophrenia (CMS/HCC) Severe obesity (BMI >= 40) ([facility]) from Last 3 Months or Most Recently Relevant to Health Maintenance Results * POCT Glucose (01/14/2025 11:55 AM [...] Date Blood 01/14/2025 11:5 4 AM EDT Martin Barillas MD POINT OF CARE TEST ENTER/ED IT ORDERABLES Final Result * XR Chest 1 View (01/01/2025 2:04 PM EDT) Anatomical Region Laterality Modality Chest Radiographic Lexy ging 01/01/2025 2:04 PM EDT Narrative 01/01/2025 2:20 PM EDT [address] [address] XRay Report Signed Patient: Anusha Felipe MR#: [id number] : 1985 Acct:[id number] Age/Sex: 39 / F ADM Date: 01/01/25 Loc: .ED Attending Dr: Ordering Physician: Per Novak MD Date of Service: 01/01/25 Procedure(s): XR chest 1V Accession Number(s): [id number] cc: Yudith Suarez MD; Per Novak MD Reason for Exam: cough EXAMINATION: XR CHEST 1 VIEW HISTORY: cough COMPARISON: Comparison is made with the prior examination dated 12/31/2024. FINDINGS: A single AP portable view of the chest performed at 2:04 PM is submitted. There is haziness of the lung bases, likely related to overlying soft tissue. No focal airspace opacities are identified. There is no pleural effusion, pneumothorax, or pulmonary vascular congestion. The heart is likely normal in size in technique. The bones are intact. XR/XR chest 1V IMPRESSION: No acute cardiopulmonary abnormality. Electronically signed by: Favio Estrella MD 01/01/2025 02:17 PM EDT RP Dictated By: Favio Estrella MD Signed By: <Electronically signed by Favio Estrella MD in OV> 01/01/25 1417 DD/ 1404 TD/TT: 01/01/25 1414 Syrup Mixer Helper: Procedure Note Donotuseinterpreter, Image - 01/01/2025 [place] [address] XRay Report Signed Patient: Anusha FelipeMR#: [id number] : 1985Acct:[id number] Age/Sex: 39 / FADM Date: 01/01/25 Loc: .ED Attending Dr: Ordering Physician: Per Novak MD Date of Service: 01/01/25 Procedure(s): XR chest 1V Accession Number(s): [id number] cc: Yudith Suarez MD; Per Novak MD Reason for Exam: cough EXAMINATION: XR CHEST 1 VIEW HISTORY: cough COMPARISON: Comparison is made with the prior examination dated 12/31/2024. FINDINGS: A single AP portable view of the chest performed at 2:04 PM is submitted. There is haziness of the lung bases, likely related to overlying soft tissue. No focal airspace opacities are identified. There is no pleural effusion, pneumothorax, or pulmonary vascular congestion. The heart is likely normal in size in technique. The bones are intact. XR/XR chest 1V IMPRESSION: No acute cardiopulmonary abnormality. Electronically signed by: Favio Estrella MD 01/01/2025 02:17 PM EDT RP Dictated By: Favio Estrella MD Signed By: <Electronically signed by Favio Estrella MD in OV> 01/01/25 1417 DD/ 1404 TD/TT: 01/01/25 1414 Syrup Mixer Helper: [facility] External Provider IMG XR PROCEDURES Final Result * (ABNORMAL) [place] (01/01/2025 1:50 PM EDT) Pathologist [facility] [place] 0.26(L) 0.60 - 1.20 mmol/L [facility] 01/01/2025 1:50 PM EDT 01/01/2025 1:53 PM EDT Generic External Data Provider LAB BLOOD ORDERAB LES Final Result [facility] [address] [place] [phone] * (ABNORMAL) VENOUS BLOOD GAS (01/01/2025 1:05 PM EDT) Pathologist [facility] VBG pH 7.39 7.32 - 7.43 [facility] Comment:METER #: [id number] additional_comment: Cb bailea VBG PCO2 53 mmHg [facility] Comment:METER #: [id number] additional_comment: Cb bailea VBG PO2 73 mmHg [facility] Comment:METER #: [id number] additional_comment: Cb bailea VBG Base Excess 6.1 mmol/L [facility] Comment:METER #: [id number] additional_comment: Cb bailea VBG HCO3 32(H) 22 - 26 mmol/L [facility] Comment:METER #: [id number] additional_comment: Cb bailea O2 Sat, Kana 93.0 % [facility] Comment:METER #: [id number] additional_comment: Cb dony 01/01/2025 1:05 PM EDT 01/01/2025 1:12 PM EDT Generic External Data Provider LAB BLOOD ORDERAB LES Final Result Performing Organization Address [facility] Co de Phone Number [facility] [address] [place] [phone] * High Sensitivity Troponin I (01/01/2025 1:01 PM EDT) [facility] TROPONIN I HIGH SENSITIVITY 3.7 <3.5 - 17.0 ng/L [facility] Comment:The [place] high sens itivity Troponin-I results should beused in conjunction with other diagnostic information suchas ECG, clinical observations and information, and patientsymptoms to aid in the diagnosis of NC. 01/01/2025 1:01 PM EDT 01/01/2025 1:06 PM EDT Generic External Data Provider LAB BLOOD ORDERAB LES Final Result Performing Organization Address [facility] Co de Phone Number [facility] [address] [place] [phone] * (ABNORMAL) CBC auto differential (01/01/2025 1:01 PM EDT) Pathologist [facility] White Blood Count 17.1(H) 4.8 - 10.8 X10*3/uL [facility] Red Blood Count 4.95 4.20 - 5.50 X10*6/uL [facility] Hemoglobin 13.0 12.0 - 16.0 g/dl [facility] Hematocrit 41.1 37.0 - 47.0 % [facility] Mean Corpuscular Volume 83.0 80.0 - 98.0 fL [facility] Mean Corpuscular Hemoglobin 26.3(L) 27.0 - 33.0 pg [facility] Mean Corpuscular HGB Conc 31.6 31.0 - 35.0 g/dl [facility] Red Cell Distribution Width 15.1 11.0 - 16.0 % [facility] Platelet Count 313 160 - 400 X10*3/uL [facility] Mean Platelet Volume 9.6 9.4 - 12.3 fL [facility] Neutrophils Percent Auto 88.0(H) 45 - 73 % [facility] Imm Gran Pct Auto 0.8(H) 0.0 - 0.4 % [facility] Lymphocytes Percent Auto 8.5(L) 20 - 40 % [facility] Monocytes Percent Auto 1.9(L) 2 - 11 % [facility] Eosinophils Percent Auto 0.6 0 - 4 % [facility] Basophils Percent Auto 0.2 0 - 2 % [facility] NRBC Pct Auto 0.0 0.0 - 0.2 /100WBC [facility] Neutrophils Absolute Auto 15.0(H) 2.0 - 8.3 x10*3/uL [facility] Imm Gran Abs Auto 0.13(H) 0.00 - 0.03 X10*3/uL [facility] Lymphocytes Absolute Auto 1.5 1.2 - 4.9 X10*3/uL [facility] Monocytes Absolute Auto 0.3 0.1 - 1.2 X10*3/uL [facility] Eosinophils Absolute Auto 0.1 0.0 - 0.4 X10*3/uL [facility] Basophils Absolute Auto 0.0 0.0 - 0.2 X10*3/uL [facility] NRBC Abs Auto 0.000 0.0 - 0.012 X10*3/uL [facility] 01/01/2025 1:01 PM EDT 01/01/2025 1:06 PM EDT us Generic External Data Provider LAB BLOOD ORDERAB LES Final Result [facility] [address] [place] [address] [phone] * Magnesium (01/01/2025 1:01 PM EDT) Pathologist [facility] Magnesium 2.1 1.6 - 2.6 mg/dL [facility] 01/01/2025 1:01 PM EDT 01/01/2025 1:06 PM EDT Generic External Data Provider LAB BLOOD ORDERAB LES Final Result Performing Organization Address [facility] Phone Number [facility] [address] [place] [phone] * Hepatic Function Panel (01/01/2025 1:01 PM EDT) [facility] Bilirubin, Total 0.3 0.0 - 1.0 mg/dL [facility] Bilirubin, Direct 0.1 0.0 - 0.5 mg/dL [facility] Aspartate Amino Transferase 17 5 - 31 U/L [facility] Comment:Slight Hemolysis.Int erpret result with caution. Alanine Aminotransferase 19 0 - 31 U/L [facility] Total Protein 7.1 6.5 - 8.0 g/dL [facility] Albumin Level 4.2 3.5 - 5.0 g/dL [facility] Alkaline Phosphatase 93 39 - 117 U/L [facility] 01/01/2025 1:01 PM EDT 01/01/2025 1:06 PM EDT Generic External Data Provider LAB BLOOD ORDERAB LES Final Result Performing Organization Address [facility] de Phone Number [facility] [address] [place] [phone] * (ABNORMAL) Basic Metabolic Panel (01/01/2025 1:01 PM EDT) [facility] Sodium 141 135 - 145 mmol/L [facility] Potassium 4.5 3.3 - 5.1 mmol/L [facility] Comment:Slight Hemolysis.Int erpret result with caution. Chloride 102 96 - 108 mmol/L [facility] Carbon Dioxide 30(H) 22 - 29 mmol/L [facility] Anion Gap 14 12 - 20 [facility] Urea Nitrogen (BUN) 8(L) 9 - 16 mg/dL [facility] Creatinine, Serum 0.68 0.5 - 1.4 mg/dL [facility] Creatinine Clr Calc Pharmacy 150.5 [facility] Comment:Provided height and weight: 157.48 cm,141.5 kg.eGFR (calculated from the MDRD study equation) and eCrCl(calculated from the Cockcroft-Gault equation) are based ondifferent parameters and may not yield comparable results.If eCrCl result is absurd, please check patient'sheight/weight. Estimated Glomerular Filt Rate >60 [facility] Comment:Chronic Kidney Disea se: Estimated GFR < 60 mL/min/1.45o2Hatcmp Kidney Disease: Estimated GFR < 15 mL/min/1.73m2 Glucose 194(H) 60 - 115 mg/dL [facility] Calcium 9.2 8.4 - 10.2 mg/dL [facility] 01/01/2025 1:01 PM EDT 01/01/2025 1:06 PM EDT us Generic External Data Provider LAB BLOOD ORDERAB LES Final Result [facility] [address] [place] [phone] * Hepatitis C Antibody with Reflex to HCV, RNA, Quantitative, Real-Time PCR (01/04/2024 11:47 AM EDT) Hepatitis C Antibody Nonreactive Nonreactive [facility] Comment:Antibodies to HCV no t detected; does not exclude early acuteHCV infection. Blood Venous blood specimen / Unknown 01/04/2024 11:47 AM EDT 01/04/2024 2:36 PM EDT us Yudith Suarez MD LAB BLOOD ORDERABLES Final Re sult [facility] [address] [place] [phone] [phone] * HIV-1/2 Antigen and Antibodies, Fourth Generation, with Reflexes (01/04/2024 11:47 AM EDT) HIV AB/AG Nonreactive Nonreactive [facility] Comment:HIV-1 p24 Ag and/or HIV-1/HIV-2 Ab not detected.A test result that is nonreactive does not exclude thepossibility of exposure to or infection with HIV-1 and/orHIV-2. Nonreactive results in this assay for individualswith prior exposure to HIV-1 and/or HIV-2 may be due toantigen and antibody levels that are below the limit ofdetection of this assay.The Gyros HIV Ag/Ab Combo assay result andsupplemental assay results should be interpreted inconjunction with the patient's clinical presentation,history and other laboratory results. If the results areinconsistent with clinical evidence, additional testing issuggested to confirm the result. Blood Venous blood specimen / Unknown 01/04/2024 11:47 AM EDT 01/04/2024 2:36 PM EDT us Yudith Suarez MD LAB BLOOD ORDERABLES Final Re sult [facility] [address] [place] [phone] * (ABNORMAL) Lipid Panel, Standard (08/23/2023 11:43 AM EDT) Triglycerides 129 <150 mg/dL [facility] Comment:Desirable Triglyceri de: less than 150 mg/dLBorderline High Triglyceride 150-199 mg/dLHigh Triglyceride: 200-499 mg/dLVery High Triglyceride: greater than or equal to 5OO mg/dL Cholesterol 200(H) <200 mg/dL [facility] Comment:Desirable Cholestero l: less than 200 mg/dLBorderline High Cholesterol: 200-239 mg/dLHigh Cholesterol: greater than 239 mg/dL LDL Cholesterol Calculated 137(H) <100 mg/dL [facility] Comment:Desirable LDL: less than 100 mg/dLNear Optimal/Above Optimal LDL: 110- 129 mg/dLBorderline High LDL: 130-159 mg/dLHigh LDL: 160-189 mg/dLVery High LDL: greater than or equal to 190 mg/dL HDL Cholesterol 38(L) >40 mg/dL [facility] Comment:Desirable HDL: great er than 40 mg/dL Note: This HDL assay may give artificially low results in patients with liver disease. Blood Venous blood specimen / Unknown 08/23/2023 11:43 AM EDT 08/23/2023 2:25 PM EDT Yudith Suarez MD LAB BLOOD ORDERABLES Final Re sult [facility] [address] [place] [address] [phone] from Last 3 Months or Most Recently Relevant to Health Maintenance Insurance [facility] , [address] [place] [address] [facility] MEDICA[facility] STAND ADULT Care Teams Fence Manufacture Supervisor Relationship Specialty Start Date End Date Yudith Suarez MD [address] [place] [phone] PCP - General Family Medicine 04/04/18
--- OUTSIDE RECORDS SUMMARY | 2025-01-16 16:46 | XMS_ITS | Encounter Summary ---
Author Organization [employer] Address [address] [facility] [address] [place] [address] Care Team Providers Care Licensing Worker Name Role Phone Yudith Suarez MD Primary Care Provider Encounter Details Date Type Department Care Team (Latest Contact Info) Description 01/14/2025 Travel Social History Tobacco Use Types Packs/Day Years [...] Description 01/31/2025 9:15 AM EDT Office Visit [facility] [address] [place] [address] Yudith Suarez MD [address] [place] [address] documented as of this encounter Visit Diagnoses Not on filedocumented in this encounter Care Teams Licensing Worker Relationship Specialty Start Date End Date Yudith Suarez MD [address] [place] [address] PCP - General Family Medicine 04/04/18 documented as of this encounter
--- OUTSIDE RECORDS SUMMARY | 2025-01-16 16:46 | XMS_ITS | Clinical Summary ---
Author Organization [facility] Address [address] [place] [address] Care Team Providers Care Psychometrician Name Role Phone Unavailable Primary Care Provider Unavailabl e Social History Tobacco Use Types Packs/Day Years Used Date Smoking Tobacco: Never Assessed Sex and Gender Information Value Date Recorded Sex Assigned at Not on file Gender Identity Not on file Sexual Orientation Not on file Plan of Treatment Not on file
== END 2025-01-16 13:04 | disposition home or self-care (01) ==
LOC: HO.CHCLDS 13:03
PROVIDERS: Visit Provider Internal Medicine
DX: J44.1 Chronic obstructive pulmonary disease with (acute) exacerbation (principal)
CPT/HCPCS: 36415; 82103

== ENCOUNTER 2025-02-01 09:08 | Outpatient (REF) | payer MEDICARE, SELFPAY ==
--- OUTSIDE RECORDS SUMMARY | 2025-01-31 09:15 | XMS_ITS | Encounter Summary ---
Author Organization [employer] Address [address] [facility] [address] [place] [address] Care Team Providers Care Cashier General Name Role Phone Yudith Suarez MD Primary Care Provider [phone] Encounter Details Date Type Department Care Team (Latest Contact Info) Description 01/31/2025 9:15 AM EDT Office Visit [facility] CHC MED & PEDS [address] [place] [address] Yudith Suarez MD [address] [place] [address] Tobacco dependence syndrome (Primary Dx); Dietary counseling; Exercise counseling; Chronic schizophrenia (CMS/HCC) (HCC); Elevated blood-pressure reading without diagnosis of hypertension; Class 3 obesity with alveolar hypoventilation, serious comorbidity, and body mass index (BMI) of 50.0 to 59.9 in adult ([facility]) Social History Tobacco Use Types Packs/Day Years Used Date Smoking Tobacco: Every Day Cigarettes Depression Answer Date Recorded Patient Health Questionnaire-9 Score 3 01/31/2025 Patient Health Questionnaire-9 Score 3 01/31/2025 Last PHQ-9: Questionnaire Data Not on file 1 Housing Stability Answer Date Recorded What is your housing situation today? I have davon feng 01/31/[address] you li ve. Do you have problems with any of the following? None of the above 01/31/2025 Food Insecurity Answer Date Recorded Within the past 12 months, y ou worried that your food would run out before you got money to buy more: Never True 01/31/2025 Within the past 12 months,th e food you bought just didn't last and you didn't have enough money to get more: Never True Transportation Answer Date Recorded In the past 12 months, has l ack of transportation kept you from medical appts, meetings, work or from getting things needed for daily living? No 01/31/2025 Utilities Answer Date Recorded In the past 12 months, has t he electric, gas, oil or water company threatened to shut off services in your home? No 01/31/2025 Depression Answer Date Recorded Patient Health Questionnaire-2 Score 3 01/31/2025 Internet Access Answer Date Recorded Internet Access Q1 Yes 01/31/2025 Internet Access Q2 Not on file 01/31/2025 Comments Unknown Intention Date Recorded No desire to become (finding) 1 Sex and Gender Information Value Date Recorded Sex Assigned at Female 02/01/2022 10:16 AM EDT Legal Sex Female 10:16 AM EDT Gender Identity Female 02/01/2022 10:16 AM EDT Sexual Orientation Choose not to disclose 2023 11:07 AM EDT documented as of this encounter Last Filed Vital Signs Vital Sign Reading Time Taken Comments Blood Pressure 138/100 01/31/2025 9:18 AM EDT Pulse 100 01/31/2025 9:18 AM EDT Temperature 36.4 C (97.5 F) 01/31/2025 9:18 AM EDT Respiratory Rate 24 01/31/2025 9:18 AM EDT Oxygen Saturation - - Inhaled Oxygen Concentration - - Weight 146 kg (321 lb) 01/31/2025 9:18 AM EDT Height - - Body Mass Index 58.24 01/14/2025 9:57 AM EDT documented in this encounter Functional Status * Over the past 2 weeks, how often have you been bothered by any of the following problems? Question Answer Date of Assessment Author Patient Health Questionnaire -2 Score 3 01/31/2025 9:45 AM EDT Dustin Kemp MA * Little interest or pleasure in doing things Answer Date of Assessment Author Nearly every day 01/31/2025 9:45 AM EDT Louise Garcia MA * Feeling down, depressed, or hopeless Answer Date of Assessment Author Not at all 01/31/2025 9:45 AM Louise Rodriguez MA * Trouble falling or staying asleep, or sleeping too much Answer Date of Assessment Author Not at all 01/31/2025 9:45 AM Louise Rodriguez MA * Feeling tired or having little energy Answer Date of Assessment Author Not at all 01/31/2025 9:45 AM Louise Rodriguez MA * Poor appetite or overeating Answer Date of Assessment Author Not at all 01/31/2025 9:45 AM Louise Rodriguez MA * Feeling bad about yourself - or that you are a failure or have let yourself or your family down Answer Date of Assessment Author Not at all 01/31/2025 9:45 AM Louise Rodriguez MA * Trouble concentrating on things, such as reading the newspaper or watching television Answer Date of Assessment Author Not at all 01/31/2025 9:45 AM Louise Rodriguez MA * Moving or speaking so slowly that other people could have noticed? Or the opposite - being so fidgety or restless that you have been moving around a lot more than usual. Answer Date of Assessment Author Not at all 01/31/2025 9:45 AM Louise Rodriguez MA * Thoughts that you would be better off or hurting yourself in some way Answer Date of Assessment Author Not at all 01/31/2025 9:45 AM Louise Rodriguez MA * Patient Health Questionnaire-9 Score Answer Date of Assessment Author 3 01/31/2025 9:45 AM Louise Rodriguez MA documented as of this encounter Progress Notes * Yudith Suarez MD - 01/31/2025 9:15 AM EDT Subjective Patient ID: Anusha Felipe is a 39 y.o. female who presents for f/u. Anusha is here for f/u E visit SO[facility] at [facility]. She then saw BRI Calderon and on 01-14 at [facility] who referred her to sleep medicine for sleep study as well as PFTs scheduled next week due to COPD concerns and hypoventilation syndrome from morbid obesity.Patient has history of stable schizophrenia, denies hallucinations. Lives at a program. Here with one of the care managers.Also has [facility] srvices who administer her meds. Eats out and cooks by herself,mostly unhealthy stuff.Smoking 1 ppd. Review of Systems Constitutional: Positive for unexpected weight change. Negative for activity change, chills and fever. Respiratory: Positive for shortness of breath. Negative for cough, choking, chest tightness and wheezing. Cardiovascular: Negative for chest pain, palpitations and leg swelling. Gastrointestinal: Negative for abdominal pain and blood in stool. Endocrine: Negative for polydipsia and polyuria. Genitourinary: Negative for decreased urine volume, difficulty urinating, dysuria and hematuria. Musculoskeletal: Negative for arthralgias and gait problem. Skin: Negative for color change and rash. Neurological: Negative for dizziness and headaches. Hematological: Negative for adenopathy. Psychiatric/Behavioral: Negative for dysphoric mood, hallucinations, sleep disturbance and suicidalideas. The patient is not nervous/anxious. Objective Vitals: 01/31/25 0918 BP: (!) 138/100 BP Location: Left arm Patient Position: Sitting BP Cuff Size: Adult Pulse: 100 Resp: 24 Temp: 97.5 ??F (36.4 ??C) TempSrc: Oral Weight: 321 lb (146 kg) Physical Exam Vitals reviewed. Constitutional: General: She is not in acute distress. Appearance: Normal appearance. She is not ill-appearing. HENT: Head: Normocephalic. Right Ear: Tympanic membrane and ear canal normal. Left Ear: Tympanic membrane and ear canal normal. Nose: Nose normal. Mouth/Throat: Mouth: Mucous membranes are moist. Pharynx: No oropharyngeal exudate or posterior oropharyngeal erythema. Eyes: Extraocular Movements: Extraocular movements intact. Conjunctiva/sclera: Conjunctivae normal. Pupils: Pupils are equal, round, and reactive to light. Cardiovascular: Rate and Rhythm: Normal rate and regular rhythm. Pulses: Normal pulses. Heart sounds: Normal heart sounds. No murmur heard. Pulmonary: Effort: Pulmonary effort is normal. No respiratory distress. Breath sounds: Normal breath sounds. No wheezing. Abdominal: General: There is distension. Palpations: Abdomen is soft. Tenderness: There is no abdominal tenderness. Musculoskeletal: General: Normal range of motion. Cervical back: Normal range of motion. Skin: General: Skin is warm. Capillary Refill: Capillary refill takes less than 2 seconds. Findings: No rash. Neurological: General: No focal deficit present. Mental Status: She is alert and oriented to person, place, and time. Psychiatric: Mood and Affect: Mood normal. Behavior: Behavior normal. Thought Content: Thought content normal. Judgment: Judgment normal. Assessment/Plan Diagnoses and all orders for this visit: Tobacco dependence syndrome Comments: Has nicotine patches,not using them yet. Orders: - Basic Metabolic Panel, Fasting; Future - Albumin, Random Urine W/Creatinine; Future - CBC auto differential; Future - Hemoglobin A1c; Future - Hepatic Function Panel; Future - Vitamin D, 25-Hydroxy, Total, Immunoassay; Future - TSH W/Reflex to FT4; Future - Lipid Panel, Standard; Future - [place]; Future - Ferritin; Future Dietary counseling - Basic Metabolic Panel, Fasting; Future - Albumin, Random Urine W/Creatinine; Future - CBC auto differential; Future - Hemoglobin A1c; Future - Hepatic Function Panel; Future - Vitamin D, 25-Hydroxy, Total, Immunoassay; Future - TSH W/Reflex to FT4; Future - Lipid Panel, Standard; Future - [place]; Future - Ferritin; Future Exercise counseling - Basic Metabolic Panel, Fasting; Future - Albumin, Random Urine W/Creatinine; Future - CBC auto differential; Future - Hemoglobin A1c; Future - Hepatic Function Panel; Future - Vitamin D, 25-Hydroxy, Total, Immunoassay; Future - TSH W/Reflex to FT4; Future - Lipid Panel, Standard; Future - [place]; Future - Ferritin; Future Chronic schizophrenia (CMS/HCC) ([facility]) Comments: Denies hallucinations, having major weight gain from meds but mood stable,sees psych regulrarly. Orders: - Basic Metabolic Panel, Fasting; Future - Albumin, Random Urine W/Creatinine; Future - CBC auto differential; Future - Hemoglobin A1c; Future - Hepatic Function Panel; Future - Vitamin D, 25-Hydroxy, Total, Immunoassay; Future - TSH W/Reflex to FT4; Future - Lipid Panel, Standard; Future - [place]; Future - Ferritin; Future Elevated blood-pressure reading without diagnosis of hypertension Comments: Lower sodium in diet, BP check at program, RTC in 4 weeks. Add med tx next visit. Class 3 obesity with alveolar hypoventilation, serious comorbidity, and body mass index (BMI) of 50.0 to 59.9 in adult (HCC) Comments: Check labs fasting tomorrow,RTC in 3-4 weeks to discuss results.PFTs, sleeps tudy referral done.Advised not to miss. Future Appointments Date Time Provider Department Center 03/06/2025 9:15 AM Yudith Suarez MD [facility] MED [facility] This note was drafted using Ambient (AI) technology. The patient/patient's guardian has been informed and has consented to the use of this technology: Yes documented in this encounter Plan of Treatment Upcoming Encounters Date Type Department Care Team ([facility] st Contact Info) Description 03/06/2025 9:15 AM EST Office Visit [facility] [address], [place] [phone] Yudith Suarez MD [address] [place], [place] [phone] Scheduled Orders Name Type Priority Associated Diagnoses Orde r Schedule Basic Metabolic Panel, Fasting Lab Routine Dietary counseling Exercise counseling Chronic schizophrenia (CMS/HCC) (HCC) Tobacco dependence syndrome Expected: 01/31/2025 (Approximate), Expires: 01/31/2026 Albumin, Random Urine W/Creatinine Lab Routine Dietary counseling Exercise counseling Chronic schizophrenia (CMS/HCC) (HCC) Tobacco dependence syndrome Expected: 01/31/2025 (Approximate), Expires: 01/31/2026 CBC auto differential Lab Routine Dietary counseling Exercise counseling Chronic schizophrenia (CMS/HCC) (HCC) Tobacco dependence syndrome Expected: 01/31/2025 (Approximate), Expires: 01/31/2026 Hemoglobin A1c Lab Routine Dietary counseling Exercise counseling Chronic schizophrenia (CMS/HCC) (HCC) Tobacco dependence syndrome Expected: 01/31/2025 (Approximate), Expires: 01/31/2026 Hepatic Function Panel Lab Routine Dietary counseling Exercise counseling Chronic schizophrenia (CMS/HCC) (HCC) Tobacco dependence syndrome Expected: 01/31/2025 (Approximate), Expires: 01/31/2026 Vitamin D, 25-Hydroxy, Total, Immunoassay Lab Routine Dietary counseling Exercise counseling Chronic schizophrenia (CMS/HCC) (HCC) Tobacco dependence syndrome Expected: 01/31/2025 (Approximate), Expires: 01/31/2026 TSH W/Reflex to FT4 Lab Routine Dietary counseling Exercise counseling Chronic schizophrenia (CMS/HCC) (HCC) Tobacco dependence syndrome Expected: 01/31/2025 (Approximate), Expires: 01/31/2026 Lipid Panel, Standard Lab Routine Dietary counseling Exercise counseling Chronic schizophrenia (CMS/HCC) (HCC) Tobacco dependence syndrome Expected: 01/31/2025 (Approximate), Expires: 01/31/2026 [place] Lab Routine Dietary counseling Exercise counseling Chronic schizophrenia (CMS/HCC) (HCC) Tobacco dependence syndrome Expected: 01/31/2025, Expires: 01/31/2026 Ferritin Lab Routine Dietary counseling Exercise counseling Chronic schizophrenia (CMS/HCC) (HCC) Tobacco dependence syndrome Expected: 01/31/2025, Expires: 01/31/2026 documented as of this encounter Visit Diagnoses Diagnosis Tobacco dependence syndrome- Primary Tobacco use disorder Dietary counseling Dietary surveillance and counseling Exercise counseling Chronic schizophrenia (CMS/HCC) (HCC) Unspecified schizophrenia, chronic condition Elevated blood-pressure reading without diagnosis of hypertension Elevated blood pressure reading without diagnosis of hypertension Class 3 obesity with alveolar hypoventilation, serious comorbidity, and body mass index (BMI) of 50.0 to 59.9 in adult (HCC) documented in this encounter Additional Health Concerns Assessment Noted Time PHQ-9 Depression Total Score: 3 02/01/20 25 9:45 AM EDT documented as of this encounter Care Teams Cashier General Relationship Specialty Start Date End Date Yudith Suarez MD [address] [place] [id number] PCP - General Family Medicine 04/04/18 documented as of this encounter
--- OUTSIDE RECORDS SUMMARY | 2025-02-01 10:03 | XMS_ITS | Encounter Summary ---
Author Organization [employer] Address [address] [facility] [address] [place] [address] Care Team Providers Care Occ Therapist Name Role Phone Yudith Suarez MD Primary Care Provider [phone] Reason for Visit * Reason Onset Date Comments Chart Prep 01/29/2025 Encounter Details Date Type Department Care Team ([facility] Contact Info) Description 01/29/2025 Telephone [facility] CHC MED & PEDS [address] [place], [place] [phone] Yudith Suarez MD [address] [place] [address] Chart Prep Social History Tobacco Use Types Packs/Day Years Used Date Smoking Tobacco: Every Day Cigarettes Housing Stability Answer Date Recorded What is your housing situation today? I have davno sing 08/09/[address] you [...] encounter Miscellaneous Notes * Telephone Encounter - Louise Kemp MA - 01/29/2025 1:34 PM EDT Chart Prep Labs: done Images: done Referrals: appointment pending Vaccines due: Tdap and HPV Screenings: mammogram, pap smear, LMP, and PISQ Overdue care gaps: SBIRT, SDOH, PHQ-9, Oral health screening, Disability screen, and Tobacco documented in this encounter Plan of Treatment Upcoming Encounters Date Type Department Care Team (Late st Contact Info) Description 03/06/2025 9:15 AM EST Office Visit [facility] MED & PEDS [address] [place] [address] Yudith Suarez MD [address] [place] [address] documented as of this encounter Visit Diagnoses Not on filedocumented in this encounter Care Teams Occ Therapist Relationship Specialty Start Date End Date Yudith Suarez MD [address] [place] [address] PCP - General Family Medicine 04/04/18 documented as of this encounter
--- OUTSIDE RECORDS SUMMARY | 2025-02-01 10:03 | XMS_ITS | Encounter Summary ---
Author Organization [employer] Address [address] [facility] [address] [place] [address] Care Team Providers Care Production Control Pegboard Clerk Name Role Phone Yudith Suarez MD Primary Care Provider [phone] Reason for Visit * Reason Onset Date Comments Paperwork/Forms 12/28/2023 Encounter Details Date Type Department Care Team ([facility] st Contact Info) Description 12/28/2023 Telephone [facility] MEDICINE [address] [place] [address] Yudith Suarez MD [address] [place], [place] [phone] Paperwork/Forms Social History Tobacco Use Types Packs/Day [...] 12/28/2023 8:27 AM EDT Christopher Fisher at [facility] calling to request the status of the physician form that was sent on 11/08 financial writer does see form in chart and has not been completed please complete and faxed to [phone] any questions please call [phone] documented in this encounter Plan of Treatment Upcoming Encounters Date Type Department Care Team (Late st Contact Info) Description 03/06/2025 9:15 AM EST Office Visit [facility] MED & PEDS [address] [place] [address] Yudith Suarez MD [address] [place] [address] documented as of this encounter Visit Diagnoses Not on filedocumented in this encounter Care Teams Production Control Pegboard Clerk Relationship Specialty Start Date End Date Yudith Suarez MD [address] [place] [address] PCP - General Family Medicine 04/04/18 documented as of this encounter
--- OUTSIDE RECORDS SUMMARY | 2025-02-01 10:03 | XMS_ITS | Clinical Summary ---
Author Organization [employer] Address [address] [place] [address] 7[address] [place] [address] Care Team Providers Care Manager Sap Name Role Phone Yudith Suarez MD Primary Care Provider [phone] Allergies Active Allergy Reactions Criticality Noted Date Comments Lactulose 01/14/2012 Oxycodone 01/14/2012 Octacosanol 09/13/2023 Medications lithium ER (Lithobid) 300 MG 12 hr tablet Take 2 tablets by mouth at bedtime. Active OLANZapine zydis (ZyPREXA) 10 MG disintegrating tablet Take 1 tablet by mouth at bedtime. 024 Active Eva 0.35 MG tablet Take 1 tablet (0.35 mg) by mouth Once per day. 28 tablet Active folic acid (Folvite) 400 MCG tablet TAKE 1 TABLET BY MOUTH ONCE DAILY 30 tablet Active Multiple Vitamin (Daily-Paul) tabletIndications :Fatigue due to depression TAKE 1 TABLET BY MOUTH ONCE DAILY 30 tablet 025 Active ibuprofen 600 MG tablet TAKE 1 TABLET BY MOUTH 3 (THREE) TIMES A DAY NEEDED FOR PAIN 90 tablet 3 Active loratadine (Claritin) 10 MG tablet TAKE 1 TABLET BY MOUTH ONCE DAILY 30 tablet 11 025 Active albuterol (2.5 MG/3ML) 0.083% nebulizer solution Take 2.5 mg by nebulization every 4 (four) hours. Active lithium 150 MG capsule Take 1 capsule by mouth before breakfast. 025 Active ipratropium-albut dmitriy (Duo-Neb) 0.5-2.5 mg/3 mL nebulizer solutionIndicatio ns:Chronic obstructive pulmonary disease with acute exacerbation (CMS/HCC) ([facility]) Take 3 mL by nebulization every 8 (eight) hours if needed for shortness of breath or wheezing. 180 mL 025 2024 Active cyanocobalamin (Vitamin B-12) 1000 MCG tablet TAKE 1/2 TABLET BY MOUTH ONCE DAILY 15 tablet 5 025 Active cyanocobalamin (Vitamin B-12) 1000 MCG tablet TAKE 1/2 TABLET BY MOUTH ONCE DAILY 45 tablet 025 2024 Discontinued(R eorder (will not trigger notification to Pharmacy)) azithromycin (Zithromax) 250 MG tabletIndications :Acute cough [...] Active Problems Problem Noted Date Diagnosed Date Elevated blood-pressure read ing without diagnosis of hypertension 01/31/2025 Sore throat 11/08/2012 Chronic schizophrenia (CMS/HCC) 01/14/2012 Gastroesophageal reflux disease 01/14/2012 Obesity 01/14/2012 Tobacco dependence syndrome 01/14/2012 Resolved Problems Problem Noted Date Diagnosed Date Resolved Date Cocaine abuse 07/24/2013 01/31/2025 Encounters Date Type Department Care Team Description 01/31/2025 9:15 AM EDT Office Visit [facility] [address] [place] [address] Yudith Suarez MD Tobacco dependence syndrome (Primary Dx); Dietary counseling; Exercise counseling; Chronic schizophrenia (CMS/HCC) (HCC); Elevated blood-pressure reading without diagnosis of hypertension; Class 3 obesity with alveolar hypoventilation, serious comorbidity, and body mass index (BMI) of 50.0 to 59.9 in adult (HCC) 01/31/2025 Travel 01/29/2025 Telephone [facility] [address] [place] [address] Yudith Suarez MD Chart Prep 01/23/2025 Patient Outreach [address] [address] Yudith Suarez MD Pre-visit Planning (Pre visit planning unable to LVM ) 01/18/2025 Refill [facility] [address] [place] [address] Yudith Suarez MD 01/17/2025 Results Follow-Up [facility] [address] [place] [address] Martin Barillas MD POCT Glucose, POCT Hgb A1c, Dhafa-7-Vhrivbjxmaq, Quantitative 01/14/2025 10:15 AM EDT Office Visit [facility] [address] [place] [address] Martin Barillas MD Chronic obstructive pulmonary disease with acute exacerbation (CMS/HCC) (HCC) (Primary Dx); Morbid obesity with BMI of 50.0-59.9, adult (CMS/HCC) (HCC); Encounter for vaccination; Encounter for immunization; Excessive daytime sleepiness 01/14/2025 Travel 01/07/2025 Telephone [facility] [address] [place] [address] Yudith Suarez MD Hospital Follow-up 01/01/2025 Orders Only GENERIC EXTERNAL DATA DEPARTMENT Provider, Generic External Data 12/24/[address] [address] Yudith Suarez MD Nurse Triage 11/27/2024 Telephone [facility] [address] [place] [address] Yudith Suarez MD from Last 3 Months Immunizations Immunization Administration Dates Next Due DTaP 09/02/1989, 6,1984,1984,1984 Hep B, Adolescent or Pediatric 07/11/1996,1995,02/17/1996 Hib (HbOC) 09/02/1989 IPV 09/02/1989, 6,1984,1984 Influenza injectable quadriv [...] uit: Not Asked; Counseling Given: Not Answered Depression Answer Date Recorded Patient Health Questionnaire-9 [...] 24 01/31/2025 9:18 AM EDT Oxygen Saturation 90% 01/14/2025 9:57 AM EDT Inhaled Oxygen Concentration - - Weight 146 kg (321 lb) 01/31/2025 9:18 AM EDT Height 158.1 cm (5' 2.25 ) 01/14/2025 9:57 AM ED T Body Mass Index 58.24 01/14/2025 9:57 AM EDT Plan of Treatment Upcoming Encounters Date Type Department Care Team (Late st Contact Info) Description 03/06/2025 9:15 AM EST Office Visit [facility] [address] [place] [address] Yudith Suarez MD [address] [place] [address] Health Maintenance Due Date Last Done Comments Dental Prophylaxis 1984 HPV Vaccines (1 - 3-dose series) 06/28/1999 Pap Smear 2005 Cervical Cancer Screening 2014 HPV/Cotest 2014 Dental Oral Exam 03/15/2024 09/13/2023, 05/17/2016 Mammogram 2024 Dental X-Ray: Bitewings 09/13/2024 09/13/2023, 05/17 DTaP/Tdap/Td Vaccines (6 - Td or Tdap) 03/24/2025 03/24/2015, 04/20/2000, 09/02/1989, Additional history exists Alcohol/Substance Use Screening 01/31/2026 01/31/2025 Depression Screening 01/31/2026 01/31/2025, 02/01/20 25 Disability Screening 01/31/2026 01/31/2025 Family Planning (PISQ) 01/31/2026 01/31/2025 SDOH Screening 01/31/2026 01/31/2025 Tobacco Screening 01/31/2026 01/31/2025 Dental X-Ray: Full Mouth 09/13/2026 09/13/2023, 05/05 [...] Procedure Name Priority Date/Time Associated Diagnosis Comments [id number] QN Routine 01/16/2025 1:04 PM EDT Chronic obstructive pulmonary disease with acute exacerbation (CMS/HCC) (HCC) POCT GLUCOSE Routine 01/14/2025 11:55 AM EDT [...] Recently Relevant to Health Maintenance Results * Juiop-4-Fvxgnzbekfi, Quantitative (01/16/2025 1:04 PM EDT) Pqwjn-2-Pnxxcczd sin QN 169 83 - 199 mg/dL [facility] Comment:THIS TEST WAS PERFOR MED AT:[address] [place] [phone] KENNEDY MD Blood Venous blood specimen / Unknown 01/16/2025 1:04 PM EDT 01/16/2025 2:07 PM EDT us Martin Barillas MD LAB BLOOD ORDERABLES Final Result [facility] [address] [place] [phone] * POCT Glucose (01/14/2025 11:55 AM EDT) Glucose Blood, POC 126 60 - 200 mg/dL QC Media Lot # [id number] Lot# Expiration Date Comment:fasting Blood Capillary blood specimen / Unknown 01/14/2025 11:55 AM EDT us Martin Barillas MD POINT OF CARE TEST ENTER/ED IT ORDERABLES Final Result * (ABNORMAL) POCT Hgb A1c (01/14/2025 11:54 AM EDT) Hemoglobin A1C 6.8(A) 4.0 - 5.7 % QC Media Lot # [id number] Lot# Expiration Date [id number] Blood 01/14/2025 11:5 4 AM EDT us Martin Barillas MD POINT OF CARE TEST ENTER/ED IT ORDERABLES Final Result * XR Chest 1 View (01/01/2025 2:04 PM EDT) Anatomical Region Laterality Modality Chest Radiographic Lexy ging 01/01/2025 2:04 PM EDT Narrative 01/01/2025 2:20 PM EDT [address] [address] XRay Report Signed Patient: Anusha Felipe MR#: [id number] : 1985 Acct:[id number] Age/Sex: 39 / F ADM Date: 01/01/25 Loc: .ED Attending Dr: Ordering Physician: Per Novak MD Date of Service: 01/01/25 Procedure(s): XR chest 1V Accession Number(s): [id number] cc: Yudith Suarez MD; Per Novak MD [...] Favio Estrella MD 01/01/2025 02:17 PM EDT Dictated By: Favio Estrella MD Signed By: <Electronically signed by Favio Estrella MD in OV> 01/01/25 1417 DD/ 1404 TD/TT: 01/01/25 1414 Item Repair Manager: Procedure Note Donotuseinterpreter, Image - 09/30/[address] [address] XRay Report Signed Patient: Anusha FelipeMR#: [id number] 82 : 1985Acct:[id number] Age/Sex: 39 / FADM Date: 01/01/25 Loc: HO.ED Attending Dr: Ordering Physician: Per Novak MD Date of Service: 01/01/25 Procedure(s): XR chest 1V Accession Number(s): [id number] cc: Yudith Suarez MD; Per Novak MD [...] Favio Estrella MD 01/01/2025 02:17 PM EDT Dictated By: Favio Estrella MD Signed By: <Electronically signed by Favio Estrella MD in OV> 01/01/25 1417 DD/ 1404 TD/TT: 01/01/25 1414 Item Repair Manager: [facility] External Provider IMG XR PROCEDURES Final Result * (ABNORMAL) Merritt (01/01/2025 1:50 PM EDT) Merritt 0.26(L) 0.60 - 1.20 mmol/L [facility] 01/01/2025 1:50 PM EDT 01/01/2025 1:53 PM EDT Generic External Data Provider LAB BLOOD ORDERAB LES Final Result [facility] [address] [place] [address] [phone] * (ABNORMAL) VENOUS BLOOD GAS (01/01/2025 1:05 PM EDT) VBG pH 7.39 7.32 - 7.43 [facility] Comment:METER #: [id number] additional_comment: Cb bailea VBG PCO2 53 mmHg [facility] Comment:METER #: [id number] additional_comment: Cb bailea VBG PO2 73 mmHg [facility] Comment:METER #: [id number] additional_comment: Cb bailea VBG Base Excess 6.1 mmol/L [facility] Comment:METER #: [id number] additional_comment: Cb bailea VBG HCO3 32(H) 22 - 26 mmol/L [facility] Comment:METER #: [id number] additional_comment: Cb bailea O2 Sat, Kana 93.0 % [facility] Comment:METER #: [id number] additional_comment: Cb bailea 01/01/2025 1:05 PM EDT 01/01/2025 1:12 PM EDT us Generic External Data Provider LAB BLOOD ORDERAB LES Final Result Performing Organization Address [facility] Co de Phone Number [facility] [address] [place] [phone] * High Sensitivity Troponin I (01/01/2025 1:01 PM EDT) TROPONIN I HIGH SENSITIVITY 3.7 <3.5 - 17.0 ng/L [facility] Comment:The [place] high sens itivity Troponin-I results should beused in conjunction with other diagnostic information suchas ECG, clinical observations and information, and patientsymptoms to aid in the diagnosis of ME. 01/01/2025 1:01 PM EDT 01/01/2025 1:06 PM EDT us Generic External Data Provider LAB BLOOD ORDERAB LES Final Result [facility] [address] [place], [place] [phone] * (ABNORMAL) CBC auto differential (01/01/2025 1:01 PM EDT) White Blood Count 17.1(H) 4.8 - 10.8 X10*3/uL [facility] Red Blood Count 4.95 4.20 - 5.50 X10*6/uL [facility] Hemoglobin 13.0 12.0 - 16.0 g/dl [facility] Hematocrit 41.1 37.0 - 47.0 % [facility] Mean Corpuscular Volume 83.0 80.0 - 98.0 fL [facility] Mean Corpuscular Hemoglobin 26.3(L) 27.0 - 33.0 pg [facility] Mean Corpuscular HGB Conc 31.6 31.0 - 35.0 g/dl [facility] Red Cell Distribution Width 15.1 11.0 - 16.0 % [facility] Platelet Count 313 160 - 400 X10*3/uL [facility] Mean Platelet Volume 9.6 9.4 - 12.3 fL [facility] Neutrophils Percent Auto 88.0(H) 45 - 73 % [facility] Imm Gran Pct Auto 0.8(H) 0.0 - 0.4 % [facility] Lymphocytes Percent Auto 8.5(L) 20 - 40 % [facility] Monocytes Percent Auto 1.9(L) 2 - 11 % [facility] Eosinophils Percent Auto 0.6 0 - 4 % [facility] Basophils Percent Auto 0.2 0 - 2 % [facility] NRBC Pct Auto 0.0 0.0 - 0.2 /100WBC [facility] Neutrophils Absolute Auto 15.0(H) 2.0 - 8.3 x10*3/uL [facility] Imm Gran Abs Auto 0.13(H) 0.00 - 0.03 X10*3/uL [facility] Lymphocytes Absolute Auto 1.5 1.2 - 4.9 X10*3/uL [facility] Monocytes Absolute Auto 0.3 0.1 - 1.2 X10*3/uL [facility] Eosinophils Absolute Auto 0.1 0.0 - 0.4 X10*3/uL [facility] Basophils Absolute Auto 0.0 0.0 - 0.2 X10*3/uL [facility] NRBC Abs Auto 0.000 0.0 - 0.012 X10*3/uL [facility] 01/01/2025 1:01 PM EDT 01/01/2025 1:06 PM EDT Generic External Data Provider LAB BLOOD ORDERAB LES Final Result Performing Organization Address [facility]/ZIP Co de Phone Number [facility] [address] [place] [phone] * Magnesium (01/01/2025 1:01 PM EDT) Magnesium 2.1 1.6 - 2.6 mg/dL [facility] 01/01/2025 1:01 PM EDT 01/01/2025 1:06 PM EDT Generic External Data Provider LAB BLOOD ORDERAB LES Final Result Performing Organization Address [facility] Co de Phone Number [facility] [address] [place] [phone] * Hepatic Function Panel (01/01/2025 1:01 PM EDT) Bilirubin, Total 0.3 0.0 - 1.0 mg/dL [facility] Bilirubin, Direct 0.1 0.0 - 0.5 mg/dL [facility] Aspartate Amino Transferase 17 5 - 31 U/L [facility] Comment:Slight Hemolysis.Int erpret result with caution. Alanine Aminotransferase 19 0 - 31 U/L [facility] Total Protein 7.1 6.5 - 8.0 g/dL [facility] Albumin Level 4.2 3.5 - 5.0 g/dL [facility] Alkaline Phosphatase 93 39 - 117 U/L [facility] 01/01/2025 1:01 PM EDT 01/01/2025 1:06 PM EDT us Generic External Data Provider LAB BLOOD ORDERAB LES Final Result [facility] [address] [place] [phone] * (ABNORMAL) Basic Metabolic Panel (01/01/2025 1:01 PM EDT) Sodium 141 135 - 145 mmol/L [facility] Potassium 4.5 3.3 - 5.1 mmol/L [facility] Comment:Slight Hemolysis.Int erpret result with caution. Chloride 102 96 - 108 mmol/L [facility] Carbon Dioxide 30(H) 22 - 29 mmol/L [facility] Anion Gap 14 12 - 20 [facility] Urea Nitrogen (BUN) 8(L) 9 - 16 mg/dL [facility] Creatinine, Serum 0.68 0.5 - 1.4 mg/dL [facility] Creatinine Clr Calc Pharmacy 150.5 [facility] Comment:Provided height and weight: 157.48 cm,141.5 kg.eGFR (calculated from the MDRD study equation) and eCrCl(calculated from the Cockcroft-Gault equation) are based ondifferent parameters and may not yield comparable results.If eCrCl result is absurd, please check patient'sheight/weight. Estimated Glomerular Filt Rate >60 [facility] Comment:Chronic Kidney Disea se: Estimated GFR < 60 mL/min/1.94y8Xpcplg Kidney Disease: Estimated GFR < 15 mL/min/1.73m2 Glucose 194(H) 60 - 115 mg/dL [facility] Calcium 9.2 8.4 - 10.2 mg/dL [facility] 01/01/2025 1:01 PM EDT 01/01/2025 1:06 PM EDT us Generic External Data Provider LAB BLOOD ORDERAB LES Final Result Performing Organization Address [facility]/ZIP Co de Phone Number [facility] [address] [place] [phone] * Hepatitis C Antibody with Reflex to HCV, RNA, Quantitative, Real-Time PCR (01/04/2024 11:47 AM EDT) Hepatitis C Antibody Nonreactive Nonreactive [facility] Comment:Antibodies to HCV no t detected; does not exclude early acuteHCV infection. Blood Venous blood specimen / Unknown 01/04/2024 11:47 AM EDT 01/04/2024 2:36 PM EDT us Yudith Suarez MD LAB BLOOD ORDERABLES Final Re sult Performing Organization Address City/[facility]/ZIP Co de Phone Number [facility] [address] [place] [phone] * HIV-1/2 Antigen and Antibodies, Fourth Generation, with Reflexes (01/04/2024 11:47 AM EDT) HIV AB/AG Nonreactive Nonreactive [facility] Comment:HIV-1 p24 Ag and/or HIV-1/HIV-2 Ab not detected.A test result that is nonreactive does not exclude thepossibility of exposure to or infection with HIV-1 and/orHIV-2. Nonreactive results in this assay for individualswith prior exposure to HIV-1 and/or HIV-2 may be due toantigen and antibody levels that are below the limit ofdetection of this assay.The CadenceMDniHaload HIV Ag/Ab Combo assay result andsupplemental assay results should be interpreted inconjunction with the patient's clinical presentation,history and other laboratory results. If the results areinconsistent with clinical evidence, additional testing issuggested to confirm the result. Blood Venous blood specimen / Unknown 01/04/2024 11:47 AM EDT 01/04/2024 2:36 PM EDT Yudith Suarez MD LAB BLOOD ORDERABLES Final Re sult Performing Organization Address [facility]/ZIP Co de Phone Number [facility] [address] [place] [phone] * (ABNORMAL) Lipid Panel, Standard (08/23/2023 11:43 AM EDT) Triglycerides 129 <150 mg/dL [facility] Comment:Desirable Triglyceri de: less than 150 mg/dLBorderline High Triglyceride 150-199 mg/dLHigh Triglyceride: 200-499 mg/dLVery High Triglyceride: greater than or equal to 5OO mg/dL Cholesterol 200(H) <200 mg/dL [facility] Comment:Desirable Cholestero l: less than 200 mg/dLBorderline High Cholesterol: 200-239 mg/dLHigh Cholesterol: greater than 239 mg/dL LDL Cholesterol Calculated 137(H) <100 mg/dL [facility] Comment:Desirable LDL: less than 100 mg/dLNear Optimal/Above Optimal LDL: 110- 129 mg/dLBorderline High LDL: 130-159 mg/dLHigh LDL: 160-189 mg/dLVery High LDL: greater than or equal to 190 mg/dL HDL Cholesterol 38(L) >40 mg/dL [facility] Comment:Desirable HDL: great er than 40 mg/dL Note: This HDL assay may give artificially low results in patients with liver disease. Blood Venous blood specimen / Unknown 08/23/2023 11:43 AM EDT 08/23/2023 2:25 PM EDT Yudith Suarez MD LAB BLOOD ORDERABLES Final Re sult Performing Organization Address City/[facility]/ZIP Co de Phone Number [facility] [address] [place] [address] [phone] from Last 3 Months or Most Recently Relevant to Health Maintenance Insurance [facility] , [address] [place], [place] [phone] [place] [address] [facility] MEDICAID [facility] ADULT Care Teams Manager Sap Relationship Specialty Start Date End Date Yudith Suarez MD [address] [place] [phone] PCP - General Family Medicine 04/04/18
--- OUTSIDE RECORDS SUMMARY | 2025-02-01 10:03 | XMS_ITS | Clinical Summary ---
Author Organization [facility] Address [address] [place] [address] Care Team Providers Care Human Resources Operations Manager Name Role Phone Unavailable Primary Care Provider Unavailabl e Social History Tobacco Use Types Packs/Day Years Used Date Smoking Tobacco: Never Assessed Sex and Gender Information Value Date Recorded Sex Assigned at Not on file Gender Identity Not on file Sexual Orientation Not on file Plan of Treatment Not on file
--- OUTSIDE RECORDS SUMMARY | 2025-02-01 10:03 | XMS_ITS | Encounter Summary ---
Author Organization [employer] Address [address] [place] [address] Care Team Providers Care National Sales Associate Name Role Phone Yudith Suarez MD Primary Care Provider [phone] Encounter Details Date Type Department Care Team (Latest Contact Info) Description 01/31/2025 Travel Social History Tobacco Use Types Packs/Day [...] Q2 Not on file 01/31/2025 Comments Unknown Sex and Gender Information Value Date Recorded Sex Assigned at Female 02/01/2022 10:16 AM EDT Legal Sex Female 10:16 AM EDT Gender Identity Female 02/01/2022 10:16 AM EDT Sexual Orientation Choose not to disclose 2023 11:07 AM EDT documented as of this encounter Functional Status * Over the past 2 weeks, how often have you been bothered by any of the following problems? Question Answer Date of Assessment Author Patient Health Questionnaire -2 Score 3 01/31/2025 9:45 AM EDT Dustin Kemp MA * Little interest or pleasure in doing things Answer Date of Assessment Author Nearly every day 01/31/2025 9:45 AM EDMART Louise Garcia MA * Feeling down, depressed, [...] Author Not at all 01/31/2025 9:45 AM EDT Louise Kemp MA * Thoughts that you would be better off or hurting yourself in some way Answer Date of Assessment Author Not at all 01/31/2025 9:45 AM EDT Louise Kemp MA * Patient Health Questionnaire-9 Score Answer Date of Assessment Author 3 01/31/2025 9:45 AM EDT Louise Kemp MA documented as of this encounter Plan of Treatment Upcoming Encounters Date Type Department Care Team (Late st Contact Info) Description 03/06/2025 9:15 AM EST Office Visit [facility] [address] [place] [address] Yudith Suarez MD [address] [place] [address] documented as of this encounter Visit Diagnoses Not on filedocumented in this encounter Additional Health Concerns Assessment Noted Time PHQ-9 Depression Total Score: 3 02/01/20 25 9:45 AM EDT documented as of this encounter Care Teams National Sales Associate Relationship Specialty Start Date End Date Yudith Suarez MD [address] [place] [address] PCP - General Family Medicine 04/04/18 documented as of this encounter
--- OUTSIDE RECORDS SUMMARY | 2025-02-01 10:03 | XMS_ITS | Encounter Summary ---
Author Organization [employer] Address [address] [facility] [address] [place] [address] Care Team Providers Care Principal Ios Developer Name Role Phone Yudith Suarez MD Primary Care Provider [phone] Encounter Details Date Type Department Care Team (Latest Contact Info) Description 01/17/2025 Results Follow-Up [facility] [address] [place] [address] Martin Barillas MD [address] [place] [address] POCT Glucose, POCT Hgb A1c, Gruel-7-Dnudajdrneq, Quantitative Social History Tobacco Use Types Packs/Day Years Used Date Smoking Tobacco: Every Day Cigarettes Housing Stability Answer Date Recorded What is your housing situation today? I have davon jung 08/09/[address] you li [...] the past 12 months, has t he [employer], [employer], oil or water [employer] threatened to shut off services in your [...] Upcoming Encounters Date Type Department Care Team ([facility] st Contact Info) Description 03/06/2025 9:15 AM EST Office Visit [facility] [address] [place] [address] Yudith Suarez MD [address] [place] [address] documented as of this encounter Visit Diagnoses Not on filedocumented in this encounter Care Teams Principal Ios Developer Relationship Specialty Start Date End Date Yudith Suarez MD [address] [place] [address] PCP - General Family Medicine 04/04/18 documented as of this encounter
--- OUTSIDE RECORDS SUMMARY | 2025-02-01 10:03 | XMS_ITS | Encounter Summary ---
Author Organization [employer] Address [address] [facility] [address] [place] [address] Care Team Providers Care Microfabrication Engineer Manager Name Role Phone Yudith Suarez MD Primary Care Provider [phone] Encounter Details Date Type Department Care Team ([facility] st Contact Info) Description 05/30/2024 Telephone [facility] [address] [place], [place] [phone] Dariela, Shima [address] [place], [place] [phone] Social History Tobacco Use Types Packs/Day Years [...] Upcoming Encounters Date Type Department Care Team ([facility] st Contact Info) Description 03/06/2025 9:15 AM EST Office Visit [facility] [address] [place] [address] Yudith Suarez MD [address] [place] [address] documented as of this encounter Visit Diagnoses Not on filedocumented in this encounter Care Teams Microfabrication Engineer Manager Relationship Specialty Start Date End Date Yudith Suarez MD [address] [place] [address] PCP - General Family Medicine 04/04/18 documented as of this encounter
--- OUTSIDE RECORDS SUMMARY | 2025-02-01 10:03 | XMS_ITS | Encounter Summary ---
Author Organization [employer] Address [address] [facility] [address] [place] [address] Care Team Providers Care Women'S Garment Fitter Name Role Phone Yudith Suarez MD Primary Care Provider [phone] Encounter Details Date Type Department Care Team ([facility] Contact Info) Description 09/14/2023 Orders Only [facility] MED & PEDS [address] [place] [address] Martin Barillas MD [address] [place] [address] Social History Tobacco Use Types Packs/Day Years [...] Upcoming Encounters Date Type Department Care Team ([facility] st Contact Info) Description 03/06/2025 9:15 AM EST Office Visit [facility] MED & PEDS [address] [place] [address] Yudith Suarez MD [address] [place] [address] documented as of this encounter Visit Diagnoses Not on filedocumented in this encounter Care Teams Women'S Garment Fitter Relationship Specialty Start Date End Date Yudith Suarez MD [address] [place] [address] PCP - General Family Medicine 04/04/18 documented as of this encounter
[2025-02-01 14:06] LABS: MANUAL DIFF FLAG NO
[2025-02-01 14:15] LABS: Hematocrit 43.7 % (37.0-47.0); Hemoglobin 12.6 g/dl (12.0-16.0); Imm Gran Abs Auto 0.11 X10*3/uL (0.00-0.03); Imm Gran Pct Auto 0.8 % (0.0-0.4); Lymphocytes Absolute Auto 2.2 X10*3/uL (1.2-4.9); Mean Corpuscular HGB Conc 28.8 g/dl (31.0-35.0); Mean Corpuscular Hemoglobin 25.0 pg (27.0-33.0); Mean Corpuscular Volume 86.5 fL (80.0-98.0); NRBC Abs Auto 0.000 X10*3/uL (0.0-0.012); NRBC Pct Auto 0.0 /100WBC (0.0-0.2); Platelet Count 347 X10*3/uL (160-400); Red Blood Count 5.05 X10*6/uL (4.20-5.50); White Blood Count 14.1 X10*3/uL (4.8-10.8)
[2025-02-01 14:26] LABS: Lithium 0.37 mmol/L (0.60-1.20)
[2025-02-01 14:27] LABS: Alanine Aminotransferase 16 U/L (0-31); Albumin Level 4.1 g/dL (3.5-5.0); Alkaline Phosphatase 95 U/L (39-117); Anion Gap 12 (12-20); Aspartate Amino Transferase 20 U/L (5-31); Blood Urea Nitrogen 7 mg/dL (9-16); Calcium 8.7 mg/dL (8.4-10.2); Carbon Dioxide 31 mmol/L (22-29); Chloride 102 mmol/L (96-108); Cholesterol 172 mg/dL (<200); Estimated Glomerular Filt Rate > 60; HDL Cholesterol 33 mg/dL (>40); Potassium 4.0 mmol/L (3.3-5.1); Sodium 141 mmol/L (135-145); Total Protein 6.9 g/dL (6.5-8.0); Triglycerides 122 mg/dL (<150)
[2025-02-01 14:46] LABS: Ferritin 28 ng/mL (10-250)
== END 2025-02-01 09:09 | disposition home or self-care (01) ==
LOC: HO.CHCLDS 09:08
PROVIDERS: Visit Provider Pediatrics
DX: Z51.81 Encounter for therapeutic drug level monitoring (principal); Z13.6 Encounter for screening for cardiovascular disorders; Z13.29 Encounter for screening for other suspected endocrine disorder; Z13.1 Encounter for screening for diabetes mellitus; F17.200 Nicotine dependence, unspecified, uncomplicated; F20.9 Schizophrenia, unspecified; Z71.3 Dietary counseling and surveillance; Z71.82 Exercise counseling
CPT/HCPCS: 36415; 80048; 80061; 80076; 80178; 82306; 82728; 83036; 84443; 85025

== ENCOUNTER 2025-02-06 13:32 | Outpatient (AMB) | payer MEDICARE, SELFPAY ==
--- NOTE | 2025-02-06 13:38 | MHC.OFFVIS ---
Vital Signs 02/06/25 13:39 Height 5 ft 2 in Weight 336 lb 13.861 oz BMI 61.6 BP 140/72 H Blood Pressure Location Lt brachial Position Sitting Pulse 101 H Pulse Source Pulse Oximeter Pulse Oximetry (%) 92 Oxygen Delivery Method Room Air Intake Visit Reasons: Undiagnosed COPD/OHS Intake Note: pt is here for [facility] [place] and is feeling little better with breathing, Rental Representative Required: No Hospice Manager: Hospice Manager offered & declined Allergies oxycodone (OXYCODONE) Allergy (Unknown, Verified 02/06/25 14:04) HIVES, NAUSEA AND VOMITING From PERCOCET Allergy (Unknown, Uncoded 02/06/25 14:04) HIVES, NAUSEA AND VOMITING SEASONAL ALLERGIES Allergy (Unknown, Uncoded 02/06/25 14:04) STUFFY NOSE From VICODIN Adverse Reaction (Unknown, Uncoded 02/06/25 14:04) VOMITING Medication List - Last Reconciled 02/06/25 by Brandie Friedman MD albuterol sulfate 2.5 mg (3 mL) inhalation RQ4H WHILE AWAKE 14 days benzonatate 200 mg (2 x 100 mg) PO TID PRN cyanocobalamin (vitamin B-12) 500 mcg PO DAILY folic acid 0.4 mg PO DAILY ibuprofen 600 mg PO TID PRN ipratropium-albuterol 0.5 mg-3 mg(2.5 mg base)/3 mL 3 mL inhalation Q8H PRN lithium carbonate 150 mg PO DAILY lithium carbonate ER 600 mg PO BEDTIME loratadine (Claritin) 10 mg PO DAILY multivitamin with folic acid 400 mcg (Daily-Paul (with folic acid)) 1 tab PO DAILY nicotine 21 mg transdermal DAILY norethindrone (contraceptive) (Jencycla) 0.35 mg PO DAILY olanzapine (Zyprexa Zydis) 10 mg PO QPM Do you need a note to return to daycare/school/sports/work: No HPI HPI Undiagnosed COPD/OHS: Details: Patient is a 39-year-old female with extensive current tobacco history, schizophrenia, morbid obesity with hypoxia who was recently treated in the hospital with acute on chronic respiratory failure.from 01/01 to . She had presented to the hospital with SOB JERNIGAN and was noted to have OHS/REGINO/COPD exacerbation. Patient was treated with IV steroids and she continues to have exertional dyspnea,. At the time of admission her pCO2 was 70. She was supposed to have a home ventilator Astral , as well as nebulizer and oxygen at home. According to the [facility] terrazzo supervisor who came with the patient , she does have some kind of machine at home but does not have a nebulizer, and does not have oxygen. At home she has also voiced that she does not want to use any machine . Today when she is in the office and during my conversation she keeps on falling asleep. I have urgently sent her for Venous blood gas study. It should be noted that she is morbidly obese with BMI of 61, he has severe she is afraid apnea and is on heavy duty antipsychotic meds including lithium carbonate 600 mg at bedtime and 150 mg p.o. daily in the morning. She is the chain smoker and continues to smoke all the time at home. She is obviously a case of morbid obesity/ REGINO/COPD on top of severe Schizophrenic Disorder . [facility] Medical History (Updated 02/06/25 @ 15:34 by Brandie Friedman MD) Hypoventilation associated with obesity REGINO (obstructive sleep apnea) Morbid obesity Respiratory failure with hypoxia and hypercapnia Cough Social History Household Members: Spouse Housing: Apartment Do you presently have visiting nurse or other home services: Yes Patient Tobacco Use Status: Current everyday Tobacco user Tobacco use type: Cigarette e-Cigarette/Vaping Use: Never Used Second Hand Smoke Exposure: No service: No Sexual orientation: Don't Know Review of Systems Const All systems reviewed & are unremarkable except as noted in HPI and below Eyes Reports no additional complaints ENT Reports no additional complaints Card Denies chest pain, Denies irregular heart rhythm and Denies leg edema Resp Reports as per HPI GI Reports no additional complaints Reports no additional complaints Musc Reports no additional complaints Skin/Breast Reports system reviewed and no additional complaints, except as documented Neuro Reports no additional complaints Psych Reports difficulty concentrating and Reports mood swings Endo Reports no additional complaints Chacho/Lymph Reports no additional complaints Physical Exam Vital Signs: Last Vital Signs Pulse 101 H 02/06/25 13:39 BP 140/72 H 02/06/25 13:39 Pulse Ox 92 02/06/25 13:39 Oxygen Delivery Method Room Air 11/05/25 13:39 BMI result Body Mass Index 61.6 SUPER MORBIDLY OBESE WITH A ROUND FACE, SHORT AND OBESE NECK. Const General: comfortable, no acute distress, alert and awake Orientation/consciousness: patient oriented x3 HEENT Head: Yes normal to inspection General nose exam: No nasal polyps present and No nasal discharge present Face and sinus: Yes sinuses nontender Mouth: oropharynx abnormals (NARROW AND CROWDED, MALLAMPATI SCALE 3) Throat: Yes posterior oropharynx normal Eyes General: appearance normal, both eyes and all related structures Neck Neck: Yes normal visual inspection, Yes no lymphadenopathy, Yes trachea midline and Yes no JVD Thyroid: Thyroid normal Chest Chest palpation & inspection: normal inspection of the chest, normal palpation of entire chest wall and no tenderness Resp Other: PERCUSSION NOTE NOT PERCEPTIBLE BECAUSE OF GROSS OBESITY. BREATH SOUNDS ARE DIMINISHED OVER THE LOWER LOBES. NO CREPITATIONS OR WHEEZES ARE HEARD. Cardio Palpation: PMI not normal (NOT PALPABLE) Rate: regular rate Rhythm: regular rhythm Heart sounds: no gallops and no murmurs Peripheral pulses: Peripheral pulses 2+ throughout GI Inspection: Yes other (ABDOMEN IS OBESE AND PROTUBERANT) Palpation (GI): Soft to palpation, nontender, No hepatosplenomegaly present and no masses Auscultation: normal bowel sounds Back/Spine/Pelvis Thoracic/Lumbar Spine: thoracic and lumbar spine normal to inspection Skin General skin exam: no rashes or lesions noted Neuro General: patient oriented x3 and no focal motor deficits Cranial nerves: Yes CN's II-XII intact bilaterally Extrem General: Yes normal to inspection, Yes no clubbing, cyanosis or edema and Yes no calf tenderness Psych Appearance: grossly normal and well kempt Speech and movement: Normal speech and movement present Affect: Anxious affect present Attitude: cooperative Results Reviewed Results Reviewed: VENOUS BLOOD GAS STUDY: PH 7.39, PCO2 52,, BICARB 31 Assessment & Plan Assessment & Plan (1) Respiratory failure with hypoxia and hypercapnia: Comment: THIS PATIENT WAS TREATED IN THE HOSPITAL FOR ACUTE ON CHRONIC RESPIRATORY FAILURE, IMPROVED WITH TREATMENT. DISCHARGE HOME AND SHE WAS SUPPOSED TO GET HOME VENTILATOR TO USE AT NIGHT. ACCORDING TO THE SOFTWARE TOOLS DEVELOPER OF [facility] [employer], SHE DOES HAVE SOME EQUIPMENT AT HOME BUT SHE HAS NOT BEEN USING ANYTHING AT NIGHT. * THE BLOOD GAS STUDY IS MUCH BETTER THAN I EXPECTED . PCO2 52 IS BETTER THAN BEFORE. Code(s): J96.91 - Respiratory failure, unspecified with hypoxia; J96.92 - Respiratory failure, unspecified with hypercapnia Category: Medical Plan: ACCORDING TO DME COMPANY THEY HAVE PROVIDED HER WITH HOME VENTILATOR,ASTRAL BUT SHE HAS NOT STARTED USING. WE WERE TOLD THAT THEY ARE GOING TO SEND SOME THERAPIST TO HER HOUSE AND EXPLAINED TO HER HOW TO USE IT. I ENCOURAGED HER THAT SHE SHOULD START USING THE VENTILATOR EVERY NIGHT 7-8 HOURS. (2) Morbid obesity: Comment: PATIENT IS SUPER MORBIDLY OBESE I THINK HER PSYCHOTIC PROBLEM, CONTRIBUTES TO THE OBESITY. THIS IS THE CAUSE OF HER SLEEP APNEA AND HYPOVENTILATION SYNDROME. Code(s): E66.01 - Morbid (severe) obesity due to excess calories Category: Medical Plan: IS DIFFICULT FOR HER TO LOSE WEIGHT, BUT I DID ENCOURAGE HER THAT WHEN SHE IS ALERT AND STUDY SHE SHOULD TRY TO DO SOME EXERCISE AND WALK WITHIN THE HOUSE. (3) REGINO (obstructive sleep apnea): Comment: AGAIN THE OBSTRUCTIVE SLEEP APNEA IS PART OF MORBID OBESITY/HYPOVENTILATION SYNDROME Code(s): G47.33 - Obstructive sleep apnea (adult) (pediatric) Category: Medical Plan: NOW THAT SHE HAS THE HOME VENTILATOR SHE SHOULD START USING IT REGULARLY EVERY NIGHT. (4) Hypoventilation associated with obesity: Comment: OHS IS DUE TO SUPER MORBID OBESITY. Code(s): E66.2 - Morbid (severe) obesity with alveolar hypoventilation Category: Medical Plan: SHE NEEDS TO USE THE VENTILATOR EVERY NIGHT. (5) Schizophrenia: Comment: SHE IS A CASE OF HEAVY DUTY SHIZOPHRENIC DISORDER, LIVES AT HOME INDEPENDENTLY. SUPERVISED BY [facility] PRO[facility] Code(s): F20.9 - Schizophrenia, unspecified Category: Medical Plan: I TALKED TO HER AND WELL TO THE SECURITY TECHNICIAN WHO CAME WITH THAT SHE NEEDS TO HAVE VERY CLOSE SUPERVISION AND SHE SHOULD CONTINUE TO TAKE HER MEDS REGULARLY. Orders: Orders Venous Blood Gas Today J96.91 - Respiratory failure, unspecified with hypoxia, J96.92 - Respiratory failure, unspecified with hypercapnia Coding Level of Care Code New Pt Level 4 (24804) Diagnoses Respiratory failure with hypoxia and hypercapnia J96.91; J96.92 Morbid obesity E66.01 REGINO (obstructive sleep apnea) G47.33 Hypoventilation associated with obesity E66.2 Schizophrenia F20.9
[2025-02-06 13:39] VITALS: BP 140/72; PULSE 101; O2SAT 92; BMI 61.6
--- OUTSIDE RECORDS SUMMARY | 2025-02-06 16:26 | XMS_ITS | Encounter Summary ---
Author Organization [employer] Address [address] [facility] [address] [place] [address] Care Team Providers Care Purchasing Administrator Name Role Phone Yudith Suarez MD Primary Care Provider Encounter Details Date Type Department Care Team ([facility] Contact Info) Description 09/14/2023 Orders Only [facility] MED & PEDS [address] [place] [address] Martin Barillas MD [address] [place] [address] Social History Tobacco Use Types Packs/Day Years [...] Description 03/06/2025 9:15 AM EST Office Visit [facility]ED[facility] [address] [place] [address] Yudith Suarez MD [address] [place] [address] documented as of this encounter Visit Diagnoses Not on filedocumented in this encounter Care Teams Purchasing Administrator Relationship Specialty Start Date End Date Yudith Suarez MD [address] [place] [address] PCP - General Family Medicine 04/04/18 documented as of this encounter
--- OUTSIDE RECORDS SUMMARY | 2025-02-06 16:26 | XMS_ITS | Clinical Summary ---
Author Organization [facility] Address [address] [place] [address] Care Team Providers Care Drywall Professional Name Role Phone Unavailable Primary Care Provider Unavailabl e Social History Tobacco Use Types Packs/Day Years Used Date Smoking Tobacco: Never Assessed Sex and Gender Information Value Date Recorded Sex Assigned at Not on file Gender Identity Not on file Sexual Orientation Not on file Plan of Treatment Not on file
--- OUTSIDE RECORDS SUMMARY | 2025-02-06 16:26 | XMS_ITS | Encounter Summary ---
Author Organization [employer] Address [address] [facility] [address] [place] [address] Care Team Providers Care Assistant Art Director Name Role Phone Yudith Suarez MD Primary Care Provider Encounter Details Date Type Department Care Team (Latest Contact Info) Description 01/17/2025 Results Follow-[facility] & PEDS [address] [place] [address] Martin Barillas MD [address] [place] [address] POCT Glucose, POCT Hgb A1c, [id number], Quantitative Social History Tobacco Use Types Packs/Day [...] the past 12 months, has t he [employer], [employer], oil or water [employer] threatened to shut off services in your [...] Upcoming Encounters Date Type Department Care Team ([facility] st Contact Info) Description 03/06/2025 9:15 AM EST Office Visit [facility] MED & PEDS [address] [place] [address] Yudith Suarez MD [address] [place] [address] documented as of this encounter Visit Diagnoses Not on filedocumented in this encounter Care Teams Assistant Art Director Relationship Specialty Start Date End Date Yudith Suarez MD [address] [place] [address] PCP - General Family Medicine 04/04/18 documented as of this encounter
--- OUTSIDE RECORDS SUMMARY | 2025-02-06 16:26 | XMS_ITS | Clinical Summary ---
Author Organization [employer] Address [address] [place] [address] 7[address] [place] [address] Care Team Providers Care Shuttler Name Role Phone Yudith Suarez MD Primary Care Provider [phone] Allergies Active Allergy Reactions Criticality Noted Date [...] BY MOUTH ONCE DAILY 30 tablet 11 Active albuterol (2.5 MG/3ML) 0.083% nebulizer solution Take 2.5 mg by nebulization every 4 (four) hours. Active lithium 150 MG capsule Take 1 capsule by mouth before breakfast. 025 Active ipratropium-albut dmitriy (Duo-Neb) 0.5-2.5 mg/3 mL nebulizer solutionIndicatio ns:Chronic obstructive pulmonary disease with acute exacerbation (CMS/HCC) ([facility]) Take 3 mL by nebulization every 8 [...] eorder (will not trigger notification to Pharmacy)) ipratropium-albut dmitriy (Duo-Neb) 0.5-2.5 mg/3 mL nebulizer [...] Description 01/31/2025 9:15 AM EDT Office Visit [facility] [address] [place] [address] Yudith Suarez MD Tobacco dependence syndrome (Primary Dx); Dietary counseling; Exercise counseling; Chronic schizophrenia (CMS/HCC) ([facility]); Elevated blood-pressure reading without diagnosis of hypertension; Class 3 obesity with alveolar hypoventilation, serious comorbidity, and body mass index (BMI) of 50.0 to 59.9 in adult ([facility]) 01/31/2025 Travel 01/29/2025 Telephone [facility] [address] [place] [address] Yudith Suarez MD Chart Prep 01/23/2025 Patient Outreach [facility] [address] [place] [address] Yudith Suarez MD Pre-visit Planning (Pre visit planning unable to LVM ) 01/18/2025 Refill [facility] [address] [place] [address] Yudith Suarez MD 01/17/2025 Results Follow-Up [facility] [address] [place] [address] Martin Barillas MD POCT Glucose, POCT Hgb A1c, Vqjpc-7-Frwwzcoalcf, Quantitative 01/14/2025 10:15 AM EDT Office Visit [facility] [address] [place] [address] Martin Barillas MD Chronic obstructive pulmonary disease with acute exacerbation (CMS/HCC) (HCC) (Primary Dx); Morbid obesity with BMI of 50.0-59.9, adult (CMS/HCC) (HCC); Encounter for vaccination; Encounter for immunization; Excessive daytime sleepiness 01/14/2025 Travel 01/07/2025 Telephone [facility] [address] [place] [address] Yudith Suarez MD Hospital Follow-up 01/01/2025 Orders Only GENERIC EXTERNAL DATA DEPARTMENT Provider, Generic External Data 12/24/[address] [address] Yudith Suarez MD Nurse Triage 11/27/2024 Telephone [facility] [address] [place] [address] Yudith Suarez MD from Last 3 Months [...] housing situation today? I have davonolivia feng 01/31/[address] you [...] Description 03/06/2025 9:15 AM EST Office Visit [facility] [address] [place] [address] Yudith Suarez MD [address] [place] [address] Health Maintenance Due Date Last Done Comments [...] 01/31/2026 01/31/2025 Depression Screening 01/31/2026 01/31/2025, 02/01/20 Disability Screening 01/31/2026 01/31/2025 Family Planning (PISQ) 01/31/2026 01/31/2025 SDOH Screening 01/31/2026 01/31/2025 Tobacco Screening 01/31/2026 01/31/2025 Diabetes: Hemoglobin A1C 02/01/2026 025, 01/14/2025, 08/23/2023 Dental X-Ray: Full Mouth 09/13/2026 09/13/2023, 05/05 Lipid Panel 02/01/2030 02/01/2025, 08/23/2023 Zoster Vaccines (1 of 2) 2034 [...] Associated Diagnosis Comments VENOUS BLOOD GAS Routine 02/06/2025 2:14 PM EST FERRITIN Routine 02/01/2025 9:09 AM EDT Dietary counseling Exercise counseling Chronic schizophrenia (CMS/HCC) (HCC) Tobacco dependence syndrome LITHIUM Routine 02/01/2025 9:09 AM EDT Dietary counseling Exercise counseling Chronic schizophrenia (CMS/HCC) (HCC) Tobacco dependence syndrome LIPID PANEL, STANDARD Routine 02/01/2025 9:09 AM EDT Dietary counseling Exercise counseling Chronic schizophrenia (CMS/HCC) (HCC) Tobacco dependence syndrome TSH W/REFLEX TO FT4 Routine 02/01/2025 9 :09 AM EDT Dietary counseling Exercise counseling Chronic schizophrenia (CMS/HCC) (HCC) Tobacco dependence syndrome VITAMIN D,25-OH,TOTAL,IA Routine 02/01/2025 9:09 AM EDT Dietary counseling Exercise counseling Chronic schizophrenia (CMS/HCC) (HCC) Tobacco dependence syndrome HEPATIC FUNCTION PANEL Routine 02/01/2025 9:09 AM EDT Dietary counseling Exercise counseling Chronic schizophrenia (CMS/HCC) (HCC) Tobacco dependence syndrome HEMOGLOBIN A1C Routine 02/01/2025 9:09 AM EDT Dietary counseling Exercise counseling Chronic schizophrenia (CMS/HCC) (HCC) Tobacco dependence syndrome CBC WITH AUTO DIFFERENTIAL Routine 02/01/2025 9:09 AM EDT Dietary counseling Exercise counseling Chronic schizophrenia (CMS/HCC) (HCC) Tobacco dependence syndrome BASIC METABOLIC PANEL, FASTING Routine 02/01/2025 9:09 AM EDT Dietary counseling Exercise counseling Chronic schizophrenia (CMS/HCC) (HCC) Tobacco dependence syndrome [id number] QN Routine 01/16/2025 1:04 PM EDT Chronic [...] ESTABLISHED PATIENT Routine 09/13/2023 1:00 PM EDT from Last 3 Months or Most Recently Relevant to Health Maintenance Results * (ABNORMAL) VENOUS BLOOD GAS (02/06/2025 2:14 PM EST) Only the most recent of2 resultswithin the time period is included. VBG pH 7.39 7.32 - 7.43 [facility] VBG PCO2 52 mmHg [facility] VBG PO2 160 mmHg [facility] VBG Base Excess 5.6 mmol/L [facility] VBG HCO3 31(H) 22 - 26 mmol/L [facility] O2 Sat, Kana 99.0 % [facility] 02/06/2025 2:14 PM EST 02/06/2025 2:22 PM EST us Generic External Data Provider LAB BLOOD ORDERAB LES Final Result [facility] [address] [place], [place] [phone] * (ABNORMAL) Basic Metabolic Panel, Fasting (02/01/2025 9:09 AM EDT) Sodium 141 135 - 145 mmol/L [facility] Potassium 4.0 3.3 - 5.1 mmol/L [facility] Chloride 102 96 - 108 mmol/L [facility] Carbon Dioxide 31(H) 22 - 29 mmol/L [facility] Anion Gap 12 12 - 20 [facility] Urea Nitrogen (BUN) 7(L) 9 - 16 mg/dL [facility] Creatinine, Serum 0.59 0.5 - 1.4 mg/dL [facility] Estimated Glomerular Filt Rate >60 [facility] Comment:Chronic Kidney Disea se: Estimated GFR < 60 mL/min/1.38r9Vyrufi Kidney Disease: Estimated GFR < 15 mL/min/1.73m2 Glucose Fasting 104(H) 60 - 99 mg/dL [facility] Comment:A fasting glucose fr om 100-125 mg/dl is considered impaired(pre-diabetes). Calcium 8.7 8.4 - 10.2 mg/dL [facility] Blood Venous blood specimen / Unknown 02/01/2025 9:09 AM EDT 02/01/2025 2:00 PM EDT us Yudith Suarez MD LAB BLOOD ORDERABLES Final Re sult Performing Organization Address City/[facility]/ZIP Co de Phone Number [facility] [address] [place] [address] [phone] * Vitamin D, 25-Hydroxy, Total, Immunoassay (02/01/2025 9:09 AM EDT) Vitamin D 25-OH Total 43.0 >30 ng/mL [facility] Comment: Health Based Reference Values*< 20 ng/mL Womkgrmzk78-40 ng/mL Insufficient> 30 ng/mL Sufficient*Jacitna LUGO. N Engl J Med. 2007;357:266-280There is no well-established upper level of normal vitamin Dlevels. Some laboratories use 50 ng/mL as an upper limit ofnormal. However, toxicity is patient-dependent and may occurat any level. Careful correlation with the patient'spresentation is necessary and, if there is concern forvitamin D toxicity, treatment should be consideredirrespective of the serum level.Care must be taken in interpreting Vitamin D results fromdifferent laboratories and methodologies. Published datademonstrated that results from patients undergoinghemodialysis may show a negative bias when tested withvarious automated 25-OH vitamin D assays when compared toLC-MS/MS.When testing samples from patients whose predominant form ofVitamin D is Vitamin D2, such as patients receiving VitaminD2 supplementation, results that are subtherapeutic shouldbe confirmed with another method such as LC-MS/MS. Blood Venous blood specimen / Unknown 02/01/2025 9:09 AM EDT 02/01/2025 2:00 PM EDT us Yudith Suarez MD LAB BLOOD ORDERABLES Final Re sult Performing Organization Address [facility]/ZIP Co de Phone Number [facility] [address] [place] [address] [phone] * TSH W/Reflex to FT4 (02/01/2025 9:09 AM EDT) TSH reflex Free T4 0.60 0.32 - 4.0 uIU/mL [facility] Blood Venous blood specimen / Unknown 02/01/2025 9:09 AM EDT 02/01/2025 2:00 PM EDT us Yudith Suarez MD LAB BLOOD ORDERABLES Final Re sult [facility] [address] [place], [place] [phone] * (ABNORMAL) CBC auto differential (02/01/2025 9:09 AM EDT) Only the most recent of2 resultswithin the time period is included. White Blood Count 14.1(H) 4.8 - 10.8 X10*3/uL [facility] Red Blood Count 5.05 4.20 - 5.50 X10*6/uL [facility] Hemoglobin 12.6 12.0 - 16.0 g/dl [facility] Hematocrit 43.7 37.0 - 47.0 % [facility] Mean Corpuscular Volume 86.5 80.0 - 98.0 fL [facility] Mean Corpuscular Hemoglobin 25.0(L) 27.0 - 33.0 pg [facility] Mean Corpuscular HGB Conc 28.8(L) 31.0 - 35.0 g/dl [facility] Red Cell Distribution Width 15.3 11.0 - 16.0 % [facility] Platelet Count 347 160 - 400 X10*3/uL [facility] Mean Platelet Volume 10.1 9.4 - 12.3 fL [facility] Neutrophils Percent Auto 77.4(H) 45 - 73 % [facility] Imm Gran Pct Auto 0.8(H) 0.0 - 0.4 % [facility] Lymphocytes Percent Auto 15.8(L) 20 - 40 % [facility] Monocytes Percent Auto 4.0 2 - 11 % [facility] Eosinophils Percent Auto 1.7 0 - 4 % [facility] Basophils Percent Auto 0.3 0 - 2 % [facility] NRBC Pct Auto 0.0 0.0 - 0.2 /100WBC [facility] Neutrophils Absolute Auto 10.9(H) 2.0 - 8.3 x10*3/uL [facility] Imm Gran Abs Auto 0.11(H) 0.00 - 0.03 X10*3/uL [facility] Lymphocytes Absolute Auto 2.2 1.2 - 4.9 X10*3/uL [facility] Monocytes Absolute Auto 0.6 0.1 - 1.2 X10*3/uL [facility] Eosinophils Absolute Auto 0.2 0.0 - 0.4 X10*3/uL [facility] Basophils Absolute Auto 0.0 0.0 - 0.2 X10*3/uL [facility] NRBC Abs Auto 0.000 0.0 - 0.012 X10*3/uL [facility] Blood Venous blood specimen / Unknown 02/01/2025 9:09 AM EDT 02/01/2025 2:00 PM EDT us Yudith Suarez MD LAB BLOOD ORDERABLES Final Re sult [facility] [address] [place] [phone] * Hemoglobin A1c (02/01/2025 9:09 AM EDT) Hemoglobin A1c 5.8 <6.0 % [facility] Comment:Hemoglobin A1C Refer ence Range Adults: 4.8 - 6.0 % Non diabetic: < 6.0 % Goal: < 7.0 %Additional Action Suggested: > 8.0 %Note: Hemoglobin A1c results are invalid for patients with abnormal amounts of HbF. Blood transfusions may impact the HbA1c concentration in the patient sample. Estimated Average Glucose 120 mg/dL [facility] Comment:eAG = Estimated ave rage glucose which is %A1C expressed asaverage glucose, using the formula of the V4K-WowekgbQmnmbdc Glucose study (ADAG), Diabetes Care, Vol.31,#8,2007 Blood Venous blood specimen / Unknown 02/01/2025 9:09 AM EDT 02/01/2025 2:00 PM EDT us Yudith Suarez MD LAB BLOOD ORDERABLES Final Re sult Performing Organization Address [facility] Co de Phone Number [facility] [address] [place] [phone] * Ferritin (02/01/2025 9:09 AM EDT) Ferritin 28 10 - 250 ng/mL [facility] Blood Venous blood specimen / Unknown 02/01/2025 9:09 AM EDT 02/01/2025 2:00 PM EDT us Yudith Suarez MD LAB BLOOD ORDERABLES Final Re sult Performing Organization Address [facility] Phone Number [facility] [address] [place] [phone] * (ABNORMAL) Capulin (02/01/2025 9:09 AM EDT) Only the most recent of2 resultswithin the time period is included. Pathologist [facility] Capulin 0.37(L) 0.60 - 1.20 mmol/L [facility] Blood Venous blood specimen / Unknown 02/01/2025 9:09 AM EDT 02/01/2025 2:00 PM EDT Yudith Suarez MD LAB BLOOD ORDERABLES Final Re sult Performing Organization Address [facility] de Phone Number [facility] [address] [place] [phone] * Hepatic Function Panel (02/01/2025 9:09 AM EDT) Only the most recent of2 resultswithin the time period is included. Bilirubin, Total 0.2 0.0 - 1.0 mg/dL [facility] Bilirubin, Direct <0.2 0.0 - 0.5 mg/dL [facility] Aspartate Amino Transferase 20 5 - 31 U/L [facility] Alanine Aminotransferase 16 0 - 31 U/L [facility] Total Protein 6.9 6.5 - 8.0 g/dL [facility] Albumin Level 4.1 3.5 - 5.0 g/dL [facility] Alkaline Phosphatase 95 39 - 117 U/L [facility] Blood Venous blood specimen / Unknown 02/01/2025 9:09 AM EDT 02/01/2025 2:00 PM EDT us Yudith Suarez MD LAB BLOOD ORDERABLES Final Re sult [facility] [address] [place] [address] [phone] * (ABNORMAL) Lipid Panel, Standard (02/01/2025 9:09 AM EDT) Triglycerides 122 <150 mg/dL [facility] Comment:Desirable Triglyceri de: less than 150 mg/dLBorderline High Triglyceride 150-199 mg/dLHigh Triglyceride: 200-499 mg/dLVery High Triglyceride: greater than or equal to 5OO mg/dL Cholesterol 172 <200 mg/dL [facility] Comment:Desirable Cholestero l: less than 200 mg/dLBorderline High Cholesterol: 200-239 mg/dLHigh Cholesterol: greater than 239 mg/dL LDL Cholesterol Calculated 115(H) <100 mg/dL [facility] Comment:Desirable LDL: less than 100 mg/dLNear Optimal/Above Optimal LDL: 110- 129 mg/dLBorderline High LDL: 130-159 mg/dLHigh LDL: 160-189 mg/dLVery High LDL: greater than or equal to 190 mg/dL HDL Cholesterol 33(L) >40 mg/dL [facility] Comment:Desirable HDL: great er than 40 mg/dL Note: This HDL assay may give artificially low results in patients with liver disease. Blood Venous blood specimen / Unknown 02/01/2025 9:09 AM EDT 02/01/2025 2:00 PM EDT us Yudith Suarez MD LAB BLOOD ORDERABLES Final Re sult [facility] [address] [place] [phone] * Kfopy-5-Tppxmidkukh, Quantitative (01/16/2025 1:04 PM EDT) Xrtpk-8-Ufehaeot sin QN 169 83 - 199 mg/dL [facility] Comment:THIS TEST WAS PERFOR MED AT:[employer] [place] [phone] KENNEDY MD Blood Venous blood specimen / Unknown 01/16/2025 1:04 PM EDT 01/16/2025 2:07 PM EDT us Martin Barillas MD LAB BLOOD ORDERABLES Final Result Performing Organization Address City/[facility]/ZIP Co de Phone Number [facility] [address] [place] [phone] * POCT Glucose (01/14/2025 11:55 AM EDT) Pathologist [facility] Glucose Blood, POC 126 60 - 200 mg/dL [employer] Lot # [id number] Lot# Expiration Date Comment:fasting Blood Capillary blood specimen / Unknown 01/14/2025 11:55 AM EDT us Martin Barillas MD POINT OF CARE TEST ENTER/ED IT ORDERABLES Final Result * (ABNORMAL) POCT Hgb A1c (01/14/2025 11:54 AM EDT) Pathologist [facility] Hemoglobin A1C 6.8(A) 4.0 - 5.7 % [employer] Media Lot # [id number] Lot# Expiration Date Blood 01/14/2025 11:5 4 AM EDT us Martin Barillas MD POINT OF CARE TEST ENTER/ED IT ORDERABLES Final Result * XR Chest 1 View (01/01/2025 2:04 PM EDT) Anatomical Region Laterality Modality Chest Radiographic Lexy ging 01/01/2025 2:04 PM EDT Narrative 01/01/2025 2:20 PM EDT [address] [address] XRay Report Signed Patient: Anusha Felipe MR#: [id number] : 1985 Acct:[id number] Age/Sex: 39 / F ADM Date: 01/01/25 Loc: HO.ED Attending Dr: Ordering Physician: Per Novak MD Date of Service: 01/01/25 Procedure(s): XR chest 1V Accession Number(s): [id number] cc: Yudith Suarez MD; Per Novak MD [...] 01/01/25 1417 DD/ 1404 TD/TT: 01/01/25 1414 Community Engagement Leader: Procedure Note Donotuseinterpreter, Image - 01/01/[address] [place] [address] XRay Report Signed Patient: Anusha FelipeMR#: [id number] : 1985Acct:[id number] Age/Sex: 39 / FADM Date: 01/01/25 Loc: HO.ED Attending Dr: Ordering Physician: Per Novak MD Date of Service: 01/01/25 Procedure(s): XR chest 1V Accession Number(s): [id number] cc: Yudith Suarez MD; Per Novak MD [...] 01/01/25 1417 DD/ 1404 TD/TT: 01/01/25 1414 Community Engagement Leader: [facility] External Provider IMG XR PROCEDURES Final Result * High Sensitivity Troponin I (01/01/2025 1:01 PM EDT) TROPONIN I HIGH SENSITIVITY 3.7 <3.5 - 17.0 ng/L [facility] Comment:The [place] high sens itivity Troponin-I results should beused in conjunction with other diagnostic information suchas ECG, clinical observations and information, and patientsymptoms to aid in the diagnosis of [place]. 01/01/2025 1:01 PM EDT 01/01/2025 1:06 PM EDT us Generic External Data Provider LAB BLOOD ORDERAB LES Final Result Performing Organization Address City/[facility]/ZIP Co de Phone Number [facility] [address] [place] [address] [phone] * Magnesium (01/01/2025 1:01 PM EDT) Pathologist [facility] Magnesium 2.1 1.6 - 2.6 mg/dL [facility] 01/01/2025 1:01 PM EDT 01/01/2025 1:06 PM EDT Generic External Data Provider LAB BLOOD ORDERAB LES Final Result Performing Organization Address [facility] de Phone Number [facility] [address] [place] [address] [phone] * (ABNORMAL) Basic Metabolic Panel (01/01/2025 1:01 PM EDT) Pathologist [facility] Sodium 141 135 - 145 mmol/L [facility] Potassium 4.5 3.3 - 5.1 mmol/L [facility] Comment:Slight Hemolysis.Int erpret result with caution. Chloride 102 96 - 108 mmol/L [facility] Carbon Dioxide 30(H) 22 - 29 mmol/L [facility] Anion Gap 14 12 - 20 [facility] Urea Nitrogen (BUN) 8(L) 9 - 16 mg/dL [facility] Creatinine, Serum 0.68 0.5 - 1.4 mg/dL [facility] Creatinine Clr Calc Pharmacy 150.5 [facility] Comment:Provided height and weight: 157.48 cm,141.5 kg.eGFR (calculated from the MDRD study equation) and eCrCl(calculated from the Cockcroft-Gault equation) are based ondifferent parameters and may not yield comparable results.If eCrCl result is absurd, please check patient'sheight/weight. Estimated Glomerular Filt Rate >60 [facility] Comment:Chronic Kidney Disea se: Estimated GFR < 60 mL/min/1.88j5Iqvhqt Kidney Disease: Estimated GFR < 15 mL/min/1.73m2 Glucose 194(H) 60 - 115 mg/dL [facility] Calcium 9.2 8.4 - 10.2 mg/dL [facility] 01/01/2025 1:01 PM EDT 01/01/2025 1:06 PM EDT us Generic External Data Provider LAB BLOOD ORDERAB LES Final Result Performing Organization Address [facility]/ZIP Co de Phone Number [facility] [address] [place] [address] [phone] * Hepatitis C Antibody with Reflex to HCV, RNA, Quantitative, Real-Time PCR (01/04/2024 11:47 AM EDT) Hepatitis C Antibody Nonreactive Nonreactive [facility] Comment:Antibodies to HCV no t detected; does not exclude early acuteHCV infection. Blood Venous blood specimen / Unknown 01/04/2024 11:47 AM EDT 01/04/2024 2:36 PM EDT us Yudith Suarez MD LAB BLOOD ORDERABLES Final Re sult Performing Organization Address [facility] Co de Phone Number [facility] [address] [place] [address] [phone] * HIV-1/2 Antigen and Antibodies, Fourth Generation, with Reflexes (01/04/2024 11:47 AM EDT) HIV AB/AG Nonreactive Nonreactive [facility] Comment:HIV-1 p24 Ag and/or HIV-1/HIV-2 Ab not detected.A test result that is nonreactive does not exclude thepossibility of exposure to or infection with HIV-1 and/orHIV-2. Nonreactive results in this assay for individualswith prior exposure to HIV-1 and/or HIV-2 may be due toantigen and antibody levels that are below the limit ofdetection of this assay.The [employer] HIV Ag/Ab Combo assay result andsupplemental assay results should be interpreted inconjunction with the patient's clinical presentation,history and other laboratory results. If the results areinconsistent with clinical evidence, additional testing issuggested to confirm the result. Blood Venous blood specimen / Unknown 01/04/2024 11:47 AM EDT 01/04/2024 2:36 PM EDT us Yudith Suarez MD LAB BLOOD ORDERABLES Final Re sult [facility] [address] [place] [address] [phone] from Last 3 Months or Most Recently Relevant to Health Maintenance Insurance , [address] [place], [place] [phone] [place] [address] [facility] AD[facility] Care Teams Shuttler Relationship Specialty Start Date End Date Yudith Suarez MD [address] [place] [phone] PCP - General Family Medicine 04/04/18
--- OUTSIDE RECORDS SUMMARY | 2025-02-06 16:27 | XMS_ITS | Encounter Summary ---
Author Organization [employer] Address [address] [place] [address] Care Team Providers Care Health And Safety Instructor Name Role Phone Yudith Suarez MD Primary Care Provider [phone] Encounter Details Date Type Department Care Team ([facility] st Contact Info) Description 05/30/2024 Telephone [facility] [address] [place], [place] [phone] Dariela, Shima [address] [place], [place] [phone] Social History Tobacco Use Types Packs/Day Years [...] Upcoming Encounters Date Type Department Care Team ([facility] st Contact Info) Description 03/06/2025 9:15 AM EST Office Visit [facility] [address] [place] [address] Yudith Suarez MD [address] [place] [address] documented as of this encounter Visit Diagnoses Not on filedocumented in this encounter Care Teams Health And Safety Instructor Relationship Specialty Start Date End Date Yudith Suarez MD [address] [place] [address] PCP - General Family Medicine 04/04/18 documented as of this encounter
--- OUTSIDE RECORDS SUMMARY | 2025-02-06 16:27 | XMS_ITS | Encounter Summary ---
Author Organization [employer] Address [address] [facility] 7 [place] [address] Care Team Providers Care Escrow Assistant Name Role Phone Yudith Suarez MD Primary Care Provider [phone] Reason for Visit * Reason Onset Date Comments Paperwork/Forms 12/28/2023 Encounter Details Date Type Department Care Team ([facility] st Contact Info) Description 12/28/2023 Telephone [facility] [address] [place] [address] Yudith Suarez MD [address], [place] [phone] Paperwork/Forms Social History Tobacco Use Types Packs/Day [...] 12/28/2023 8:27 AM EDT Christopher Fisher at [facility] calling to request the status of the physician form that was sent on 11/08 appeals writer does see form in chart and has not been completed please complete and faxed to [phone] any questions please call [phone] documented in this encounter Plan of Treatment Upcoming Encounters Date Type Department Care Team (Late st Contact Info) Description 03/06/2025 9:15 AM EST Office Visit [facility] [address] [place] [address] Yudith Suarez MD [address] [place] [address] documented as of this encounter Visit Diagnoses Not on filedocumented in this encounter Care Teams Escrow Assistant Relationship Specialty Start Date End Date Yudith Suarez MD [address] [place] [address] PCP - General Family Medicine 04/04/18 documented as of this encounter
== END 2025-02-06 14:41 | disposition home or self-care (01) ==
LOC: HO.HPS 13:33
PROVIDERS: PCP Pediatrics; Visit Provider Internal Medicine
DX: J96.91 Respiratory failure, unspecified with hypoxia (principal); J96.92 Respiratory failure, unspecified with hypercapnia; G47.33 Obstructive sleep apnea (adult) (pediatric); E66.2 Morbid (severe) obesity with alveolar hypoventilation; F20.9 Schizophrenia, unspecified
CPT/HCPCS: 99204

== ENCOUNTER 2025-02-06 13:32 | Outpatient (REF) | payer MEDICARE, SELFPAY ==
[2025-02-06 14:22] LABS: Venous Blood Gas Refer to POC result
[2025-02-06 14:23] LABS: VBG HCO3 31 mmol/L (22-26); VBG O2 % Saturation 99.0 %
== END 2025-02-06 13:33 | disposition home or self-care (01) ==
LOC: HO.LAB 13:32
PROVIDERS: PCP Pediatrics; Visit Provider Internal Medicine
DX: J96.91 Respiratory failure, unspecified with hypoxia (principal); J96.92 Respiratory failure, unspecified with hypercapnia; G47.33 Obstructive sleep apnea (adult) (pediatric); F20.9 Schizophrenia, unspecified; E66.01 Morbid (severe) obesity due to excess calories; Z68.44 Body mass index [BMI] 60.0-69.9, adult; F17.210 Nicotine dependence, cigarettes, uncomplicated; Z99.11 Dependence on respirator [ventilator] status
CPT/HCPCS: 36415; 82803; 99202

== ENCOUNTER 2025-03-20 14:21 | Outpatient (AMB) | payer MEDICARE, SELFPAY ==
--- OUTSIDE RECORDS SUMMARY | 2025-03-20 11:30 | XMS_ITS | Encounter Summary ---
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 Name Role Phone Yudith Suarez MD Primary Care Provider [phone] Reason for Referral * Imaging (Routine) - Closed Specialty Diagnoses / Procedures Referred By Contac t Referred To Contact Radiology Diagnoses Breast cancer screening by mammogram Procedures BI Mammogram Screening Tomosynthesis Bilateral Yudith Suarez MD [address] [place] [address] Phone: tel: fax: [facility] Referral ID Status Reason Start Date Expiration Date Visits Re quested Visits Authorized [id number] Closed 03/20/2025 03/20/2026 1 1 Encounter Details Date Type Department Care Team ([facility] st Contact Info) Description 03/20/2025 11:30 AM EST Office Visit [facility] [address] [place] [address] Yudith Suarez MD [address], [place] [phone] Breast cancer screening by mammogram (Primary Dx); Morbid obesity with BMI of 50.0-59.9, adult (CMS/HCC) (HCC); Type 2 diabetes mellitus without complication, without long-term current use of insulin (HCC); REGINO on CPAP Social History Tobacco Use Types Packs/Day Years [...] Female 02/01/2022 10:16 AM EDT Sexual Orientation Straight 03/20/2025 11 :57 AM EST documented as of this encounter Last Filed Vital Signs Vital Sign Reading Time Taken Comments Blood Pressure 134/100 03/20/2025 11:28 AM EST Pulse 84 03/20/2025 11:28 AM EST Temperature 36 C (96.8 F) 03/20/2025 11:28 AM EST Respiratory Rate 20 03/20/2025 11:28 AM EST Oxygen Saturation - - Inhaled Oxygen Concentration - - Weight 144 kg (318 lb) 03/20/2025 11:28 AM EST Height - - Body Mass Index 57.7 01/14/2025 9:57 AM EDT documented in this encounter Plan of Treatment Upcoming Encounters Date Type Department Care Team (Late st Contact Info) Description 05/02/2025 1:15 PM EST Office Visit [facility] [address] [place] [address] Yudith Suarez MD [address] [place] [address] Scheduled Orders Name Type Priority Associated Diagnoses Orde r Schedule BI Mammogram Screening Tomosynthesis Bilateral Imaging Routine Breast cancer screening by mammogram Expected: 03/20/2025, Expires: 05/21/2026 documented as of this encounter Goals Goal Patient Goal Type Associated Problems Recent Progress Patient-Stated? Author Help patients manage their type 2 diabetes Care Plan Help patients manage their type 2 diabetes No Yudith Suarez MD Patient has chronic kidney disease Care Plan Patient has chronic kidney disease No Yudith Suarez MD documented as of this encounter Visit Diagnoses Diagnosis Breast cancer screening by mammogram- Primary Morbid obesity with BMI of 50.0-59.9, adult (CMS/HCC) (HCC) Type 2 diabetes mellitus without complication, without long-term current use of insulin ([facility]) REGINO on CPAP documented in this encounter Additional Health Concerns Active Problems Noted Date Diagnosed Date Help patients manage their type 2 diabetes 03/20 Patient has chronic kidney disease 03/20/2025 Assessment Noted Time PHQ-9 Depression Total Score: 3 02/01/20 25 9:45 AM EDT documented as of this encounter Care Teams Cattle Farmer Relationship Specialty Start Date End Date Yudith Suarez MD [address] [place] [address] PCP - General Family Medicine 04/04/18 documented as of this encounter
[2025-03-20 14:36] VITALS: BP 152/90; PULSE 94; O2SAT 91; BMI 59.3
--- NOTE | 2025-03-20 14:36 | MHC.OFFVIS ---
Vital Signs 03/20/25 14:36 Height 5 ft 2 in Weight 324 lb 1.272 oz BMI 59.3 BP 152/90 H Blood Pressure Location Lt radial Position Sitting Pulse 94 Pulse Source Pulse Oximeter Pulse Oximetry (%) 91 L Oxygen Delivery Method Room Air Intake Visit Reasons: copd Intake Note: pt is here for follow up and states she is trying to use the vent at home, but finds the mask too much, she is asking for something that just goes on the nose. She states she is using oxygen and vent at night together. Press Washer Required: No Steel Wheel Engraver: Steel Wheel Engraver offered & declined Allergies oxycodone (OXYCODONE) Allergy (Unknown, Verified 03/20/25 15:03) HIVES, NAUSEA AND VOMITING From PERCOCET Allergy (Unknown, Uncoded 03/20/25 15:03) HIVES, NAUSEA AND VOMITING SEASONAL ALLERGIES Allergy (Unknown, Uncoded 03/20/25 15:03) STUFFY NOSE From VICODIN Adverse Reaction (Unknown, Uncoded 03/20/25 15:03) VOMITING Medication List - Last Reconciled 03/20/25 by Brandie Friedman MD albuterol sulfate 2.5 mg (3 mL) inhalation RQ4H WHILE AWAKE 14 days benzonatate 200 mg (2 x 100 mg) PO TID PRN cyanocobalamin (vitamin B-12) 500 mcg PO DAILY folic acid 0.4 mg PO DAILY ibuprofen 600 mg PO TID PRN ipratropium-albuterol 0.5 mg-3 mg(2.5 mg base)/3 mL 3 mL inhalation Q8H PRN lithium carbonate 150 mg PO DAILY lithium carbonate ER 600 mg PO BEDTIME loratadine (Claritin) 10 mg PO DAILY multivitamin with folic acid 400 mcg (Daily-Paul (with folic acid)) 1 tab PO DAILY nicotine 21 mg transdermal DAILY norethindrone (contraceptive) (Jencycla) 0.35 mg PO DAILY olanzapine (Zyprexa Zydis) 10 mg PO QPM Do you need a note to return to daycare/school/sports/work: No HPI HPI copd: Details: THIS 39 YEARS OLD FEMALE WITH SUPER MORBID OBESITY, BMI 59 , HE IS A CASE OF OBESITY/ HYPOVENTILATION SYNDROME, POSSIBLE SLEEP APNEA, CHRONIC RESPIRATORY FAILURE WITH HYPOXEMIA AND HYPERCAPNIA, UNDERLYING DIAGNOSIS OF SCHIZOPHRENIA , BEING TREATED WITH THE HIGH DOSES OF ANTIPSYCHOTIC MEDS. SHE IS ON HOME VENTILATOR, ACCORDING TO HER SPEECH LANGUAGE PATHOLOGIST TRAVEL, NOT USING IT REGULARLY. SHE SAY IS FULLFACE MASK IS SUFFOCATING AND SHE WOULD PREFER TO USE A NASAL INTERFACE. SHE ALSO IS BEING TREATED FOR POSSIBLE COPD BECAUSE SHE IS A HEAVY SMOKER. SHE IS SUPPOSED TO USE IPRATROPIUM-ALBUTEROL SOLUTION IN THE NEBULIZER AT LEAST 3 TIMES A DAY BUT ACCORDING TO SPEECH LANGUAGE PATHOLOGIST TRAVEL SHE IS USING ONLY ONCE OR TWICE A DAY. SHE IS STILL SMOKING AND CLAIMS THAT SHE HAS CUT DOWN TO 1 PACK A DAY. SHE IS USING NICOTINE PATCH PRESCRIBED BY HER PCP. COMPARED TO HER MENTAL STATUS ON HER LAST VISIT, SHE IS VERY ALERT AND COOPERATIVE TODAY. [facility] Medical History (Updated 03/20/25 @ 16:42 by Brandie Friedman MD) COPD (chronic obstructive pulmonary disease) Hypoventilation associated with obesity REGINO (obstructive sleep apnea) Morbid obesity Respiratory failure with hypoxia and hypercapnia Cough Social History Household Members: Spouse Housing: Apartment Do you presently have visiting nurse or other home services: Yes Patient Tobacco Use Status: Current everyday Tobacco user Tobacco use type: Cigarette e-Cigarette/Vaping Use: Never Used Second Hand Smoke Exposure: No service: No Sexual orientation: Don't Know Review of Systems Const All systems reviewed & are unremarkable except as noted in HPI and below Eyes Reports no additional complaints ENT Reports no additional complaints Card Denies chest pain, Denies irregular heart rhythm and Denies leg edema Resp Reports as per HPI GI Reports no additional complaints Reports no additional complaints Musc Reports no additional complaints Skin/Breast Reports system reviewed and no additional complaints, except as documented Neuro Reports no additional complaints Psych Reports difficulty concentrating and Reports mood swings Endo Reports no additional complaints Chacho/Lymph Reports no additional complaints Physical Exam Vital Signs: Last Vital Signs Pulse 94 03/20/25 14:36 BP 152/90 H 03/20/25 14:36 Pulse Ox 91 L 03/20/25 14:36 Oxygen Delivery Method Room Air 03/20/25 14:36 BMI result Body Mass Index 59.3 SUPER MORBIDLY OBESE WITH A ROUND FACE, SHORT AND OBESE NECK. HER WEIGHT IS DOWN BY 12 LB THIS TIME . Const General: comfortable, no acute distress, alert and awake Orientation/consciousness: patient oriented x3 HEENT Head: Yes normal to inspection General nose exam: No nasal polyps present and No nasal discharge present Face and sinus: Yes sinuses nontender Mouth: oropharynx abnormals (NARROW AND CROWDED, MALLAMPATI SCALE 3) Throat: Yes posterior oropharynx normal Eyes General: appearance normal, both eyes and all related structures Neck Neck: Yes normal visual inspection, Yes no lymphadenopathy, Yes trachea midline and Yes no JVD Thyroid: Thyroid normal Chest Chest palpation & inspection: normal inspection of the chest, normal palpation of entire chest wall and no tenderness Resp Other: PERCUSSION NOTE NOT PERCEPTIBLE BECAUSE OF GROSS OBESITY. BREATH SOUNDS ARE DIMINISHED OVER THE LOWER LOBES. NO CREPITATIONS OR WHEEZES ARE HEARD. Cardio Palpation: PMI not normal (NOT PALPABLE) Rate: regular rate Rhythm: regular rhythm Heart sounds: no gallops and no murmurs Peripheral pulses: Peripheral pulses 2+ throughout GI Inspection: Yes other (ABDOMEN IS OBESE AND PROTUBERANT) Palpation (GI): Soft to palpation, nontender, No hepatosplenomegaly present and no masses Auscultation: normal bowel sounds Back/Spine/Pelvis Thoracic/Lumbar Spine: thoracic and lumbar spine normal to inspection Skin General skin exam: no rashes or lesions noted Neuro General: patient oriented x3 and no focal motor deficits Cranial nerves: Yes CN's II-XII intact bilaterally Extrem General: Yes normal to inspection, Yes no clubbing, cyanosis or edema and Yes no calf tenderness Psych Appearance: grossly normal and well kempt Speech and movement: Normal speech and movement present Affect: Anxious affect present Attitude: cooperative Results Reviewed Results Reviewed: VENOUS BLOOD GAS TEST PH = 7.47 PCO2 = 47 PO2 75 Assessment & Plan Assessment & Plan (1) Schizophrenia: Comment: SHE IS A CASE OF HEAVY DUTY SHIZOPHRENIC DISORDER, LIVES AT HOME INDEPENDENTLY. SUPERVISED BY [facility] PROGRAM . Code(s): F20.9 - Schizophrenia, unspecified Category: Medical Plan: CONTINUE ON ALL THE CURRENT ANTIPSYCHOTIC MEDICATIONS AND CONTINUE REGULAR FOLLOW-UP WITH MENTAL HEALTH TEAM. (2) Morbid obesity: Comment: PATIENT IS SUPER MORBIDLY OBESE I THINK HER PSYCHOTIC PROBLEM, CONTRIBUTES TO THE OBESITY. THIS IS THE CAUSE OF HER SLEEP APNEA AND HYPOVENTILATION SYNDROME. Code(s): E66.01 - Morbid (severe) obesity due to excess calories Category: Medical Plan: SHE TOLD ME THAT SHE IS WORKING WITH HER PCP AND TRYING TO, GET AUTHORIZATION FOR USING ANTI OBESITY DRUGS SUCH ZEPBOUND. (3) Hypoventilation associated with obesity: Comment: [facility] ( OBESITY/HYPOVENTILATION, SYNDROME SHE HAS CHRONIC HYPOVENTILATION AND CHRONIC RESPIRATORY FAILURE WITH HYPOXEMIA AND HYPERCAPNIA. CLINICALLY SEEMS TO BE RELATIVELY BETTER TODAY. Code(s): E66.2 - Morbid (severe) obesity with alveolar hypoventilation Category: Medical Plan: SHE NEEDS TO CONTINUE USING THE HOME RESPIRATOR EVERY NIGHT AT LEAST FOR 6-8 HOURS PER NIGHT . SHE WOULD LIKE TO HAVE A NASAL INTERFACE AND WE ARE GOING TO ORDER NASAL MASK FOR HER. 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 (4) REGINO (obstructive sleep apnea): Comment: AGAIN THE OBSTRUCTIVE SLEEP APNEA IS PART OF MORBID OBESITY/HYPOVENTILATION SYNDROME Code(s): G47.33 - Obstructive sleep apnea (adult) (pediatric) Category: Medical Plan: CONTINUE TO USE THE HOME VENTILATOR AT LEAST 6-8 HOURS EVERY NIGHT. (5) Respiratory failure with hypoxia and hypercapnia: Comment: SHE IS ON HOME RESPIRATOR AND CLAIMS THAT SHE IS USING IT REGULARLY. THE FIBER OPTICS SUPERVISOR INDICATE THAT SHE DOES MISS ON SOME NIGHTS. THE VENOUS BLOOD GAS STUDY IS DEFINITELY IMPROVED ( PCO2 DOWN TO 47) Code(s): J96.91 - Respiratory failure, unspecified with hypoxia; J96.92 - Respiratory failure, unspecified with hypercapnia Category: Medical Plan: I COMMENDED HER FOR USING THE VENTILATOR REGULARLY. TOLD HER THAT THE BLOOD GASES ARE DEFINITELY IMPROVED. ENCOURAGED THAT SHE SHOULD CONTINUE TO USE THE HOME VENTILATOR FOR 4-6 HOURS EVERY NIGHT. (6) COPD (chronic obstructive pulmonary disease): Comment: PATIENT IS A HEAVY SMOKER, NOW HAS CUT DOWN TO 1 PACK A DAY. SHE DOES HAVE INTERMITTENT COUGH AND SOME WHEEZING, MOST LIKELY SHE DOES HAVE ASSOCIATED OBSTRUCTIVE AIRWAY DISORDER AND DEFINITELY RESTRICTIVE PULMONARY DISEASE. SHE IS TRYING TO CUT DOWN THE SMOKING. SAY IS HER PRIMARY CARE PHYSICIAN HAS ORDERED NICOTINE PATCH AND SHE PLANS TO USE IT. Code(s): J44.9 - Chronic obstructive pulmonary disease, unspecified Category: Medical Plan: ADVISED TO USE IPRATROPIUM-ALBUTEROL SOLUTION IN THE NEBULIZER Q 6 HOURS WHILE AWAKE ( tid ) DO DEEP BREATHING EXERCISES 2 TO 3 TIMES A DAY Orders: Orders Venous Blood Gas Today J96.91 - Respiratory failure, unspecified with hypoxia, J96.92 - Respiratory failure, unspecified with hypercapnia Coding Level of Care Code Est Pt Level 3 (36951) Diagnoses Schizophrenia F20.9 Morbid obesity E66.01 Hypoventilation associated with obesity E66.2 REGINO (obstructive sleep apnea) G47.33 Respiratory failure with hypoxia and hypercapnia J96.91; J96.92 COPD (chronic obstructive pulmonary disease) J44.9
--- OUTSIDE RECORDS SUMMARY | 2025-03-20 19:09 | XMS_ITS | Clinical Summary ---
Author Organization [employer] Address [address] [place] [address] Care Team Providers Care Rn L And D Name Role Phone Yudith Suarez MD Primary Care Provider [phone] Allergies Active Allergy Reactions Criticality Noted Date Comments Lactulose 01/14/2012 Oxycodone 01/14/2012 Octacosanol 09/13/2023 Medications lithium ER (Lithobid) 300 MG 12 hr tablet Take 2 tablets by mouth at bedtime. 08/11/19 24 Active OLANZapine zydis (ZyPREXA) 10 MG disintegrating tablet Take 1 tablet by mouth at bedtime. 06/30/19 24 Active Eva 0.35 MG tablet Take 1 tablet (0.35 mg) by mouth Once per day. 28 tablet 11 5 3:40 PM EST 08/18/19 25 Active folic acid (Folvite) 400 MCG tablet TAKE 1 TABLET BY MOUTH ONCE DAILY 30 tablet 11 5 12:19 PM EST 08/18/19 25 Active Multiple Vitamin (Daily-Paul) tabletIndications: Fatigue due to depression TAKE 1 TABLET BY MOUTH ONCE DAILY 30 tablet 11 5 12:19 PM EST 08/18/19 25 Active ibuprofen 600 MG tablet TAKE 1 TABLET BY MOUTH 3 (THREE) TIMES A DAY NEEDED FOR PAIN 90 tablet 3 5 3:40 PM EST 10/10/19 25 Active loratadine (Claritin) 10 MG tablet TAKE 1 TABLET BY MOUTH ONCE DAILY 30 tablet 11 10/24/19 25 Active albuterol (2.5 MG/3ML) 0.083% nebulizer solution Take 2.5 mg by nebulization every 4 (four) hours. 01/04/20 25 Active lithium 150 MG capsule Take 1 capsule by mouth before breakfast. 12/19/19 25 Active ipratropium-albute rol (Duo-Neb) 0.5-2.5 mg/3 mL nebulizer solutionIndication s:Chronic obstructive pulmonary disease with acute exacerbation (CMS/HCC) ([facility]) Take 3 mL by nebulization every 8 (eight) hours if needed for shortness of breath or wheezing. 180 mL 01/15/20 25 Active cyanocobalamin (Vitamin B-12) 1000 MCG tablet TAKE 1/2 TABLET BY MOUTH ONCE DAILY 15 tablet 5 01/22/20 25 Active Tirzepatide (Mounjaro) 2.5 MG/0.5ML solution auto-injectorIndic ations:Morbid obesity with BMI of 50.0-59.9, adult ([facility]) ([facility]),Type 2 diabetes mellitus without complication, without long-term current use of insulin ([facility]),REGINO on CPAP Inject 2.5 mg under the skin 1 (one) time per week. Start 2.5 mg weekly x 4 weeks, then increase to 5 mg weekly x 4 weeks, then 7.5 mg weekly 2 mL 03/20/20 25 026 Active Tirzepatide-Weight Management 2.5 MG/0.5ML solution auto-injector Inject 0.5 mL (2.5 mg) under the skin 1 (one) time per week. 2 mL 3 02/13/20 25 025 Discontin ued(Cost of medicatio n) Semaglutide,0.25 or 0.5MG/DOS, (Ozempic, 0.25 or 0.5 MG/DOSE,) 2 MG/3ML solution pen-injectorIndica tions:Type 2 diabetes mellitus with other specified complication, without long-term current use of insulin ([facility]),Class 3 obesity with alveolar hypoventilation, serious comorbidity, and body mass index (BMI) of 50.0 to 59.9 in adult ([facility]) Inject 0.25 mg under the skin 1 (one) time per week. 2 mL 1 03/06/20 25 025 Discontin ued(Cost of medicatio n) Active Problems Problem Noted Date Diagnosed Date Elevated blood-pressure read ing without diagnosis of hypertension 01/31/2025 Sore throat 11/08/2012 Chronic schizophrenia (CMS/HCC) 01/14/2012 Gastroesophageal reflux disease 01/14/2012 Obesity 01/14/2012 Tobacco dependence syndrome 01/14/2012 Resolved Problems Problem Noted Date Diagnosed Date Resolved Date Cocaine abuse 07/24/2013 01/31/2025 Encounters Date Type Department Care Team Description 03/20/2025 11:30 AM EST Office Visit [facility] [address] [place] [address] Yudith Suarez MD Breast cancer screening by mammogram (Primary Dx); Morbid obesity with BMI of 50.0-59.9, adult ([facility]) (HCC); Type 2 diabetes mellitus without complication, without long-term current use of insulin (HCC); REGINO on CPAP 03/20/2025 Orders Only GENERIC EXTERNAL DATA DEPARTMENT Provider, Generic External Data 03/20/2025 Travel 03/19/2025 Telephone [facility] [address] [place] [address] Yudith Suarez MD 02/21/2025 Telephone [facility] [address] [place] [address] Martin Barillas MD PFT ORDER 02/20/2025 Telephone [facility] [address] [place] [address] Yudith Suarez MD 02/13/2025 Orders Only [facility] [address] [place] [address] Yudith Suarez MD Chronic schizophrenia ([facility]) (HCC) (Primary Dx); Class 3 obesity with alveolar hypoventilation, serious comorbidity, and body mass index (BMI) of 50.0 to 59.9 in adult (HCC); Morbid obesity with BMI of 50.0-59.9, adult ([facility]) (HCC); Prediabetes 02/12/2025 Orders Only [facility] [address] [place] [address] Yudith Suarez MD 02/11/[address] [address] Yudith Suarez MD Nutrition Consult 02/08/[address] [address] Yudith Suarez MD Nutrition Consult 01/31/2025 9:15 AM EDT Office Visit [facility] [address] [place] [address] Yudith Suarez MD Tobacco dependence syndrome (Primary Dx); Dietary counseling; Exercise counseling; Chronic schizophrenia (CMS/HCC) (HCC); Elevated blood-pressure reading without diagnosis of hypertension; Class 3 obesity with alveolar hypoventilation, serious comorbidity, and body mass index (BMI) of 50.0 to 59.9 in adult (HCC) 01/31/2025 Travel 01/29/2025 Telephone [facility] [address] [place] [address] Yudith Suarez MD Chart Prep 01/23/2025 Patient Outreach [address] [address] Yudith Suarez MD Pre-visit Planning (Pre visit planning unable to LVM ) 01/18/2025 Refill [facility] [address] [place] [address] Yudith Suarez MD 01/17/2025 Results Follow-Up [facility] [address] [place] [phone] Martin Barillas MD POCT Glucose, POCT Hgb A1c, Hbmmr-0-Wsyofdhdbho, Quantitative 01/14/2025 10:15 AM EDT Office Visit [facility] [address] [place] [address] Martin Barillas MD Chronic obstructive pulmonary disease with acute exacerbation (CMS/HCC) (HCC) (Primary Dx); Morbid obesity with BMI of 50.0-59.9, adult (CMS/HCC) (HCC); Encounter for vaccination; Encounter for immunization; Excessive daytime sleepiness 01/14/2025 Travel 01/07/2025 Telephone [facility] [address] [place] [address] Yudith Suarez MD Hospital Follow-up 01/01/2025 Orders Only GENERIC EXTERNAL DATA DEPARTMENT Provider, Generic External Data 12/24/2024 Telephone [facility] MEDIC[facility] [address] [place] [address] Yudith Suarez MD Nurse Triage from Last 3 Months Immunizations Immunization Administration Dates Next Due DTaP 09/02/1989, 6,1984,1984,1984 Hep B, Adolescent or Pediatric 07/11/1996,1995,02/17/1996 Hib ([facility]) 09/02/1989 IPV 09/02/1989, 6,1984,1984 Influenza [...] Orientation Straight 03/20/2025 11 :57 AM EST Last Filed Vital Signs Vital Sign Reading Time Taken Comments Blood Pressure 134/100 03/20/2025 11:28 AM EST Pulse 84 03/20/2025 11:28 AM EST Temperature 36 C (96.8 F) 03/20/2025 11:28 AM EST Respiratory Rate 20 03/20/2025 11:28 AM EST Oxygen Saturation 90% 01/14/2025 9:57 AM EDT Inhaled Oxygen Concentration - - Weight 144 kg (318 lb) 03/20/2025 11:28 AM EST Height 158.1 cm (5' 2.25 ) 01/14/2025 9:57 AM ED T Body Mass Index 57.7 01/14/2025 9:57 AM EDT Plan of Treatment Upcoming Encounters Date Type Department Care Team ([facility] Contact Info) Description 05/02/2025 1:15 PM EST Office Visit [facility] [address] [place] [address] Yudith Suarez MD [address] [place] [address] Health Maintenance Due Date Last Done Comments Dental Prophylaxis 1984 Diabetes: Foot Exam 1994 Eye Exam 1994 HPV Vaccines (1 - 3-dose series) 06/28/1999 Diabetes: Urine Protein Screening 06/28/2003 Pap Smear 2005 Cervical Cancer Screening 2014 HPV/Cotest 2014 Dental Oral Exam 03/15/2024 09/13/2023, 05/17/2016 Mammogram 2024 Dental X-Ray: Bitewings 09/13/2024 09/13/2023, 05/17 DTaP/Tdap/Td Vaccines (6 - Td or Tdap) 03/24/2025 03/24/2015, 04/20/2000, 09/02/1989, Additional history exists Diabetes: Hemoglobin A1C 08/01/2025 025, 01/14/2025, 08/23/2023 Alcohol/Substance Use Screening 01/31/2026 01/31/2025 Depression Screening 01/31/2026 01/31/2025, 02/01/20 25 Disability Screening 01/31/2026 01/31/2025 Family Planning (PISQ) 01/31/2026 01/31/2025 SDOH Screening 01/31/2026 01/31/2025 Lipid Panel 02/01/2026 02/01/2025, 08/23/2023 Tobacco Screening 03/20/2026 03/20/2025 Dental X-Ray: Full Mouth 09/13/2026 09/13/2023, 05/05 Zoster Vaccines (1 of 2) 2034 RSV [...] on patient's age to complete this topic Goals Goal Patient Goal Type Associated Problems Recent Progress Patient-Stated? Author Help patients manage their type 2 diabetes Care Plan Help patients manage their type 2 diabetes Yudith Chaves MD Patient has chronic kidney disease Care Plan Patient has chronic kidney disease Yudith Chaves MD Procedures Procedure Name Priority Date/Time Associated Diagnosis Comments VENOUS BLOOD GAS Routine 03/20/2025 3:30 PM EST VENOUS BLOOD GAS Routine 02/06/2025 2:14 PM EST FERRITIN Routine 02/01/2025 9:09 AM EDT Dietary counseling Exercise counseling Chronic schizophrenia ([facility]/HCC) (HCC) Tobacco dependence syndrome LITHIUM Routine 02/01/2025 [...] Chronic schizophrenia (CMS/HCC) (HCC) Tobacco dependence syndrome [id number] QN Routine 01/16/2025 1:04 PM EDT Chronic [...] Maintenance Results * (ABNORMAL) VENOUS BLOOD GAS (03/20/2025 3:30 PM EST) Only the most recent of3 resultswithin the time period is included. VBG pH 7.43 7.32 - 7.43 [facility] VBG PCO2 47 mmHg [facility] VBG PO2 75 mmHg [facility] VBG Base Excess 6.8 mmol/L [facility] VBG HCO3 32(H) 22 - 26 mmol/L [facility] O2 Sat, Kana 97.0 % [facility] 03/20/2025 3:30 PM EST 03/20/2025 3:58 PM EST us Generic External Data Provider LAB BLOOD ORDERAB LES Final Result [facility] [address] [place] [address] [phone] * (ABNORMAL) Basic Metabolic Panel, Fasting (02/01/2025 9:09 AM EDT) Sodium 141 135 - 145 mmol/L [facility] Potassium 4.0 3.3 - 5.1 mmol/L [facility] Chloride 102 96 - 108 mmol/L [facility] Carbon Dioxide 31(H) 22 - 29 mmol/L [facility] Anion Gap 12 12 - 20 [facility] Urea Nitrogen (BUN) 7(L) 9 - 16 mg/dL [facility] Creatinine, Serum 0.59 0.5 - 1.4 mg/dL [facility] Estimated Glomerular Filt Rate >60 [facility] Comment:Chronic Kidney Disea se: Estimated GFR < 60 mL/min/1.80c5Mucvyo Kidney Disease: Estimated GFR < 15 mL/min/1.73m2 Glucose Fasting 104(H) 60 - 99 mg/dL [facility] Comment:A fasting glucose fr om 100-125 mg/dl is considered impaired(pre-diabetes). Calcium 8.7 8.4 - 10.2 mg/dL [facility] Blood Venous blood specimen / Unknown 02/01/2025 9:09 AM EDT 02/01/2025 2:00 PM EDT us Yudith Suarez MD LAB BLOOD ORDERABLES Final Re sult [facility] [address] [place] [address] [phone] * Vitamin D, 25-Hydroxy, Total, Immunoassay (02/01/2025 9:09 AM EDT) Vitamin D 25-OH Total 43.0 >30 ng/mL [facility] Comment: Health Based Reference Values*< 20 ng/mL Dqvnvenyg77-17 ng/mL Insufficient> 30 ng/mL Sufficient*Jacinta LUGO. N Engl J Med. 2007;357:[id number] is [...] ORDERABLES Final Re sult Performing Organization Address [facility] Co de Phone Number [facility] [address] [place] [phone] * TSH W/Reflex to FT4 (02/01/2025 9:09 AM EDT) TSH reflex Free T4 0.60 0.32 - 4.0 uIU/mL [facility] Blood Venous blood specimen / Unknown 02/01/2025 9:09 AM EDT 02/01/2025 2:00 PM EDT Yudith Suarez MD LAB BLOOD ORDERABLES Final Re sult Performing Organization Address [facility] Co de Phone Number [facility] [address] [place] [phone] * (ABNORMAL) CBC auto differential (02/01/2025 9:09 AM EDT) Only the most recent of2 resultswithin the time period is included. White Blood Count 14.1(H) 4.8 - 10.8 X10*3/uL [facility] Red Blood Count 5.05 4.20 - 5.50 X10*6/uL [facility] Hemoglobin 12.6 12.0 - 16.0 g/dl [facility] Hematocrit 43.7 37.0 - 47.0 % [facility] Mean Corpuscular Volume 86.5 80.0 - 98.0 fL [facility] Mean Corpuscular Hemoglobin 25.0(L) 27.0 - 33.0 pg [facility] Mean Corpuscular HGB Conc 28.8(L) 31.0 - 35.0 g/dl [facility] Red Cell Distribution Width 15.3 11.0 - 16.0 % [facility] Platelet Count 347 160 - 400 X10*3/uL [facility] Mean Platelet Volume 10.1 9.4 - 12.3 fL [facility] Neutrophils Percent Auto 77.4(H) 45 - 73 % [facility] Imm Gran Pct Auto 0.8(H) 0.0 - 0.4 % [facility] Lymphocytes Percent Auto 15.8(L) 20 - 40 % [facility] Monocytes Percent Auto 4.0 2 - 11 % [facility] Eosinophils Percent Auto 1.7 0 - 4 % [facility] Basophils Percent Auto 0.3 0 - 2 % [facility] NRBC Pct Auto 0.0 0.0 - 0.2 /100WBC [facility] Neutrophils Absolute Auto 10.9(H) 2.0 - 8.3 x10*3/uL [facility] Imm Gran Abs Auto 0.11(H) 0.00 - 0.03 X10*3/uL [facility] Lymphocytes Absolute Auto 2.2 1.2 - 4.9 X10*3/uL [facility] Monocytes Absolute Auto 0.6 0.1 - 1.2 X10*3/uL [facility] Eosinophils Absolute Auto 0.2 0.0 - 0.4 X10*3/uL [facility] Basophils Absolute Auto 0.0 0.0 - 0.2 X10*3/uL [facility] NRBC Abs Auto 0.000 0.0 - 0.012 X10*3/uL [facility] Blood Venous blood specimen / Unknown 02/01/2025 9:09 AM EDT 02/01/2025 2:00 PM EDT us Yudith Suarez MD LAB BLOOD ORDERABLES Final Re sult Performing Organization Address [facility] de Phone Number [facility] [address] [place] [phone] * Hemoglobin A1c (02/01/2025 9:09 AM EDT) Hemoglobin A1c 5.8 <6.0 % [facility] Comment:Hemoglobin A1C Refer ence Range Adults: 4.8 - 6.0 % Non diabetic: < 6.0 % Goal: < 7.0 %Additional Action Suggested: > 8.0 %Note: Hemoglobin A1c results are invalid for patients with abnormal amounts of HbF. Blood transfusions may impact the HbA1c concentration in the patient sample. Estimated Average Glucose 120 mg/dL [facility] Comment:eAG = Estimated ave rage glucose which is %A1C expressed asaverage glucose, using the formula of the [id number] Glucose study (ADAG), Diabetes Care, Vol.31,#8,2007 Blood Venous blood specimen / Unknown 02/01/2025 9:09 AM EDT 02/01/2025 2:00 PM EDT us Yudith Suarez MD LAB BLOOD ORDERABLES Final Re sult Performing Organization Address City/[facility] Co de Phone Number [facility] [address] [place] [phone] * Ferritin (02/01/2025 9:09 AM EDT) Ferritin 28 10 - 250 ng/mL [facility] Blood Venous blood specimen / Unknown 02/01/2025 9:09 AM EDT 02/01/2025 2:00 PM EDT us Yudith Suarez MD LAB BLOOD ORDERABLES Final Re sult Performing Organization Address [facility] Co de Phone Number [facility] [address] [place] [phone] * (ABNORMAL) [place] (02/01/2025 9:09 AM EDT) Only the most recent of2 resultswithin the time period is included. [place] 0.37(L) 0.60 - 1.20 mmol/L [facility] Blood Venous blood specimen / Unknown 02/01/2025 9:09 AM EDT 02/01/2025 2:00 PM EDT Yudith Suarez MD LAB BLOOD ORDERABLES Final Re sult Performing Organization Address [facility] Phone Number [facility] [address] [place] [phone] * Hepatic Function Panel (02/01/2025 9:09 AM EDT) Only the most recent of2 resultswithin the time period is included. Bilirubin, Total 0.2 0.0 - 1.0 mg/dL [facility] Bilirubin, Direct <0.2 0.0 - 0.5 mg/dL [facility] Aspartate Amino Transferase 20 5 - 31 U/L [facility] Alanine Aminotransferase 16 0 - 31 U/L [facility] Total Protein 6.9 6.5 - 8.0 g/dL [facility] Albumin Level 4.1 3.5 - 5.0 g/dL [facility] Alkaline Phosphatase 95 39 - 117 U/L [facility] Blood Venous blood specimen / Unknown 02/01/2025 9:09 AM EDT 02/01/2025 2:00 PM EDT Yudith Suarez MD LAB BLOOD ORDERABLES Final Re sult Performing Organization Address [facility] Co de Phone Number [facility] [address] [place] [phone] * (ABNORMAL) Lipid Panel, Standard (02/01/2025 9:09 AM EDT) Triglycerides 122 <150 mg/dL [facility] Comment:Desirable Triglyceri de: less than 150 mg/dLBorderline High Triglyceride 150-199 mg/dLHigh Triglyceride: 200-499 mg/dLVery High Triglyceride: greater than or equal to 5OO mg/dL Cholesterol 172 <200 mg/dL [facility] Comment:Desirable Cholestero l: less than 200 mg/dLBorderline High Cholesterol: 200-239 mg/dLHigh Cholesterol: greater than 239 mg/dL LDL Cholesterol Calculated 115(H) <100 mg/dL [facility] Comment:Desirable LDL: less than 100 mg/dLNear Optimal/Above Optimal LDL: 110- 129 mg/dLBorderline High LDL: 130-159 mg/dLHigh LDL: 160-189 mg/dLVery High LDL: greater than or equal to 190 mg/dL HDL Cholesterol 33(L) >40 mg/dL [facility] Comment:Desirable HDL: great er than 40 mg/dL Note: This HDL assay may give artificially low results in patients with liver disease. Blood Venous blood specimen / Unknown 02/01/2025 9:09 AM EDT 02/01/2025 2:00 PM EDT us Yudith Suarez MD LAB BLOOD ORDERABLES Final Re sult [facility] [address] [place] [phone] * Xffnk-5-Brqsyvieqgp, Quantitative (01/16/2025 1:04 PM EDT) Nimfi-0-Mzachaul sin QN 169 83 - 199 mg/dL [facility] Comment:THIS TEST WAS PERFOR MED AT:[facility] [place] [phone] KENNEDY MD Blood Venous blood specimen / Unknown 01/16/2025 1:04 PM EDT 01/16/2025 2:07 PM EDT Martin Barillas MD LAB BLOOD ORDERABLES Final Result [facility] [address] [place] [phone] * POCT Glucose (01/14/2025 11:55 AM [...] PM EDT Narrative 01/01/2025 2:20 PM EDT [address] [address] XRay Report Signed Patient: Anusha Felipe MR#: [id number] : 1985 Acct:[id number] Age/Sex: 39 / F ADM Date: 01/01/25 Loc: .ED Attending Dr: Ordering Physician: Per Novak MD Date of Service: 01/01/25 Procedure(s): XR chest 1V Accession Number(s): [id number] cc: Yudith Suarez MD; Per Novak MD [...] acute cardiopulmonary abnormality. Electronically signed by: Favio Etsrella MD 01/01/2025 02:17 PM EDT RP Dictated By: Favio Estrella MD Signed By: <Electronically signed by Favio Estrella MD in OV> 01/01/25 1417 DD/ 1404 TD/TT: 01/01/25 1414 Keyboard Teacher: Procedure Note Donotuseinterpreter, Image - 01/01/[address] [address] XRay Report Signed Patient: Saadia Felipe#: [id number] 82 : 1985Acct:[id number] Age/Sex: 39 / FADM Date: 01/01/25 Loc: HO.ED Attending Dr: Ordering Physician: Per Novak MD Date of Service: 01/01/25 Procedure(s): XR chest 1V Accession Number(s): [id number] cc: Yudith Suarez MD; Per Novak MD [...] 01/01/25 1417 DD/ 1404 TD/TT: 01/01/25 1414 Keyboard Teacher: [facility] External Provider IMG XR PROCEDURES Final Result * High Sensitivity Troponin I (01/01/2025 1:01 PM EDT) [facility] TROPONIN I HIGH SENSITIVITY 3.7 <3.5 - 17.0 ng/L [facility] Comment:The [place] high sens itivity Troponin-I results should beused in conjunction with other diagnostic information suchas ECG, clinical observations and information, and patientsymptoms to aid in the diagnosis of MS. 01/01/2025 1:01 PM EDT 01/01/2025 1:06 PM EDT Generic External Data Provider LAB BLOOD ORDERAB LES Final Result Performing Organization Address [facility] Co de Phone Number [facility] [address] [place] [phone] * Magnesium (01/01/2025 1:01 PM EDT) Pathologist [facility] Magnesium 2.1 1.6 - 2.6 mg/dL [facility] 01/01/2025 1:01 PM EDT 01/01/2025 1:06 PM EDT Generic External Data Provider LAB BLOOD ORDERAB LES Final Result Performing Organization Address [facility] Co de Phone Number [facility] [address] [place] [phone] * (ABNORMAL) Basic Metabolic Panel (01/01/2025 1:01 PM EDT) Sodium 141 135 - 145 mmol/L [facility] Potassium 4.5 3.3 - 5.1 mmol/L [facility] Comment:Slight Hemolysis.Int erpret result with caution. Chloride 102 96 - 108 mmol/L [facility] Carbon Dioxide 30(H) 22 - 29 mmol/L [facility] Anion Gap 14 12 - 20 [facility] Urea Nitrogen (BUN) 8(L) 9 - 16 mg/dL [facility] Creatinine, Serum 0.68 0.5 - 1.4 mg/dL [facility] Creatinine Clr Calc Pharmacy 150.5 [facility] Comment:Provided height and weight: 157.48 cm,141.5 kg.eGFR (calculated from the MDRD study equation) and eCrCl(calculated from the Cockcroft-Gault equation) are based ondifferent parameters and may not yield comparable results.If eCrCl result is absurd, please check patient'sheight/weight. Estimated Glomerular Filt Rate >60 [facility] Comment:Chronic Kidney Disea se: Estimated GFR < 60 mL/min/1.27r5Buhygz Kidney Disease: Estimated GFR < 15 mL/min/1.73m2 Glucose 194(H) 60 - 115 mg/dL [facility] Calcium 9.2 8.4 - 10.2 mg/dL [facility] 01/01/2025 1:01 PM EDT 01/01/2025 1:06 PM EDT us Generic External Data Provider LAB BLOOD ORDERAB LES Final Result [facility] [address] [place] [phone] * Hepatitis C Antibody with Reflex to HCV, RNA, Quantitative, Real-Time PCR (01/04/2024 11:47 AM EDT) Pathologist [facility] Hepatitis C Antibody Nonreactive Nonreactive [facility] Comment:Antibodies to HCV no t detected; does not exclude early acuteHCV infection. Blood Venous blood specimen / Unknown 01/04/2024 11:47 AM EDT 01/04/2024 2:36 PM EDT Yudith Suarez MD LAB BLOOD ORDERABLES Final Re sult Performing Organization Address [facility] Co de Phone Number [facility] [address] [place] [phone] * HIV-1/2 Antigen and Antibodies, Fourth Generation, with Reflexes (01/04/2024 11:47 AM EDT) [facility] [facility] HIV AB/AG Nonreactive Nonreactive [facility] Comment:HIV-1 p24 Ag and/or HIV-1/HIV-2 Ab not detected.A test result that is nonreactive does not exclude thepossibility of exposure to or infection with HIV-1 and/orHIV-2. Nonreactive results in this assay for individualswith prior exposure to HIV-1 and/or HIV-2 may be due toantigen and antibody levels that are below the limit ofdetection of this assay.[employer] HIV Ag/Ab Combo assay result andsupplemental assay results should be interpreted inconjunction with the patient's clinical presentation,history and other laboratory results. If the results areinconsistent with clinical evidence, additional testing issuggested to confirm the result. Blood Venous blood specimen / Unknown 01/04/2024 11:47 AM EDT 01/04/2024 2:36 PM EDT us Yudith Suarez MD LAB BLOOD ORDERABLES Final Re sult Performing Organization Address [facility] Co de Phone Number [facility] [address] [place] [address] [phone] from Last 3 Months or Most Recently Relevant to Health Maintenance Additional Health Concerns Active Problems Noted Date Diagnosed Date Help patients manage their type 2 diabetes 03/20 Patient has chronic kidney disease 03/20/2025 Insurance [facility] , [address] [place], [place] [id number] [place] [address] [facility]AL-[facility] MEDICAID STAND ADULT Care Teams Rn L And D Relationship Specialty Start Date End Date Yudith Suarez MD [address] [place] [address] PCP - General Family Medicine 04/04/18
--- OUTSIDE RECORDS SUMMARY | 2025-03-20 19:09 | XMS_ITS | Encounter Summary ---
Author Organization [employer] Address [address] [place] [address] Care Team Providers Care Cafeteria Table Attendant Name Role Phone Yudith Suarez MD Primary Care Provider [phone] Encounter Details Date Type Department Care Team (Latest Contact Info) Description 03/20/2025 Travel Social History Tobacco Use Types Packs/Day [...] AM EST documented as of this encounter Plan of Treatment Upcoming Encounters Date Type Department Care Team (Late st Contact Info) Description 05/02/2025 1:15 PM EST Office Visit [facility] MED & PEDS [address] [place] [address] Yudith Suarez MD [address] [place] [address] documented as of this encounter Goals Goal [...] filedocumented in this encounter Additional Health Concerns Active Problems Noted Date Diagnosed Date Help patients manage their type 2 diabetes 03/20 Patient has chronic kidney disease 03/20/2025 Assessment Noted Time PHQ-9 Depression Total Score: 3 02/01/20 25 9:45 AM EDT documented as of this encounter Care Teams Cafeteria Table Attendant Relationship Specialty Start Date End Date Yudith Suarez MD [address] [place] [address] PCP - General Family Medicine 04/04/18 documented as of this encounter
--- OUTSIDE RECORDS SUMMARY | 2025-03-20 19:09 | XMS_ITS | Encounter Summary ---
Author Organization [employer] Address [address] [facility] [address]t [place] [address] Care Team Providers Care Directory Operator Name Role Phone Yudith Suarez MD Primary Care Provider [phone] Reason for Visit * Reason Onset Date Comments Paperwork/Forms 12/28/2023 Encounter Details Date Type Department Care Team ([facility] st Contact Info) Description 12/28/2023 Telephone [facility] MEDICINE [address] [place] [address] Yudith Suarez MD [address] [place], [place] [phone] Paperwork/Forms Social History Tobacco Use Types Packs/Day [...] AM EST documented as of this encounter Miscellaneous Notes * Telephone Encounter - Gopi Ramirez - 12/28/2023 8:27 AM EDT Christopher Fisher at [facility] calling to request the status of the physician form that was sent on 11/08 display card writer does see form in chart and has not been completed please complete and faxed to [phone] any questions please call [phone] documented in this encounter Plan of Treatment Upcoming Encounters Date Type Department Care Team (Late st Contact Info) Description 05/02/2025 1:15 PM EST Office Visit [facility] CHC MED & PEDS [address] [place] [address] Yudith Suarez MD [address] [place] [address] documented as of this encounter Visit Diagnoses Not on filedocumented in this encounter Care Teams Directory Operator Relationship Specialty Start Date End Date Yudith Suarez MD [address] [place] [address] PCP - General Family Medicine 04/04/18 documented as of this encounter
--- OUTSIDE RECORDS SUMMARY | 2025-03-20 19:09 | XMS_ITS | Encounter Summary ---
Author Organization [employer] Address [address] [facility] 7t [place] [address] Care Team Providers Care Aerospace Assembler Name Role Phone Yudith Suarez MD Primary Care Provider [phone] Encounter Details Date Type Department Care Team (Late st Contact Info) Description 09/14/2023 Orders Only [facility] CHC MED & PEDS [address] [place] [address] Martin Barillas MD [address] [place] [address] Social History Tobacco Use Types Packs/Day Years [...] Upcoming Encounters Date Type Department Care Team ([facility] st Contact Info) Description 05/02/2025 1:15 PM EST Office Visit [facility] MED & PEDS [address] [place] [address] Yudith Suarez MD [address] [place] [address] documented as of this encounter Visit Diagnoses Not on filedocumented in this encounter Care Teams Aerospace Assembler Relationship Specialty Start Date End Date Yudith Suarez MD [address] [place] [address] PCP - General Family Medicine 04/04/18 documented as of this encounter
--- OUTSIDE RECORDS SUMMARY | 2025-03-20 19:09 | XMS_ITS | Encounter Summary ---
Author Organization [employer] Address [address] [facility] 7t [place] [address] Care Team Providers Care Supervisor Keymodule Assembly Name Role Phone Yudith Suarez MD Primary Care Provider [phone] Encounter Details Date Type Department Care Team (Late st Contact Info) Description 03/20/2025 Orders Only GENERIC EXTERNAL DATA DEPARTMENT [...] Description 05/02/2025 1:15 PM EST Office Visit [facility] CHC MED & PEDS [address] [place], [place] [phone] Yudith Suarez MD [address] [place] [address] documented as of this encounter Goals Goal Patient Goal Type Associated Problems Recent Progress Patient-Stated? Author Help patients manage their type 2 diabetes Care Plan Help patients manage their type 2 diabetes No Yudith Suarez MD Patient has chronic kidney disease Care Plan Patient has chronic kidney disease No Yudith Suarez MD documented as of this encounter Procedures Procedure Name Priority Date/Time Associated Diagnosis Comments VENOUS BLOOD GAS Routine 03/20/2025 3:30 PM EST documented in this encounter Results * (ABNORMAL) VENOUS BLOOD GAS (03/20/2025 3:30 PM EST) VBG pH 7.43 7.32 - 7.43 [facility] VBG PCO2 47 mmHg [facility] VBG PO2 75 mmHg [facility] VBG Base Excess 6.8 mmol/L [facility] VBG HCO3 32(H) 22 - 26 mmol/L [facility] O2 Sat, Kana 97.0 % [facility] 03/20/2025 3:30 PM EST 03/20/2025 3:58 PM EST us Generic External Data Provider LAB BLOOD ORDERAB LES Final Result [facility] [address] [place] [address] [phone] documented in this encounter Visit Diagnoses Not on filedocumented in this encounter Additional Health Concerns Active Problems Noted Date Diagnosed Date Help patients manage their type 2 diabetes 03/20 Patient has chronic kidney disease 03/20/2025 Assessment Noted Time PHQ-9 Depression Total Score: 3 02/01/20 25 9:45 AM EDT documented as of this encounter Care Teams Supervisor Keymodule Assembly Relationship Specialty Start Date End Date Yudith Suarez MD [address] [place] [address] PCP - General Family Medicine 04/04/18 documented as of this encounter
--- OUTSIDE RECORDS SUMMARY | 2025-03-20 19:09 | XMS_ITS | Encounter Summary ---
Author Organization [employer] Address [address] [facility] [address]t [place] [address] Care Team Providers Care Leadership Program Associate Name Role Phone Yudith Suarez MD Primary Care Provider [phone] Encounter Details Date Type Department Care Team ([facility] st Contact Info) Description 03/19/2025 Telephone [facility] CHC MED & PEDS [address] [place], [place] [phone] Yudith Suarez MD [address] [place], [place] [phone] Social History Tobacco Use Types Packs/Day Years [...] encounter Miscellaneous Notes * Telephone Encounter - Kristine Graham MA - 03/19/2025 1:16 PM EST Chart Prep Labs: done Images: done Referrals: complete Vaccines due: due Screenings: mammogram, pap smear, eye exam, and foot exam Overdue care gaps: Glucose documented in this encounter Plan of Treatment Upcoming Encounters Date Type Department Care Team (Late st Contact Info) Description 05/02/2025 1:15 PM EST Office Visit [facility] CHC MED & PEDS [address] [place] [address] Yudith Suarez MD [address] [place] [address] documented as of this encounter Visit Diagnoses Not on filedocumented in this encounter Additional Health Concerns Assessment Noted Time PHQ-9 Depression Total Score: 3 02/01/20 25 9:45 AM EDT documented as of this encounter Care Teams Leadership Program Associate Relationship Specialty Start Date End Date Yudith Suarez MD [address] [place] [address] PCP - General Family Medicine 04/04/18 documented as of this encounter
--- OUTSIDE RECORDS SUMMARY | 2025-03-20 19:09 | XMS_ITS | Clinical Summary ---
Author Organization [facility] Prior to 09[facility]24 Address [address] [place] [address] Care Team Providers Care Slitter Creaser Slotter Helper Name Role Phone Unavailable Primary Care Provider Unavailabl e Social History Tobacco Use Types Packs/Day Years Used Date Smoking Tobacco: Never Assessed Sex and Gender Information Value Date Recorded Sex Assigned at Not on file Gender Identity Not on file Sexual Orientation Not on file Plan of Treatment Not on file
--- OUTSIDE RECORDS SUMMARY | 2025-03-20 19:09 | XMS_ITS | Encounter Summary ---
Author Organization [employer] Address [address] [facility] 7[address] [place] [address] Care Team Providers Care Medical Records Receptionist Name Role Phone Yudith Suarez MD Primary Care Provider [phone] Encounter Details Date Type Department Care Team (Late st Contact Info) Description 05/30/2024 Telephone [facility] ADULT DENTAL [address] [place], [place] [phone] Dariela, Shima [address] [place] [address] Social History Tobacco Use Types Packs/Day Years [...] Upcoming Encounters Date Type Department Care Team ([facility] st Contact Info) Description 05/02/2025 1:15 PM EST Office Visit [facility] MED & PEDS [address] [place] [address] Yudith Suarez MD [address] [place] [address] documented as of this encounter Visit Diagnoses Not on filedocumented in this encounter Care Teams Medical Records Receptionist Relationship Specialty Start Date End Date Yudith Suarez MD [address] [place] [address] PCP - General Family Medicine 04/04/18 documented as of this encounter
--- OUTSIDE RECORDS SUMMARY | 2025-03-20 19:09 | XMS_ITS | Encounter Summary ---
Author Organization [employer] Address [address] [facility] [address]t [place] [address] Care Team Providers Care Geophysical Party Chief Name Role Phone Yudith Suarez MD Primary Care Provider [phone] Encounter Details Date Type Department Care Team (Latest Contact Info) Description 01/17/2025 Results Follow-Up [facility] CHC MED & PEDS [address] [place] [address] Martin Barillas MD [address] [place] [address] POCT Glucose, POCT Hgb A1c, [id number], Quantitative Social History Tobacco Use Types Packs/Day [...] AM EST documented as of this encounter Functional Status [...] 9:45 AM EDT Louise Kemp MA * Trouble falling or staying asleep, or sleeping too much Answer Date of Assessment Author Not at all 01/31/2025 9:45 AM EDT Louise Kemp MA * Feeling tired or having little energy Answer Date of Assessment Author Not at all 01/31/2025 9:45 AM EDT Louise Kemp MA * Poor appetite or overeating Answer [...] Rodriguez MA documented as of this encounter Plan of Treatment Upcoming Encounters Date Type Department Care Team (Late st Contact Info) Description 05/02/2025 1:15 PM EST Office Visit [facility] CHC MED & PEDS [address] [place] [address] Yudith Suarez MD [address] [place] [address] documented as of this encounter Visit Diagnoses Not on filedocumented in this encounter Care Teams Geophysical Party Chief Relationship Specialty Start Date End Date Yudith Suarez MD [address] [place] [address] PCP - General Family Medicine 04/04/18 documented as of this encounter
== END 2025-03-20 15:01 | disposition home or self-care (01) ==
LOC: HO.HPS 14:21
PROVIDERS: PCP Pediatrics; Visit Provider Internal Medicine
DX: F20.9 Schizophrenia, unspecified (principal); E66.01 Morbid (severe) obesity due to excess calories; E66.2 Morbid (severe) obesity with alveolar hypoventilation; G47.33 Obstructive sleep apnea (adult) (pediatric); J96.91 Respiratory failure, unspecified with hypoxia; J96.92 Respiratory failure, unspecified with hypercapnia; J44.9 Chronic obstructive pulmonary disease, unspecified
CPT/HCPCS: 99213

== ENCOUNTER 2025-03-20 14:21 | Outpatient (REF) | payer MEDICARE, SELFPAY ==
[2025-03-20 15:38] LABS: Venous Blood Gas Refer to POC result
[2025-03-20 16:00] LABS: VBG HCO3 32 mmol/L (22-26)
[2025-03-20 16:01] LABS: VBG O2 % Saturation 97.0 %
== END 2025-03-20 14:22 | disposition home or self-care (01) ==
LOC: HO.LAB 14:21
PROVIDERS: PCP Pediatrics; Visit Provider Internal Medicine
DX: J44.9 Chronic obstructive pulmonary disease, unspecified (principal); F20.9 Schizophrenia, unspecified; E66.2 Morbid (severe) obesity with alveolar hypoventilation; J96.91 Respiratory failure, unspecified with hypoxia; J96.92 Respiratory failure, unspecified with hypercapnia
CPT/HCPCS: 36415; 82803